=== PATIENT | female | born 1955 | race Caucasian/White ===

== ENCOUNTER → 2017-06-26 | Outpatient (CLI) | payer MEDICARE, BC ==
[2017-06-26 16:35] LABS: Basophils % (A) 1 %; Eosinophils # (A) 0.1 k/uL (0-0.7); Eosinophils % (A) 1 %; HCT 38.6 % (34.0-46.0); HGB 12.5 gm/dL (11.4-16.0); Lymphocytes # (A) 1.2 k/uL (1.0-4.8); Lymphocytes % (A) 22 %; MCH 29.5 pg (25.0-35.0); MCHC 32.3 g/dL (31.0-37.0); MCV 91.5 fL (80.0-100.0); Mean Platelet Volume 8.3; Monocytes # (A) 0.4 k/uL (0-1.0); Monocytes % (A) 8 %; Neutrophils # (A) 3.8 k/uL (1.3-7.7); Neutrophils % (A) 67 %; Platelet Count 169 k/uL (150-450); RBC 4.21 m/uL (3.80-5.40); RDW 13.4 % (11.5-15.5); WBC 5.6 k/uL (3.8-10.6)
[2017-06-26 16:47] LABS: Albumin 3.9 g/dL (3.5-5.0); Calcium 9.9 mg/dL (8.4-10.2); Partial Thromboplastin Time 24.8 sec (22.0-30.0); Potassium 3.9 mmol/L (3.5-5.1); Prothrombin Time 9.6 sec (9.0-12.0); Total Bilirubin 0.5 mg/dL (0.2-1.3); Total Protein 7.2 g/dL (6.3-8.2)
[2017-06-26 17:20] LABS: Erythrocyte Sedimentation Rate 25 mm/hr (0-20)
[2017-06-28 09:57] LABS: Lyme IgG/IgM 0.1 Index
== END | disposition home or self-care (01) ==
LOC: LABWHC1 15:37
PROVIDERS: ATTEND Psychiatry & Neurology Neurology
DX: G35 Multiple sclerosis (principal)
CPT/HCPCS: 36415; 80053; 85025; 85610; 85652; 85730; 86038; 86618

== ENCOUNTER → 2017-07-15 | Outpatient (CLI) | payer MEDICARE, BC ==
--- NOTE | 2017-07-15 14:00 | MR ---
EXAMINATION TYPE: MR brain/cspine wo/w DATE OF EXAM: 07/15/2017 COMPARISON: Prior MRI brain July 14, 2010 HISTORY: MS with weakness. TECHNIQUE: Multiplanar, multisequence images of the cervical spine, brain, and brainstem are all performed witho ut and with IV contrast, utilizing 5.5 mL intravenous Gadavist gadolinium contrast is administered in travenously. Demyelinating disease protocol with additional Sagittal Flair sequence performed of the brain and brainstem and PD sagittal sequence of cervical spine all acquired. FINDINGS: BRAIN: T2 Lesions Present : Yes Approximate Number of Lesions: Difficult to accurately count due to confluent periventricular appeara nce Locations Identified : Prominent periventricular involvement Size of Reference Lesion(s): 1. Rounded 3 x 3 x 4 mm lesion left frontal lobe axial image 22 and sagittal image 13 new from prior. Note is made of stable left cerebellar oval 7 mm lesion axial image 7 possible old lacunar infarct. Enhancing Lesion(s) Present: No T1 Hypointense Lesion(s) Present: Yes Change from Prior: Increase in bilateral diffuse prominence Diffusion weighted images demonstrate no evidence of a recent infarct or other diffusion abnormality. There is no worrisome extra-axial fluid collection. There is ventricular and sulcal prominence cons istent with diffuse cerebral atrophy. Some thinning of the corpus callosum is present. Midline structures demonstrate normal morphology. The craniocervical junction appears within normal limits. Post contrast images demonstrate no abnormal enhancement. The dural venous sinuses appear pa tent. The visualized sinuses are clear and the globes are intact. IMPRESSION: Fairly moderate diffuse cerebral atrophy progressed from prior. Fairly advanced nonspecif ic white matter changes could reflect combination of product of multiple sclerosis and/or chronic sma ll vessel ischemic change with progression from 2011 MRI. No enhancing lesions are evident. C-SPINE: FINDINGS: Sagittal images of the cervical spine show the craniocervical junction to appear within nor mal limits. The cervical and upper thoracic spinal cord is normal in course and caliber. There are diffuse central areas of vein increased T2 signal beginning inferior C2 level roughly inferior T1 lev el with relative sparing near superior T1 level on sagittal image 7 confirmed on PD sagittal sequence . Vertebral alignment is anatomic. The vertebral body and heights are normal. There is mild to moder ate multilevel disc space narrowing with posterior disc herniations effacing anterior thecal sac C4-C 5 through C6-C7 levels on sagittal images. Bone marrow signal intensity is abnormal heterogeneous dim inished areas of low T1 and slight increased T2 signal that show postcontrast enhancement. Osseous me tastatic disease is in differential. Follow-up is advised. Axial images at the C2-C3 level are felt within normal limits. Axial images at C3-C4 level show broad-based central disc protrusion mildly effacing anterior thecal sac and causing mild to moderate bilateral neural foraminal narrowing. Axial images at C4-C5 level show more prominent broad-based disc protrusion with left paracentral com ponent effacing anterior thecal sac and causing mild to moderate left greater than right neural rickie inal narrowing. Axial images at C5-C6 level show broad-based disc bulge with central disc protrusion component effaci ng anterior thecal sac and causing mild to moderate left and mild right-sided neural foraminal narrow ing. Axial images at C6-C7 level shows central disc protrusion effacing anterior thecal sac causing flatte basim of spinal cord ventral surface and causing [id number] left and mild right-sided neural for aminal narrowing. Axial images at C7-T1 level are felt within normal limits. IMPRESSION: Abnormal cervical spinal cord signal on sagittal images is confirmed on axial images coul d reflect product of demyelinating disease. Other etiologies not excluded. No suspicious enhancement is seen. There is multilevel degenerative changes cervical spine as detailed above most prominent at C4-C5 through C6-C7 levels. Suspicious abnormal bone marrow signal intensity with enhancement, osseou s metastatic disease is in differential. Advise whole body bone scan follow-up. Clinical correlation recommended.
== END | disposition home or self-care (01) ==
LOC: RADMRIMAIN 11:42
PROVIDERS: ATTEND Psychiatry & Neurology Neurology
DX: G31.9 Degenerative disease of nervous system, unspecified (principal); R90.89 Other abnormal findings on diagnostic imaging of central nervous system; M47.812 Spondylosis without myelopathy or radiculopathy, cervical region; R93.7 Abnormal findings on diagnostic imaging of other parts of musculoskeletal system; G35 Multiple sclerosis
CPT/HCPCS: 70553; 72156; A9581

== ENCOUNTER → 2017-07-16 | Outpatient (CLI) | payer MEDICARE, BC ==
--- NOTE | 2017-07-16 12:54 | MR ---
EXAMINATION TYPE: MR thoracic spine wo con DATE OF EXAM: 07/16/2017 COMPARISON: MRI cervical spine from yesterday HISTORY: MS with weakness. TECHNIQUE: Multiplanar, multisequence imaging of thoracic spine is attempted without contrast FINDINGS: There is extensive motion artifact, patient was unable to hold still for satisfactory diagn ostic examination. Exam had to be terminated before could be completed for diagnostic results. IMPRESSION: As above.
== END | disposition home or self-care (01) ==
LOC: RADMRIMAIN 11:54
PROVIDERS: ATTEND Psychiatry & Neurology Neurology
DX: G35 Multiple sclerosis (principal); Z53.8 Procedure and treatment not carried out for other reasons
CPT/HCPCS: 72146

== ENCOUNTER → 2017-08-09 | Outpatient (CLI) | payer MEDICARE, BC ==
--- NOTE | 2017-08-09 13:02 | CT ---
EXAMINATION TYPE: CT brain wo con DATE OF EXAM: 08/09/2017 COMPARISON: 07/12/2010 INDICATION: Patient poor historian. Patient complains of multiple recent falls. Patient has contusi on on left side of face extending from superior to the orbit and extending inferiorly to the angle of the mandible. Contusion extends medially and surrounds the entire left orbit. DLP: 782.6 mGycm, Automated exposure control for dose reduction was used. CONTRAST: None CT of the brain is performed utilizing 3 mm thick sections through the posterior fossa and 3 mm thick sections through the remaining calvarium. Study is performed within 24 hours of arrival to the hosp ital. No abnormal hyperdensity is present to suggest an acute intracranial hemorrhage. No mass lesion is evident. No acute infarcts are evident. There is periventricular white matter hypodensity, likely on the basis of chronic white matter ischemic changes. This appears slightly progressive from the comparison of 2 011. Ventricles and sulci are somewhat prominent for the patient age. Paranasal sinuses and mastoid air cells within the [id number] are clear. IMPRESSIONS: 1. No acute intracranial process. 2. Chronic appearing white matter ischemic changes and age-related atrophy.
--- NOTE | 2017-08-09 13:06 | CT ---
EXAMINATION TYPE: CT facial bones wo con DATE OF EXAM: 08/09/2017 HISTORY: Patient poor historian. Patient complains of multiple recent falls. Patient has contusion on left side of face extending from superior to the orbit and extending inferiorly to the angle of th e mandible. Contusion extends medially and surrounds the entire left orbit. CT DLP: 500.1 mGycm. Automated Exposure Control for Dose Reduction was Utilized. TECHNIQUE: CT scan of the head is performed without contrast. COMPARISON: CT brain of the same date. FINDINGS: There is a left periorbital soft tissue hematoma measuring1.1 cm in thickness with soft t issue contusion and inflammatory fat stranding contain to the left preseptal space extending from the left medial canthus over the zygomatic arch in anterior to posterior dimension from the level of ang le of the mandible to the left supraorbital frontal temporal region in craniocaudal dimension. There is no evidence of underlying orbital or zygomatic arch fracture. Temporal mandibular joints are symme tric and in place without dislocation. Numerous dental fillings create extensive spray artifact and l imit visualization of surrounding structures. Left-sided rosemarie bullosa is present. No acute fracture of the lamina papyracea are seen. Small osteoma is present within the left frontal sinus measuring 7 mm. Visualized portions of the brain are discussed in the CT brain dictation of the same date. There is rightward nasal septal deviation. Maxillary spine and visualized portion of the nasal bone appear intact. Rightward nasal septal spur is incidentally seen. Visualized portion of the cervical spine m aintains alignment. The globes are symmetric and lenses are in place. IMPRESSION: Left periorbital preseptal soft tissue swelling and hematoma measuring 1.1 cm in greatest thickness with left-sided facial contusion extending from the inferior maxilla to the left frontal t emporal supraorbital region. No evidence of underlying facial bone fracture, globe rupture or lens di slocation.
== END | disposition home or self-care (01) ==
LOC: RADCTMAIN 12:06
PROVIDERS: ATTEND Family Medicine
DX: I67.82 Cerebral ischemia (principal); G31.1 Senile degeneration of brain, not elsewhere classified; S05.12XA Contusion of eyeball and orbital tissues, left eye, initial encounter
CPT/HCPCS: 70450; 70486

== ENCOUNTER 2018-01-10 12:18 | Inpatient (IN) | payer MEDICARE, BC ==
[2018-01-10] MEDS ORDERED: SODIUM CHLORIDE 0.9% 1,000 ML IV STA ×2 (13:07)
--- NOTE | 2018-01-10 13:10 | ED ---
General Adult HPI - General Chief complaint: Recheck/Abnormal Lab/Rx Stated complaint: Allergic Reaction Time Seen by Provider: 01/10/18 13:02 Source: patient, family, RN notes reviewed, old records reviewed Mode of arrival: wheelchair Limitations: no limitations - History of Present Illness Initial comments: 62-year-old female presenting for evaluation of generalized weakness and dehydration. Patient has history of MS and some residual right-sided weakness and contracture. Over the past several days she has begun oral antibiotics for urinary tract infection. Initially put on nitrofurantoin, symptoms did not improve patient had an episode of nausea and vomiting. She was switched to Bactrim. She's had one dose of Bactrim yesterday but has been unable to tolerate anything orally since that time. She's had nausea with one episode of vomiting. Patient is accompanied by her who is able to give the majority the history. Patient does complain of some chronic leg pain and cramping which is typical for her. No other pain complaints. No abdominal pain. No chest pain or dyspnea. No history of fever or chills. - Related Data Home Medications Medication Instructions Recorded Confirmed Amantadine HCl [Symmetrel] 100 mg PO BID 12/17/13 01/10/18 Aspirin 81 mg PO DAILY 12/17/13 01/10/18 Lisinopril [Zestril] 10 mg PO DAILY 12/17/13 01/10/18 Rebif 40 mcg INJ MOWEFR 12/17/13 01/10/18 levETIRAcetam [Keppra] 500 mg PO Q12HR 12/17/13 01/10/18 tiZANidine [Zanaflex] 4 mg PO QID 12/17/13 01/10/18 Carvedilol [Coreg] 3.125 mg PO BID 01/10/18 01/10/18 Levothyroxine Sodium [Synthroid] 50 mcg PO DAILY 01/10/18 01/10/18 Mirabegron [Myrbetriq] 25 mg PO DAILY 01/10/18 01/10/18 Omeprazole 20 mg PO DAILY 01/10/18 01/10/18 Sulfamethox-Tmp 800-160Mg [Bactrim 1 tab PO Q12HR 01/10/18 01/10/18 DS 800-160 mg] Allergies Allergy/AdvReac Type Severity Reaction Status Date / Time nitrofurantoin AdvReac Nausea Verified 01/10/18 13:12 [From Macrobid] Review of Systems ROS Statement: Those systems with pertinent positive or pertinent negative responses have been documented in the HPI. ROS Other: All systems not noted in ROS Statement are negative. Past Medical History Additional Past Medical History / Comment(s): MS History of Any Multi-Drug Resistant Organisms: None Reported Past Surgical History: No Surgical Hx Reported Past Psychological History: No Psychological Hx Reported Smoking Status: Never smoker Past Alcohol Use History: None Reported Past Drug Use History: None Reported General Exam Limitations: no limitations General appearance: alert, cachectic Head exam: Present: atraumatic, normocephalic Eye exam: Present: normal appearance, PERRL ENT exam: Present: mucous membranes dry Respiratory exam: Present: normal lung sounds bilaterally. Absent: respiratory distress, wheezes Cardiovascular Exam: Present: regular rate, normal rhythm GI/Abdominal exam: Present: soft. Absent: distended, tenderness, guarding Extremities exam: Present: normal inspection. Absent: pedal edema Neurological exam: Present: alert, motor sensory deficit (Right upper extremity weakness and spasticity) Skin exam: Present: warm, dry, intact. Absent: cyanosis, diaphoretic Course Vital Signs 01/10/18 01/10/18 01/10/18 12:39 12:58 13:00 Temperature 97.5 F L Pulse Rate 77 Respiratory 18 16 16 Rate Blood Pressure 117/79 122/84 122/84 O2 Sat by Pulse 98 99 Oximetry 01/10/18 14:00 Temperature Pulse Rate 71 Respiratory 14 Rate Blood Pressure 130/86 O2 Sat by Pulse 100 Oximetry EKG Findings - EKG Comments: EKG Findings:: EKG: Normal sinus rhythm, LVH, nonspecific ST segment abnormality , prolonged QT at 510. Ventricular rate is 74, NC interval 146, QRS duration 92 , poor baseline secondary artifact, no ST segment elevation appreciated. Medical Decision Making - Medical Decision Making 62-year-old female presenting with dehydration and concern for UTI. Patient clinically does appear profoundly dehydrated. Vital signs are stable. Initial infectious workup is significant for UTI with white cells 18 and many bacteria in the urine. Additional laboratory studies reveal significant abnormalities, white blood cell count 27.3, hemoglobin 10.9 which is stable from previous of 9.7. Creatinine 3.75 which is new elevation for this patient as well as a BUN of 69. Lactic acid mildly elevated 2.8. There is mild elevation in bilirubin at 1.5 as well as elevation in AST and alkaline phosphatase, for this reason ultrasound was obtained of the right upper quadrant which shows concern for acute cholecystitis as well as possible dilatation of the CBD. Case is discussed with both general surgery and gastroenterology loss prevention and safety manager. Both will be placed on consult for evaluation. Patient will be kept on IV hydration and IV antibiotics. General surgery recommends clear liquid diet. Patient does have a troponin elevation of 0.084, this is in the context of kidney dysfunction. She has no complaints of chest pain. Given her likely surgical requirements, no anticoagulation will be initiated, I will hydrate the patient, and repeat the troponin. Diagnosis: Dehydration, acute kidney injury, leukocytosis, concern for acute cholecystitis. - Lab Data Result diagrams: 01/10/18 13:31 01/10/18 13:31 Lab Results 01/10/18 01/10/18 01/10/18 Range/Units 13:31 13:31 13:31 WBC 27.2 H (3.8-10.6) k/uL RBC 3.70 L (3.80-5.40) m/uL Hgb 10.9 L (11.4-16.0) gm/dL Hct 32.5 L (34.0-46.0) % MCV 88.0 (80.0-100.0) fL MCH 29.5 (25.0-35.0) pg MCHC 33.5 (31.0-37.0) g/dL RDW 14.5 (11.5-15.5) % Plt Count 147 L (150-450) k/uL Neutrophils % 96 % Lymphocytes % 1 % Monocytes % 2 % Eosinophils % 0 % Basophils % 0 % Neutrophils # 26.2 H (1.3-7.7) k/uL Lymphocytes # 0.3 L (1.0-4.8) k/uL Monocytes # 0.5 (0-1.0) k/uL Eosinophils # 0.0 (0-0.7) k/uL Basophils # 0.0 (0-0.2) k/uL PT (9.0-12.0) sec INR (<1.2) APTT (22.0-30.0) sec Sodium 141 (137-145) mmol/L Potassium 3.8 (3.5-5.1) mmol/L Chloride 104 (98-107) mmol/L Carbon Dioxide 22 (22-30) mmol/L Anion Gap 15 mmol/L BUN 69 H (7-17) mg/dL Creatinine 3.75 H (0.52-1.04) mg/dL Est GFR (CKD-EPI)AfAm 14 (>60 ml/min/1.73 sqM) Est GFR (CKD-EPI)NonAf 12 (>60 ml/min/1.73 sqM) Glucose 85 (74-99) mg/dL Plasma Lactic Acid José (0.7-2.0) mmol/L Calcium 8.2 L (8.4-10.2) mg/dL Magnesium 1.8 (1.6-2.3) mg/dL Total Bilirubin 1.5 H (0.2-1.3) mg/dL AST 87 H (14-36) U/L ALT 52 (9-52) U/L Alkaline Phosphatase 241 H (38-126) U/L Total Creatine Kinase 762 H (30-135) U/L CK-MB (CK-2) 10.6 H (0.0-2.4) ng/mL CK-MB (CK-2) Rel Index 1.4 Troponin I 0.084 H* (0.000-0.034) ng/mL Total Protein 6.6 (6.3-8.2) g/dL Albumin 2.9 L (3.5-5.0) g/dL Urine Color Urine Appearance (Clear) Urine pH (5.0-8.0) Ur Specific [place] (1.001-1.035) Urine Protein (Negative) Urine Glucose (UA) (Negative) Urine Ketones (Negative) Urine Blood (Negative) Urine Nitrite (Negative) Urine Bilirubin (Negative) Urine Urobilinogen (<2.0) mg/dL Ur Leukocyte Esterase (Negative) Urine WBC (0-5) /hpf Ur Squamous Epith Cells (0-4) /hpf Urine Bacteria (None) /hpf Urine Mucus (None) /hpf 01/10/18 01/10/18 01/10/18 Range/Units 13:31 13:31 13:31 WBC (3.8-10.6) k/uL RBC (3.80-5.40) m/uL Hgb (11.4-16.0) gm/dL Hct (34.0-46.0) % MCV (80.0-100.0) fL MCH (25.0-35.0) pg MCHC (31.0-37.0) g/dL RDW (11.5-15.5) % Plt Count (150-450) k/uL Neutrophils % % Lymphocytes % % Monocytes % % Eosinophils % % Basophils % % Neutrophils # (1.3-7.7) k/uL Lymphocytes # (1.0-4.8) k/uL Monocytes # (0-1.0) k/uL Eosinophils # (0-0.7) k/uL Basophils # (0-0.2) k/uL PT 10.5 (9.0-12.0) sec INR 1.1 (<1.2) APTT 23.3 (22.0-30.0) sec Sodium (137-145) mmol/L Potassium (3.5-5.1) mmol/L Chloride (98-107) mmol/L Carbon Dioxide (22-30) mmol/L Anion Gap mmol/L BUN (7-17) mg/dL Creatinine (0.52-1.04) mg/dL Est GFR (CKD-EPI)AfAm (>60 ml/min/1.73 sqM) Est GFR (CKD-EPI)NonAf (>60 ml/min/1.73 sqM) Glucose (74-99) mg/dL Plasma Lactic Acid José 2.8 H* (0.7-2.0) mmol/L Calcium (8.4-10.2) mg/dL Magnesium (1.6-2.3) mg/dL Total Bilirubin (0.2-1.3) mg/dL AST (14-36) U/L ALT (9-52) U/L Alkaline Phosphatase (38-126) U/L Total Creatine Kinase (30-135) U/L CK-MB (CK-2) (0.0-2.4) ng/mL CK-MB (CK-2) Rel Index Troponin I (0.000-0.034) ng/mL Total Protein (6.3-8.2) g/dL Albumin (3.5-5.0) g/dL Urine Color Yellow Urine Appearance Turbid H (Clear) Urine pH 7.5 (5.0-8.0) Ur Specific [place] 1.012 (1.001-1.035) Urine Protein 2+ H (Negative) Urine Glucose (UA) Negative (Negative) Urine Ketones Negative (Negative) Urine Blood Moderate H (Negative) Urine Nitrite Negative (Negative) Urine Bilirubin Negative (Negative) Urine Urobilinogen 2.0 (<2.0) mg/dL Ur Leukocyte Esterase Moderate H (Negative) Urine WBC 18 H (0-5) /hpf Ur Squamous Epith Cells 1 (0-4) /hpf Urine Bacteria Many H (None) /hpf Urine Mucus Occasional H (None) /hpf Critical Care Time Critical Care Time: Yes Total Critical Care Time: 35 Disposition Clinical Impression: Sepsis, Acute cholecystitis, Dehydration, Acute renal failure Disposition: ADMITTED IP TO THIS HOSP Condition: Stable Is patient prescribed a controlled substance at d/c from ED?: No Referrals: Mreedith Peoples DO [Primary Care Provider] - 1-2 days Decision to Admit Reason: Admit from EC Decision Date: 01/10/18 Decision Time: 16:40
[2018-01-10 13:58] LABS: Basophils % (A) 0 %; Eosinophils % (A) 0 %; HCT 32.5 % (34.0-46.0); HGB 10.9 gm/dL (11.4-16.0); Lymphocytes # (A) 0.3 k/uL (1.0-4.8); Lymphocytes % (A) 1 %; MCH 29.5 pg (25.0-35.0); MCHC 33.5 g/dL (31.0-37.0); Mean Platelet Volume 9.2; Monocytes # (A) 0.5 k/uL (0-1.0); Monocytes % (A) 2 %; Neutrophils # (A) 26.2 k/uL (1.3-7.7); Neutrophils % (A) 96 %; Platelet Count 147 k/uL (150-450); RDW 14.5 % (11.5-15.5); WBC 27.2 k/uL (3.8-10.6)
--- NOTE | 2018-01-10 14:06 | XR ---
EXAMINATION TYPE: XR chest 2V DATE OF EXAM: 01/10/2018 COMPARISON: 02/15/2011 INDICATION: Weakness possible allergic reaction nausea TECHNIQUE: Frontal and lateral views of the chest are obtained. FINDINGS: The heart size is normal. The pulmonary vasculature is normal. The lungs are clear. IMPRESSION: 1. No acute pulmonary process.
[2018-01-10 14:07] LABS: INR 1.1 (<1.2); Partial Thromboplastin Time 23.3 sec (22.0-30.0); Prothrombin Time 10.5 sec (9.0-12.0)
[2018-01-10 14:10] LABS: Albumin 2.9 g/dL (3.5-5.0); Calcium 8.2 mg/dL (8.4-10.2); Magnesium 1.8 mg/dL (1.6-2.3); Potassium 3.8 mmol/L (3.5-5.1); Total Bilirubin 1.5 mg/dL (0.2-1.3); Total Protein 6.6 g/dL (6.3-8.2)
[2018-01-10 14:15] LABS: Appearance,Urine Turbid (Clear); Bacteria,Urine Many /hpf; Bilirubin,Urine Negative (Negative); Blood,Urine Moderate (Negative); Color,Urine Yellow; Glucose,Urine (UA) Negative (Negative); Ketones,Urine Negative (Negative); Leukocyte Esterase,Urine Moderate (Negative); Mucus,Urine Occasional /hpf; Nitrite,Urine Negative (Negative); PH, Urine 7.5 (5.0-8.0); Protein,Urine 2+ (Negative); Specific Gravity,Urine 1.012 (1.001-1.035); Squamous Epithelial Cell,Urine 1 /hpf (0-4); WBC,Urine 18 /hpf (0-5)
[2018-01-10] MEDS ORDERED: cefTRIAXone 2,000 MG in SODIUM CHLORIDE 0.9% 100 ML IVPB STA (14:19)
[2018-01-10] MEDS ORDERED: SODIUM CHLORIDE 0.9% 500 ML 500 ML IV ONE (14:20)
[2018-01-10 14:33] LABS: Creatine Kinase MB 10.6 ng/mL (0.0-2.4)
[2018-01-10 14:46] LABS: Troponin I 0.084 ng/mL (0.000-0.034)
--- NOTE | 2018-01-10 16:23 | US ---
EXAMINATION TYPE: US gallbladder DATE OF EXAM: 01/10/2018 COMPARISON: NONE CLINICAL HISTORY: Pain. EXAM MEASUREMENTS: Liver Length: 16.0 cm Gallbladder Wall: 0.32 cm CBD: 0.4 cm Right Kidney: 11.7 x 6.1 x 4.0 cm Pancreas: No obvious pathology within the pancreas. There is a question of echogenic foci in blood v essel posterior to pancreas (see arrows), this could be related to thrombus. Alternatively, this coul d be a dilated common bile duct with internal duct stones. Liver: dilated biliary radicles, Gallbladder: Large in size, large 3cm stone, the wall is thickened at 0.362 cm. Normal is less than 0.3 cm. Evidence for sonographic Juan's sign: Yes CBD: wnl Right Kidney: upper pole simple appearing cyst = 2.0 x 1.8 x 1.4 cm IMPRESSION: 1. Cholelithiasis. 2. Gallbladder wall thickening with a positive Juan sign. Correlate for acute cholecystitis. 3. Suspicion for dilated common bile duct and intraduct calcifications.
[2018-01-10] MEDS ORDERED: PIPERACILLIN-TAZOBACTAM 3.375 GM in DEXTROSE/WATER 1 50ML.BAG IVPB STA (16:29)
[2018-01-10] MEDS ORDERED: NALOXONE 0.4 MG/ML 1 ML VIAL IV PRN (16:33)
[2018-01-10] MEDS ORDERED: ONDANSETRON 4 MG/2 ML VIAL IVP PRN (16:33)
[2018-01-10 19:09] LABS: Creatine Kinase MB 13.4 ng/mL (0.0-2.4)
[2018-01-10 19:11] LABS: Troponin I 0.079 ng/mL (0.000-0.034)
[2018-01-10] MEDS ORDERED: cloNIDine 0.1 MG/24HR PATCH TRANSDERM SCH (20:00)
[2018-01-10] MEDS: HYDROmorphone 1 MG/ML 1 ML SYRINGE IVP PRN (21:26)
[2018-01-10] MEDS: SODIUM CHLORIDE 0.45% 1,000 ML IV SCH ×2 (21:29→23:39)
[2018-01-10] MEDS: levETIRAcetam IV 500 MG in SODIUM CHLORIDE 0.9% 100 ML IVPB SCH (22:32)
--- NOTE | 2018-01-10 22:46 | P.HPIM ---
History of Present Illness H&P Date: 01/10/18 Chief Complaint: Altered mental status 62-year-old female with a known history of multiple sclerosis currently bedridden, hypertension, GERD, history of breast cancer status post lumpectomy and radiation, hypothyroidism and multiple other medical problems was brought to the hospital due to generalized weakness and dehydration. Patient has history of MS and some residual right-sided weakness and contracture. Over the past several days she has begun oral antibiotics for urinary tract infection. Initially put on nitrofurantoin, symptoms did not improve patient had an episode of nausea and vomiting. She was switched to Bactrim. She's had one dose of Bactrim yesterday but has been unable to tolerate anything orally since that time. She's had nausea with one episode of vomiting. Patient is accompanied by her who is able to give the majority the history. Patient does complain of some chronic leg pain and cramping which is typical for her. No other pain complaints. No abdominal pain. No chest pain or dyspnea. No history of fever or chills. Patient is also confused and altered for the last couple days. WBC 27.2 BUN 69 creatinine 3.75. Lactic acid 2.8 troponin 0.084. CPK 762 AST 87, alk phos 240, albumin 2.9 UA showed large leukocyte esterase, WBC 18 and moderate blood. Chest x-ray showed no acute cardio for process EKG normal sinus rhythm Ultrasound ABDOMEN showed cholelithiasis. Gallbladder wall thickening with positive Juan sign. Correlate for acute cholecystitis. Suspicion for dilated common bile duct intraductal calcifications Review of Systems Complete review of systems could not be obtained from the patient. Past Medical History Past Medical History: Cancer, GERD/Reflux, Hypertension, Seizure Disorder, Thyroid Disorder Additional Past Medical History / Comment(s): MS-, 2002 rt breast cancer had lumpectomy/radiation tx.sinus problems, diverticulosis, past colon polyps-benign History of Any Multi-Drug Resistant Organisms: None Reported Past Surgical History: Breast Surgery, Tubal Ligation Additional Past Surgical History / Comment(s): rt breast bx and lumpectomy/ radiaiton tx,colonoscopy/polyps removed Past Anesthesia/Blood Transfusion Reactions: No Reported Reaction Smoking Status: Former smoker - Past Family History Mother Family Medical History: CVA/TIA Father History Unknown: Yes Medications and Allergies Home Medications Medication Instructions Recorded Confirmed Type Amantadine HCl [Symmetrel] 100 mg PO BID 12/17/13 01/10/18 History Aspirin 81 mg PO DAILY 12/17/13 01/10/18 History Lisinopril [Zestril] 10 mg PO DAILY 12/17/13 01/10/18 History Rebif 40 mcg INJ MOWEFR 12/17/13 01/10/18 History levETIRAcetam [Keppra] 500 mg PO Q12HR 12/17/13 01/10/18 History tiZANidine [Zanaflex] 4 mg PO QID 12/17/13 01/10/18 History Carvedilol [Coreg] 3.125 mg PO BID 01/10/18 01/10/18 History Levothyroxine Sodium [Synthroid] 50 mcg PO DAILY 01/10/18 01/10/18 History Mirabegron [Myrbetriq] 25 mg PO DAILY 01/10/18 01/10/18 History Omeprazole 20 mg PO DAILY 01/10/18 01/10/18 History Sulfamethox-Tmp 800-160Mg [Bactrim 1 tab PO Q12HR 01/10/18 01/10/18 History DS 800-160 mg] Allergies Allergy/AdvReac Type Severity Reaction Status Date / Time nitrofurantoin AdvReac Nausea Verified 01/10/18 13:12 [From Macrobid] Physical Exam Vitals: Vital Signs Temp Pulse Resp BP Pulse Ox 01/10/18 19:17 85 18 154/105 96 01/10/18 18:00 71 17 173/97 01/10/18 16:00 71 12 152/98 99 01/10/18 14:00 71 14 130/86 100 01/10/18 13:00 16 122/84 99 01/10/18 12:58 16 122/84 01/10/18 12:39 97.5 F L 77 18 117/79 98 Intake and Output 01/10/18 01/10/18 01/10/18 06:59 14:59 22:59 Other: Weight 52.617 kg PHYSICAL EXAMINATION: Patient is lying in the bed comfortably, no acute distress, awake alert but not oriented.. HEENT: Normocephalic. Neck is supple. Pupils reactive. Nostrils clear. Oral cavity is moist. Ears reveal no drainage. Neck reveals no JVD, carotid bruits, or thyromegaly. CHEST EXAMINATION: Trachea is central. Symmetrical expansion. Lung castillo clear to auscultation and percussion. CARDIAC: Normal S1, S2 with no gallops. No murmurs ABDOMEN: Soft. Bowel sounds normal. No organomegaly. No abdominal bruits. Extremities: reveal no edema. No clubbing or cyanosis Neurologically awake, alert, oriented x1 . Right-sided weakness. Skin: No rash or skin lesions. Psychiatric: Coperative. Could not be assessed completely Musculoskeletal: No joint swelling or deformity. Results CBC & Chem 7: 01/10/18 13:31 01/10/18 13:31 Labs: Abnormal Lab Results - Last 24 Hours (Table) 01/10/18 01/10/18 01/10/18 Range/Units 13:31 13:31 13:31 WBC 27.2 H (3.8-10.6) k/uL RBC 3.70 L (3.80-5.40) m/uL Hgb 10.9 L (11.4-16.0) gm/dL Hct 32.5 L (34.0-46.0) % Plt Count 147 L (150-450) k/uL Neutrophils # 26.2 H (1.3-7.7) k/uL Lymphocytes # 0.3 L (1.0-4.8) k/uL BUN 69 H (7-17) mg/dL Creatinine 3.75 H (0.52-1.04) mg/dL Plasma Lactic Acid José (0.7-2.0) mmol/L Calcium 8.2 L (8.4-10.2) mg/dL Total Bilirubin 1.5 H (0.2-1.3) mg/dL AST 87 H (14-36) U/L Alkaline Phosphatase 241 H (38-126) U/L Total Creatine Kinase 762 H (30-135) U/L CK-MB (CK-2) 10.6 H (0.0-2.4) ng/mL Troponin I 0.084 H* (0.000-0.034) ng/mL Albumin 2.9 L (3.5-5.0) g/dL Urine Appearance (Clear) Urine Protein (Negative) Urine Blood (Negative) Ur Leukocyte Esterase (Negative) Urine WBC (0-5) /hpf Urine Bacteria (None) /hpf Urine Mucus (None) /hpf 01/10/18 01/10/18 01/10/18 Range/Units 13:31 13:31 18:16 WBC (3.8-10.6) k/uL RBC (3.80-5.40) m/uL Hgb (11.4-16.0) gm/dL Hct (34.0-46.0) % Plt Count (150-450) k/uL Neutrophils # (1.3-7.7) k/uL Lymphocytes # (1.0-4.8) k/uL BUN (7-17) mg/dL Creatinine (0.52-1.04) mg/dL Plasma Lactic Acid José 2.8 H* (0.7-2.0) mmol/L Calcium (8.4-10.2) mg/dL Total Bilirubin (0.2-1.3) mg/dL AST (14-36) U/L Alkaline Phosphatase (38-126) U/L Total Creatine Kinase 952 H (30-135) U/L CK-MB (CK-2) 13.4 H (0.0-2.4) ng/mL Troponin I 0.079 H* (0.000-0.034) ng/mL Albumin (3.5-5.0) g/dL Urine Appearance Turbid H (Clear) Urine Protein 2+ H (Negative) Urine Blood Moderate H (Negative) Ur Leukocyte Esterase Moderate H (Negative) Urine WBC 18 H (0-5) /hpf Urine Bacteria Many H (None) /hpf Urine Mucus Occasional H (None) /hpf Thrombosis Risk Factor Assmnt - DVT/VTE Prophylaxis DVT/VTE Prophylaxis: Pharmacologic Prophylaxis ordered Assessment and Plan Assessment: Severe Sepsis secondary to acute urinary tract infection. Failed outpatient antibiotic therapy. Lactic acidosis Elevated troponin level possible demand ischemia Acute kidney injury. Possible ATN creatinine level 3.75 Elevated alk phos and AST with dilated common bile duct and acute cholecystitis as per ultrasound of abdomen. Altered mental status possible metabolic encephalopathy Uncontrolled hypertension rhabdomyolysis History of MS and residual right-sided weakness and contractures History of right breast cancer in 2003 status post lumpectomy and radiation Seizure disorder. Hypothyroidism Diverticulosis and past colon polyps benign Previous history of smoking Mild to moderate protein calorie malnutrition with albumin level II.9 DVT prophylaxis Plan: Patient will be continued on IV hydration in the form of half-normal saline. Follow up renal function. Continue with antibiotics in the form of Zosyn and urine cultures were sent. We will consult general surgery for evaluation of acute cholecystitis. Continue with home medications. Patient failed swallow evaluation. Keppra will be changed to IV and Catapres patch was applied for uncontrolled hypertension. Discussed with the family at bedside in detail. Prognosis is guarded with multiple medical problems and comorbid conditions. Time with Patient: Greater than 30
[2018-01-10] MEDS: PIPERACILLIN-TAZOBACTAM 3.375 GM in DEXTROSE/WATER 1 50ML.BAG IVPB SCH (23:37)
[2018-01-10] MEDS: HEPARIN SODIUM,PORCINE 5,000 UNIT/ML 1 ML VIAL SQ SCH (23:39)
[2018-01-11 02:40] LABS: Troponin I 0.086 ng/mL (0.000-0.034)
[2018-01-11 07:42] LABS: Albumin 2.4 g/dL (3.5-5.0); Calcium 7.1 mg/dL (8.4-10.2); Magnesium 1.7 mg/dL (1.6-2.3); Total Bilirubin 1.4 mg/dL (0.2-1.3); Total Protein 5.6 g/dL (6.3-8.2)
[2018-01-11 07:43] LABS: Basophils % (A) 0 %; Eosinophils % (A) 0 %; HCT 29.7 % (34.0-46.0); HGB 9.9 gm/dL (11.4-16.0); Hypochromasia Slight; Lymphocytes # (A) 0.3 k/uL (1.0-4.8); Lymphocytes % (A) 2 %; MCH 29.6 pg (25.0-35.0); MCHC 33.2 g/dL (31.0-37.0); MCV 89.2 fL (80.0-100.0); Monocytes # (A) 0.4 k/uL (0-1.0); Monocytes % (A) 2 %; Neutrophils # (A) 15.8 k/uL (1.3-7.7); Neutrophils % (A) 94 %; RBC 3.33 m/uL (3.80-5.40); RDW 14.7 % (11.5-15.5); WBC 16.7 k/uL (3.8-10.6)
[2018-01-11] MEDS: HEPARIN SODIUM,PORCINE 5,000 UNIT/ML 1 ML VIAL SQ SCH ×2 (08:44→17:20)
[2018-01-11 08:51] LABS: Platelet Count 81 k/uL (150-450)
[2018-01-11] MEDS: levETIRAcetam IV 500 MG in SODIUM CHLORIDE 0.9% 100 ML IVPB SCH ×2 (09:34→21:52)
--- NOTE | 2018-01-11 09:48 | P.GSCN ---
History of Present Illness Consult date: 01/11/18 Reason for Consult: Abdominal pain History of present illness: Is a 62-year-old female who was admitted through the emergency room. Patient had complaints of some abdominal pain and dehydration. Patient workup found have evidence of a chronic cholecystitis with cholelithiasis and thickened gallbladder wall. Past Medical History Past Medical History: Cancer, GERD/Reflux, Hypertension, Seizure Disorder, Thyroid Disorder Additional Past Medical History / Comment(s): MS-, 2002 rt breast cancer had lumpectomy/radiation tx.sinus problems, diverticulosis, past colon polyps-benign History of Any Multi-Drug Resistant Organisms: None Reported Past Surgical History: Breast Surgery, Tubal Ligation Additional Past Surgical History / Comment(s): rt breast bx and lumpectomy/ radiaiton tx,colonoscopy/polyps removed Past Anesthesia/Blood Transfusion Reactions: No Reported Reaction Smoking Status: Former smoker - Past Family History Mother Family Medical History: CVA/TIA Father History Unknown: Yes Medications and Allergies Home Medications Medication Instructions Recorded Confirmed Type Amantadine HCl [Symmetrel] 100 mg PO BID 12/17/13 01/10/18 History Aspirin 81 mg PO DAILY 12/17/13 01/10/18 History Lisinopril [Zestril] 10 mg PO DAILY 12/17/13 01/10/18 History Rebif 40 mcg INJ MOWEFR 12/17/13 01/10/18 History levETIRAcetam [Keppra] 500 mg PO Q12HR 12/17/13 01/10/18 History tiZANidine [Zanaflex] 4 mg PO QID 12/17/13 01/10/18 History Carvedilol [Coreg] 3.125 mg PO BID 01/10/18 01/10/18 History Levothyroxine Sodium [Synthroid] 50 mcg PO DAILY 01/10/18 01/10/18 History Mirabegron [Myrbetriq] 25 mg PO DAILY 01/10/18 01/10/18 History Omeprazole 20 mg PO DAILY 01/10/18 01/10/18 History Sulfamethox-Tmp 800-160Mg [Bactrim 1 tab PO Q12HR 01/10/18 01/10/18 History DS 800-160 mg] Allergies Allergy/AdvReac Type Severity Reaction Status Date / Time nitrofurantoin AdvReac Nausea Verified 01/10/18 13:12 [From Macrobid] Surgical - Exam Vital Signs Temp Pulse Resp BP Pulse Ox 97.5 F L 77 18 117/79 98 01/10/18 12:39 01/10/18 12:39 01/10/18 12:39 01/10/18 12:39 01/10/18 12:39 - General well developed, no distress - Eyes PERRL - ENT normal pinna - Neck no masses - Respiratory normal expansion - Cardiovascular Rhythm: regular - Abdomen Mild right quadrant pain Abdomen: soft Results - Labs 01/11/18 06:11 01/11/18 06:11 Abnormal Lab Results - Last 24 Hours (Table) 01/10/18 01/10/18 01/10/18 Range/Units 13:31 13:31 13:31 WBC 27.2 H (3.8-10.6) k/uL RBC 3.70 L (3.80-5.40) m/uL Hgb 10.9 L (11.4-16.0) gm/dL Hct 32.5 L (34.0-46.0) % Plt Count 147 L (150-450) k/uL Neutrophils # 26.2 H (1.3-7.7) k/uL Lymphocytes # 0.3 L (1.0-4.8) k/uL Potassium (3.5-5.1) mmol/L Chloride (98-107) mmol/L Carbon Dioxide (22-30) mmol/L BUN 69 H (7-17) mg/dL Creatinine 3.75 H (0.52-1.04) mg/dL Plasma Lactic Acid José (0.7-2.0) mmol/L Calcium 8.2 L (8.4-10.2) mg/dL Total Bilirubin 1.5 H (0.2-1.3) mg/dL AST 87 H (14-36) U/L Alkaline Phosphatase 241 H (38-126) U/L Total Creatine Kinase 762 H (30-135) U/L CK-MB (CK-2) 10.6 H (0.0-2.4) ng/mL Troponin I 0.084 H* (0.000-0.034) ng/mL Total Protein (6.3-8.2) g/dL Albumin 2.9 L (3.5-5.0) g/dL Urine Appearance (Clear) Urine Protein (Negative) Urine Blood (Negative) Ur Leukocyte Esterase (Negative) Urine WBC (0-5) /hpf Urine Bacteria (None) /hpf Urine Mucus (None) /hpf 01/10/18 01/10/18 01/10/18 Range/Units 13:31 13:31 18:16 WBC (3.8-10.6) k/uL RBC (3.80-5.40) m/uL Hgb (11.4-16.0) gm/dL Hct (34.0-46.0) % Plt Count (150-450) k/uL Neutrophils # (1.3-7.7) k/uL Lymphocytes # (1.0-4.8) k/uL Potassium (3.5-5.1) mmol/L Chloride (98-107) mmol/L Carbon Dioxide (22-30) mmol/L BUN (7-17) mg/dL Creatinine (0.52-1.04) mg/dL Plasma Lactic Acid José 2.8 H* (0.7-2.0) mmol/L Calcium (8.4-10.2) mg/dL Total Bilirubin (0.2-1.3) mg/dL AST (14-36) U/L Alkaline Phosphatase (38-126) U/L Total Creatine Kinase 952 H (30-135) U/L CK-MB (CK-2) 13.4 H (0.0-2.4) ng/mL Troponin I 0.079 H* (0.000-0.034) ng/mL Total Protein (6.3-8.2) g/dL Albumin (3.5-5.0) g/dL Urine Appearance Turbid H (Clear) Urine Protein 2+ H (Negative) Urine Blood Moderate H (Negative) Ur Leukocyte Esterase Moderate H (Negative) Urine WBC 18 H (0-5) /hpf Urine Bacteria Many H (None) /hpf Urine Mucus Occasional H (None) /hpf 01/11/18 01/11/18 01/11/18 Range/Units 01:25 06:11 06:11 WBC 16.7 H (3.8-10.6) k/uL RBC 3.33 L (3.80-5.40) m/uL Hgb 9.9 L (11.4-16.0) gm/dL Hct 29.7 L (34.0-46.0) % Plt Count 81 L (150-450) k/uL Neutrophils # 15.8 H (1.3-7.7) k/uL Lymphocytes # 0.3 L (1.0-4.8) k/uL Potassium 3.0 L (3.5-5.1) mmol/L Chloride 113 H (98-107) mmol/L Carbon Dioxide 17 L (22-30) mmol/L BUN 64 H (7-17) mg/dL Creatinine 3.03 H (0.52-1.04) mg/dL Plasma Lactic Acid José (0.7-2.0) mmol/L Calcium 7.1 L (8.4-10.2) mg/dL Total Bilirubin 1.4 H (0.2-1.3) mg/dL AST 77 H (14-36) U/L Alkaline Phosphatase 168 H (38-126) U/L Total Creatine Kinase 1070 H* (30-135) U/L CK-MB (CK-2) 14.0 H (0.0-2.4) ng/mL Troponin I 0.086 H* (0.000-0.034) ng/mL Total Protein 5.6 L (6.3-8.2) g/dL Albumin 2.4 L (3.5-5.0) g/dL Urine Appearance (Clear) Urine Protein (Negative) Urine Blood (Negative) Ur Leukocyte Esterase (Negative) Urine WBC (0-5) /hpf Urine Bacteria (None) /hpf Urine Mucus (None) /hpf Microbiology - Last 24 Hours (Table) 01/10/18 13:31 Blood Culture Gram Stain - Preliminary Blood 01/10/18 13:31 Blood Culture - Final Blood 01/10/18 13:31 Urine Culture - Preliminary Urine,Catheterized Diabetes panel 01/10/18 01/11/18 Range/Units 13:31 06:11 Sodium 141 144 (137-145) mmol/L Potassium 3.8 3.0 L (3.5-5.1) mmol/L Chloride 104 113 H (98-107) mmol/L Carbon Dioxide 22 17 L (22-30) mmol/L BUN 69 H 64 H (7-17) mg/dL Creatinine 3.75 H 3.03 H (0.52-1.04) mg/dL Glucose 85 78 (74-99) mg/dL Calcium 8.2 L 7.1 L (8.4-10.2) mg/dL AST 87 H 77 H (14-36) U/L ALT 52 47 (9-52) U/L Alkaline Phosphatase 241 H 168 H (38-126) U/L Total Protein 6.6 5.6 L (6.3-8.2) g/dL Albumin 2.9 L 2.4 L (3.5-5.0) g/dL Calcium panel 01/10/18 01/11/18 Range/Units 13:31 06:11 Calcium 8.2 L 7.1 L (8.4-10.2) mg/dL Albumin 2.9 L 2.4 L (3.5-5.0) g/dL Pituitary panel 01/10/18 01/11/18 Range/Units 13:31 06:11 Sodium 141 144 (137-145) mmol/L Potassium 3.8 3.0 L (3.5-5.1) mmol/L Chloride 104 113 H (98-107) mmol/L Carbon Dioxide 22 17 L (22-30) mmol/L BUN 69 H 64 H (7-17) mg/dL Creatinine 3.75 H 3.03 H (0.52-1.04) mg/dL Glucose 85 78 (74-99) mg/dL Calcium 8.2 L 7.1 L (8.4-10.2) mg/dL Adrenal panel 01/10/18 01/11/18 Range/Units 13:31 06:11 Sodium 141 144 (137-145) mmol/L Potassium 3.8 3.0 L (3.5-5.1) mmol/L Chloride 104 113 H (98-107) mmol/L Carbon Dioxide 22 17 L (22-30) mmol/L BUN 69 H 64 H (7-17) mg/dL Creatinine 3.75 H 3.03 H (0.52-1.04) mg/dL Glucose 85 78 (74-99) mg/dL Calcium 8.2 L 7.1 L (8.4-10.2) mg/dL Total Bilirubin 1.5 H 1.4 H (0.2-1.3) mg/dL AST 87 H 77 H (14-36) U/L ALT 52 47 (9-52) U/L Alkaline Phosphatase 241 H 168 H (38-126) U/L Total Protein 6.6 5.6 L (6.3-8.2) g/dL Albumin 2.9 L 2.4 L (3.5-5.0) g/dL - Imaging US - abdomen: report reviewed (Cholelithiasis, thickened all other wall) Assessment and Plan Assessment: Dehydration Chronic cholecystitis with cholelithiasis. Patient will be scheduled for laparoscopic ostectomy on Saturday
[2018-01-11] MEDS: PIPERACILLIN-TAZOBACTAM 3.375 GM in DEXTROSE/WATER 1 50ML.BAG IVPB SCH ×2 (09:53→22:36)
[2018-01-11] MEDS ORDERED: Potassium Replacement Protocol 1 EACH MISC MISCELLANE PRN (11:38)
[2018-01-11] MEDS: SODIUM CHLORIDE 0.45% 1,000 ML IV SCH (11:41)
[2018-01-11 12:25] LABS: Glucose,Whole Blood 79 mg/dL (75-99)
--- NOTE | 2018-01-11 12:41 | CONS ---
CONSULTATION DATE OF DICTATION: 01/11/2018 REASON FOR CONSULTATION: Elevated LFTs. Rule out CBD stone. HISTORY OF PRESENT ILLNESS: The patient is a 62-year-old pleasant white female with a history of multiple sclerosis who is bedridden and history of hypertension and breast cancer in the past. She was admitted to the hospital because of generalized weakness, decreased oral intake and dehydration. Apparently her takes care of her, and he provided most of the history, but no family is at the bedside this morning. She was diagnosed with urinary tract infection, was treated with oral antibiotics on an outpatient basis. She started complaining of some nausea and vomiting and hence her medications were switched to Bactrim a couple of days ago. She was still not able to tolerate, and because of the persistent nausea and vomiting, she was brought into the emergency room by her and subsequently admitted to the hospital for further evaluation. Since the time of admission to the hospital, she was noted to have leukocytosis and also mild elevation of ALT and AST with alkaline phosphatase of 240. She had an ultrasound of the abdomen done in the emergency room that showed evidence of gallstones, gallbladder wall thickening and positive dilated CBD with intraductal calcifications; rule out CBD stones, and hence we are consulted in regards to this issue. The patient, however, denies any abdominal pain. She reports no further episodes of nausea or vomiting. PAST MEDICAL HISTORY: Significant for: 1. Multiple sclerosis. 2. Hypertension. 3. Gastroesophageal reflux disease. 4. Hypothyroidism. PAST SURGICAL HISTORY: 1. Breast cancer, for which she had lumpectomy. 2. Tubal ligation. 3. History of colonoscopy in the past. MEDICATIONS: Medications at home include: 1. Keppra. 2. Coreg. 3. Synthroid. 4. Myrbetriq. 5. Omeprazole. 6. Bactrim. ALLERGIES: MACROBID. FAMILY HISTORY: Mother had CVA. Father had congestive heart failure. REVIEW OF SYSTEMS: CARDIOPULMONARY: She denies any chest pain or shortness of breath. GENITOURINARY: No dysuria or hematuria. MUSCULOSKELETAL: Unremarkable. SKIN: Unremarkable. ENDOCRINE: Unremarkable. PSYCHIATRIC: Unremarkable. NEUROLOGY: Weakness of the lower extremities MS and bedridden. ENT/VISION: Unremarkable. CONSTITUTIONAL: No recent weight loss. No fever, chills, night sweats. GI: As mentioned above. PHYSICAL EXAMINATION: She appears comfortable. No apparent distress. Vital signs are stable. Blood pressure is 155/91, pulse rate 74, temperature 98.6. HEENT examination unremarkable. Conjunctivae pink. Sclerae anicteric. Oral cavity no lesions. NECK: No JVD or lymph node enlargement. Chest was clear to auscultation. HEART: Regular rate and rhythm. ABDOMEN: Soft. It was nontender, nondistended. Bowel sounds are positive. No organomegaly. EXTREMITIES: No pedal edema. Neuro was not assessed. LABS: Labs done at the time of admission to the hospital: WBC 27.2, hemoglobin 10.9, platelets 147. AST and ALT are 87 and 52, respectively. Total bilirubin 1.5. Alkaline phosphatase 241. This morning total bilirubin is down to 1.4. AST and ALT are 77 and 47, respectively. Alkaline phosphatase 168. Amylase and lipase are normal. Ultrasound of the gallbladder done in the emergency room yesterday showed evidence of gallstones, gallbladder wall thickening and suspicious for CBD ductal dilation with possible intraductal calcifications; rule out CBD stones. IMPRESSION: This is a lady who presented to the hospital with a couple of episodes of nausea and vomiting following recent antibiotic use for urinary tract infection. Since being in the hospital, her symptoms have resolved. She denies any associated abdominal pain. Ultrasound of the abdomen done in the emergency room did show evidence of gallstones as well as biliary ductal dilation with possible CBD stones. Her serum transaminases are minimally elevated, and so is the alkaline phosphatase. RECOMMENDATIONS: Since it is unclear whether we are dealing with choledocholithiasis or not at the present time, I will schedule her for an MRCP to investigate this further. Based on that we will decide if she needs any further endoscopic intervention. In the meantime, continue with current management. We will follow her closely during her hospital stay. Thank you for this consultation. MMODL / IJN: [id number] /
[2018-01-11] MEDS: POTASSIUM CHLORIDE 10 MEQ in WATER FOR INJECTION 1 100ML.BAG IVPB SCH ×5 (13:06→20:40)
--- NOTE | 2018-01-11 16:25 | MR ---
EXAMINATION TYPE: MR MRCP DATE OF EXAM: 01/11/2018 COMPARISON: None HISTORY: Dilated CBD, poss stones Standard multiplanar, multisequence MRI departmental protocol Multiplanar, multisequence images of the abdomen were acquired. FINDINGS: There is 18 mm rounded low signal mass within the gallbladder consistent with a large gall stone. Gallbladder wall appears slightly thickened. Gallbladder wall measures 4 mm. This probably tin y amount of pericholecystic fluid. The pancreatic duct is not dilated. Common bile duct is 4 to 5 mm. The intrahepatic bile ducts are not dilated. Liver shows no discrete mass. Spleen appears normal. Th ere is no evidence of pancreatic mass. There is no adrenal mass. There is prominent left and right extrarenal pelvis of the kidneys. I see n o definite hydronephrosis. There is small bilateral pleural effusion. There are small cortical cysts on both kidneys. IMPRESSION: No dilated ducts. Large gallstone. Mild gallbladder wall thickening suspicious for some degree of cho lecystitis. Small pleural effusions.
[2018-01-11 17:16] LABS: Glucose,Whole Blood 62 mg/dL (75-99)
[2018-01-11 17:42] LABS: Glucose,Whole Blood 80 mg/dL (75-99)
[2018-01-11] MEDS: LISINOPRIL 10 MG TAB PO SCH (23:07)
[2018-01-11] MEDS: CARVEDILOL 6.25 MG TAB PO SCH (23:07)
[2018-01-12] MEDS ORDERED: hydrALAZINE HCL 20 MG/ML 1 ML VIAL ONE (00:13)
[2018-01-12] MEDS: hydrALAZINE HCL 20 MG/ML 1 ML VIAL IVP PRN ×4 (00:14→21:14)
[2018-01-12] MEDS: HYDROmorphone 1 MG/ML 1 ML SYRINGE IVP PRN ×3 (00:19→22:07)
[2018-01-12 00:24] LABS: Glucose,Whole Blood 130 mg/dL (75-99)
[2018-01-12] MEDS: SODIUM CHLORIDE 0.45% 1,000 ML IV SCH (03:21)
[2018-01-12 05:55] LABS: Glucose,Whole Blood 124 mg/dL (75-99)
[2018-01-12] MEDS: LEVOTHYROXINE 50 MCG TAB PO SCH (06:01)
[2018-01-12] MEDS ORDERED: hydrALAZINE HCL 20 MG/ML 1 ML VIAL IVP PRN (06:19)
[2018-01-12 06:40] LABS: Basophils % (A) 0 %; Eosinophils % (A) 0 %; HCT 29.5 % (34.0-46.0); HGB 9.6 gm/dL (11.4-16.0); Hypochromasia Slight; Lymphocytes # (A) 0.7 k/uL (1.0-4.8); Lymphocytes % (A) 6 %; MCH 28.5 pg (25.0-35.0); MCHC 32.4 g/dL (31.0-37.0); MCV 88.1 fL (80.0-100.0); Mean Platelet Volume 9.2; Monocytes # (A) 0.2 k/uL (0-1.0); Monocytes % (A) 2 %; Neutrophils # (A) 9.7 k/uL (1.3-7.7); Neutrophils % (A) 90 %; Poikilocytosis Slight; RBC 3.35 m/uL (3.80-5.40); RDW 14.9 % (11.5-15.5); WBC 10.8 k/uL (3.8-10.6)
[2018-01-12 06:48] LABS: Platelet Count 36 k/uL (150-450)
[2018-01-12 06:57] LABS: Calcium 7.8 mg/dL (8.4-10.2); Potassium 3.1 mmol/L (3.5-5.1)
[2018-01-12] MEDS ORDERED: FUROSEMIDE 10 MG/ML 2 ML VIAL IV STA (07:06)
[2018-01-12] MEDS ORDERED: Potassium Replacement Protocol 1 EACH MISC MISCELLANE PRN (07:07)
[2018-01-12] MEDS ORDERED: FUROSEMIDE 10 MG/ML 2 ML VIAL IV ONE (07:10)
[2018-01-12] MEDS: POTASSIUM CHLORIDE 10 MEQ in WATER FOR INJECTION 1 100ML.BAG IVPB SCH ×4 (07:30→13:26)
[2018-01-12] MEDS: levETIRAcetam IV 500 MG in SODIUM CHLORIDE 0.9% 100 ML IVPB SCH ×2 (08:48→21:22)
[2018-01-12] MEDS ORDERED: ASPIRIN 81 MG PO SCH (09:00)
[2018-01-12] MEDS ORDERED: levETIRAcetam 500 MG TAB PO SCH (09:00)
--- NOTE | 2018-01-12 10:03 | P.PN ---
Progress Note - Text Progress Note Date: 01/12/18 The patient is resting comfortably in her bed. She denies a significant abdominal pain. On exam her vital signs are stable her abdomen soft. Per the nursing staff the family has not consented for laparoscopically second unit. She will have her labs redrawn a.m. There is no family currently at the bedside. I will talk to them tomorrow.
[2018-01-12] MEDS: CARVEDILOL 6.25 MG TAB PO SCH ×2 (10:46→21:22)
[2018-01-12] MEDS: LISINOPRIL 10 MG TAB PO SCH (10:47)
[2018-01-12] MEDS: Mirabegron [Myrbetriq] 25 MG PO SCH (10:49)
[2018-01-12] MEDS: AMANTADINE HCL 100 MG CAP PO SCH (10:54)
[2018-01-12] MEDS: PANTOPRAZOLE 40 MG TABLET PO SCH (10:55)
[2018-01-12] MEDS ORDERED: LABETALOL 5 MG/ML VIAL MDV IVP STA ×2 (12:04→16:42)
[2018-01-12 12:20] LABS: Glucose,Whole Blood 122 mg/dL (75-99)
--- NOTE | 2018-01-12 12:45 | CT ---
EXAMINATION TYPE: CT brain wo con DATE OF EXAM: 01/12/2018 COMPARISON: Previous study dated 08/09/2017 HISTORY: Dehydration, Acute kidney injury, Elevated BP CT DLP: 976.2 mGycm Automated exposure control for dose reduction was used. FINDINGS: There are generalized changes of sulcal prominence and ventriculomegaly compatible with atrophic dejesus ge. There is diffuse periventricular white matter lucency, compatible with chronic white matter ische ramiro change. There is no acute focal lesion, mass effect or midline shift identified. I do not see danita dence of intracranial blood. Visualized portions of the paranasal sinuses and mastoids are clear. The bony calvarium is intact. IMPRESSION: 1. NO ACUTE INTRACRANIAL ABNORMALITY. 2. DEGENERATIVE CHANGE.
--- NOTE | 2018-01-12 13:06 | PN ---
PROGRESS NOTE Patient is a 62-year-old pleasant white female with history of multiple sclerosis, who was admitted to the hospital because of nausea, vomiting, not feeling well for the last few days duration. She was recently diagnosed with urinary tract infection and antibiotics were changed because of the side effects. However, the symptoms progressively got worse, she came into the emergency room. Initially had an ultrasound of the abdomen that showed gallstones and possible biliary ductal dilation with CBD stones. She was also noted to have mild elevation of serum transaminases and hence, we were consulted yesterday. She was scheduled for an MRCP to evaluate for choledocholithiasis. MRCP was performed yesterday which revealed normal-appearing biliary system with no evidence of CBD stones. The patient this morning is doing well. She reports no symptoms. PHYSICAL EXAMINATION: She appears comfortable. No apparent distress. Vital signs are stable. Blood pressure 148/93, pulse rate 79, temperature 97.7. HEENT examination unremarkable. Conjunctivae pink. Sclerae anicteric. Oral cavity, no lesions. NECK: No JVD or lymph node enlargement. Chest was clear to auscultation. HEART: Regular rate and rhythm. Abdomen is soft, nontender, nondistended. Bowel sounds are positive. No organomegaly. EXTREMITIES: No pedal edema. SKIN: No rashes. LABS: Done today: WBC 10.8, hemoglobin 9.6, platelets are 36,000. The basic metabolic panel showed a BUN 60, creatinine 2.01. IMPRESSION: 1. Symptomatic gallstones. 2. Mild elevation of serum transaminases but MRCP done yesterday did not show any evidence of biliary ductal dilation or common bile duct stones. 3. History of multiple sclerosis. RECOMMENDATIONS: I discussed with the patient the MRCP findings. At this time no indication for any endoscopy intervention. The patient is scheduled for laparoscopic cholecystectomy by Dr. Miranda tomorrow. Thank you for this consultation. MMODL / IJN: [id number] /
[2018-01-12] MEDS: PIPERACILLIN-TAZOBACTAM 3.375 GM in DEXTROSE/WATER 1 50ML.BAG IVPB SCH (13:25)
--- NOTE | 2018-01-12 13:26 | P.CRDCN ---
History of Present Illness History of present illness: Mrs. Tiwari is seen and examined laying flat in bed. Past medical history significant for multiple sclerosis, hypertension, hypothyroidism and history of seizures. There is no known history of coronary artery disease and does not appear that she follows with a smeller for any reason. We have been asked to see her in consultation secondary to elevated troponins. She presents to the [facility] with family complaints of increased weakness, nausea and vomiting. Ultrasound of the gallbladder was obtained and reveals cholelithiasis , suspicion for dilated common bile duct and gallbladder wall thickening. She is scheduled for removal of the gallbladder tomorrow. At the time of exam she is resting comfortably in bed in no acute distress but confused. She denies all complaints and is unsure why she is at the hospital. Blood pressures have been elevated overnight 197/117, 202/112. Stat CT was obtained of her brain is negative for an acute intracranial process. EKG reveals sinus mechanism with no acute ST or T wave abnormalities noted. Chest x-ray negative for an acute cardiopulmonary process. Laboratory data reviewed, WBC 10.8 down from 27.2 on admission, hemoglobin 9.6, platelets 36, down from 147 on admission sodium 142, potassium 3.1, creatinine 2.01 down from 3.75 on admission, lactic acid elevated 2.8 on admission down to 1.5, troponin 0.084, 0.079, 0.086, CK 1070. Current cardiac medications include lisinopril 10 mg daily, carvedilol 3.125 mg twice a day and aspirin 81 mg daily. Review of Systems ROS unobtainable: due to mental status Past Medical History Past Medical History: Cancer, GERD/Reflux, Hypertension, Seizure Disorder, Thyroid Disorder Additional Past Medical History / Comment(s): MS-, 2002 rt breast cancer had lumpectomy/radiation tx.sinus problems, diverticulosis, past colon polyps-benign History of Any Multi-Drug Resistant Organisms: None Reported Past Surgical History: Breast Surgery, Tubal Ligation Additional Past Surgical History / Comment(s): rt breast bx and lumpectomy/ radiaiton tx,colonoscopy/polyps removed Past Anesthesia/Blood Transfusion Reactions: No Reported Reaction Smoking Status: Former smoker - Past Family History Mother Family Medical History: CVA/TIA Father History Unknown: Yes Medications and Allergies Home Medications Medication Instructions Recorded Confirmed Type Amantadine HCl [Symmetrel] 100 mg PO BID 12/17/13 01/10/18 History Aspirin 81 mg PO DAILY 12/17/13 01/10/18 History Lisinopril [Zestril] 10 mg PO DAILY 12/17/13 01/10/18 History Rebif 40 mcg INJ MOWEFR 12/17/13 01/10/18 History levETIRAcetam [Keppra] 500 mg PO Q12HR 12/17/13 01/10/18 History tiZANidine [Zanaflex] 4 mg PO QID 12/17/13 01/10/18 History Carvedilol [Coreg] 3.125 mg PO BID 01/10/18 01/10/18 History Levothyroxine Sodium [Synthroid] 50 mcg PO DAILY 01/10/18 01/10/18 History Mirabegron [Myrbetriq] 25 mg PO DAILY 01/10/18 01/10/18 History Omeprazole 20 mg PO DAILY 01/10/18 01/10/18 History Sulfamethox-Tmp 800-160Mg [Bactrim 1 tab PO Q12HR 01/10/18 01/10/18 History DS 800-160 mg] Allergies Allergy/AdvReac Type Severity Reaction Status Date / Time nitrofurantoin AdvReac Nausea Verified 01/10/18 13:12 [From Macrobid] Physical Exam Vitals: Vital Signs Temp Pulse Resp BP Pulse Ox 01/12/18 13:00 145/83 01/12/18 12:55 143/87 01/12/18 12:44 194/111 01/12/18 12:00 192/102 01/12/18 11:30 183/102 01/12/18 11:15 202/112 01/12/18 11:00 197/117 01/12/18 08:00 97.7 F 79 14 148/93 96 01/12/18 07:42 155/93 01/12/18 07:24 182/109 01/12/18 07:13 193/99 01/12/18 06:57 175/103 01/12/18 06:52 180/103 01/12/18 06:45 187/108 01/12/18 06:27 189/106 01/12/18 06:20 191/105 10/28/18 06:13 188/111 01/12/18 05:50 211/118 01/12/18 04:00 97.7 F 74 14 163/97 94 L 01/12/18 02:00 146/86 01/12/18 01:30 160/99 01/12/18 00:15 202/129 01/12/18 00:04 213/119 01/12/18 00:00 98 F 74 14 165/100 98 01/11/18 20:00 98.6 F 74 16 155/91 94 L 01/11/18 15:12 97.3 F L 78 16 163/105 99 01/11/18 14:12 67 16 187/102 100 Intake and Output 01/11/18 01/12/18 01/12/18 22:59 06:59 14:59 Intake Total 1250 800 Balance 1250 800 Intake: IV 100 800 Potassium Chloride 10 meq 800 In Water For Injection 1 100ml.bag @ 100 mls/hr IVPB Q1HR [facility] Rx#: [id number] levETIRAcetam IV 500 mg 100 In Sodium Chloride 0.9% 100 ml @ 400 mls/hr IVPB Q12HR [facility] Rx#:[id number] Intake, IV Titration 1150 Amount Piperacillin-Tazobactam 3 50 .375 gm In Dextrose/Water 1 50ml.bag @ 12.5 mls/hr IVPB Q12HR [facility] Rx#: [id number] Potassium Chloride 10 meq 300 In Water For Injection 1 100ml.bag @ 100 mls/hr IVPB Q1HR [facility] Rx#: [id number] Sodium Chloride 0.45% 1, 800 000 ml @ 100 mls/hr IV . Q10H [facility] Rx#:[id number] Other: Voiding Method Diaper Diaper Diaper # Voids 1 Weight 71.5 kg Blood pressure 145/83 heart rate 79 afebrile maintaining oxygen saturation on room air GENERAL: This is a 62-year-old female in no apparent distress at the time of my examination. HEENT: Head is atraumatic, normocephalic. Pupils are equal, round. Sclerae anicteric. Conjunctivae are clear. Mucous membranes of the mouth are moist. Neck is supple. There is no jugular venous distention. No carotid bruit is heard. LUNGS: Clear to auscultation no wheezes, rales or rhonchi. No chest wall tenderness is noted on palpation or with deep breathing. HEART: Regular rate and rhythm without murmurs, rubs or gallops. S1 and S2 heard. ABDOMEN: Soft, nontender. Bowel sounds are heard. No organomegaly noted. EXTREMITIES: No evidence of peripheral edema and no calf tenderness noted. VASCULAR: Radial and dorsalis pedis pulses palpated, no evidence of clubbing. NEUROLOGIC: Patient is awake, alert and disoriented to time and situation. Results 01/12/18 05:58 01/12/18 05:58 CBC 01/12/18 Range/Units 05:58 WBC 10.8 H (3.8-10.6) k/uL RBC 3.35 L (3.80-5.40) m/uL Hgb 9.6 L (11.4-16.0) gm/dL Hct 29.5 L (34.0-46.0) % Plt Count 36 L D (150-450) k/uL Comprehensive Metabolic Panel 01/12/18 Range/Units 05:58 Sodium 142 (137-145) mmol/L Potassium 3.1 L (3.5-5.1) mmol/L Chloride 114 H (98-107) mmol/L Carbon Dioxide 20 L (22-30) mmol/L BUN 53 H (7-17) mg/dL Creatinine 2.01 H (0.52-1.04) mg/dL Glucose 118 H (74-99) mg/dL Calcium 7.8 L (8.4-10.2) mg/dL Current Medications Generic Name Dose Route Start Last Admin Trade Name Freq PRN Reason Stop Dose Admin Acetaminophen 650 mg 01/10/18 16:33 Tylenol Tab PO Q6HR PRN Mild Pain or Fever > 100.5 Amantadine HCl 100 mg 01/12/18 09:00 01/12/18 10:54 Symmetrel PO 100 mg BID [facility] Administration Aspirin 81 mg 01/12/18 09:00 01/12/18 10:47 Aspirin PO 81 mg DAILY [facility] Administration Carvedilol 6.25 mg 01/12/18 17:30 Coreg PO BID-W/MEALS [facility] Hydromorphone HCl 0.5 mg 01/10/18 16:33 01/12/18 05:56 Dilaudid IVP 0.5 mg Q3HR PRN Administration Moderate Pain Piperacillin/Tazobactam/ 50 mls @ 12.5 mls/hr 01/11/18 21:00 01/11/18 22:36 Dextrose 3.375 gm/ IV Solution IVPB Not Given Q12HR [facility] Levetiracetam 500 mg/ Sodium 105 mls @ 400 mls/hr 01/12/18 09:00 01/12/18 08: 48 Chloride IVPB 400 mls/hr Q12HR [facility] Administration Levothyroxine Sodium 50 mcg 01/12/18 06:30 01/12/18 06:01 Synthroid PO 50 mcg DAILY@0630 [facility] Administration Lisinopril 10 mg 01/11/18 22:45 01/12/18 10:47 Zestril PO 10 mg DAILY [facility] Administration Miscellaneous Information 1 each 01/11/18 11:38 Potassium Per Protocol MISCELLANE DAILY PRN Per Protocol Protocol Miscellaneous Information 1 each 01/12/18 07:07 Potassium Per Protocol MISCELLANE DAILY PRN Per Protocol Protocol Naloxone HCl 0.2 mg 01/10/18 16:33 Narcan IV Q2M PRN Opioid Reversal Mirabegron [ 25 mg 01/12/18 09:00 01/12/18 10:49 Myrbetriq] 25 Mg PO Not Given DAILY [facility] Ondansetron HCl 4 mg 01/10/18 16:33 Zofran IVP Q8HR PRN Nausea And Vomiting Pantoprazole Sodium 40 mg 01/12/18 09:00 01/12/18 10:55 Protonix PO 40 mg AC-BRKFST [facility] Administration Intake and Output 01/11/18 01/12/18 01/12/18 22:59 06:59 14:59 Intake Total 1250 800 Balance 1250 800 Intake: IV 100 800 Potassium Chloride 10 meq 800 In Water For Injection 1 100ml.bag @ 100 mls/hr IVPB Q1HR [facility] Rx#: [id number] levETIRAcetam IV 500 mg 100 In Sodium Chloride 0.9% 100 ml @ 400 mls/hr IVPB Q12HR [facility] Rx#:[id number] Intake, IV Titration 1150 Amount Piperacillin-Tazobactam 3 50 .375 gm In Dextrose/Water 1 50ml.bag @ 12.5 mls/hr IVPB Q12HR [facility] Rx#: [id number] Potassium Chloride 10 meq 300 In Water For Injection 1 100ml.bag @ 100 mls/hr IVPB Q1HR [facility] Rx#: [id number] Sodium Chloride 0.45% 1, 800 000 ml @ 100 mls/hr IV . Q10H [facility] Rx#:[id number] Other: Voiding Method Diaper Diaper Diaper # Voids 1 Weight 71.5 kg 01/12/18 05:58 01/12/18 05:58 Assessment and Plan Assessment: ASSESSMENT Acute sepsis secondary to urinary tract infection failed outpatient treatment Urinary tract infection Cholelithiasis, plan for cholecystectomy tomorrow with Dr. Jung Acute kidney injury, improving Mild troponin leak not indicative of an acute coronary event related to acute kidney injury. Altered mental status with metabolic encephalopathy Uncontrolled hypertension Rhabdomyolysis Thrombocytopenia Leukocytosis History of MS PLAN Increase carvedilol to 6.25 mg BID for better blood pressure control. Obtain 2D echocardiogram and doppler study to assess cardiac structure and function. Ongoing medical management of acute septic presentation. Thank you kindly for this consultation. Nurse Practitioner note has been reviewed, I agree with a documented findings and plan of care. Patient was seen and examined.
[2018-01-12 17:28] LABS: Glucose,Whole Blood 106 mg/dL (75-99)
[2018-01-12 18:54] LABS: Glucose,Whole Blood 122 mg/dL (75-99)
[2018-01-12 19:03] LABS: Basophils % (A) 0 %; Eosinophils % (A) 0 %; HCT 30.7 % (34.0-46.0); HGB 10.1 gm/dL (11.4-16.0); Lymphocytes # (A) 0.7 k/uL (1.0-4.8); Lymphocytes % (A) 5 %; MCH 29.1 pg (25.0-35.0); MCHC 33.1 g/dL (31.0-37.0); MCV 87.9 fL (80.0-100.0); Mean Platelet Volume 7.5; Monocytes # (A) 0.3 k/uL (0-1.0); Monocytes % (A) 2 %; Neutrophils # (A) 12.4 k/uL (1.3-7.7); Neutrophils % (A) 92 %; Poikilocytosis Slight; RBC 3.49 m/uL (3.80-5.40); RDW 15.3 % (11.5-15.5); WBC 13.6 k/uL (3.8-10.6)
[2018-01-12 19:07] LABS: Platelet Count 22 k/uL (150-450)
[2018-01-12 19:15] LABS: Albumin 2.7 g/dL (3.5-5.0); Calcium 8.4 mg/dL (8.4-10.2); Magnesium 1.4 mg/dL (1.6-2.3); Potassium 3.5 mmol/L (3.5-5.1); Total Bilirubin 3.7 mg/dL (0.2-1.3); Total Protein 6.3 g/dL (6.3-8.2)
--- NOTE | 2018-01-12 19:31 | P.PN ---
Subjective Progress Note Date: 01/11/18 Principal diagnosis: Sepsis secondary to urinary tract infection Elevated liver enzymes Chronic cholecystitis 62-year-old female with a known history of multiple sclerosis currently bedridden, hypertension, GERD, history of breast cancer status post lumpectomy and radiation, hypothyroidism and multiple other medical problems was brought to the hospital due to generalized weakness and dehydration. Patient has history of MS and some residual right-sided weakness and contracture. Over the past several days she has begun oral antibiotics for urinary tract infection. Initially put on nitrofurantoin, symptoms did not improve patient had an episode of nausea and vomiting. She was switched to Bactrim. She's had one dose of Bactrim yesterday but has been unable to tolerate anything orally since that time. She's had nausea with one episode of vomiting. Patient is accompanied by her who is able to give the majority the history. Patient does complain of some chronic leg pain and cramping which is typical for her. No other pain complaints. No abdominal pain. No chest pain or dyspnea. No history of fever or chills. Patient is also confused and altered for the last couple days. WBC 27.2 BUN 69 creatinine 3.75. Lactic acid 2.8 troponin 0.084. CPK 762 AST 87, alk phos 240, albumin 2.9 UA showed large leukocyte esterase, WBC 18 and moderate blood. Chest x-ray showed no acute cardio for process EKG normal sinus rhythm Ultrasound ABDOMEN showed cholelithiasis. Gallbladder wall thickening with positive Juan sign. Correlate for acute cholecystitis. Suspicion for dilated common bile duct intraductal calcifications 01/11/2018 Patient is more awake and oriented today. Able to sit in the chair. Afebrile. Denied any complains of chest pain or shortness of breath. Denied any abdominal pain. Able to tolerate oral diet and take her oral medications. MRCP showed large bile stone. No dilated ducts. Mild gallbladder wall thickening. WBC is trending down. Potassium was replaced. General surgery is planning for cholecystectomy possibly on Saturday and clinically stable. All other review of systems negative except the above Current medications reviewed Objective - Vital Signs Vital signs: Vital Signs Temp 97.3 F L 01/11/18 15:12 Pulse 78 01/11/18 15:12 Resp 16 01/11/18 15:12 BP 163/105 01/11/18 15:12 Pulse Ox 99 01/11/18 15:12 Intake & Output 01/11/18 01/11/18 01/12/18 06:59 18:59 06:59 Intake Total 1050 1150 Balance 1050 1150 Weight 69 kg 69 kg Intake: IV 1050 1050 Piperacillin-Tazobactam 3 50 50 .375 gm In Dextrose/Water 1 50ml.bag @ 12.5 mls/hr IVPB [facility]CE [facility] Rx#: [id number] Sodium Chloride 0.9% 1, 900 000 ml @ 100 mls/hr IV . Q10H [facility] Rx#:[id number] levETIRAcetam IV 500 mg 100 1000 In Sodium Chloride 0.9% 100 ml @ 400 mls/hr IVPB Q12HR [facility] Rx#:[id number] Intake, IV Titration 100 Amount Potassium Chloride 10 meq 100 In Water For Injection 1 100ml.bag @ 100 mls/hr IVPB Q1HR [facility] Rx#: [id number] Other: Voiding Method Diaper Diaper # Voids 3 2 - Exam PHYSICAL EXAMINATION: Patient is lying in the bed comfortably, no acute distress, awake alert and oriented.. HEENT: Normocephalic. Neck is supple. Pupils reactive. Nostrils clear. Oral cavity is moist. Ears reveal no drainage. Neck reveals no JVD, carotid bruits, or thyromegaly. CHEST EXAMINATION: Trachea is central. Symmetrical expansion. Lung castillo clear to auscultation and percussion. CARDIAC: Normal S1, S2 with no gallops. No murmurs ABDOMEN: Soft. Bowel sounds normal. No organomegaly. No abdominal bruits. Extremities: reveal no edema. No clubbing or cyanosis Neurologically awake, alert, oriented x2-3 . Right-sided weakness. Skin: No rash or skin lesions. Psychiatric: Coperative. Could not be assessed completely Musculoskeletal: No joint swelling or deformity. - Labs CBC & Chem 7: 01/12/18 18:34 01/12/18 18:34 Labs: Abnormal Lab Results - Last 24 Hours (Table) 01/11/18 01/11/18 01/11/18 Range/Units 01:25 06:11 06:11 WBC 16.7 H (3.8-10.6) k/uL RBC 3.33 L (3.80-5.40) m/uL Hgb 9.9 L (11.4-16.0) gm/dL Hct 29.7 L (34.0-46.0) % Plt Count 81 L (150-450) k/uL Neutrophils # 15.8 H (1.3-7.7) k/uL Lymphocytes # 0.3 L (1.0-4.8) k/uL Potassium 3.0 L (3.5-5.1) mmol/L Chloride 113 H (98-107) mmol/L Carbon Dioxide 17 L (22-30) mmol/L BUN 64 H (7-17) mg/dL Creatinine 3.03 H (0.52-1.04) mg/dL POC Glucose (mg/dL) (75-99) mg/dL Calcium 7.1 L (8.4-10.2) mg/dL Total Bilirubin 1.4 H (0.2-1.3) mg/dL AST 77 H (14-36) U/L Alkaline Phosphatase 168 H (38-126) U/L Total Creatine Kinase 1070 H* (30-135) U/L CK-MB (CK-2) 14.0 H (0.0-2.4) ng/mL Troponin I 0.086 H* (0.000-0.034) ng/mL Total Protein 5.6 L (6.3-8.2) g/dL Albumin 2.4 L (3.5-5.0) g/dL 01/11/18 Range/Units 16:54 WBC (3.8-10.6) k/uL RBC (3.80-5.40) m/uL Hgb (11.4-16.0) gm/dL Hct (34.0-46.0) % Plt Count (150-450) k/uL Neutrophils # (1.3-7.7) k/uL Lymphocytes # (1.0-4.8) k/uL Potassium (3.5-5.1) mmol/L Chloride (98-107) mmol/L Carbon Dioxide (22-30) mmol/L BUN (7-17) mg/dL Creatinine (0.52-1.04) mg/dL POC Glucose (mg/dL) 62 L (75-99) mg/dL Calcium (8.4-10.2) mg/dL Total Bilirubin (0.2-1.3) mg/dL AST (14-36) U/L Alkaline Phosphatase (38-126) U/L Total Creatine Kinase (30-135) U/L CK-MB (CK-2) (0.0-2.4) ng/mL Troponin I (0.000-0.034) ng/mL Total Protein (6.3-8.2) g/dL Albumin (3.5-5.0) g/dL Microbiology - Last 24 Hours (Table) 01/10/18 13:31 Blood Culture Gram Stain - Preliminary Blood 01/10/18 13:31 Blood Culture - Final Blood 01/10/18 13:31 Urine Culture - Preliminary Urine,Catheterized Assessment and Plan Assessment: Severe Sepsis secondary to acute urinary tract infection. Failed outpatient antibiotic therapy. Continue with Zosyn. Follow-up urine culture report. Lactic acidosis. Improving. Elevated troponin level possible demand ischemia Acute kidney injury. Possible ATN creatinine level 3.75--3.03 Elevated alk phos and AST with dilated common bile duct and acute cholecystitis as per ultrasound of abdomen. Altered mental status possible metabolic encephalopathy Uncontrolled hypertension rhabdomyolysis History of MS and residual right-sided weakness and contractures History of right breast cancer in 2002 status post lumpectomy and radiation Seizure disorder. Hypothyroidism Diverticulosis and past colon polyps benign Previous history of smoking Mild to moderate protein calorie malnutrition with albumin level II.9 DVT prophylaxis Plan: Patient will be continued on IV hydration in the form of half-normal saline. Follow up renal function. Continue with antibiotics in the form of Zosyn and urine cultures were sent. General surgery and GI is following.. Continue with home medications. Patient failed swallow evaluation initially. Keppra will be changed to IV and Catapres patch was applied for uncontrolled hypertension. Discussed with the family at bedside in detail. Prognosis is guarded with multiple medical problems and comorbid conditions. Time with Patient: Greater than 30
--- NOTE | 2018-01-12 19:41 | P.PN ---
Subjective Progress Note Date: 01/12/18 Principal diagnosis: Sepsis secondary to urinary tract infection Elevated liver enzymes Chronic cholecystitis 62-year-old female with a known history of multiple sclerosis currently bedridden, hypertension, GERD, history of breast cancer status post lumpectomy and radiation, hypothyroidism and multiple other medical problems was brought to the hospital due to generalized weakness and dehydration. Patient has history of MS and some residual right-sided weakness and contracture. Over the past several days she has begun oral antibiotics for urinary tract infection. Initially put on nitrofurantoin, symptoms did not improve patient had an episode of nausea and vomiting. She was switched to Bactrim. She's had one dose of Bactrim yesterday but has been unable to tolerate anything orally since that time. She's had nausea with one episode of vomiting. Patient is accompanied by her who is able to give the majority the history. Patient does complain of some chronic leg pain and cramping which is typical for her. No other pain complaints. No abdominal pain. No chest pain or dyspnea. No history of fever or chills. Patient is also confused and altered for the last couple days. WBC 27.2 BUN 69 creatinine 3.75. Lactic acid 2.8 troponin 0.084. CPK 762 AST 87, alk phos 240, albumin 2.9 UA showed large leukocyte esterase, WBC 18 and moderate blood. Chest x-ray showed no acute cardio for process EKG normal sinus rhythm Ultrasound ABDOMEN showed cholelithiasis. Gallbladder wall thickening with positive Juan sign. Correlate for acute cholecystitis. Suspicion for dilated common bile duct intraductal calcifications 01/11/2018 Patient is more awake and oriented today. Able to sit in the chair. Afebrile. Denied any complains of chest pain or shortness of breath. Denied any abdominal pain. Able to tolerate oral diet and take her oral medications. MRCP showed large bile stone. No dilated ducts. Mild gallbladder wall thickening. WBC is trending down. Potassium was replaced. General surgery is planning for cholecystectomy possibly on Saturday and clinically stable. 01/12/2018 Patient became confused again today. Able to nod her head but could not communicate. Could not able to swallow. Blood pressure is uncontrolled. Patient was given IV hydralazine and IV labetalol with some improvement in blood pressure. Otherwise Catapres patch could not be applied due to short supply from pharmacy. CT head is negative. Was done due to altered mentation. Leukocytosis is much improved to 10.8 today morning. Platelet count dropped further to 32,000. Patient is being continued on antibiotics continued on Zosyn. Renal function improved with creatinine level II.0 Patient is not tolerating any oral diet. Currently on IV fluids in the form of half-normal saline. Patient became febrile this afternoon with T-max 100.0 and blood pressure is also not controlled well. Due to altered mental status and uncontrolled hypertension, thrombocytopenia with underlying sepsis patient will be transferred to MICU for further management. Current medications reviewed Objective - Vital Signs Vital signs: Vital Signs Temp 97.7 F 01/12/18 08:00 Pulse 79 01/12/18 12:00 Resp 14 01/12/18 12:00 BP 157/86 01/12/18 13:15 Pulse Ox 96 01/12/18 08:00 Intake & Output 01/11/18 01/12/18 01/12/18 18:59 06:59 18:59 Intake Total 1150 2050 Balance 1150 2050 Weight 69 kg 71.5 kg Intake: IV 1050 900 Piperacillin-Tazobactam 3 50 .375 gm In Dextrose/Water 1 50ml.bag @ 12.5 mls/hr IVPB ONCE STA Rx#: [id number] Potassium Chloride 10 meq 800 In Water For Injection 1 100ml.bag @ 100 mls/hr IVPB Q1HR KAMILAH Rx#: [id number] levETIRAcetam IV 500 mg 1000 100 In Sodium Chloride 0.9% 100 ml @ 400 mls/hr IVPB Q12HR KAMILAH Rx#:[id number] Intake, IV Titration 100 1150 Amount Piperacillin-Tazobactam 3 50 .375 gm In Dextrose/Water 1 50ml.bag @ 12.5 mls/hr IVPB Q12HR KAMILAH Rx#: [id number] Potassium Chloride 10 meq 100 300 In Water For Injection 1 100ml.bag @ 100 mls/hr IVPB Q1HR KAMILAH Rx#: [id number] Sodium Chloride 0.45% 1, 800 000 ml @ 100 mls/hr IV . Q10H KAMILAH Rx#:[id number] Other: Voiding Method Diaper Diaper Diaper # Voids 2 1 - Exam PHYSICAL EXAMINATION: PHYSICAL EXAMINATION: Patient is lying in the bed comfortably, no acute distress, awake alert but not oriented.. HEENT: Normocephalic. Neck is supple. Pupils reactive. Nostrils clear. Oral cavity is moist. Ears reveal no drainage. Neck reveals no JVD, carotid bruits, or thyromegaly. CHEST EXAMINATION: Trachea is central. Symmetrical expansion. Lung castillo clear to auscultation and percussion. CARDIAC: Normal S1, S2 with no gallops. No murmurs ABDOMEN: Soft. Bowel sounds normal. No organomegaly. No abdominal bruits. Extremities: reveal no edema. No clubbing or cyanosis Neurologically awake, alert, oriented x1 . Right-sided weakness. Skin: No rash or skin lesions. Psychiatric: Coperative. Could not be assessed completely Musculoskeletal: No joint swelling or deformity. - Labs CBC & Chem 7: 01/12/18 18:34 01/12/18 18:34 Labs: Abnormal Lab Results - Last 24 Hours (Table) 01/11/18 01/12/18 01/12/18 Range/Units 16:54 00:22 05:53 WBC (3.8-10.6) k/uL RBC (3.80-5.40) m/uL Hgb (11.4-16.0) gm/dL Hct (34.0-46.0) % Plt Count (150-450) k/uL Neutrophils # (1.3-7.7) k/uL Lymphocytes # (1.0-4.8) k/uL Potassium (3.5-5.1) mmol/L Chloride (98-107) mmol/L Carbon Dioxide (22-30) mmol/L BUN (7-17) mg/dL Creatinine (0.52-1.04) mg/dL Glucose (74-99) mg/dL POC Glucose (mg/dL) 62 L 130 H 124 H (75-99) mg/dL Calcium (8.4-10.2) mg/dL 01/12/18 01/12/18 01/12/18 Range/Units 05:58 05:58 11:59 WBC 10.8 H (3.8-10.6) k/uL RBC 3.35 L (3.80-5.40) m/uL Hgb 9.6 L (11.4-16.0) gm/dL Hct 29.5 L (34.0-46.0) % Plt Count 36 L D (150-450) k/uL Neutrophils # 9.7 H (1.3-7.7) k/uL Lymphocytes # 0.7 L (1.0-4.8) k/uL Potassium 3.1 L (3.5-5.1) mmol/L Chloride 114 H (98-107) mmol/L Carbon Dioxide 20 L (22-30) mmol/L BUN 53 H (7-17) mg/dL Creatinine 2.01 H (0.52-1.04) mg/dL Glucose 118 H (74-99) mg/dL POC Glucose (mg/dL) 122 H (75-99) mg/dL Calcium 7.8 L (8.4-10.2) mg/dL Microbiology - Last 24 Hours (Table) 01/10/18 13:31 Urine Culture - Preliminary Urine,Catheterized Gram Neg Bacilli 01/10/18 13:31 Blood Culture Gram Stain - Preliminary Blood Blood Culture - Preliminary Gram Neg Bacilli Assessment and Plan Assessment: Severe Sepsis/septicemia gram-negative secondary to acute urinary tract infection. Failed outpatient antibiotic therapy. Continue with Zosyn. Gram-negative bacilli in the blood and urine cultures. Thrombocytopenia. Worsening. 147--81--32--22K. Possible DIC Lactic acidosis. Improving. Elevated troponin level possible demand ischemia Acute kidney injury. Possible ATN creatinine level 3.75--3.03--2.01 Elevated alk phos and AST with dilated common bile duct and acute cholecystitis as per ultrasound of abdomen. MRCP showed no dilated ducts. Showed large bile stone. Hyperbilirubinemia Altered mental status possible metabolic encephalopathy Uncontrolled hypertension/accelerated hypertension rhabdomyolysis History of MS and residual right-sided weakness and contractures History of right breast cancer in 2003 status post lumpectomy and radiation Seizure disorder. Hypothyroidism Diverticulosis and past colon polyps benign Previous history of smoking Mild to moderate protein calorie malnutrition with albumin level II.9 DVT prophylaxis Plan: Patient will be continued on IV hydration in the form of half-normal saline. Continue to monitor platelet count. Follow up renal function. Continue with antibiotics in the form of Zosyn and urine cultures were sent. General surgery and GI is following.. Continue with home medications. Patient failed swallow evaluation initially. Keppra will be changed to IV and Catapres patch was applied for uncontrolled hypertension. Discussed with the family at bedside in detail. Prognosis is guarded with multiple medical problems and comorbid conditions. Time with Patient: Greater than 30
[2018-01-12] MEDS: amLODIPine 10 MG TAB PO SCH (21:22)
[2018-01-13] MEDS: AMANTADINE HCL 100 MG CAP PO SCH ×3 (00:15→21:20)
[2018-01-13] MEDS: PIPERACILLIN-TAZOBACTAM 3.375 GM in DEXTROSE/WATER 1 50ML.BAG IVPB SCH ×3 (00:17→16:50)
[2018-01-13] MEDS: HYDROmorphone 1 MG/ML 1 ML SYRINGE IVP PRN (04:07)
[2018-01-13] MEDS: hydrALAZINE HCL 20 MG/ML 1 ML VIAL IVP PRN (06:03)
[2018-01-13 06:18] LABS: HGB 9.6 gm/dL (11.4-16.0); Hypochromasia Slight; Lymphocytes # (A) 0.8 k/uL (1.0-4.8); Lymphocytes % (A) 7 %; Poikilocytosis Slight
[2018-01-13 06:27] LABS: Basophils # (A) 0.1 k/uL (0-0.2); Basophils % (A) 0 %; Eosinophils # (A) 0.1 k/uL (0-0.7); Eosinophils % (A) 1 %; HCT 28.6 % (34.0-46.0); MCH 29.7 pg (25.0-35.0); MCHC 33.5 g/dL (31.0-37.0); MCV 88.6 fL (80.0-100.0); Mean Platelet Volume 8.2; Monocytes # (A) 0.5 k/uL (0-1.0); Monocytes % (A) 4 %; Neutrophils # (A) 9.8 k/uL (1.3-7.7); Neutrophils % (A) 85 %; RBC 3.23 m/uL (3.80-5.40); RDW 15.7 % (11.5-15.5); WBC 11.6 k/uL (3.8-10.6)
[2018-01-13 06:29] LABS: Calcium 8.2 mg/dL (8.4-10.2); Magnesium 1.5 mg/dL (1.6-2.3); Platelet Count 19 k/uL (150-450); Potassium 3.1 mmol/L (3.5-5.1)
[2018-01-13] MEDS ORDERED: Magnesium Replacement Protocol 1 EACH MISC MISCELLANE PRN (06:37)
--- NOTE | 2018-01-13 08:13 | XR ---
EXAMINATION TYPE: XR chest 1V portable DATE OF EXAM: 01/13/2018 Comparison: 01/10/2018 Clinical History: 62-year-old female shortness of breath Findings: Heart borderline enlarged. Slight rightward patient rotation alters normal cardiac and mediastinal co ntours causing the aortic root more tortuous as compared to prior. Mild interstitial prominence is un changed. Mild hyperinflation. No consolidation, pneumothorax, or pleural effusion. Impression: Rotated exam. Borderline heart size and chronic changes. Possible underlying COPD. No acute cardiopul monary process.
[2018-01-13] MEDS: MAGNESIUM SULFATE-D5W PMX 1 GM in DEXTROSE/WATER 1 100ML.BAG IVPB SCH ×2 (08:14→09:46)
[2018-01-13] MEDS: POTASSIUM CHLORIDE 10 MEQ in WATER FOR INJECTION 1 100ML.BAG IVPB SCH ×4 (08:15→13:29)
[2018-01-13] MEDS: PANTOPRAZOLE 40 MG/10 ML VIAL IVP SCH (09:01)
--- NOTE | 2018-01-13 09:09 | PN ---
PROGRESS NOTE Mrs. Tiwari is a 62-year-old female with a history of multiple sclerosis, quite limited in her physical activity, who presented with evidence of urinary tract infection and her testing revealed evidence of cholelithiasis. She was transferred to the ICU yesterday because of episode of hypertension. Patient is awake, confused at time. Has no chest discomfort. Hemodynamically, she is stable. She has no evidence of tachycardia or bradycardia. Her blood pressure apparently was up to the 200 range at times, but she had no other changes. She has continued to be on Amantadine, Norvasc 10 mg daily, aspirin once a day, Coreg 6.5 mg twice a day our. She is on lisinopril 10 mg daily. PHYSICAL EXAMINATION: Blood pressure running in 150/70 with a heart in 60s. LUNGS: Clear. HEART: Regular rate and rhythm S1, S2. No S3. No rub appreciated. ABDOMEN: Soft, nontender. EXTREMITIES: No edema. LAB DATA: BUN and creatinine 15 and 1.7, potassium 3.1. Her platelets count is 19,000. Her hemoglobin is 9.6. IMPRESSION: 1. Hypertension. 2. Thrombocytopenia of unclear etiology. 3. Mild elevation of troponin most likely reflecting a type 2 event. 4. Possible urinary tract infection with evidence of cholelithiasis. 5. Change in mental status. 6. Renal failure. RECOMMENDATION: From the cardiac standpoint, I will continue on the amlodipine and carvedilol. I will start her on oral hydralazine. We will not increase the dose of her FILOMENA inhibitor because of her renal function. Probably her antibiotics need to be changed because of thrombocytopenia and I will leave that to the Critical Care Service. I will hold her aspirin. An echocardiogram with Doppler will be obtained. Depending on her progress, further recommendation will be made. MMODL / IJN: [id number] /
[2018-01-13] MEDS: levETIRAcetam IV 500 MG in SODIUM CHLORIDE 0.9% 100 ML IVPB SCH ×2 (09:10→21:20)
--- NOTE | 2018-01-13 09:58 | ECHOF ---
Referral Reason:elevated trop MEASUREMENTS -------- HEIGHT: 160.0 cm WEIGHT: 71.2 kg BP: 151/98 IVSd: 1.6 cm (0.6 - 1.1) LVIDd: 2.5 cm (3.9 - 5.3) LVPWd: 1.5 cm (0.6 - 1.1) IVSs: 1.3 cm LVIDs: 0.7 cm LVPWs: 1.6 cm Ao Diam: 2.8 cm (2.0 - 3.7) LA Diam: 2.7 cm (2.7 - 3.8) MV EXCURSION: 12.495 mm (> 18.000) MV EF SLOPE: 40 mm/s (70 - 150) EPSS: 0.3 cm MV E Gilbert: 1.09 m/s MV DecT: 258 ms MV A Gilbert: 1.13 m/s MV E/A Ratio: 0.97 RAP: 5.00 mmHg RVSP: 31.19 mmHg FINDINGS -------- Sinus rhythm. This was a technically good study. The cavity size is decreased. There is moderate concentric left ventricular hypertrophy. Overall left ventricular systolic function is normal with, an EF between 60 - 65 %. LVOT Obstruction with a max gradient of 30 mmHg. The right ventricle is normal in size and function. The left atrium is normal in size. The right atrium is normal in size. The aortic valve is trileaflet, and appears structurally normal. No aortic stenosis or regurgitation. There is trace mitral regurgitation. Moderate tricuspid regurgitation present. The right ventricular systolic pressure, as measured by D oppler, is 31.19mmHg. Pulmonic valve appears structurally normal. The aortic root, ascending aorta and aortic arch are normal. Normal inferior vena cava with normal inspiratory collapse consistent with estimated right atrial pre ssure of 5 mmHg. The pericardium is normal. CONCLUSIONS -------- 1. Sinus rhythm. 2. This was a technically good study. 3. The cavity size is decreased. 4. There is moderate concentric left ventricular hypertrophy. 5. Overall left ventricular systolic function is normal with, an EF between 60 - 65 %. 6. LVOT Obstruction with a max gradient of 30 mmHg. 7. The right ventricle is normal in size and function. 8. The left atrium is normal in size. 9. The right atrium is normal in size. 10. The aortic valve is trileaflet, and appears structurally normal. No aortic stenosis or regurgitat ion. 11. There is trace mitral regurgitation. 12. Moderate tricuspid regurgitation present. 13. The right ventricular systolic pressure, as measured by Doppler, is 31.19mmHg. 14. Pulmonic valve appears structurally normal. 15. The aortic root, ascending aorta and aortic arch are normal. 16. Normal inferior vena cava with normal inspiratory collapse consistent with estimated right atrial pressure of 5 mmHg. 17. The pericardium is normal. SETTER OUT: Maite Barnett RDCS
[2018-01-13 10:13] LABS: Hemoglobin A1C 6.3 % (4.0-6.0)
[2018-01-13] MEDS: amLODIPine 10 MG TAB PO SCH (10:19)
[2018-01-13] MEDS: hydrALAZINE HCL 25 MG TAB PO SCH ×2 (10:20→21:20)
[2018-01-13] MEDS: CARVEDILOL 6.25 MG TAB PO SCH ×2 (10:20→16:50)
[2018-01-13] MEDS: LEVOTHYROXINE 50 MCG TAB PO SCH (10:21)
[2018-01-13 10:32] VITALS: BMI 21.9
--- NOTE | 2018-01-13 10:49 | P.PN ---
Subjective Progress Note Date: 01/13/18 Principal diagnosis: Nausea vomiting elevated liver enzymes 62-year-old female history of multiple sclerosis admitted with nausea vomiting UTI with gram negatives E. coli urine culture and blood culture. Ultrasound abdomen on admission reported gallstones and possible biliary ductal dilatation. MRCP revealed normal-appearing biliary system with no evidence of CBD stones. General surgery consulted laparoscopic cholecystectomy on hold secondary to worsening thrombocytopenia. Today white count 11.6. Hemoglobin 9.6. Platelet 19,000. BUN 50. Creatinine 1.7. LFTs pending. Presently denies abdominal pain. T-max 100.0. Total bilirubin yesterday 3.7. Objective - Vital Signs Vital signs: Vital Signs Temp 98.1 F 01/13/18 04:00 Pulse 64 01/13/18 10:00 Resp 16 01/13/18 10:00 BP 159/98 01/13/18 10:00 Pulse Ox 95 01/13/18 10:00 Intake & Output 01/12/18 01/13/18 01/13/18 18:59 06:59 18:59 Intake Total 100 500 Output Total 950 320 Balance -850 180 Weight 56 kg Intake: IV 100 levETIRAcetam IV 500 mg 100 In Sodium Chloride 0.9% 100 ml @ 400 mls/hr IVPB Q12HR KAMILAH Rx#:[id number] Intake, IV Titration 500 Amount Magnesium Sulfate-D5w Pmx 200 1 gm In Dextrose/Water 1 100ml.bag @ 100 mls/hr IVPB Q1H KAMILAH Rx#: [id number] Potassium Chloride 10 meq 200 In Water For Injection 1 100ml.bag @ 100 mls/hr IVPB Q1HR KAMILAH Rx#: [id number] levETIRAcetam IV 500 mg 100 In Sodium Chloride 0.9% 100 ml @ 400 mls/hr IVPB Q12HR KAMILAH Rx#:[id number] Output: Urine 950 320 Other: Voiding Method Diaper Indwelling Catheter - Exam General appearance: The patient is alert, oriented, in no acute distress. HET: Head is normocephalic and atraumatic. Pupils are equal and reactive. Oropharynx is clear without lesions. Neck: Supple without lymphadenopathy. Trachea midline. Heart: S1 S2. Regular rate and rhythm. Lungs: No crackles or wheezes are heard. Abdomen: Soft, nontender, nondistended with bowel sounds. No peritoneal signs. No palpable organomegaly or masses. Extremities: Normal skin color and turgor. No cyanosis, rash, ulceration, clubbing, or edema. Radial and pedal pulses are 2/4 bilaterally. Neurological: No focal deficits. Strength and sensation are grossly intact. - Labs CBC & Chem 7: 01/13/18 05:14 01/13/18 05:14 Labs: Abnormal Lab Results - Last 24 Hours (Table) 01/11/18 01/12/18 01/12/18 Range/Units 06:11 11:59 17:11 WBC (3.8-10.6) k/uL RBC (3.80-5.40) m/uL Hgb (11.4-16.0) gm/dL Hct (34.0-46.0) % RDW (11.5-15.5) % Plt Count (150-450) k/uL Neutrophils # (1.3-7.7) k/uL Lymphocytes # (1.0-4.8) k/uL Potassium (3.5-5.1) mmol/L Chloride (98-107) mmol/L Carbon Dioxide (22-30) mmol/L BUN (7-17) mg/dL Creatinine (0.52-1.04) mg/dL Glucose (74-99) mg/dL POC Glucose (mg/dL) 122 H 106 H (75-99) mg/dL Hemoglobin A1c 6.3 H (4.0-6.0) % Calcium (8.4-10.2) mg/dL Phosphorus (2.5-4.5) mg/dL Magnesium (1.6-2.3) mg/dL Total Bilirubin (0.2-1.3) mg/dL AST (14-36) U/L Alkaline Phosphatase (38-126) U/L Albumin (3.5-5.0) g/dL 01/12/18 01/12/18 01/12/18 Range/Units 18:34 18:34 18:42 WBC 13.6 H (3.8-10.6) k/uL RBC 3.49 L (3.80-5.40) m/uL Hgb 10.1 L (11.4-16.0) gm/dL Hct 30.7 L (34.0-46.0) % RDW (11.5-15.5) % Plt Count 22 L (150-450) k/uL Neutrophils # 12.4 H (1.3-7.7) k/uL Lymphocytes # 0.7 L (1.0-4.8) k/uL Potassium (3.5-5.1) mmol/L Chloride 111 H (98-107) mmol/L Carbon Dioxide 19 L (22-30) mmol/L BUN 51 H (7-17) mg/dL Creatinine 1.90 H (0.52-1.04) mg/dL Glucose 120 H (74-99) mg/dL POC Glucose (mg/dL) 122 H (75-99) mg/dL Hemoglobin A1c (4.0-6.0) % Calcium (8.4-10.2) mg/dL Phosphorus 2.0 L (2.5-4.5) mg/dL Magnesium 1.4 L (1.6-2.3) mg/dL Total Bilirubin 3.7 H (0.2-1.3) mg/dL AST 60 H (14-36) U/L Alkaline Phosphatase 183 H (38-126) U/L Albumin 2.7 L (3.5-5.0) g/dL 01/13/18 01/13/18 Range/Units 05:14 05:14 WBC 11.6 H (3.8-10.6) k/uL RBC 3.23 L (3.80-5.40) m/uL Hgb 9.6 L (11.4-16.0) gm/dL Hct 28.6 L (34.0-46.0) % RDW 15.7 H (11.5-15.5) % Plt Count 19 L* (150-450) k/uL Neutrophils # 9.8 H (1.3-7.7) k/uL Lymphocytes # 0.8 L (1.0-4.8) k/uL Potassium 3.1 L (3.5-5.1) mmol/L Chloride 113 H (98-107) mmol/L Carbon Dioxide (22-30) mmol/L BUN 50 H (7-17) mg/dL Creatinine 1.70 H (0.52-1.04) mg/dL Glucose 111 H (74-99) mg/dL POC Glucose (mg/dL) (75-99) mg/dL Hemoglobin A1c (4.0-6.0) % Calcium 8.2 L (8.4-10.2) mg/dL Phosphorus (2.5-4.5) mg/dL Magnesium 1.5 L (1.6-2.3) mg/dL Total Bilirubin (0.2-1.3) mg/dL AST (14-36) U/L Alkaline Phosphatase (38-126) U/L Albumin (3.5-5.0) g/dL Microbiology - Last 24 Hours (Table) 01/10/18 13:31 Urine Culture - Final Urine,Catheterized Escherichia coli 01/10/18 13:31 Blood Culture Gram Stain - Final Blood Blood Culture - Final Escherichia coli Assessment and Plan (1) Elevated liver enzymes Narrative/Plan: 67-year-old female admitted with nausea vomiting elevated transaminases cholelithiasis status post MRCP with no evidence of biliary tree abnormality. Elevated transaminases possibly related to sepsis possible symptomatic gallstones. General surgery following closely. Current Visit: Yes Status: Acute Code(s): R74.8 - ABNORMAL LEVELS OF OTHER SERUM ENZYMES SNOMED Code(s): 437655335 (2) UTI (urinary tract infection) Current Visit: Yes Status: Acute Code(s): N39.0 - URINARY TRACT INFECTION, SITE NOT SPECIFIED SNOMED Code(s): 81072651 (3) Bacteremia Current Visit: Yes Status: Acute Code(s): R78.81 - BACTEREMIA SNOMED Code( s): 5731020 (4) Cholelithiasis Current Visit: Yes Status: Acute Code(s): K80.20 - CALCULUS OF GALLBLADDER W /O CHOLECYSTITIS W/O OBSTRUCTION SNOMED Code(s): 288167930 (5) Multiple sclerosis Current Visit: Yes Status: Acute Code(s): G35 - MULTIPLE SCLEROSIS SNOMED Code(s): 83672110 (6) Sepsis Current Visit: Yes Status: Acute Code(s): A41.9 - SEPSIS, UNSPECIFIED ORGANISM SNOMED Code(s): 07491322 (7) Thrombocytopenia Narrative/Plan: Suspect worsening secondary to sepsis Current Visit: Yes Status: Acute Code(s): D69.6 - THROMBOCYTOPENIA, UNSPECIFIED SNOMED Code(s): 730994591 Plan: 1. Continue to monitor CMP daily. We'll continue to follow with you. Diet as tolerated. ERCP not planned at this time. Continue with IV antibiotics. Assessment and plan of care discussed with Dr. Tejeda
[2018-01-13] MEDS: Mirabegron [Myrbetriq] 25 MG PO SCH (11:12)
[2018-01-13] MEDS: LISINOPRIL 10 MG TAB PO SCH (11:15)
--- NOTE | 2018-01-13 12:09 | P.CNPUL ---
History of Present Illness Consult date: 01/13/18 Requesting physician: Evelin Conn Reason for consult: other (Acute sepsis and E. coli bacteremia.) Chief complaint: Altered mental status History of present illness: This is a 62-year-old female with history of multiple medical problems including multiple sclerosis, bedridden, seizure disorder, hypothyroidism, breast cancer and previous lumpectomy followed by radiation, patient was brought into the hospital mostly with symptoms of generalized weakness, dehydration, and some confusion. Patient was recently treated for urinary tract infection with Macrodantin however it was later changed to Bactrim. However the patient developed persistent nausea and vomiting, and she was brought into the ER where in she was noted to have leukocytosis, elevated liver enzymes, ultrasound of the abdomen showed gallstones with thickening of the gallbladder wall, and positive dilated common bile duct with intraductal calcification. Patient had no abdominal pain and no tenderness upon presentation. Patient was also seen by general surgery, and she was supposed to undergo laparoscopic cholecystectomy today. However the patient developed thrombocytopenia, and her blood cultures came back positive for E. coli, this was noted in the urine also in the blood cultures, hence laparoscopic cholecystectomy is presently on hold, and the patient is being treated for acute E. coli sepsis and bacteremia. The most likely source is her urinary tract infection. Patient was also seen by other consultants including cardiology for her elevated troponin, and it was felt to be mild elevation reflecting a pipe 2 event. Upon my evaluation today, the patient seemed to be alert, oriented, appropriate, and she had no specific complaints, she denied any abdominal pain, she had no nausea and vomiting this morning, and she had no symptoms of dysuria frequency or urgency. Patient is presently on antibiotics and/Zosyn for her E. coli bacteremia and urinary tract infection secondary to E. coli. Review of Systems 14 point review of systems were obtained, please refer to pertinent positives in HPI, otherwise remaining systems are negative. Past Medical History Past Medical History: Cancer, GERD/Reflux, Hypertension, Seizure Disorder, Thyroid Disorder Additional Past Medical History / Comment(s): MS-, 2003 rt breast cancer had lumpectomy/radiation tx.sinus problems, diverticulosis, past colon polyps-benign History of Any Multi-Drug Resistant Organisms: None Reported Past Surgical History: Breast Surgery, Tubal Ligation Additional Past Surgical History / Comment(s): rt breast bx and lumpectomy/ radiaiton tx,colonoscopy/polyps removed Past Anesthesia/Blood Transfusion Reactions: No Reported Reaction Smoking Status: Former smoker - Past Family History Mother Family Medical History: CVA/TIA Father History Unknown: Yes Medications and Allergies Home Medications Medication Instructions Recorded Confirmed Type Amantadine HCl [Symmetrel] 100 mg PO BID 12/17/13 01/10/18 History Aspirin 81 mg PO DAILY 12/17/13 01/10/18 History Lisinopril [Zestril] 10 mg PO DAILY 12/17/13 01/10/18 History Rebif 40 mcg INJ MOWEFR 12/17/13 01/10/18 History levETIRAcetam [Keppra] 500 mg PO Q12HR 12/17/13 01/10/18 History tiZANidine [Zanaflex] 4 mg PO QID 12/17/13 01/10/18 History Carvedilol [Coreg] 3.125 mg PO BID 01/10/18 01/10/18 History Levothyroxine Sodium [Synthroid] 50 mcg PO DAILY 01/10/18 01/10/18 History Mirabegron [Myrbetriq] 25 mg PO DAILY 01/10/18 01/10/18 History Omeprazole 20 mg PO DAILY 01/10/18 01/10/18 History Sulfamethox-Tmp 800-160Mg [Bactrim 1 tab PO Q12HR 01/10/18 01/10/18 History DS 800-160 mg] Allergies Allergy/AdvReac Type Severity Reaction Status Date / Time nitrofurantoin AdvReac Nausea Verified 01/10/18 13:12 [From Macrobid] Physical Exam Vitals: Vital Signs Temp Pulse Pulse Pulse Resp BP BP 01/13/18 11:00 60 12 145/120 01/13/18 10:00 64 16 159/98 01/13/18 09:00 63 10 L 152/92 01/13/18 08:00 61 16 161/100 01/13/18 07:00 65 11 L 151/78 01/13/18 06:00 61 14 162/100 01/13/18 05:00 64 10 L 142/90 01/13/18 04:00 98.1 F 71 12 154/103 01/13/18 03:00 62 11 L 165/102 01/13/18 02:00 62 11 L 165/99 01/13/18 01:00 63 12 143/93 01/13/18 00:00 98.8 F 66 10 L 133/87 01/12/18 23:00 70 11 L 112/72 01/12/18 22:00 73 10 L 154/96 01/12/18 21:00 71 11 L 176/102 01/12/18 20:00 98.4 F 74 15 160/100 01/12/18 19:00 72 16 165/103 01/12/18 18:45 100 F H 74 15 165/103 01/12/18 17:15 215/132 01/12/18 16:38 220/120 01/12/18 16:00 98.5 F 75 12 186/106 01/12/18 13:15 157/86 01/12/18 13:00 145/83 01/12/18 12:55 143/87 01/12/18 12:44 194/111 01/12/18 12:00 79 14 192/102 Pulse Ox 01/13/18 11:00 97 01/13/18 10:00 95 01/13/18 09:00 97 01/13/18 08:00 97 01/13/18 07:00 97 01/13/18 06:00 96 01/13/18 05:00 95 01/13/18 04:00 95 01/13/18 03:00 96 01/13/18 02:00 96 01/13/18 01:00 95 01/13/18 00:00 95 01/12/18 23:00 95 01/12/18 22:00 96 01/12/18 21:00 96 01/12/18 20:00 96 01/12/18 19:00 96 01/12/18 18:45 96 01/12/18 17:15 01/12/18 16:38 01/12/18 16:00 97 01/12/18 13:15 01/12/18 13:00 01/12/18 12:55 01/12/18 12:44 01/12/18 12:00 Intake and Output 01/12/18 01/13/18 01/13/18 22:59 06:59 14:59 Intake Total 100 600 Output Total 575 375 345 Balance -475 -375 255 Intake: IV 100 levETIRAcetam IV 500 mg 100 In Sodium Chloride 0.9% 100 ml @ 400 mls/hr IVPB Q12HR KAMILAH Rx#:[id number] Intake, IV Titration 600 Amount Magnesium Sulfate-D5w Pmx 200 1 gm In Dextrose/Water 1 100ml.bag @ 100 mls/hr IVPB Q1H KAMILAH Rx#: [id number] Potassium Chloride 10 meq 300 In Water For Injection 1 100ml.bag @ 100 mls/hr IVPB Q1HR KAMILAH Rx#: [id number] levETIRAcetam IV 500 mg 100 In Sodium Chloride 0.9% 100 ml @ 400 mls/hr IVPB Q12HR KAMILAH Rx#:[id number] Output: Urine 575 375 345 Other: Voiding Method Indwelling Catheter Indwelling Catheter Indwelling Catheter Weight 56 kg General appearance: The patient is alert, oriented, in no acute distress. HET: Head is normocephalic and atraumatic. Pupils are equal and reactive. Oropharynx is clear without lesions. Neck: Supple without lymphadenopathy. Trachea midline. Heart: S1 S2. Regular rate and rhythm. Lungs: No crackles or wheezes are heard. Abdomen: Soft, nontender, nondistended with bowel sounds. No peritoneal signs. No palpable organomegaly or masses. Extremities: Normal skin color and turgor. No cyanosis, rash, ulceration, clubbing, or edema. Radial and pedal pulses are 2/4 bilaterally. Neurological: No focal deficits. Strength and sensation are grossly intact. Psychiatric: Normal mood, affect and mental status examination. Lymphatics: No lymphadenopathy. Results - Laboratory Findings CBC and BMP: 01/13/18 05:14 01/13/18 05:14 PT/INR, D-dimer PT 10.5 sec (9.0-12.0) 01/10/18 13:31 INR 1.1 (<1.2) 01/10/18 13:31 Abnormal lab findings: Abnormal Labs 01/10/18 01/10/18 01/10/18 13:31 13:31 13:31 WBC 27.2 H RBC 3.70 L Hgb 10.9 L Hct 32.5 L RDW Plt Count 147 L Neutrophils # 26.2 H Lymphocytes # 0.3 L Potassium Chloride Carbon Dioxide BUN 69 H Creatinine 3.75 H Glucose POC Glucose (mg/dL) Hemoglobin A1c Plasma Lactic Acid José Calcium 8.2 L Phosphorus Magnesium Total Bilirubin 1.5 H AST 87 H Alkaline Phosphatase 241 H Total Creatine Kinase 762 H CK-MB (CK-2) 10.6 H Troponin I 0.084 H* Total Protein Albumin 2.9 L Urine Appearance Urine Protein Urine Blood Ur Leukocyte Esterase Urine WBC Urine Bacteria Urine Mucus 01/10/18 01/10/18 01/10/18 13:31 13:31 18:16 WBC RBC Hgb Hct RDW Plt Count Neutrophils # Lymphocytes # Potassium Chloride Carbon Dioxide BUN Creatinine Glucose POC Glucose (mg/dL) Hemoglobin A1c Plasma Lactic Acid José 2.8 H* Calcium Phosphorus Magnesium Total Bilirubin AST Alkaline Phosphatase Total Creatine Kinase 952 H CK-MB (CK-2) 13.4 H Troponin I 0.079 H* Total Protein Albumin Urine Appearance Turbid H Urine Protein 2+ H Urine Blood Moderate H Ur Leukocyte Esterase Moderate H Urine WBC 18 H Urine Bacteria Many H Urine Mucus Occasional H 01/11/18 01/11/18 01/11/18 01:25 06:11 06:11 WBC 16.7 H RBC 3.33 L Hgb 9.9 L Hct 29.7 L RDW Plt Count 81 L Neutrophils # 15.8 H Lymphocytes # 0.3 L Potassium 3.0 L Chloride 113 H Carbon Dioxide 17 L BUN 64 H Creatinine 3.03 H Glucose POC Glucose (mg/dL) Hemoglobin A1c Plasma Lactic Acid José Calcium 7.1 L Phosphorus Magnesium Total Bilirubin 1.4 H AST 77 H Alkaline Phosphatase 168 H Total Creatine Kinase 1070 H* CK-MB (CK-2) 14.0 H Troponin I 0.086 H* Total Protein 5.6 L Albumin 2.4 L Urine Appearance Urine Protein Urine Blood Ur Leukocyte Esterase Urine WBC Urine Bacteria Urine Mucus 01/11/18 01/11/18 01/12/18 06:11 16:54 00:22 WBC RBC Hgb Hct RDW Plt Count Neutrophils # Lymphocytes # Potassium Chloride Carbon Dioxide BUN Creatinine Glucose POC Glucose (mg/dL) 62 L 130 H Hemoglobin A1c 6.3 H Plasma Lactic Acid José Calcium Phosphorus Magnesium Total Bilirubin AST Alkaline Phosphatase Total Creatine Kinase CK-MB (CK-2) Troponin I Total Protein Albumin Urine Appearance Urine Protein Urine Blood Ur Leukocyte Esterase Urine WBC Urine Bacteria Urine Mucus 01/12/18 01/12/18 01/12/18 05:53 05:58 05:58 WBC 10.8 H RBC 3.35 L Hgb 9.6 L Hct 29.5 L RDW Plt Count 36 L D Neutrophils # 9.7 H Lymphocytes # 0.7 L Potassium 3.1 L Chloride 114 H Carbon Dioxide 20 L BUN 53 H Creatinine 2.01 H Glucose 118 H POC Glucose (mg/dL) 124 H Hemoglobin A1c Plasma Lactic Acid José Calcium 7.8 L Phosphorus Magnesium Total Bilirubin AST Alkaline Phosphatase Total Creatine Kinase CK-MB (CK-2) Troponin I Total Protein Albumin Urine Appearance Urine Protein Urine Blood Ur Leukocyte Esterase Urine WBC Urine Bacteria Urine Mucus 01/12/18 01/12/18 01/12/18 11:59 17:11 18:34 WBC 13.6 H RBC 3.49 L Hgb 10.1 L Hct 30.7 L RDW Plt Count 22 L Neutrophils # 12.4 H Lymphocytes # 0.7 L Potassium Chloride Carbon Dioxide BUN Creatinine Glucose POC Glucose (mg/dL) 122 H 106 H Hemoglobin A1c Plasma Lactic Acid José Calcium Phosphorus Magnesium Total Bilirubin AST Alkaline Phosphatase Total Creatine Kinase CK-MB (CK-2) Troponin I Total Protein Albumin Urine Appearance Urine Protein Urine Blood Ur Leukocyte Esterase Urine WBC Urine Bacteria Urine Mucus 01/12/18 01/12/18 01/13/18 18:34 18:42 05:14 WBC RBC Hgb Hct RDW Plt Count Neutrophils # Lymphocytes # Potassium 3.1 L Chloride 111 H 113 H Carbon Dioxide 19 L BUN 51 H 50 H Creatinine 1.90 H 1.70 H Glucose 120 H 111 H POC Glucose (mg/dL) 122 H Hemoglobin A1c Plasma Lactic Acid José Calcium 8.2 L Phosphorus 2.0 L Magnesium 1.4 L 1.5 L Total Bilirubin 3.7 H AST 60 H Alkaline Phosphatase 183 H Total Creatine Kinase CK-MB (CK-2) Troponin I Total Protein Albumin 2.7 L Urine Appearance Urine Protein Urine Blood Ur Leukocyte Esterase Urine WBC Urine Bacteria Urine Mucus 01/13/18 05:14 WBC 11.6 H RBC 3.23 L Hgb 9.6 L Hct 28.6 L RDW 15.7 H Plt Count 19 L* Neutrophils # 9.8 H Lymphocytes # 0.8 L Potassium Chloride Carbon Dioxide BUN Creatinine Glucose POC Glucose (mg/dL) Hemoglobin A1c Plasma Lactic Acid José Calcium Phosphorus Magnesium Total Bilirubin AST Alkaline Phosphatase Total Creatine Kinase CK-MB (CK-2) Troponin I Total Protein Albumin Urine Appearance Urine Protein Urine Blood Ur Leukocyte Esterase Urine WBC Urine Bacteria Urine Mucus - Diagnostic Findings Chest x-ray: image reviewed (No evidence of active disease noted.) Assessment and Plan Assessment: Impression: 1 acute sepsis secondary to E. coli urinary tract infection and E. coli bacteremia. 2 elevated liver enzymes most likely related to sepsis, possible gallstones. Cholelithiasis. 3 acute thrombocytopenia most likely secondary to sepsis 4 acute bacteremia, the most likely source is her urinary tract infection. 5 history of MS 6 acute dehydration secondary to nausea and vomiting most likely secondary to urinary tract infection could also be related to her antibiotics. 7 multiple comorbidities including breast cancer, hypertension, seizure disorder , hypothyroidism, GERD without esophagitis. Recommendation: Continue present course of antibiotics, continue to monitor platelets, make sure no heparin is given, continue GI prophylaxis, continue Venodyne boots, will follow closely. We'll continue to monitor in the ICU. Patient should improve with that. And will continue to monitor her liver enzymes. Continue to monitor renal functioning which seems to be improving with hydration. Time with Patient: Greater than 30
--- NOTE | 2018-01-13 12:48 | CDI ---
Last Revision, February 2017 Documentation Clarification Form Date: 01/13/2018 12:29:40 PM From: Mojgan Estevez RN, CCDS Admit Date: 01/10/2018 4:35:00 PM Patient Name: Rosa Tiwari Visit Number: [id number] ATTENTION: The Clinical Documentation Specialists (CDI) and [facility] Coding Staff appreciate your assistance in clarifying documentation. Please respond to the clarification below the line at the bottom and electronically sign. The CDI & [facility] Coding staff will review the response and follow-up if needed. Please note: Queries are made part of the Legal Health Record. If you have any questions, please contact the author of this message via ITS. Evelin Woodall MD Patient history/risk factors MS, HTN, GERD, Hypothyroid, generalized weakness and dehydration, rhabdomyolosis this admission, hypothyroidism, Moderate protein calorie malnutrition. Clinical Indicators: 01/10-01/12 Attending Progress Notes: "62-year-old female with a known history of multiple sclerosis currently bedridden." Nursing Assessments: " all extremities: severe weakness, all extremities are weak, rigid, contracted and stiff w poor muscle strength. Ipsilateral contractures right side. Coccyx has healing excoriation, erythema to r hip and right upper arm. Logroll, passive ROM." CT brain: degenerative change Vital Signs: temp 97.5, HR 77, RR 18, B/P 117/79, Spo2 98% ra Treatment: Log roll, passive ROM Full assistance w/ ADL's In your professional opinion, can you further clarify the patient's bedridden status in relation to MS? Function Quadriplegia Other, please specify Unable to determine Please continue to document in your progress notes and discharge summary in order to capture severity of illness and risk of mortality. Include clinical findings that support your diagnosis. Function quadriplegia MTDD
--- NOTE | 2018-01-13 13:02 | CDI ---
Last Revision, February 2017 Documentation Clarification Form Date: 01/13/2018 12:49:42 PM From: Mojgan Estevez RN, CCDS Admit Date: 01/10/2018 4:35:00 PM Patient Name: Rosa Tiwari Visit Number: [id number] ATTENTION: The Clinical Documentation Specialists (CDI) and [facility] Coding Staff appreciate your assistance in clarifying documentation. Please respond to the clarification below the line at the bottom and electronically sign. The CDI & [facility] Coding staff will review the response and follow-up if needed. Please note: Queries are made part of the Legal Health Record. If you have any questions, please contact the author of this message via ITS. Evelin Woodall MD A diagnosis of anemia lacks specificity to accurately reflect your patients severity of condition and clarification is needed. History/Risk Factors: R breast CA, diverticulosis, HTN, seizure disorder, sepsis this admission Clinical indicators: Hemoglobin: 10.9/9.9/10.1/9.6 Hematocrit: 32.5/29.7/30.7/28.6 ED note: "General appearance: alert, cachectic" Attending Documentation: "Mild to moderate protein calorie malnutrition." 01/13 Cardiology Progress Note: "Probably her antibiotics need to be changed because of thrombocytopenia and I will leave that to the Critical Care Service. " 01/12 Attending Progress Note: "Due to altered mental status and uncontrolled hypertension, thrombocytopenia with underlying sepsis patient will be transferred to MICU for further management." 01/11 Attending progress note: "Stopped heparin due to thrombocytopenia." Treatment: Labs am daily IVF bolus 1L followed by 100 cc/hr In order to capture the severity of condition, please clarify the type of anemia and etiology if known: Acute on chronic blood loss anemia Chronic blood loss anemia Iron deficiency anemia Hemolytic anemia Drug induced anemia Anemia due to malignancy Nutritional anemia Anemia of chronic disease Unable to determine Other, please specify Please continue to document in your progress notes and discharge summary in order to capture severity of illness and risk of mortality. Include clinical findings that support your diagnosis. Anemia of chronic disease MTDD
[2018-01-13] MEDS: SODIUM CHLORIDE 0.9% 1,000 ML IV SCH ×2 (13:29→21:20)
--- NOTE | 2018-01-13 16:34 | P.PN ---
Progress Note - Text Progress Note Date: 01/13/18 Patient was transferred to the ICU overnight. Her laparoscopic cholecystectomy will be rescheduled once she is medically stable.
[2018-01-13 21:49] LABS: Albumin 2.4 g/dL (3.5-5.0); Total Bilirubin 3.3 mg/dL (0.2-1.3); Total Protein 5.8 g/dL (6.3-8.2)
--- NOTE | 2018-01-14 00:09 | P.PN ---
Subjective Progress Note Date: 01/13/18 Principal diagnosis: Sepsis secondary to urinary tract infection Elevated liver enzymes Chronic cholecystitis 62-year-old female with a known history of multiple sclerosis currently bedridden, hypertension, GERD, history of breast cancer status post lumpectomy and radiation, hypothyroidism and multiple other medical problems was brought to the hospital due to generalized weakness and dehydration. Patient has history of MS and some residual right-sided weakness and contracture. Over the past several days she has begun oral antibiotics for urinary tract infection. Initially put on nitrofurantoin, symptoms did not improve patient had an episode of nausea and vomiting. She was switched to Bactrim. She's had one dose of Bactrim yesterday but has been unable to tolerate anything orally since that time. She's had nausea with one episode of vomiting. Patient is accompanied by her who is able to give the majority the history. Patient does complain of some chronic leg pain and cramping which is typical for her. No other pain complaints. No abdominal pain. No chest pain or dyspnea. No history of fever or chills. Patient is also confused and altered for the last couple days. WBC 27.2 BUN 69 creatinine 3.75. Lactic acid 2.8 troponin 0.084. CPK 762 AST 87, alk phos 240, albumin 2.9 UA showed large leukocyte esterase, WBC 18 and moderate blood. Chest x-ray showed no acute cardio for process EKG normal sinus rhythm Ultrasound ABDOMEN showed cholelithiasis. Gallbladder wall thickening with positive Juan sign. Correlate for acute cholecystitis. Suspicion for dilated common bile duct intraductal calcifications 01/11/2018 Patient is more awake and oriented today. Able to sit in the chair. Afebrile. Denied any complains of chest pain or shortness of breath. Denied any abdominal pain. Able to tolerate oral diet and take her oral medications. MRCP showed large bile stone. No dilated ducts. Mild gallbladder wall thickening. WBC is trending down. Potassium was replaced. General surgery is planning for cholecystectomy possibly on Saturday and clinically stable. 01/12/2018 Patient became confused again today. Able to nod her head but could not communicate. Could not able to swallow. Blood pressure is uncontrolled. Patient was given IV hydralazine and IV labetalol with some improvement in blood pressure. Otherwise Catapres patch could not be applied due to short supply from pharmacy. CT head is negative. Was done due to altered mentation. Leukocytosis is much improved to 10.8 today morning. Platelet count dropped further to 32,000. Patient is being continued on antibiotics continued on Zosyn. Renal function improved with creatinine level II.0 Patient is not tolerating any oral diet. Currently on IV fluids in the form of half-normal saline. Patient became febrile this afternoon with T-max 100.0 and blood pressure is also not controlled well. Due to altered mental status and uncontrolled hypertension, thrombocytopenia with underlying sepsis patient will be transferred to MICU for further management. 01/13/2018 Patient is awake and alert today. Able to communicate slowly. No complaints of chest pain or shortness of breath. Able to take by mouth medications. Platelet count is dropping down to 19,000 today. No active bleeding noted. No leukocytosis currently. Potassium and magnesium being replaced. Renal function improved with creatinine level I.7. Patient is being closely monitored in the ICU. Patient has been afebrile. Saturating well on room air. Blood pressure is fairly controlled today. Current medications reviewed Active Medications Generic Name Dose Route Start Last Admin Trade Name Freq PRN Reason Stop Dose Admin Acetaminophen 650 mg 01/10/18 16:33 Tylenol Tab PO Q6HR PRN Mild Pain or Fever > 100.5 Amantadine HCl 100 mg 01/12/18 09:00 01/13/18 21:20 Symmetrel PO 100 mg BID KAMILAH Administration Amlodipine Besylate 10 mg 01/12/18 20:45 01/13/18 10:19 Norvasc PO 10 mg DAILY KAMILAH Administration Carvedilol 6.25 mg 01/12/18 17:30 01/13/18 16:50 Coreg PO 6.25 mg BID-W/MEALS KAMILAH Administration Hydralazine HCl 25 mg 01/13/18 09:00 01/13/18 21:20 Apresoline PO 25 mg BID KAMILAH Administration Hydromorphone HCl 0.5 mg 01/10/18 16:33 01/13/18 04:07 Dilaudid IVP 0.5 mg Q3HR PRN Administration Moderate Pain Levetiracetam 500 mg/ Sodium 105 mls @ 400 mls/hr 01/12/18 09:00 01/13/18 21: 20 Chloride IVPB 400 mls/hr Q12HR KAMILAH Administration Piperacillin/Tazobactam/ 50 mls @ 12.5 mls/hr 01/13/18 00:00 01/13/18 16:50 Dextrose 3.375 gm/ IV Solution IVPB 12.5 mls/hr Q8HR KAMILAH Administration Sodium Chloride 1,000 mls @ 100 mls/hr 01/13/18 11:15 01/13/18 21:20 Saline 0.9% IV 100 mls/hr .Q10H KAMILAH Administration Levothyroxine Sodium 50 mcg 01/12/18 06:30 01/13/18 10:21 Synthroid PO 50 mcg DAILY@0630 KAMILAH Administration Lisinopril 10 mg 01/11/18 22:45 01/13/18 11:15 Zestril PO 10 mg DAILY KAMILAH Administration Miscellaneous Information 1 each 01/11/18 11:38 Potassium Per Protocol MISCELLANE DAILY PRN Per Protocol Protocol Miscellaneous Information 1 each 01/12/18 07:07 Potassium Per Protocol MISCELLANE DAILY PRN Per Protocol Protocol Miscellaneous Information 1 each 01/13/18 06:37 Magnesium Per Protocol MISCELLANE DAILY PRN Per Protocol Protocol Naloxone HCl 0.2 mg 01/10/18 16:33 Narcan IV Q2M PRN Opioid Reversal Mirabegron [ 25 mg 01/12/18 09:00 01/13/18 11:12 Myrbetriq] 25 Mg PO Not Given DAILY KAMILAH Ondansetron HCl 4 mg 01/10/18 16:33 Zofran IVP Q8HR PRN Nausea And Vomiting Pantoprazole Sodium 40 mg 01/13/18 09:00 01/13/18 09:01 Protonix IVP 40 mg DAILY KAMILAH Administration Objective - Vital Signs Vital signs: Vital Signs Temp 98.1 F 01/13/18 04:00 Pulse 64 01/13/18 10:00 Resp 16 01/13/18 10:00 BP 159/98 01/13/18 10:00 Pulse Ox 95 01/13/18 10:00 Intake & Output 01/12/18 01/13/18 01/13/18 18:59 06:59 18:59 Intake Total 100 500 Output Total 950 320 Balance -850 180 Weight 56 kg Intake: IV 100 levETIRAcetam IV 500 mg 100 In Sodium Chloride 0.9% 100 ml @ 400 mls/hr IVPB Q12HR KAMILAH Rx#:[id number] Intake, IV Titration 500 Amount Magnesium Sulfate-D5w Pmx 200 1 gm In Dextrose/Water 1 100ml.bag @ 100 mls/hr IVPB Q1H KAMILAH Rx#: [id number] Potassium Chloride 10 meq 200 In Water For Injection 1 100ml.bag @ 100 mls/hr IVPB Q1HR KAMILAH Rx#: [id number] levETIRAcetam IV 500 mg 100 In Sodium Chloride 0.9% 100 ml @ 400 mls/hr IVPB Q12HR KAMILAH Rx#:[id number] Output: Urine 950 320 Other: Voiding Method Diaper Indwelling Catheter Indwelling Catheter - Exam PHYSICAL EXAMINATION: PHYSICAL EXAMINATION: Patient is lying in the bed comfortably, no acute distress, awake alert and oriented.. HEENT: Normocephalic. Neck is supple. Pupils reactive. Nostrils clear. Oral cavity is moist. Ears reveal no drainage. Neck reveals no JVD, carotid bruits, or thyromegaly. CHEST EXAMINATION: Trachea is central. Symmetrical expansion. Lung castillo clear to auscultation and percussion. CARDIAC: Normal S1, S2 with no gallops. No murmurs ABDOMEN: Soft. Bowel sounds normal. No organomegaly. No abdominal bruits. Extremities: reveal no edema. No clubbing or cyanosis Neurologically awake, alert, oriented x2-3 . Able to move all extremities. But extremely weak. Skin: No rash or skin lesions. Psychiatric: Coperative. Could not be assessed completely Musculoskeletal: No joint swelling or deformity. - Labs CBC & Chem 7: 01/13/18 05:14 01/13/18 17:10 Labs: Abnormal Lab Results - Last 24 Hours (Table) 01/11/18 01/12/18 01/12/18 Range/Units 06:11 11:59 17:11 WBC (3.8-10.6) k/uL RBC (3.80-5.40) m/uL Hgb (11.4-16.0) gm/dL Hct (34.0-46.0) % RDW (11.5-15.5) % Plt Count (150-450) k/uL Neutrophils # (1.3-7.7) k/uL Lymphocytes # (1.0-4.8) k/uL Potassium (3.5-5.1) mmol/L Chloride (98-107) mmol/L Carbon Dioxide (22-30) mmol/L BUN (7-17) mg/dL Creatinine (0.52-1.04) mg/dL Glucose (74-99) mg/dL POC Glucose (mg/dL) 122 H 106 H (75-99) mg/dL Hemoglobin A1c 6.3 H (4.0-6.0) % Calcium (8.4-10.2) mg/dL Phosphorus (2.5-4.5) mg/dL Magnesium (1.6-2.3) mg/dL Total Bilirubin (0.2-1.3) mg/dL AST (14-36) U/L Alkaline Phosphatase (38-126) U/L Albumin (3.5-5.0) g/dL 01/12/18 01/12/18 01/12/18 Range/Units 18:34 18:34 18:42 WBC 13.6 H (3.8-10.6) k/uL RBC 3.49 L (3.80-5.40) m/uL Hgb 10.1 L (11.4-16.0) gm/dL Hct 30.7 L (34.0-46.0) % RDW (11.5-15.5) % Plt Count 22 L (150-450) k/uL Neutrophils # 12.4 H (1.3-7.7) k/uL Lymphocytes # 0.7 L (1.0-4.8) k/uL Potassium (3.5-5.1) mmol/L Chloride 111 H (98-107) mmol/L Carbon Dioxide 19 L (22-30) mmol/L BUN 51 H (7-17) mg/dL Creatinine 1.90 H (0.52-1.04) mg/dL Glucose 120 H (74-99) mg/dL POC Glucose (mg/dL) 122 H (75-99) mg/dL Hemoglobin A1c (4.0-6.0) % Calcium (8.4-10.2) mg/dL Phosphorus 2.0 L (2.5-4.5) mg/dL Magnesium 1.4 L (1.6-2.3) mg/dL Total Bilirubin 3.7 H (0.2-1.3) mg/dL AST 60 H (14-36) U/L Alkaline Phosphatase 183 H (38-126) U/L Albumin 2.7 L (3.5-5.0) g/dL 01/13/18 01/13/18 Range/Units 05:14 05:14 WBC 11.6 H (3.8-10.6) k/uL RBC 3.23 L (3.80-5.40) m/uL Hgb 9.6 L (11.4-16.0) gm/dL Hct 28.6 L (34.0-46.0) % RDW 15.7 H (11.5-15.5) % Plt Count 19 L* (150-450) k/uL Neutrophils # 9.8 H (1.3-7.7) k/uL Lymphocytes # 0.8 L (1.0-4.8) k/uL Potassium 3.1 L (3.5-5.1) mmol/L Chloride 113 H (98-107) mmol/L Carbon Dioxide (22-30) mmol/L BUN 50 H (7-17) mg/dL Creatinine 1.70 H (0.52-1.04) mg/dL Glucose 111 H (74-99) mg/dL POC Glucose (mg/dL) (75-99) mg/dL Hemoglobin A1c (4.0-6.0) % Calcium 8.2 L (8.4-10.2) mg/dL Phosphorus (2.5-4.5) mg/dL Magnesium 1.5 L (1.6-2.3) mg/dL Total Bilirubin (0.2-1.3) mg/dL AST (14-36) U/L Alkaline Phosphatase (38-126) U/L Albumin (3.5-5.0) g/dL Microbiology - Last 24 Hours (Table) 01/10/18 13:31 Urine Culture - Final Urine,Catheterized Escherichia coli 01/10/18 13:31 Blood Culture Gram Stain - Final Blood Blood Culture - Final Escherichia coli Assessment and Plan Assessment: Severe Sepsis/septicemia gram-negative secondary to acute urinary tract infection. Failed outpatient antibiotic therapy. Continue with Zosyn. Gram-negative bacilli in the blood and urine cultures. Thrombocytopenia. Likely due to sepsis. Worsening. 147--81--32--22K--19. Lactic acidosis. Improving. Elevated troponin level possible demand ischemia Acute kidney injury. Possible ATN creatinine level 3.75--3.03--2.01 Elevated alk phos and AST with dilated common bile duct and acute cholecystitis as per ultrasound of abdomen. MRCP showed no dilated ducts. Showed large bile stone. Hyperbilirubinemia Altered mental status possible metabolic encephalopathy Uncontrolled hypertension/accelerated hypertension rhabdomyolysis History of MS and residual right-sided weakness and contractures History of right breast cancer in 2003 status post lumpectomy and radiation Seizure disorder. Hypothyroidism Diverticulosis and past colon polyps benign Previous history of smoking Mild to moderate protein calorie malnutrition with albumin level II.9 DVT prophylaxis Plan: Patient will be continued on IV hydration in the form of half-normal saline. Continue to monitor platelet count. Follow up renal function. Continue with antibiotics in the form of Zosyn and urine cultures were sent. General surgery and GI is following.. Continue with home medications. Patient failed swallow evaluation initially. Keppra will be changed to IV and Catapres patch was applied for uncontrolled hypertension. Discussed with the family at bedside in detail. Prognosis is guarded with multiple medical problems and comorbid conditions. Time with Patient: Greater than 30
[2018-01-14] MEDS: PIPERACILLIN-TAZOBACTAM 3.375 GM in DEXTROSE/WATER 1 50ML.BAG IVPB SCH ×3 (00:11→17:42)
[2018-01-14 00:35] LABS: Glucose,Whole Blood 108 mg/dL (75-99)
[2018-01-14] MEDS: CARVEDILOL 6.25 MG TAB PO SCH ×2 (05:05→22:08)
[2018-01-14] MEDS: LEVOTHYROXINE 50 MCG TAB PO SCH (05:06)
[2018-01-14 05:55] LABS: Anisocytosis Slight; HCT 25.9 % (34.0-46.0); HGB 8.5 gm/dL (11.4-16.0); Hypochromasia Slight; MCHC 32.9 g/dL (31.0-37.0); MCV 88.1 fL (80.0-100.0); Mean Platelet Volume 7.9; Poikilocytosis Moderate; RBC 2.95 m/uL (3.80-5.40); RDW 16.2 % (11.5-15.5)
[2018-01-14 06:02] LABS: Platelet Count 29 k/uL (150-450)
[2018-01-14 06:26] LABS: Albumin 2.4 g/dL (3.5-5.0); Calcium 8.5 mg/dL (8.4-10.2); Phosphorus 2.1 mg/dL (2.5-4.5); Potassium 3.6 mmol/L (3.5-5.1); Total Bilirubin 3.1 mg/dL (0.2-1.3); Total Protein 5.7 g/dL (6.3-8.2)
[2018-01-14 06:47] LABS: Band Neutrophils % 2 %; Eosinophils # (M) 0.16 k/uL (0-0.7); Lymphocytes # (M) 0.98 k/uL (1.0-4.8); Monocytes # (M) 0.98 k/uL (0-1.0); Neutrophils % (M) 87 %; Nucleated Red Blood Cells 1 /100 WBC (0-0); Total Cells Counted 200; WBC 16.3 k/uL (3.8-10.6)
[2018-01-14 06:48] LABS: Polychromasia Present
[2018-01-14] MEDS: levETIRAcetam IV 500 MG in SODIUM CHLORIDE 0.9% 100 ML IVPB SCH ×2 (08:16→21:45)
[2018-01-14] MEDS: AMANTADINE HCL 100 MG CAP PO SCH ×2 (08:19→22:27)
[2018-01-14] MEDS: LISINOPRIL 10 MG TAB PO SCH (08:19)
[2018-01-14] MEDS: amLODIPine 10 MG TAB PO SCH (08:19)
[2018-01-14] MEDS: hydrALAZINE HCL 50 MG TAB PO SCH ×3 (08:21→22:56)
[2018-01-14] MEDS: PANTOPRAZOLE 40 MG/10 ML VIAL IVP SCH (08:22)
[2018-01-14] MEDS: SODIUM CHLORIDE 0.9% 1,000 ML IV SCH ×2 (08:29→17:43)
--- NOTE | 2018-01-14 09:02 | P.PN ---
Subjective Progress Note Date: 01/14/18 Principal diagnosis: Nausea vomiting elevated liver enzymes 62-year-old female history of multiple sclerosis admitted with nausea vomiting UTI with gram negatives E. coli urine culture and blood culture. Ultrasound abdomen on admission reported gallstones and possible biliary ductal dilatation. MRCP revealed normal-appearing biliary system with no evidence of CBD stones. General surgery consulted laparoscopic cholecystectomy on hold secondary to thrombocytopenia. Today white count 16.3. Hemoglobin 8.5;no bleeding. Platelet 29,000. BUN 36. Creatinine 1.3. LFTs improved TB 3.1. AST 44. ALT 36. AP 136. Presently denies abdominal pain. afebrile. Objective - Vital Signs Vital signs: Vital Signs Temp 97.9 F 01/14/18 08:00 Pulse 73 01/14/18 08:00 Resp 13 01/14/18 08:00 BP 173/135 01/14/18 08:00 Pulse Ox 96 01/14/18 08:00 Intake & Output 01/13/18 01/14/18 01/14/18 18:59 06:59 18:59 Intake Total 1125 1550 Output Total 897 1601 Balance 228 -51 Weight 56 kg Intake: IV 50 300 Piperacillin-Tazobactam 3 50 .375 gm In Dextrose/Water 1 50ml.bag @ 12.5 mls/hr IVPB ONCE STA Rx#: [id number] Sodium Chloride 0.9% 1, 300 000 ml @ 100 mls/hr IV . Q10H KAMILAH Rx#:[id number] Intake, IV Titration 800 950 Amount Magnesium Sulfate-D5w Pmx 200 1 gm In Dextrose/Water 1 100ml.bag @ 100 mls/hr IVPB Q1H KAMILAH Rx#: [id number] Piperacillin-Tazobactam 3 50 .375 gm In Dextrose/Water 1 50ml.bag @ 12.5 mls/hr IVPB Q8HR KAMILAH Rx#: [id number] Potassium Chloride 10 meq 300 In Water For Injection 1 100ml.bag @ 100 mls/hr IVPB Q1HR KAMILAH Rx#: [id number] Sodium Chloride 0.9% 1, 200 800 000 ml @ 100 mls/hr IV . Q10H KAMILAH Rx#:[id number] levETIRAcetam IV 500 mg 100 100 In Sodium Chloride 0.9% 100 ml @ 400 mls/hr IVPB Q12HR KAMILAH Rx#:[id number] Oral 275 300 Output: Urine 897 1601 Other: Voiding Method Indwelling Catheter Indwelling Catheter Indwelling Catheter - Exam General appearance: The patient is alert, oriented, in no acute distress. HET: Head is normocephalic and atraumatic. Pupils are equal and reactive. Oropharynx is clear without lesions. Neck: Supple without lymphadenopathy. Trachea midline. Heart: S1 S2. Regular rate and rhythm. Lungs: No crackles or wheezes are heard. Abdomen: Soft, nontender, nondistended with bowel sounds. No peritoneal signs. No palpable organomegaly or masses. Extremities: Normal skin color and turgor. No cyanosis, rash, ulceration, clubbing, or edema. Radial and pedal pulses are 2/4 bilaterally. Neurological: No focal deficits. Strength and sensation are grossly intact. - Labs CBC & Chem 7: 01/14/18 05:11 01/14/18 05:11 Labs: Abnormal Lab Results - Last 24 Hours (Table) 01/11/18 01/13/18 01/14/18 Range/Units 06:11 05:14 00:22 WBC (3.8-10.6) k/uL RBC (3.80-5.40) m/uL Hgb (11.4-16.0) gm/dL Hct (34.0-46.0) % RDW (11.5-15.5) % Plt Count (150-450) k/uL Neutrophils # (Manual) (1.3-7.7) k/uL Lymphocytes # (Manual) (1.0-4.8) k/uL Nucleated RBCs (0-0) /100 WBC Potassium 3.1 L (3.5-5.1) mmol/L Chloride 113 H (98-107) mmol/L Carbon Dioxide (22-30) mmol/L BUN 50 H (7-17) mg/dL Creatinine 1.70 H (0.52-1.04) mg/dL Glucose 111 H (74-99) mg/dL POC Glucose (mg/dL) 108 H (75-99) mg/dL Hemoglobin A1c 6.3 H (4.0-6.0) % Calcium 8.2 L (8.4-10.2) mg/dL Phosphorus (2.5-4.5) mg/dL Magnesium 1.5 L (1.6-2.3) mg/dL Total Bilirubin 3.3 H (0.2-1.3) mg/dL AST 49 H (14-36) U/L Alkaline Phosphatase 150 H (38-126) U/L Total Protein 5.8 L (6.3-8.2) g/dL Albumin 2.4 L (3.5-5.0) g/dL 01/14/18 01/14/18 Range/Units 05:11 05:11 WBC 16.3 H (3.8-10.6) k/uL RBC 2.95 L (3.80-5.40) m/uL Hgb 8.5 L (11.4-16.0) gm/dL Hct 25.9 L (34.0-46.0) % RDW 16.2 H (11.5-15.5) % Plt Count 29 L D (150-450) k/uL Neutrophils # (Manual) 14.50 H (1.3-7.7) k/uL Lymphocytes # (Manual) 0.98 L (1.0-4.8) k/uL Nucleated RBCs 1 H (0-0) /100 WBC Potassium (3.5-5.1) mmol/L Chloride 119 H (98-107) mmol/L Carbon Dioxide 20 L (22-30) mmol/L BUN 36 H (7-17) mg/dL Creatinine 1.39 H (0.52-1.04) mg/dL Glucose 106 H (74-99) mg/dL POC Glucose (mg/dL) (75-99) mg/dL Hemoglobin A1c (4.0-6.0) % Calcium (8.4-10.2) mg/dL Phosphorus 2.1 L (2.5-4.5) mg/dL Magnesium (1.6-2.3) mg/dL Total Bilirubin 3.1 H (0.2-1.3) mg/dL AST 44 H (14-36) U/L Alkaline Phosphatase 136 H (38-126) U/L Total Protein 5.7 L (6.3-8.2) g/dL Albumin 2.4 L (3.5-5.0) g/dL Microbiology - Last 24 Hours (Table) 01/12/18 18:34 Blood Culture - Preliminary Blood No Growth after 24 hours 01/10/18 13:31 Blood Culture Gram Stain - Final Blood Blood Culture - Final Escherichia coli Assessment and Plan (1) Elevated liver enzymes Narrative/Plan: 67-year-old female admitted with nausea vomiting elevated transaminases cholelithiasis status post MRCP with no evidence of biliary tree abnormality. Elevated transaminases possibly related to sepsis possible symptomatic gallstones. General surgery following closely. Current Visit: Yes Status: Acute Code(s): R74.8 - ABNORMAL LEVELS OF OTHER SERUM ENZYMES SNOMED Code(s): 594782110 (2) UTI (urinary tract infection) Current Visit: Yes Status: Acute Code(s): N39.0 - URINARY TRACT INFECTION, SITE NOT SPECIFIED SNOMED Code(s): 16679737 (3) Bacteremia Current Visit: Yes Status: Acute Code(s): R78.81 - BACTEREMIA SNOMED Code( s): 4819683 (4) Cholelithiasis Current Visit: Yes Status: Acute Code(s): K80.20 - CALCULUS OF GALLBLADDER W /O CHOLECYSTITIS W/O OBSTRUCTION SNOMED Code(s): 592379865 (5) Multiple sclerosis Current Visit: Yes Status: Acute Code(s): G35 - MULTIPLE SCLEROSIS SNOMED Code(s): 51799189 (6) Sepsis Current Visit: Yes Status: Acute Code(s): A41.9 - SEPSIS, UNSPECIFIED ORGANISM SNOMED Code(s): 80971380 (7) Thrombocytopenia Narrative/Plan: improved Current Visit: Yes Status: Acute Code(s): D69.6 - THROMBOCYTOPENIA, UNSPECIFIED SNOMED Code(s): 442491623 Plan: 1. Continue to monitor CMP daily. Diet as tolerated. ERCP not planned at this time. Continue with IV antibiotics. Assessment and plan of care discussed with Dr. Tejeda
--- NOTE | 2018-01-14 09:07 | PN ---
PROGRESS NOTE Mrs. Tiwari is a 62-year-old female who presented with evidence urosepsis. She has cholelithiasis. She has history of multiple sclerosis. She is more awake and alert today. Her blood pressure has been on the high side. She has no chest pain. No dizziness. No palpitation. She is in sinus mechanism. She has no episodes of hypotension. She continued be on amlodipine 10 mg daily, Coreg 6.5 mg twice a day, Apresoline 25 mg twice a day and Zestril 10 mg daily in addition to her antibiotics. PHYSICAL EXAMINATION: Blood pressure running in the 180/100 with a heart rate in 70s. LUNGS: Clear with systolic murmur, ejection type. HEART: Regular rhythm S1, S2. No S3. No rub appreciated. ABDOMEN: Soft, nontender. EXTREMITIES: No edema. LAB DATA: Revealed white blood cell of 16.3, hemoglobin of 8.5 her platelets count up to 29,000. BUN and creatinine 36 and 1.39, improved compared to yesterday. IMPRESSION: 1. Urosepsis cough. 2. Hypertension. 3. Thrombocytopenia, improving. 4. Acute bacteremia. 5. History of multiple sclerosis. 6. Dehydration. RECOMMENDATION: From the cardiac standpoint, I will increase the dose of her hydralazine. I will add to her regimen. I will increase the dose of hydralazine for her blood pressure and depending on her progress, further recommendation will be made. MMODL / IJN: [id number] /
[2018-01-14] MEDS ORDERED: POTASSIUM CHLORIDE ER 20 MEQ TAB.ER PO SCH (11:00)
[2018-01-14] MEDS ORDERED: Phosphorus Replacement Protoco 1 EACH MISC MISCELLANE PRN (11:01)
--- NOTE | 2018-01-14 12:06 | P.PN ---
Subjective Progress Note Date: 01/14/18 Principal diagnosis: Acute sepsis and bacteremia secondary to E. coli urinary tract infection. This is a 62-year-old female with history of multiple medical problems including multiple sclerosis, bedridden, seizure disorder, hypothyroidism, breast cancer and previous lumpectomy followed by radiation, patient was brought into the hospital mostly with symptoms of generalized weakness, dehydration, and some confusion. Patient was recently treated for urinary tract infection with Macrodantin however it was later changed to Bactrim. However the patient developed persistent nausea and vomiting, and she was brought into the ER where in she was noted to have leukocytosis, elevated liver enzymes, ultrasound of the abdomen showed gallstones with thickening of the gallbladder wall, and positive dilated common bile duct with intraductal calcification. Patient had no abdominal pain and no tenderness upon presentation. Patient was also seen by general surgery, and she was supposed to undergo laparoscopic cholecystectomy today. However the patient developed thrombocytopenia, and her blood cultures came back positive for E. coli, this was noted in the urine also in the blood cultures, hence laparoscopic cholecystectomy is presently on hold, and the patient is being treated for acute E. coli sepsis and bacteremia. The most likely source is her urinary tract infection. Patient was also seen by other consultants including cardiology for her elevated troponin, and it was felt to be mild elevation reflecting a pipe 2 event. Upon my evaluation today, the patient seemed to be alert, oriented, appropriate, and she had no specific complaints, she denied any abdominal pain, she had no nausea and vomiting this morning, and she had no symptoms of dysuria frequency or urgency. Patient is presently on antibiotics and/Zosyn for her E. coli bacteremia and urinary tract infection secondary to E. coli. Reevaluated today on 01/14/2018, patient is hemodynamically stable, not requiring any pressors. Patient is relatively asymptomatic, denies any shortness of breath no cough no wheezing. Remains on antibiotics for E. coli sepsis and bacteremia, primary source is her urinary tract infection. WBC count is 16.3 hemoglobin is 8.5 rest of the labs were noted to be relatively unremarkable. Renal functioning is steadily improving, creatinine is down to 1.39 today. Objective - Vital Signs Vital signs: Vital Signs Temp 97.9 F 01/14/18 08:00 Pulse 71 01/14/18 11:00 Resp 26 H 01/14/18 11:00 BP 111/69 01/14/18 11:00 Pulse Ox 96 01/14/18 11:00 Intake & Output 01/13/18 01/14/18 01/14/18 18:59 06:59 18:59 Intake Total 1125 1550 420 Output Total 897 1601 240 Balance 228 -51 180 Weight 56 kg Intake: IV 50 300 220 Piperacillin-Tazobactam 3 50 .375 gm In Dextrose/Water 1 50ml.bag @ 12.5 mls/hr IVPB ONCE [facility] Rx#: [id number] Sodium Chloride 0.9% 1, 300 220 000 ml @ 100 mls/hr IV . Q10H [facility] Rx#:[id number] Intake, IV Titration 800 950 100 Amount Magnesium Sulfate-D5w Pmx 200 1 gm In Dextrose/Water 1 100ml.bag @ 100 mls/hr IVPB Q1H [facility] Rx#: [id number] Piperacillin-Tazobactam 3 50 .375 gm In Dextrose/Water 1 50ml.bag @ 12.5 mls/hr IVPB Q8HR [facility] Rx#: [id number] Potassium Chloride 10 meq 300 In Water For Injection 1 100ml.bag @ 100 mls/hr IVPB Q1HR [facility] Rx#: [id number] Sodium Chloride 0.9% 1, 200 800 000 ml @ 100 mls/hr IV . Q10H [facility] Rx#:[id number] levETIRAcetam IV 500 mg 100 100 100 In Sodium Chloride 0.9% 100 ml @ 400 mls/hr IVPB Q12HR [facility] Rx#:[id number] Oral 275 300 100 Output: Urine 897 1601 240 Other: Voiding Method Indwelling Catheter Indwelling Catheter Indwelling Catheter - Exam General appearance: Revealed a 62-year-old female in no distress, pleasant, and relatively asymptomatic. HET: Head is normocephalic and atraumatic. Pupils are equal and reactive. Oropharynx is clear without lesions. Neck: Supple without lymphadenopathy. Trachea midline. Heart: S1 S2. Regular rate and rhythm. Lungs: No crackles or wheezes are heard. Abdomen: Soft, nontender, nondistended with bowel sounds. No peritoneal signs. No palpable organomegaly or masses. Extremities: Normal skin color and turgor. No cyanosis, rash, ulceration, clubbing, or edema. Radial and pedal pulses are 2/4 bilaterally. Neurological: No focal deficits. Strength and sensation are grossly intact. Psychiatric: Normal mood, affect and mental status examination. Lymphatics: No lymphadenopathy. - Labs CBC & Chem 7: 01/14/18 05:11 01/14/18 05:11 Labs: Abnormal Lab Results - Last 24 Hours (Table) 01/13/18 01/14/18 01/14/18 Range/Units 05:14 00:22 05:11 WBC 16.3 H (3.8-10.6) k/uL RBC 2.95 L (3.80-5.40) m/uL Hgb 8.5 L (11.4-16.0) gm/dL Hct 25.9 L (34.0-46.0) % RDW 16.2 H (11.5-15.5) % Plt Count 29 L D (150-450) k/uL Neutrophils # (Manual) 14.50 H (1.3-7.7) k/uL Lymphocytes # (Manual) 0.98 L (1.0-4.8) k/uL Nucleated RBCs 1 H (0-0) /100 WBC Potassium 3.1 L (3.5-5.1) mmol/L Chloride 113 H (98-107) mmol/L Carbon Dioxide (22-30) mmol/L BUN 50 H (7-17) mg/dL Creatinine 1.70 H (0.52-1.04) mg/dL Glucose 111 H (74-99) mg/dL POC Glucose (mg/dL) 108 H (75-99) mg/dL Calcium 8.2 L (8.4-10.2) mg/dL Phosphorus (2.5-4.5) mg/dL Magnesium 1.5 L (1.6-2.3) mg/dL Total Bilirubin 3.3 H (0.2-1.3) mg/dL AST 49 H (14-36) U/L Alkaline Phosphatase 150 H (38-126) U/L Total Protein 5.8 L (6.3-8.2) g/dL Albumin 2.4 L (3.5-5.0) g/dL 01/14/18 Range/Units 05:11 WBC (3.8-10.6) k/uL RBC (3.80-5.40) m/uL Hgb (11.4-16.0) gm/dL Hct (34.0-46.0) % RDW (11.5-15.5) % Plt Count (150-450) k/uL Neutrophils # (Manual) (1.3-7.7) k/uL Lymphocytes # (Manual) (1.0-4.8) k/uL Nucleated RBCs (0-0) /100 WBC Potassium (3.5-5.1) mmol/L Chloride 119 H (98-107) mmol/L Carbon Dioxide 20 L (22-30) mmol/L BUN 36 H (7-17) mg/dL Creatinine 1.39 H (0.52-1.04) mg/dL Glucose 106 H (74-99) mg/dL POC Glucose (mg/dL) (75-99) mg/dL Calcium (8.4-10.2) mg/dL Phosphorus 2.1 L (2.5-4.5) mg/dL Magnesium (1.6-2.3) mg/dL Total Bilirubin 3.1 H (0.2-1.3) mg/dL AST 44 H (14-36) U/L Alkaline Phosphatase 136 H (38-126) U/L Total Protein 5.7 L (6.3-8.2) g/dL Albumin 2.4 L (3.5-5.0) g/dL Microbiology - Last 24 Hours (Table) 01/12/18 18:34 Blood Culture Gram Stain - Preliminary Blood 01/12/18 18:34 Blood Culture - Final Blood 01/10/18 13:31 Blood Culture Gram Stain - Final Blood Blood Culture - Final Escherichia coli Assessment and Plan Assessment: Impression: 1 acute sepsis secondary to E. coli urinary tract infection and E. coli bacteremia. 2 elevated liver enzymes most likely related to sepsis, possible gallstones. Cholelithiasis. 3 acute thrombocytopenia most likely secondary to sepsis, improving, platelets count are up to 29,000 today. 4 acute bacteremia, the most likely source is her urinary tract infection. 5 history of MS 6 acute dehydration secondary to nausea and vomiting most likely secondary to urinary tract infection could also be related to her antibiotics. 7 multiple comorbidities including breast cancer, hypertension, seizure disorder , hypothyroidism, GERD without esophagitis. Recommendation: Continue present course of antibiotics, continue to monitor platelets, continue GI prophylaxis, continue close monitoring of her renal profile, we will arrange for the patient to be transferred to a regular medical floor today. We'll continue to follow. Time with Patient: Less than 30
[2018-01-14] MEDS: POTASSIUM PHOSPHATE 10 MMOL in SODIUM CHLORIDE 0.9% 250 ML IV SCH ×2 (12:24→15:40)
[2018-01-14] MEDS: Mirabegron [Myrbetriq] 25 MG PO SCH (12:25)
--- NOTE | 2018-01-14 13:36 | P.PN ---
Subjective Progress Note Date: 01/14/18 62-year-old female with multiple medical problems including multiple sclerosis is bedridden. Patient does have a history of breast cancer previous lumpectomy followed by radiation. Patient initially was presented to the emergency room with generalized weakness dehydration and confusion. Patient's currently being treated for UTI by medicine service. Patient is being treated for UTI gram-negative E. coli cultures as well as blood on the ultrasound of the abdomen on admission did show gallstones possible biliary duct dilatation. MRCP reviewed normally appearing biliary system no evidence of common bile duct stone Patient was transferred out of the ICU on the . The laparoscopic cholecystectomy will be scheduled once patient is medically stable Objective - Vital Signs Vital signs: Vital Signs Temp 97.9 F 01/14/18 08:00 Pulse 71 01/14/18 11:00 Resp 26 H 01/14/18 11:00 BP 111/69 01/14/18 11:00 Pulse Ox 96 01/14/18 11:00 Intake & Output 01/13/18 01/14/18 01/14/18 18:59 06:59 18:59 Intake Total 1125 1550 420 Output Total 897 1601 240 Balance 228 -51 180 Weight 56 kg Intake: IV 50 300 220 Piperacillin-Tazobactam 3 50 .375 gm In Dextrose/Water 1 50ml.bag @ 12.5 mls/hr IVPB ONCE STA Rx#: [id number] Sodium Chloride 0.9% 1, 300 220 000 ml @ 100 mls/hr IV . Q10H [facility] Rx#:[id number] Intake, IV Titration 800 950 100 Amount Magnesium Sulfate-D5w Pmx 200 1 gm In Dextrose/Water 1 100ml.bag @ 100 mls/hr IVPB Q1H [facility] Rx#: [id number] Piperacillin-Tazobactam 3 50 .375 gm In Dextrose/Water 1 50ml.bag @ 12.5 mls/hr IVPB Q8HR [facility] Rx#: [id number] Potassium Chloride 10 meq 300 In Water For Injection 1 100ml.bag @ 100 mls/hr IVPB Q1HR [facility] Rx#: [id number] Sodium Chloride 0.9% 1, 200 800 000 ml @ 100 mls/hr IV . Q10H [facility] Rx#:[id number] levETIRAcetam IV 500 mg 100 100 100 In Sodium Chloride 0.9% 100 ml @ 400 mls/hr IVPB Q12HR [facility] Rx#:[id number] Oral 275 300 100 Output: Urine 897 1601 240 Other: Voiding Method Indwelling Catheter Indwelling Catheter Indwelling Catheter - Exam Exam 62-year-old female resting in bed appearing in no acute distress family member at the bedside patient has limited mobility but Lungs diminished at the bases otherwise adequate air movement Heart S1-S2 audible regular Abdomen indwelling Noriega catheter in place nontender nondistended no facial grimaces with palpitation Extremity contractures to the lower extremities. No edema noted. - Labs CBC & Chem 7: 01/14/18 05:11 01/14/18 05:11 Labs: Abnormal Lab Results - Last 24 Hours (Table) 01/13/18 01/14/18 01/14/18 Range/Units 05:14 00:22 05:11 WBC 16.3 H (3.8-10.6) k/uL RBC 2.95 L (3.80-5.40) m/uL Hgb 8.5 L (11.4-16.0) gm/dL Hct 25.9 L (34.0-46.0) % RDW 16.2 H (11.5-15.5) % Plt Count 29 L D (150-450) k/uL Neutrophils # (Manual) 14.50 H (1.3-7.7) k/uL Lymphocytes # (Manual) 0.98 L (1.0-4.8) k/uL Nucleated RBCs 1 H (0-0) /100 WBC Potassium 3.1 L (3.5-5.1) mmol/L Chloride 113 H (98-107) mmol/L Carbon Dioxide (22-30) mmol/L BUN 50 H (7-17) mg/dL Creatinine 1.70 H (0.52-1.04) mg/dL Glucose 111 H (74-99) mg/dL POC Glucose (mg/dL) 108 H (75-99) mg/dL Calcium 8.2 L (8.4-10.2) mg/dL Phosphorus (2.5-4.5) mg/dL Magnesium 1.5 L (1.6-2.3) mg/dL Total Bilirubin 3.3 H (0.2-1.3) mg/dL AST 49 H (14-36) U/L Alkaline Phosphatase 150 H (38-126) U/L Total Protein 5.8 L (6.3-8.2) g/dL Albumin 2.4 L (3.5-5.0) g/dL 01/14/18 Range/Units 05:11 WBC (3.8-10.6) k/uL RBC (3.80-5.40) m/uL Hgb (11.4-16.0) gm/dL Hct (34.0-46.0) % RDW (11.5-15.5) % Plt Count (150-450) k/uL Neutrophils # (Manual) (1.3-7.7) k/uL Lymphocytes # (Manual) (1.0-4.8) k/uL Nucleated RBCs (0-0) /100 WBC Potassium (3.5-5.1) mmol/L Chloride 119 H (98-107) mmol/L Carbon Dioxide 20 L (22-30) mmol/L BUN 36 H (7-17) mg/dL Creatinine 1.39 H (0.52-1.04) mg/dL Glucose 106 H (74-99) mg/dL POC Glucose (mg/dL) (75-99) mg/dL Calcium (8.4-10.2) mg/dL Phosphorus 2.1 L (2.5-4.5) mg/dL Magnesium (1.6-2.3) mg/dL Total Bilirubin 3.1 H (0.2-1.3) mg/dL AST 44 H (14-36) U/L Alkaline Phosphatase 136 H (38-126) U/L Total Protein 5.7 L (6.3-8.2) g/dL Albumin 2.4 L (3.5-5.0) g/dL Microbiology - Last 24 Hours (Table) 01/12/18 18:34 Blood Culture Gram Stain - Preliminary Blood 01/12/18 18:34 Blood Culture - Final Blood 01/10/18 13:31 Blood Culture Gram Stain - Final Blood Blood Culture - Final Escherichia coli Assessment and Plan Assessment: Impression Present on admission nausea vomiting elevated liver enzymes Status post MRCP no evidence of biliary tree abnormality Elevated liver enzymes possibly related to sepsis possible symptomatic gallstones UTI infection bacteremia Multiple sclerosis limited mobility bedbound Thrombocytopenia Plan Laparoscopic cholecystectomy will be rescheduled once patient is medically cleared Continue recommendations per the attending Will follow with you The above impression and plan of care have been discussed and directed by signing physician. Maite Weaver nurse practitioner acting as scribe for signing physician.
[2018-01-14 17:27] LABS: Glucose,Whole Blood 148 mg/dL (75-99)
[2018-01-14 19:41] LABS: Hepatitis A Antibody IgM Non-Reactive (Non-Reactive); Hepatitis B Core IgM Non-Reactive (Non-Reactive)
--- NOTE | 2018-01-14 22:32 | P.CONS ---
History of Present Illness - Reason for Consult Consult date: 01/14/18 - Chief Complaint Progressive weakness - History of Present Illness 62-year-old female who has multiple medical troubles that includes multiple sclerosis, history of breast carcinoma status post surgical intervention and radiation therapy, seizures and hypothyroidism presents to the emergency center with symptoms of increasing fatigue malaise some altered mentation consequently was brought to the emergency center by her . 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 The patient recently spent having difficulties with urinary tract infection resented with Macrodantin which was then transitioned to Bactrim. Despite this she was not improving with increasing symptoms. She consequently was brought in the hospital on 01/10/2018. Despite antibiotic therapy with Zosyn still continues to feel somewhat poorly and constantly the infectious diseases consultation was requested. The patient has been about a by general surgery because she was having some abdominal pain there is evidence of some elevated liver function tests and alkaline phosphatase. Imaging study reveals evidence of a large gallstone but MRCP failed to reveal evidence of any acute obstruction of the biliary tract at this time. Patient though was symptomatic and there were plans for a laparoscopic cholecystectomy due to significant thrombocytopenia this was held. Review of Systems 58 year old woman debilitated HEENT:Denies headache or acute visual change. Denies sinus or mouth discomforts. Denies neck stiffness or pain. Oral cavity is dry but she is having no difficulties with swallowing Lungs: She has some chronic shortness of breath but this is not acutely worsened she's having no severe cough sputum production or hemoptysis Cardiovascular: She is not having severe chest pain at this time Gastrointestinal:Denies nausea, vomiting, diarrhea, constipation, hematemesis, melena, hematochezia. No no significant change of bowel habit noticed. Musculoskeletal: Chronic weakness is bedbound Skin: Denies new rash or lesions. No new ulcers or wounds are related.. Neuro: No current seizures profound generalized weakness Psychiatric: Denies acute change Endocrine: Worsening fatigue weight is stable Past Medical History Past Medical History: Cancer, GERD/Reflux, Hypertension, Seizure Disorder, Thyroid Disorder Additional Past Medical History / Comment(s): MS-, 2003 rt breast cancer had lumpectomy/radiation tx.sinus problems, diverticulosis, past colon polyps-benign History of Any Multi-Drug Resistant Organisms: None Reported Past Surgical History: Breast Surgery, Tubal Ligation Additional Past Surgical History / Comment(s): rt breast bx and lumpectomy/ radiaiton tx,colonoscopy/polyps removed Past Anesthesia/Blood Transfusion Reactions: No Reported Reaction Additional Psychological History / Comment(s): is cared for in the family home by her and caregivers. No experience. Travel history. No animal exposures Smoking Status: Former smoker - Past Family History Mother Family Medical History: CVA/TIA Father History Unknown: Yes Medications and Allergies Home Medications and Allergies Comment(s): Current Medications Acetaminophen (Tylenol Tab) 650 mg PO Q6HR PRN PRN Reason: Mild Pain or Fever > 100.5 Amantadine HCl (Symmetrel) 100 mg PO BID [facility] Last Admin: 01/14/18 22:27 Dose: 100 mg Amlodipine Besylate (Norvasc) 10 mg PO DAILY [facility] Last Admin: 01/14/18 08:19 Dose: 10 mg Carvedilol (Coreg) 6.25 mg PO BID-W/MEALS [facility] Last Admin: 01/14/18 22:08 Dose: Not Given Hydralazine HCl (Apresoline) 50 mg PO TID [facility] Last Admin: 01/14/18 17:35 Dose: 50 mg Hydromorphone HCl (Dilaudid) 0.5 mg IVP Q3HR PRN PRN Reason: Moderate Pain Last Admin: 01/13/18 04:07 Dose: 0.5 mg Levetiracetam 500 mg/ Sodium (Chloride) 105 mls @ 400 mls/hr IVPB Q12HR [facility] Last Admin: 01/14/18 21:45 Dose: 400 mls/hr Sodium Chloride (Saline 0.9%) 1,000 mls @ 100 mls/hr IV .Q10H [facility] Last Admin: 01/14/18 17:43 Dose: Not Given Ceftriaxone Sodium 2,000 mg/ (Sodium Chloride) 100 mls @ 100 mls/hr IVPB Q24HR [facility] Levothyroxine Sodium (Synthroid) 50 mcg PO DAILY@0630 [facility] Last Admin: 01/14/18 05:06 Dose: 50 mcg Lisinopril (Zestril) 10 mg PO DAILY [facility] Last Admin: 01/14/18 08:19 Dose: 10 mg Miscellaneous Information (Potassium Per Protocol) 1 each MISCELLANE DAILY PRN ; Protocol PRN Reason: Per Protocol Miscellaneous Information (Potassium Per Protocol) 1 each MISCELLANE DAILY PRN ; Protocol PRN Reason: Per Protocol Miscellaneous Information (Magnesium Per Protocol) 1 each MISCELLANE DAILY PRN ; Protocol PRN Reason: Per Protocol Miscellaneous Information (Phosphorus Per Protocol) 1 each MISCELLANE DAILY PRN ; Protocol PRN Reason: Per Protocol Naloxone HCl (Narcan) 0.2 mg IV Q2M PRN PRN Reason: Opioid Reversal Mirabegron [ (Myrbetriq] 25 Mg) 25 mg PO DAILY [facility] Last Admin: 01/14/18 12:25 Dose: Not Given Ondansetron HCl (Zofran) 4 mg IVP Q8HR PRN PRN Reason: Nausea And Vomiting Pantoprazole Sodium (Protonix) 40 mg PO [facility] Home Medications Medication Instructions Recorded Confirmed Type Amantadine HCl [Symmetrel] 100 mg PO BID 12/17/13 01/10/18 History Aspirin 81 mg PO DAILY 12/17/13 01/10/18 History Lisinopril [Zestril] 10 mg PO DAILY 12/17/13 01/10/18 History Rebif 40 mcg INJ MOWEFR 12/17/13 01/10/18 History levETIRAcetam [Keppra] 500 mg PO Q12HR 12/17/13 01/10/18 History tiZANidine [Zanaflex] 4 mg PO QID 12/17/13 01/10/18 History Carvedilol [Coreg] 3.125 mg PO BID 01/10/18 01/10/18 History Levothyroxine Sodium [Synthroid] 50 mcg PO DAILY 01/10/18 01/10/18 History Mirabegron [Myrbetriq] 25 mg PO DAILY 01/10/18 01/10/18 History Omeprazole 20 mg PO DAILY 01/10/18 01/10/18 History Sulfamethox-Tmp 800-160Mg [Bactrim 1 tab PO Q12HR 01/10/18 01/10/18 History DS 800-160 mg] Allergies Allergy/AdvReac Type Severity Reaction Status Date / Time nitrofurantoin AdvReac Nausea Verified 01/10/18 13:12 [From Macrobid] Physical Exam Vitals: Vital Signs Temp Pulse Pulse Resp BP BP Pulse Ox 01/14/18 21:00 99.5 F 91 20 119/70 97 01/14/18 11:00 71 26 H 111/69 96 01/14/18 10:00 75 24 115/73 96 01/14/18 09:00 68 20 174/107 96 01/14/18 08:00 97.9 F 73 13 173/135 96 01/14/18 07:15 182/103 01/14/18 07:00 74 16 209/118 96 01/14/18 06:00 78 13 176/124 97 01/14/18 05:00 97.7 F 81 22 165/135 96 01/14/18 04:01 79 15 162/101 94 L 01/14/18 03:00 77 17 152/120 98 01/14/18 02:00 77 11 L 141/129 95 01/14/18 01:00 75 12 166/105 94 L 01/14/18 00:00 97.9 F 75 21 146/103 96 01/13/18 23:00 77 20 122/71 96 01/13/18 22:19 76 20 139/99 97 Intake and Output 01/14/18 01/14/18 01/14/18 06:59 14:59 22:59 Intake Total 850 945 Output Total 691 240 80 Balance 159 705 -80 Intake: IV 300 520 Sodium Chloride 0.9% 1, 300 520 000 ml @ 100 mls/hr IV . Q10H [facility] Rx#:[id number] Intake, IV Titration 550 325 Amount Piperacillin-Tazobactam 3 50 .375 gm In Dextrose/Water 1 50ml.bag @ 12.5 mls/hr IVPB Q8HR [facility] Rx#: [id number] Piperacillin-Tazobactam 3 100 .375 gm In Sodium Chloride 0.9% 100 ml @ 25 mls/hr IVPB Q8HR [facility] Rx# :[id number] Potassium Phosphate 10 125 mmol In Sodium Chloride 0 .9% 250 ml @ 125 mls/hr IV Q2H [facility] Rx#:[id number] Sodium Chloride 0.9% 1, 500 000 ml @ 100 mls/hr IV . Q10H [facility] Rx#:[id number] levETIRAcetam IV 500 mg 100 In Sodium Chloride 0.9% 100 ml @ 400 mls/hr IVPB Q12HR [facility] Rx#:[id number] Oral 100 Output: Urine 691 240 80 Other: Voiding Method Indwelling Catheter Indwelling Catheter Diaper Incontinent # Voids 1 62-year-old woman who is profoundly disabled from her MS, she however is awake but is not a good historian. HEENT: Anicteric conjunctiva are pink and moist nasal mucosa grossly intact without evidence of bleeding, oromucosa is dry without thrush Neck: The neck is supple without significant lymphadenopathy or thyromegaly. Lungs: They're symmetrical air entry with few basilar crackles no bronchial sounds normal dullness or egophony Heart: Regular rate and rhythm with an audible S1-S2, no S3 no S4. There is no significant murmur click or rub, PMI was nondisplaced. Abdomen: Positive bowel sounds soft and nontender without palpable masses or organomegaly. There was no guarding or rebound. Extremities: The upper extremities have excellent pulses they are symmetric, no significant petechiae or telangiectasia. No splinter hemorrhages were noted. The lower extremities are free from significant edema. The peripheral pulses were 2+ and symmetric. Neuro: Awake alert oriented to person and place able to answer simple questions profound generalized weakness does have some starting contracture lower extremities Skin no evidence of open lesions at this time Results CBC & Chem 7: 01/14/18 05:11 01/14/18 05:11 Labs: Abnormal Lab Results - Last 24 Hours (Table) 01/14/18 01/14/18 01/14/18 Range/Units 00:22 05:11 05:11 WBC 16.3 H (3.8-10.6) k/uL RBC 2.95 L (3.80-5.40) m/uL Hgb 8.5 L (11.4-16.0) gm/dL Hct 25.9 L (34.0-46.0) % RDW 16.2 H (11.5-15.5) % Plt Count 29 L D (150-450) k/uL Neutrophils # (Manual) 14.50 H (1.3-7.7) k/uL Lymphocytes # (Manual) 0.98 L (1.0-4.8) k/uL Nucleated RBCs 1 H (0-0) /100 WBC Chloride 119 H (98-107) mmol/L Carbon Dioxide 20 L (22-30) mmol/L BUN 36 H (7-17) mg/dL Creatinine 1.39 H (0.52-1.04) mg/dL Glucose 106 H (74-99) mg/dL POC Glucose (mg/dL) 108 H (75-99) mg/dL Phosphorus 2.1 L (2.5-4.5) mg/dL Total Bilirubin 3.1 H (0.2-1.3) mg/dL AST 44 H (14-36) U/L Alkaline Phosphatase 136 H (38-126) U/L Total Protein 5.7 L (6.3-8.2) g/dL Albumin 2.4 L (3.5-5.0) g/dL 01/14/18 Range/Units 17:25 WBC (3.8-10.6) k/uL RBC (3.80-5.40) m/uL Hgb (11.4-16.0) gm/dL Hct (34.0-46.0) % RDW (11.5-15.5) % Plt Count (150-450) k/uL Neutrophils # (Manual) (1.3-7.7) k/uL Lymphocytes # (Manual) (1.0-4.8) k/uL Nucleated RBCs (0-0) /100 WBC Chloride (98-107) mmol/L Carbon Dioxide (22-30) mmol/L BUN (7-17) mg/dL Creatinine (0.52-1.04) mg/dL Glucose (74-99) mg/dL POC Glucose (mg/dL) 148 H (75-99) mg/dL Phosphorus (2.5-4.5) mg/dL Total Bilirubin (0.2-1.3) mg/dL AST (14-36) U/L Alkaline Phosphatase (38-126) U/L Total Protein (6.3-8.2) g/dL Albumin (3.5-5.0) g/dL Microbiology - Last 24 Hours (Table) 01/12/18 18:34 Blood Culture Gram Stain - Preliminary Blood 01/12/18 18:34 Blood Culture - Final Blood Laboratory Results WBC 16.3 k/uL (3.8-10.6) H 01/14/18 05:11 RBC 2.95 m/uL (3.80-5.40) L 01/14/18 05:11 Hgb 8.5 gm/dL (11.4-16.0) L 01/14/18 05:11 Hct 25.9 % (34.0-46.0) L 01/14/18 05:11 MCV 88.1 fL (80.0-100.0) 01/14/18 05:11 MCH 29.0 pg (25.0-35.0) 01/14/18 05:11 MCHC 32.9 g/dL (31.0-37.0) 01/14/18 05:11 RDW 16.2 % (11.5-15.5) H 01/14/18 05:11 Plt Count 29 k/uL (150-450) L D 01/14/18 05:11 Neutrophils % 85 % 01/13/18 05:14 Neutrophils % (Manual) 87 % 01/14/18 05:11 Band Neutrophils % 2 % 01/14/18 05:11 Lymphocytes % 7 % 01/13/18 05:14 Lymphocytes % (Manual) 6 % 01/14/18 05:11 Monocytes % 4 % 01/13/18 05:14 Monocytes % (Manual) 6 % 01/14/18 05:11 Eosinophils % 1 % 01/13/18 05:14 Eosinophils % (Manual) 1 % 01/14/18 05:11 Basophils % 0 % 01/13/18 05:14 Neutrophils # 9.8 k/uL (1.3-7.7) H 01/13/18 05:14 Neutrophils # (Manual) 14.50 k/uL (1.3-7.7) H 01/14/18 05:11 Lymphocytes # 0.8 k/uL (1.0-4.8) L 01/13/18 05:14 Lymphocytes # (Manual) 0.98 k/uL (1.0-4.8) L 01/14/18 05:11 Monocytes # 0.5 k/uL (0-1.0) 01/13/18 05:14 Monocytes # (Manual) 0.98 k/uL (0-1.0) 01/14/18 05:11 Eosinophils # 0.1 k/uL (0-0.7) 01/13/18 05:14 Eosinophils # (Manual) 0.16 k/uL (0-0.7) 01/14/18 05:11 Basophils # 0.1 k/uL (0-0.2) 01/13/18 05:14 Nucleated RBCs 1 /100 WBC (0-0) H 01/14/18 05:11 Manual Slide Review Performed 01/14/18 05:11 Polychromasia Present 01/14/18 05:11 Hypochromasia Slight 01/14/18 05:11 Poikilocytosis Moderate 01/14/18 05:11 Anisocytosis Slight 01/14/18 05:11 PT 10.5 sec (9.0-12.0) 01/10/18 13:31 INR 1.1 (<1.2) 01/10/18 13:31 APTT 23.3 sec (22.0-30.0) 01/10/18 13:31 Sodium 145 mmol/L (137-145) 01/14/18 05:11 Potassium 3.6 mmol/L (3.5-5.1) 01/14/18 05:11 Chloride 119 mmol/L (98-107) H 01/14/18 05:11 Carbon Dioxide 20 mmol/L (22-30) L 01/14/18 05:11 Anion Gap 6 mmol/L 01/14/18 05:11 BUN 36 mg/dL (7-17) H 01/14/18 05:11 Creatinine 1.39 mg/dL (0.52-1.04) H 01/14/18 05:11 Est GFR (CKD-EPI)AfAm 46 (>60 ml/min/1.73 sqM) 01/14/18 05:11 Est GFR (CKD-EPI)NonAf 40 (>60 ml/min/1.73 sqM) 01/14/18 05:11 Glucose 106 mg/dL (74-99) H 01/14/18 05:11 POC Glucose (mg/dL) 148 mg/dL (75-99) H 01/14/18 17:25 POC Glu Dental Specialist ID Kush Zavala 01/14/18 17:[address] Glu mg/dL 134 01/11/18 06:11 Hemoglobin A1c 6.3 % (4.0-6.0) H 01/11/18 06:11 Lactic Ac Sepsis Rflx Y 01/10/18 14:22 Plasma Lactic Acid José 1.0 mmol/L (0.7-2.0) 01/12/18 18:34 Calcium 8.5 mg/dL (8.4-10.2) 01/14/18 05:11 Phosphorus 2.1 mg/dL (2.5-4.5) L 01/14/18 05:11 Magnesium 2.0 mg/dL (1.6-2.3) 01/14/18 05:11 Total Bilirubin 3.1 mg/dL (0.2-1.3) H 01/14/18 05:11 AST 44 U/L (14-36) H 01/14/18 05:11 ALT 36 U/L (9-52) 01/14/18 05:11 Alkaline Phosphatase 136 U/L (38-126) H 01/14/18 05:11 Total Creatine Kinase 1070 U/L (30-135) H* 01/11/18 01:25 CK-MB (CK-2) 14.0 ng/mL (0.0-2.4) H 01/11/18 01:25 CK-MB (CK-2) Rel Index 1.3 01/11/18 01:25 Troponin I 0.086 ng/mL (0.000-0.034) H* 01/11/18 01:25 Total Protein 5.7 g/dL (6.3-8.2) L 01/14/18 05:11 Albumin 2.4 g/dL (3.5-5.0) L 01/14/18 05:11 Lipase 26 U/L (23-300) 01/11/18 06:11 Urine Color Yellow 01/10/18 13:31 Urine Appearance Turbid (Clear) H 01/10/18 13:31 Urine pH 7.5 (5.0-8.0) 01/10/18 13:31 Ur Specific [place] 1.012 (1.001-1.035) 01/10/18 13:31 Urine Protein 2+ (Negative) H 01/10/18 13:31 Urine Glucose (UA) Negative (Negative) 01/10/18 13:31 Urine Ketones Negative (Negative) 01/10/18 13:31 Urine Blood Moderate (Negative) H 01/10/18 13:31 Urine Nitrite Negative (Negative) 01/10/18 13:31 Urine Bilirubin Negative (Negative) 01/10/18 13:31 Urine Urobilinogen 2.0 mg/dL (<2.0) 01/10/18 13:31 Ur Leukocyte Esterase Moderate (Negative) H 01/10/18 13:31 Urine WBC 18 /hpf (0-5) H 01/10/18 13:31 Ur Squamous Epith Cells 1 /hpf (0-4) 01/10/18 13:31 Urine Bacteria Many /hpf (None) H 01/10/18 13:31 Urine Mucus Occasional /hpf (None) H 01/10/18 13:31 Hepatitis A IgM Ab Non-Reactive (Non-Reactive) 01/13/18 17:10 Hep Bs Antigen Non-Reactive (Non-Reactive) 01/13/18 17:10 Hep B Core IgM Ab Non-Reactive (Non-Reactive) 01/13/18 17:10 Hep C IgG Ab Non-Reactive (Non-Reactive) 01/13/18 17:10 Microbiology 01/12/18 18:34 Blood Blood Culture Gram Stain - Preliminary 01/12/18 18:34 Blood Blood Culture - Final 01/10/18 13:31 Blood Blood Culture Gram Stain - Final 01/10/18 13:31 Blood Blood Culture - Final Escherichia coli 01/10/18 13:31 Urine,Catheterized Urine Culture - Final Escherichia coli 01/10/18 13:31 Blood Blood Culture - Final Assessment and Plan (1) Acute cholecystitis Current Visit: Yes Status: Acute Code(s): K81.0 - ACUTE CHOLECYSTITIS SNOMED Code(s): 46059553 (2) Sepsis Narrative/Plan: 62-year-old woman with multiple medical troubles including progressive MS who is bedbound and cared for by her family and her in the home setting presents to Hospital from home with increasing weakness lethargy and altered mental status. At this time it appears to be some improvement as she has been hydrated and has been treated with appropriate antibiotic therapy. Patient however is now developed evidence of progressive thrombocytopenia originally platelets were at 147 noted decreased and 19. It is likely the piperacillin tazobactam is etiology of her significant drop of platelets and this is discontinued. Urine culture is available and has evidence of a nonresistant E. coli and constantly antibiotic therapy is changed to ceftriaxone. Platelets will be followed it would expect them to rapidly improve with the withdrawal of the Zosyn. She is being seen by surgery with potential laparoscopic cholecystectomy planned in the future because of the symptomatic choledocholithiasis. Fortunately MRCP does not show evidence of any acute obstructive biliary pattern. Follow blood cultures are negative. The fever and leukocytosis have also improved. Current Visit: Yes Status: Acute Code(s): A41.9 - SEPSIS, UNSPECIFIED ORGANISM SNOMED Code(s): 62050738 (3) Thrombocytopenia Current Visit: Yes Status: Acute Code(s): D69.6 - THROMBOCYTOPENIA, UNSPECIFIED SNOMED Code(s): 854175122
[2018-01-14 23:47] LABS: Glucose,Whole Blood 149 mg/dL (75-99)
[2018-01-15] MEDS: SODIUM CHLORIDE 0.9% 1,000 ML IV SCH (04:06)
[2018-01-15 05:49] LABS: Glucose,Whole Blood 112 mg/dL (75-99)
[2018-01-15] MEDS: LEVOTHYROXINE 50 MCG TAB PO SCH (06:12)
[2018-01-15 07:46] LABS: Anisocytosis Slight; Basophils # (A) 0.1 k/uL (0-0.2); Basophils % (A) 0 %; Eosinophils # (A) 0.1 k/uL (0-0.7); Eosinophils % (A) 1 %; HCT 22.5 % (34.0-46.0); HGB 7.5 gm/dL (11.4-16.0); Hypochromasia Moderate; Lymphocytes # (A) 1.8 k/uL (1.0-4.8); Lymphocytes % (A) 11 %; MCH 30.4 pg (25.0-35.0); MCHC 33.4 g/dL (31.0-37.0); Mean Platelet Volume 9.9; Monocytes # (A) 0.8 k/uL (0-1.0); Monocytes % (A) 5 %; Neutrophils % (A) 80 %; Poikilocytosis Moderate; RBC 2.47 m/uL (3.80-5.40); RDW 18.8 % (11.5-15.5); WBC 16.3 k/uL (3.8-10.6)
[2018-01-15 07:53] LABS: Calcium 7.8 mg/dL (8.4-10.2); Magnesium 1.5 mg/dL (1.6-2.3); Phosphorus 2.5 mg/dL (2.5-4.5); Potassium 3.1 mmol/L (3.5-5.1)
[2018-01-15 07:55] LABS: Platelet Count 63 k/uL (150-450)
[2018-01-15] MEDS: AMANTADINE HCL 100 MG CAP PO SCH ×2 (07:58→22:44)
[2018-01-15] MEDS: CARVEDILOL 6.25 MG TAB PO SCH ×2 (07:58→17:31)
[2018-01-15] MEDS: hydrALAZINE HCL 50 MG TAB PO SCH ×3 (07:58→22:44)
[2018-01-15] MEDS: PANTOPRAZOLE SODIUM 40 MG GRANULE PKT PO SCH (07:58)
[2018-01-15] MEDS: LISINOPRIL 10 MG TAB PO SCH (07:59)
[2018-01-15] MEDS: amLODIPine 10 MG TAB PO SCH (07:59)
[2018-01-15] MEDS: cefTRIAXone 2,000 MG in SODIUM CHLORIDE 0.9% 100 ML IVPB SCH (08:01)
[2018-01-15] MEDS: Mirabegron [Myrbetriq] 25 MG PO SCH (08:01)
[2018-01-15] MEDS: PANTOPRAZOLE 40 MG TABLET PO SCH (08:28)
[2018-01-15] MEDS: levETIRAcetam IV 500 MG in SODIUM CHLORIDE 0.9% 100 ML IVPB SCH ×2 (09:57→22:37)
[2018-01-15] MEDS ORDERED: Magnesium Replacement Protocol 1 EACH MISC MISCELLANE PRN (10:25)
--- NOTE | 2018-01-15 11:15 | P.PN ---
Subjective Progress Note Date: 01/14/18 Progress note being dictated for Dr. Conn. Sepsis secondary to urinary tract infection Elevated liver enzymes Chronic cholecystitis Interval history:62-year-old female with a known history of multiple sclerosis currently bedridden, hypertension, GERD, history of breast cancer status post lumpectomy and radiation, hypothyroidism and multiple other medical problems was brought to the hospital due to generalized weakness and dehydration. Patient has history of MS and some residual right-sided weakness and contracture. Over the past several days she has begun oral antibiotics for urinary tract infection. Initially put on nitrofurantoin, symptoms did not improve patient had an episode of nausea and vomiting. She was switched to Bactrim. She's had one dose of Bactrim yesterday but has been unable to tolerate anything orally since that time. She's had nausea with one episode of vomiting. Patient is accompanied by her who is able to give the majority the history. Patient does complain of some chronic leg pain and cramping which is typical for her. No other pain complaints. No abdominal pain. No chest pain or dyspnea. No history of fever or chills. Patient is also confused and altered for the last couple days. WBC 27.2 BUN 69 creatinine 3.75. Lactic acid 2.8 troponin 0.084. CPK 762 AST 87, alk phos 240, albumin 2.9 UA showed large leukocyte esterase, WBC 18 and moderate blood. Chest x-ray showed no acute cardio for process EKG normal sinus rhythm Ultrasound ABDOMEN showed cholelithiasis. Gallbladder wall thickening with positive Juan sign. Correlate for acute cholecystitis. Suspicion for dilated common bile duct intraductal calcifications 01/11/2018 Patient is more awake and oriented today. Able to sit in the chair. Afebrile. Denied any complains of chest pain or shortness of breath. Denied any abdominal pain. Able to tolerate oral diet and take her oral medications. MRCP showed large bile stone. No dilated ducts. Mild gallbladder wall thickening. WBC is trending down. Potassium was replaced. General surgery is planning for cholecystectomy possibly on Saturday and clinically stable. 01/12/2018 Patient became confused again today. Able to nod her head but could not communicate. Could not able to swallow. Blood pressure is uncontrolled. Patient was given IV hydralazine and IV labetalol with some improvement in blood pressure. Otherwise Catapres patch could not be applied due to short supply from pharmacy. CT head is negative. Was done due to altered mentation. Leukocytosis is much improved to 10.8 today morning. Platelet count dropped further to 32,000. Patient is being continued on antibiotics continued on Zosyn. Renal function improved with creatinine level II.0 Patient is not tolerating any oral diet. Currently on IV fluids in the form of half-normal saline. Patient became febrile this afternoon with T-max 100.0 and blood pressure is also not controlled well. Due to altered mental status and uncontrolled hypertension, thrombocytopenia with underlying sepsis patient will be transferred to MICU for further management. 01/13/2018 Patient is awake and alert today. Able to communicate slowly. No complaints of chest pain or shortness of breath. Able to take by mouth medications. Platelet count is dropping down to 19,000 today. No active bleeding noted. No leukocytosis currently. Potassium and magnesium being replaced. Renal function improved with creatinine level I.7. Patient is being closely monitored in the ICU. Patient has been afebrile. Saturating well on room air. Blood pressure is fairly controlled today. Current medications reviewed Active Medications Generic Name Dose Route Start Last Admin Trade Name Freq PRN Reason Stop Dose Admin Acetaminophen 650 mg 01/10/18 16:33 Tylenol Tab PO Q6HR PRN Mild Pain or Fever > 100.5 Amantadine HCl 100 mg 01/12/18 09:00 01/13/18 21:20 Symmetrel PO 100 mg BID KAMILAH Administration Amlodipine Besylate 10 mg 01/12/18 20:45 01/13/18 10:19 Norvasc PO 10 mg DAILY KAMILAH Administration Carvedilol 6.25 mg 01/12/18 17:30 01/13/18 16:50 Coreg PO 6.25 mg BID-W/MEALS KAMILAH Administration Hydralazine HCl 25 mg 01/13/18 09:00 01/13/18 21:20 Apresoline PO 25 mg BID KAMILAH Administration Hydromorphone HCl 0.5 mg 01/10/18 16:33 01/13/18 04:07 Dilaudid IVP 0.5 mg Q3HR PRN Administration Moderate Pain Levetiracetam 500 mg/ Sodium 105 mls @ 400 mls/hr 01/12/18 09:00 01/13/18 21: 20 Chloride IVPB 400 mls/hr Q12HR KAMILAH Administration Piperacillin/Tazobactam/ 50 mls @ 12.5 mls/hr 01/13/18 00:00 01/13/18 16:50 Dextrose 3.375 gm/ IV Solution IVPB 12.5 mls/hr Q8HR KAMILAH Administration Sodium Chloride 1,000 mls @ 100 mls/hr 01/13/18 11:15 01/13/18 21:20 Saline 0.9% IV 100 mls/hr .Q10H KAMILAH Administration Levothyroxine Sodium 50 mcg 01/12/18 06:30 01/13/18 10:21 Synthroid PO 50 mcg DAILY@0630 KAMILAH Administration Lisinopril 10 mg 01/11/18 22:45 01/13/18 11:15 Zestril PO 10 mg DAILY KAMILAH Administration Miscellaneous Information 1 each 01/11/18 11:38 Potassium Per Protocol MISCELLANE DAILY PRN Per Protocol Protocol Miscellaneous Information 1 each 01/12/18 07:07 Potassium Per Protocol MISCELLANE DAILY PRN Per Protocol Protocol Miscellaneous Information 1 each 01/13/18 06:37 Magnesium Per Protocol MISCELLANE DAILY PRN Per Protocol Protocol Naloxone HCl 0.2 mg 01/10/18 16:33 Narcan IV Q2M PRN Opioid Reversal Mirabegron [ 25 mg 01/12/18 09:00 01/13/18 11:12 Myrbetriq] 25 Mg PO Not Given DAILY KAMILAH Ondansetron HCl 4 mg 01/10/18 16:33 Zofran IVP Q8HR PRN Nausea And Vomiting Pantoprazole Sodium 40 mg 01/13/18 09:00 01/13/18 09:01 Protonix IVP 40 mg DAILY KAMILAH Administration transferred out of ICU to MedSurg unit. maintained on gentle IV fluid hydration, renal function improving. Strict aspiration precautions maintained , patient requires encouragement to eat, diet intake fair. Hemoglobin 8.5, no signs or symptoms of bleeding. UTI with E. coli.Antibiotics adjusted from Zosyn to Rocephin, platelets improving. Laparoscopic cholecystectomy pending , pending improvement in thrombocytopenia. Objective - Vital Signs Vital signs: Vital Signs Temp 99.5 F 01/14/18 21:00 Pulse 91 01/14/18 21:00 Resp 20 10/30/18 21:00 BP 119/70 01/14/18 21:00 Pulse Ox 97 01/14/18 21:00 Intake & Output 01/14/18 01/14/18 01/15/18 06:59 18:59 06:59 Intake Total 1550 945 Output Total 1601 320 Balance -51 625 Intake: IV 300 520 Sodium Chloride 0.9% 1, 300 520 000 ml @ 100 mls/hr IV . Q10H KAMILAH Rx#:[id number] Intake, IV Titration 950 325 Amount Piperacillin-Tazobactam 3 50 .375 gm In Dextrose/Water 1 50ml.bag @ 12.5 mls/hr IVPB Q8HR KAMILAH Rx#: [id number] Piperacillin-Tazobactam 3 100 .375 gm In Sodium Chloride 0.9% 100 ml @ 25 mls/hr IVPB Q8HR KAMILAH Rx# :[id number] Potassium Phosphate 10 125 mmol In Sodium Chloride 0 .9% 250 ml @ 125 mls/hr IV Q2H KAMILAH Rx#:[id number] Sodium Chloride 0.9% 1, 800 000 ml @ 100 mls/hr IV . Q10H KAMILAH Rx#:[id number] levETIRAcetam IV 500 mg 100 100 In Sodium Chloride 0.9% 100 ml @ 400 mls/hr IVPB Q12HR KAMILAH Rx#:[id number] Oral 300 100 Output: Urine 1601 320 Other: Voiding Method Indwelling Catheter Indwelling Catheter # Voids 1 - Exam PHYSICAL EXAMINATION: PHYSICAL EXAMINATION: Patient is lying in the bed comfortably, no acute distress, awake alert and oriented. HEENT: Normocephalic. Neck is supple. Pupils reactive. Nostrils clear. Oral cavity is moist. Ears reveal no drainage. Neck reveals no JVD, carotid bruits, or thyromegaly. CHEST EXAMINATION: Trachea is central. Symmetrical expansion. Lung castillo clear to auscultation and percussion., Lateral bases diminished CARDIAC: Normal S1, S2 with no gallops. No murmurs ABDOMEN: Soft. Bowel sounds normal. No organomegaly. No abdominal bruits. Extremities: reveal no edema. No clubbing or cyanosis, lower extremity contractures, positive pulses Neurologically awake, alert, oriented x2-3 . Able to move all extremities, extremely weak. Skin: No rash or skin lesions. Psychiatric: Coperative. Could not be assessed completely Musculoskeletal: No joint swelling or deformity. - Labs CBC & Chem 7: 01/15/18 07:13 01/15/18 07:13 Labs: Abnormal Lab Results - Last 24 Hours (Table) 01/13/18 01/14/18 01/14/18 Range/Units 05:14 00:22 05:11 WBC 16.3 H (3.8-10.6) k/uL RBC 2.95 L (3.80-5.40) m/uL Hgb 8.5 L (11.4-16.0) gm/dL Hct 25.9 L (34.0-46.0) % RDW 16.2 H (11.5-15.5) % Plt Count 29 L D (150-450) k/uL Neutrophils # (Manual) 14.50 H (1.3-7.7) k/uL Lymphocytes # (Manual) 0.98 L (1.0-4.8) k/uL Nucleated RBCs 1 H (0-0) /100 WBC Potassium 3.1 L (3.5-5.1) mmol/L Chloride 113 H (98-107) mmol/L Carbon Dioxide (22-30) mmol/L BUN 50 H (7-17) mg/dL Creatinine 1.70 H (0.52-1.04) mg/dL Glucose 111 H (74-99) mg/dL POC Glucose (mg/dL) 108 H (75-99) mg/dL Calcium 8.2 L (8.4-10.2) mg/dL Phosphorus (2.5-4.5) mg/dL Magnesium 1.5 L (1.6-2.3) mg/dL Total Bilirubin 3.3 H (0.2-1.3) mg/dL AST 49 H (14-36) U/L Alkaline Phosphatase 150 H (38-126) U/L Total Protein 5.8 L (6.3-8.2) g/dL Albumin 2.4 L (3.5-5.0) g/dL 01/14/18 01/14/18 Range/Units 05:11 17:25 WBC (3.8-10.6) k/uL RBC (3.80-5.40) m/uL Hgb (11.4-16.0) gm/dL Hct (34.0-46.0) % RDW (11.5-15.5) % Plt Count (150-450) k/uL Neutrophils # (Manual) (1.3-7.7) k/uL Lymphocytes # (Manual) (1.0-4.8) k/uL Nucleated RBCs (0-0) /100 WBC Potassium (3.5-5.1) mmol/L Chloride 119 H (98-107) mmol/L Carbon Dioxide 20 L (22-30) mmol/L BUN 36 H (7-17) mg/dL Creatinine 1.39 H (0.52-1.04) mg/dL Glucose 106 H (74-99) mg/dL POC Glucose (mg/dL) 148 H (75-99) mg/dL Calcium (8.4-10.2) mg/dL Phosphorus 2.1 L (2.5-4.5) mg/dL Magnesium (1.6-2.3) mg/dL Total Bilirubin 3.1 H (0.2-1.3) mg/dL AST 44 H (14-36) U/L Alkaline Phosphatase 136 H (38-126) U/L Total Protein 5.7 L (6.3-8.2) g/dL Albumin 2.4 L (3.5-5.0) g/dL Microbiology - Last 24 Hours (Table) 01/12/18 18:34 Blood Culture Gram Stain - Preliminary Blood 01/12/18 18:34 Blood Culture - Final Blood Assessment and Plan Assessment: Severe Sepsis/septicemia gram-negative secondary to acute urinary tract infection. Failed outpatient antibiotic therapy. Acute UTI with E. coli and bacteremia Thrombocytopenia. Likely due to sepsis, and Zosyn. Antibiotics adjusted, platelets improving. Lactic acidosis. Improving. Elevated troponin level possible demand ischemia Acute kidney injury. Possible ATN, Elevated alk phos and AST with dilated common bile duct and acute cholecystitis as per ultrasound of abdomen. MRCP showed no dilated ducts. Showed large bile stone. Hyperbilirubinemia Altered mental status possible metabolic encephalopathy Uncontrolled hypertension/accelerated hypertension, improving rhabdomyolysis History of MS and residual right-sided weakness and contractures, bedbound History of right breast cancer in 2003 status post lumpectomy and radiation Seizure disorder. Hypothyroidism Diverticulosis and past colon polyps benign Previous history of smoking Mild to moderate protein calorie malnutrition with albumin 2.4 Plan: Continue on current medication regime ,monitoring and symptomatic treatment. IV antibiotics as per infectious disease; and Zosyn discontinued related to thrombocytopenia, adjusted to Rocephin. Preliminary blood cultures in progress-Follow cultures closely. Close monitoring of platelets,HGB, renal function. with repeat labs ordered for a.m. Maintain gentle IV fluid hydration. Maintain seizure precautions. Noriega discontinued, post void residuals. Strict aspiration precautions, patient currently on nectar thick ground diet as per speech therapy. Prognosis guarded given multiple complex medical issues. The impression and plan of care has been dictated as directed. : I performed a history and examination of this patient, discussed the same with the dictator. I agree with the dictator's note ,documented as a scribe. Any additional findings or plans will be noted.
[2018-01-15] MEDS: POTASSIUM CHLORIDE ER 20 MEQ TAB.ER PO SCH ×2 (11:44→13:12)
[2018-01-15] MEDS: DEXTROSE 5% IN WATER 1,000 ML IV SCH (12:12)
--- NOTE | 2018-01-15 12:15 | P.PN ---
Subjective Progress Note Date: 01/15/18 Principal diagnosis: Acute sepsis, and bacteremia secondary to E. coli urinary tract infection This is a 62-year-old female with history of multiple medical problems including multiple sclerosis, bedridden, seizure disorder, hypothyroidism, breast cancer and previous lumpectomy followed by radiation, patient was brought into the hospital mostly with symptoms of generalized weakness, dehydration, and some confusion. Patient was recently treated for urinary tract infection with Macrodantin however it was later changed to Bactrim. However the patient developed persistent nausea and vomiting, and she was brought into the ER where in she was noted to have leukocytosis, elevated liver enzymes, ultrasound of the abdomen showed gallstones with thickening of the gallbladder wall, and positive dilated common bile duct with intraductal calcification. Patient had no abdominal pain and no tenderness upon presentation. Patient was also seen by general surgery, and she was supposed to undergo laparoscopic cholecystectomy today. However the patient developed thrombocytopenia, and her blood cultures came back positive for E. coli, this was noted in the urine also in the blood cultures, hence laparoscopic cholecystectomy is presently on hold, and the patient is being treated for acute E. coli sepsis and bacteremia. The most likely source is her urinary tract infection. Patient was also seen by other consultants including cardiology for her elevated troponin, and it was felt to be mild elevation reflecting a pipe 2 event. Upon my evaluation today, the patient seemed to be alert, oriented, appropriate, and she had no specific complaints, she denied any abdominal pain, she had no nausea and vomiting this morning, and she had no symptoms of dysuria frequency or urgency. Patient is presently on antibiotics and/Zosyn for her E. coli bacteremia and urinary tract infection secondary to E. coli. Reevaluated today on 01/14/2018, patient is hemodynamically stable, not requiring any pressors. Patient is relatively asymptomatic, denies any shortness of breath no cough no wheezing. Remains on antibiotics for E. coli sepsis and bacteremia, primary source is her urinary tract infection. WBC count is 16.3 hemoglobin is 8.5 rest of the labs were noted to be relatively unremarkable. Renal functioning is steadily improving, creatinine is down to 1.39 today. On 01/15/2018 patient seen in follow-up on medical surgical floor. She appears to be very fatigued and sluggish, she is resting in bed, denies any distress, but tight is poor, patient is on a modified diet with thickened liquids. No fever or chills, room air pulse ox is 95%, she denies any shortness of breath or chest pain, she denies any abdominal pain, no nausea, vomiting or diarrhea. Respirations are even and nonlabored, lung sounds are clear, diminished at the bases. Microbiology results have been reviewed, urine and blood cultures were positive for E. coli, follow blood culture preliminary report showed beta hemolytic strep, final culture is pending, patient is on IV Rocephin, ID service is following, today's labs have been reviewed, WBC 16.3, hemoglobin 7.5 , serum sodium is on the rise, up to 149, potassium is 3.1, chloride is 124, CO2 is 20, BUN is 22 and creatinine is 1.28. Magnesium is 1.5. Potassium and magnesium were being replaced per protocol Objective - Vital Signs Vital signs: Vital Signs Temp 97.8 F 01/15/18 05:00 Pulse 96 01/15/18 05:00 Resp 16 01/15/18 05:00 BP 133/97 01/15/18 05:00 Pulse Ox 95 01/15/18 05:00 Intake & Output 01/14/18 01/15/18 01/15/18 18:59 06:59 18:59 Intake Total 945 300 Output Total 320 Balance 625 300 Weight 56 kg Intake: IV 520 300 Sodium Chloride 0.9% 1, 520 300 000 ml @ 100 mls/hr IV . Q10H KAMILAH Rx#:[id number] Intake, IV Titration 325 Amount Piperacillin-Tazobactam 3 100 .375 gm In Sodium Chloride 0.9% 100 ml @ 25 mls/hr IVPB Q8HR KAMILAH Rx# :[id number] Potassium Phosphate 10 125 mmol In Sodium Chloride 0 .9% 250 ml @ 125 mls/hr IV Q2H KAMILAH Rx#:[id number] levETIRAcetam IV 500 mg 100 In Sodium Chloride 0.9% 100 ml @ 400 mls/hr IVPB Q12HR KAMILAH Rx#:[id number] Oral 100 Output: Urine 320 Other: Voiding Method Indwelling Catheter Diaper Diaper Incontinent Incontinent # Voids 1 4 - Exam General appearance: Revealed a 62-year-old female in no distress, resting in bed , seems to be fatigued and sluggish HET: Head is normocephalic and atraumatic. Pupils are equal and reactive. Oropharynx is clear without lesions. Neck: Supple without lymphadenopathy. Trachea midline. Heart: S1 S2. Regular rate and rhythm. Lungs: No crackles or wheezes are heard. Abdomen: Soft, nontender, nondistended with bowel sounds. No peritoneal signs. No palpable organomegaly or masses. Extremities: Normal skin color and turgor. No cyanosis, rash, ulceration, clubbing, or edema. Radial and pedal pulses are 2/4 bilaterally. Neurological: No focal deficits. Strength and sensation are grossly intact. Psychiatric: Normal mood, affect and mental status examination. Lymphatics: No lymphadenopathy. - Labs CBC & Chem 7: 01/15/18 07:13 01/15/18 07:13 Labs: Abnormal Lab Results - Last 24 Hours (Table) 01/14/18 01/14/18 01/15/18 Range/Units 17:25 23:46 05:48 WBC (3.8-10.6) k/uL RBC (3.80-5.40) m/uL Hgb (11.4-16.0) gm/dL Hct (34.0-46.0) % RDW (11.5-15.5) % Plt Count (150-450) k/uL Neutrophils # (1.3-7.7) k/uL Sodium (137-145) mmol/L Potassium (3.5-5.1) mmol/L Chloride (98-107) mmol/L Carbon Dioxide (22-30) mmol/L BUN (7-17) mg/dL Creatinine (0.52-1.04) mg/dL Glucose (74-99) mg/dL POC Glucose (mg/dL) 148 H 149 H 112 H (75-99) mg/dL Calcium (8.4-10.2) mg/dL Magnesium (1.6-2.3) mg/dL 01/15/18 01/15/18 Range/Units 07:13 07:13 WBC 16.3 H (3.8-10.6) k/uL RBC 2.47 L (3.80-5.40) m/uL Hgb 7.5 L (11.4-16.0) gm/dL Hct 22.5 L (34.0-46.0) % RDW 18.8 H (11.5-15.5) % Plt Count 63 L D (150-450) k/uL Neutrophils # 13.0 H (1.3-7.7) k/uL Sodium 149 H (137-145) mmol/L Potassium 3.1 L (3.5-5.1) mmol/L Chloride 124 H (98-107) mmol/L Carbon Dioxide 20 L (22-30) mmol/L BUN 22 H (7-17) mg/dL Creatinine 1.28 H (0.52-1.04) mg/dL Glucose 129 H (74-99) mg/dL POC Glucose (mg/dL) (75-99) mg/dL Calcium 7.8 L (8.4-10.2) mg/dL Magnesium 1.5 L (1.6-2.3) mg/dL Microbiology - Last 24 Hours (Table) 01/12/18 18:34 Blood Culture Gram Stain - Preliminary Blood Blood Culture - Preliminary Beta Hemolytic Strep 01/12/18 18:34 Blood Culture - Final Blood Assessment and Plan Plan: 1 acute sepsis secondary to E. coli urinary tract infection and E. coli bacteremia. 2 elevated liver enzymes most likely related to sepsis, possible gallstones. Cholelithiasis. 3 acute thrombocytopenia most likely secondary to sepsis, improving, platelets count are up to 29,000 today. 4 acute bacteremia, the most likely source is her urinary tract infection. 5 history of MS 6 acute dehydration secondary to nausea and vomiting most likely secondary to urinary tract infection could also be related to her antibiotics. 7 multiple comorbidities including breast cancer, hypertension, seizure disorder , hypothyroidism, GERD without esophagitis. Recommendation: We'll switch the IV to D5W at a rate of 75 ML per hour. Serum potassium and magnesium are being corrected per protocol. Systems and supervision with meals , maintain aspiration precautions, patient continues on a modified diet with thickened liquids. Antibiotics per ID service recommendations, patient is currently covered with Rocephin. Denies any specific complaints other than fatigue. No shortness of breath or chest pain, no fever or chills. We'll continue to follow I performed a history & physical examination of the patient and discussed their management with my nurse practitioner, Fidelia Williamson. I reviewed the nurse practitioner's note and agree with the documented findings and plan of care. Lung sounds are positive for diminished breath sounds. The findings and the impression was discussed with the patient. I attest to the documentation by the nurse practitioner. Time with Patient: Less than 30
--- NOTE | 2018-01-15 12:38 | P.PN ---
Subjective Progress Note Date: 01/15/18 62-year-old female seen in follow-up visit. Is more awake and alert this morning. Currently is denying any abdominal pain when questioning. There is no dizziness lightheadedness or shortness of breath. Currently patient is on room air with a sat of 95%. Labs were reviewed white count 16.3 did note the mag is 1.5 potassium 3.1 the attending is replacing Patients being followed by surgical service after the abdomen on admission show gallstones possible biliary duct dilatation. mrcp normal appearing biliary system no evidence of common bile duct stone. the patient will be scheduled for laparoscopic cholecystectomy when patient is medically stable Objective - Vital Signs Vital signs: Vital Signs Temp 97.8 F 01/15/18 05:00 Pulse 96 01/15/18 05:00 Resp 16 01/15/18 05:00 BP 133/97 01/15/18 05:00 Pulse Ox 95 01/15/18 05:00 Intake & Output 01/14/18 01/15/18 01/15/18 18:59 06:59 18:59 Intake Total 945 300 Output Total 320 Balance 625 300 Weight 56 kg Intake: IV 520 300 Sodium Chloride 0.9% 1, 520 300 000 ml @ 100 mls/hr IV . Q10H KAMILAH Rx#:[id number] Intake, IV Titration 325 Amount Piperacillin-Tazobactam 3 100 .375 gm In Sodium Chloride 0.9% 100 ml @ 25 mls/hr IVPB Q8HR KAMILAH Rx# :[id number] Potassium Phosphate 10 125 mmol In Sodium Chloride 0 .9% 250 ml @ 125 mls/hr IV Q2H KAMILAH Rx#:[id number] levETIRAcetam IV 500 mg 100 In Sodium Chloride 0.9% 100 ml @ 400 mls/hr IVPB Q12HR KAMILAH Rx#:[id number] Oral 100 Output: Urine 320 Other: Voiding Method Indwelling Catheter Diaper Diaper Incontinent Incontinent # Voids 1 4 - Exam Exam 62-year-old female resting in bed appearing in no acute distress no family member at the bedside patient has limited mobility bedbound due to MS Lungs diminished at the bases otherwise adequate air movement Heart S1-S2 audible regular Abdomen indwelling Noriega catheter in place nontender nondistended no facial grimaces with palpitation reports no abdominal discomfort Extremity contractures to the lower extremities. No edema noted. - Labs CBC & Chem 7: 01/15/18 07:13 01/15/18 07:13 Labs: Abnormal Lab Results - Last 24 Hours (Table) 01/14/18 01/14/18 01/15/18 Range/Units 17:25 23:46 05:48 WBC (3.8-10.6) k/uL RBC (3.80-5.40) m/uL Hgb (11.4-16.0) gm/dL Hct (34.0-46.0) % RDW (11.5-15.5) % Plt Count (150-450) k/uL Neutrophils # (1.3-7.7) k/uL Sodium (137-145) mmol/L Potassium (3.5-5.1) mmol/L Chloride (98-107) mmol/L Carbon Dioxide (22-30) mmol/L BUN (7-17) mg/dL Creatinine (0.52-1.04) mg/dL Glucose (74-99) mg/dL POC Glucose (mg/dL) 148 H 149 H 112 H (75-99) mg/dL Calcium (8.4-10.2) mg/dL Magnesium (1.6-2.3) mg/dL 01/15/18 01/15/18 Range/Units 07:13 07:13 WBC 16.3 H (3.8-10.6) k/uL RBC 2.47 L (3.80-5.40) m/uL Hgb 7.5 L (11.4-16.0) gm/dL Hct 22.5 L (34.0-46.0) % RDW 18.8 H (11.5-15.5) % Plt Count 63 L D (150-450) k/uL Neutrophils # 13.0 H (1.3-7.7) k/uL Sodium 149 H (137-145) mmol/L Potassium 3.1 L (3.5-5.1) mmol/L Chloride 124 H (98-107) mmol/L Carbon Dioxide 20 L (22-30) mmol/L BUN 22 H (7-17) mg/dL Creatinine 1.28 H (0.52-1.04) mg/dL Glucose 129 H (74-99) mg/dL POC Glucose (mg/dL) (75-99) mg/dL Calcium 7.8 L (8.4-10.2) mg/dL Magnesium 1.5 L (1.6-2.3) mg/dL Microbiology - Last 24 Hours (Table) 01/12/18 18:34 Blood Culture Gram Stain - Preliminary Blood Blood Culture - Preliminary Beta Hemolytic Strep 01/12/18 18:34 Blood Culture - Final Blood Assessment and Plan Assessment: Impression Present on admission nausea vomiting elevated liver enzymes Status post MRCP no evidence of biliary tree abnormality Elevated liver enzymes possibly related to sepsis possible symptomatic gallstones UTI infection bacteremia Multiple sclerosis limited mobility bedbound Thrombocytopenia platelets 63 Plan Laparoscopic cholecystectomy will be rescheduled once patient is medically cleared Continue recommendations per the attending Will follow with you The above impression and plan of care have been discussed and directed by signing physician. Maite Weaver nurse practitioner acting as scribe for signing physician.
[2018-01-15] MEDS: MAGNESIUM SULFATE-D5W PMX 1 GM in DEXTROSE/WATER 1 100ML.BAG IVPB SCH ×2 (13:12→15:46)
[2018-01-15] MEDS ORDERED: PIPERACILLIN-TAZOBACTAM 3.375 GM in SODIUM CHLORIDE 0.9% 100 ML IVPB SCH (16:00)
[2018-01-15 18:18] LABS: Glucose,Whole Blood 155 mg/dL (75-99)
[2018-01-15] MEDS: ACETAMINOPHEN TAB 325 MG TAB PO PRN (21:16)
[2018-01-15 23:47] LABS: Glucose,Whole Blood 146 mg/dL (75-99)
[2018-01-16] MEDS: DEXTROSE 5% IN WATER 1,000 ML IV SCH ×2 (02:14→17:52)
[2018-01-16] MEDS: LEVOTHYROXINE 50 MCG TAB PO SCH (06:21)
[2018-01-16 06:28] LABS: Glucose,Whole Blood 121 mg/dL (75-99)
[2018-01-16 08:47] LABS: Anisocytosis Moderate; HCT 24.6 % (34.0-46.0); Hypochromasia Moderate; MCH 29.8 pg (25.0-35.0); MCHC 32.5 g/dL (31.0-37.0); MCV 91.7 fL (80.0-100.0); Macrocytosis Slight; Mean Platelet Volume 10.8; Poikilocytosis Moderate; RBC 2.68 m/uL (3.80-5.40); RDW 20.7 % (11.5-15.5)
[2018-01-16 08:49] LABS: Platelet Count 88 k/uL (150-450)
[2018-01-16 09:14] LABS: Band Neutrophils % 1 %; Eosinophils # (M) 0.18 k/uL (0-0.7); Metamyelocytes # (M) 0.18 k/uL (0); Metamyelocytes % 1 %; Monocytes # (M) 0.72 k/uL (0-1.0); Neutrophils % (M) 85 %; Nucleated Red Blood Cells 1 /100 WBC (0-0); Total Cells Counted 200
[2018-01-16 09:15] LABS: Polychromasia Present; RBC Fragments Present
[2018-01-16 09:30] LABS: Albumin 2.3 g/dL (3.5-5.0); Calcium 7.9 mg/dL (8.4-10.2); Phosphorus 2.6 mg/dL (2.5-4.5); Potassium 3.6 mmol/L (3.5-5.1); Total Bilirubin 1.6 mg/dL (0.2-1.3); Total Protein 5.7 g/dL (6.3-8.2)
[2018-01-16] MEDS: CARVEDILOL 6.25 MG TAB PO SCH ×2 (09:53→16:28)
[2018-01-16] MEDS: AMANTADINE HCL 100 MG CAP PO SCH ×2 (09:53→20:34)
[2018-01-16] MEDS: PANTOPRAZOLE SODIUM 40 MG GRANULE PKT PO SCH (09:53)
[2018-01-16] MEDS: hydrALAZINE HCL 50 MG TAB PO SCH ×3 (09:54→20:34)
[2018-01-16] MEDS: amLODIPine 10 MG TAB PO SCH (09:54)
[2018-01-16] MEDS: levETIRAcetam IV 500 MG in SODIUM CHLORIDE 0.9% 100 ML IVPB SCH ×2 (09:55→20:32)
[2018-01-16] MEDS: LISINOPRIL 10 MG TAB PO SCH (09:59)
[2018-01-16] MEDS: ACETAMINOPHEN TAB 325 MG TAB PO PRN (10:00)
--- NOTE | 2018-01-16 10:05 | P.PN ---
Subjective Progress Note Date: 01/16/18 62-year-old female seen at bedside this morning eyes open more awake and more alert no facial grimacing with palpitation to the abdominal wall abdomen not distended. Did note the platelets are up to 88 this morning. With hemoglobin of 8 Patients being followed by surgical service after the ultrasound of the abdomen show gallstones possible biliary duct dilatation. MRCP was normal. The plan is to schedule for laparoscopic cholecystectomy when medically stable Objective - Vital Signs Vital signs: Vital Signs Temp 100.9 F H 01/16/18 09:42 Pulse 84 01/16/18 07:41 Resp 18 01/16/18 05:00 BP 158/99 01/16/18 07:41 Pulse Ox 96 01/16/18 05:00 Intake & Output 01/15/18 01/16/18 01/16/18 18:59 06:59 18:59 Intake Total 120 820 Output Total 300 Balance -180 820 Weight 56 kg Intake: IV 700 Sodium Chloride 0.9% 1, 700 000 ml @ 100 mls/hr IV . Q10H [facility] Rx#:[id number] Oral 120 120 Output: Urine 300 Other: Voiding Method Diaper Diaper Diaper Incontinent Incontinent Incontinent # Voids 4 - Exam Exam 62-year-old female resting in bed appearing in no acute distress Lungs diminished at the bases otherwise adequate air movement Heart S1-S2 audible regular Abdomen indwelling Noriega catheter in place nontender nondistended no facial grimaces with palpitation reports no abdominal discomfort Extremity contractures to the lower extremities. No edema noted. - Labs CBC & Chem 7: 01/16/18 07:45 01/16/18 07:45 Labs: Abnormal Lab Results - Last 24 Hours (Table) 01/15/18 01/15/18 01/16/18 Range/Units 18:16 23:46 06:27 WBC (3.8-10.6) k/uL RBC (3.80-5.40) m/uL Hgb (11.4-16.0) gm/dL Hct (34.0-46.0) % RDW (11.5-15.5) % Plt Count (150-450) k/uL Neutrophils # (Manual) (1.3-7.7) k/uL Metamyelocytes # (Man) (0) k/uL Nucleated RBCs (0-0) /100 WBC Sodium (137-145) mmol/L Chloride (98-107) mmol/L Carbon Dioxide (22-30) mmol/L Creatinine (0.52-1.04) mg/dL Glucose (74-99) mg/dL POC Glucose (mg/dL) 155 H 146 H 121 H (75-99) mg/dL Calcium (8.4-10.2) mg/dL Total Bilirubin (0.2-1.3) mg/dL AST (14-36) U/L Alkaline Phosphatase (38-126) U/L Total Protein (6.3-8.2) g/dL Albumin (3.5-5.0) g/dL 01/16/18 01/16/18 Range/Units 07:45 07:45 WBC 18.0 H (3.8-10.6) k/uL RBC 2.68 L (3.80-5.40) m/uL Hgb 8.0 L (11.4-16.0) gm/dL Hct 24.6 L (34.0-46.0) % RDW 20.7 H (11.5-15.5) % Plt Count 88 L (150-450) k/uL Neutrophils # (Manual) 15.40 H (1.3-7.7) k/uL Metamyelocytes # (Man) 0.18 H (0) k/uL Nucleated RBCs 1 H (0-0) /100 WBC Sodium 147 H (137-145) mmol/L Chloride 120 H (98-107) mmol/L Carbon Dioxide 21 L (22-30) mmol/L Creatinine 1.12 H (0.52-1.04) mg/dL Glucose 123 H (74-99) mg/dL POC Glucose (mg/dL) (75-99) mg/dL Calcium 7.9 L (8.4-10.2) mg/dL Total Bilirubin 1.6 H (0.2-1.3) mg/dL AST 42 H (14-36) U/L Alkaline Phosphatase 139 H (38-126) U/L Total Protein 5.7 L (6.3-8.2) g/dL Albumin 2.3 L (3.5-5.0) g/dL Assessment and Plan Assessment: Impression Present on admission nausea vomiting elevated liver enzymes Status post MRCP no evidence of biliary tree abnormality Elevated liver enzymes possibly related to sepsis possible symptomatic gallstones UTI infection bacteremia Multiple sclerosis limited mobility bedbound Thrombocytopenia platelets improving Plan Laparoscopic cholecystectomy will be rescheduled once patient is medically cleared Continue recommendations per the attending Will follow with you The above impression and plan of care have been discussed and directed by signing physician. Maite Weaver nurse practitioner acting as scribe for signing physician.
[2018-01-16] MEDS: cefTRIAXone 2,000 MG in SODIUM CHLORIDE 0.9% 100 ML IVPB SCH (10:37)
[2018-01-16] MEDS: Mirabegron [Myrbetriq] 25 MG PO SCH (10:38)
[2018-01-16 11:09] LABS: Glucose,Whole Blood 141 mg/dL (75-99)
--- NOTE | 2018-01-16 13:34 | FL ---
EXAMINATION TYPE: FL barium swallow w video DATE OF EXAM: 01/16/2018 COMPARISON: NONE HISTORY: Possible aspiration, fever of unknown origin TECHNIQUE: Fluoroscopy. FINDINGS: Fluoroscopic guidance was provided for the procedure performed in conjunction with the [facility] pathology department. Please see complete report forthcoming from the Speech Pathology departmen t. Various consistencies from thin liquid to solids were administered. Fluoroscopy time 3 minutes 5 seconds Number of images: 0. Aspiration occurred with thin liquids. There was transient and variable penetration with nectar thick liquids. Some minimal transient penetration with honey thick liquids may be present. Pooling was noted within the vallecula. There is delayed propulsion of the bolus into the hypopharynx. With chin tuck there is improved transit through the hypopharynx into the proximal esophagus without evidence of aspiration or penetration with nectar thick and honey thick liquids. Some penetration may remain with thin liquids. IMPRESSION: 1. Silent aspiration with thin liquids. 2. Variable transient penetration with nectar thick liquids. 3. Improved transit without aspiration or penetration with chin tuck method
--- NOTE | 2018-01-16 16:05 | P.PN ---
Subjective Progress Note Date: 01/16/18 Principal diagnosis: Nausea vomiting elevated liver enzymes 62-year-old female history of multiple sclerosis admitted with nausea vomiting UTI with gram negatives E. coli urine culture and blood culture. Ultrasound abdomen on admission reported gallstones and possible biliary ductal dilatation. MRCP revealed normal-appearing biliary system with no evidence of CBD stones. General surgery consulted laparoscopic cholecystectomy on hold secondary to thrombocytopenia. Total bilirubin improved 1.6. Objective - Vital Signs Vital signs: Vital Signs Temp 99.1 F 01/16/18 12:01 Pulse 81 01/16/18 12:01 Resp 18 01/16/18 12:01 BP 116/70 01/16/18 12:01 Pulse Ox 97 01/16/18 12:01 Intake & Output 01/15/18 01/16/18 01/16/18 18:59 06:59 18:59 Intake Total 120 820 Output Total 300 Balance -180 820 Weight 56 kg Intake: IV 700 Sodium Chloride 0.9% 1, 700 000 ml @ 100 mls/hr IV . Q10H [facility] Rx#:[id number] Oral 120 120 Output: Urine 300 Other: Voiding Method Diaper Diaper Diaper Incontinent Incontinent Incontinent # Voids 4 1 - Exam General appearance: The patient is alert, oriented, in no acute distress. HET: Head is normocephalic and atraumatic. Pupils are equal and reactive. Oropharynx is clear without lesions. Neck: Supple without lymphadenopathy. Trachea midline. Heart: S1 S2. Regular rate and rhythm. Lungs: No crackles or wheezes are heard. Abdomen: Soft, nontender, nondistended with bowel sounds. No peritoneal signs. No palpable organomegaly or masses. Extremities: Normal skin color and turgor. No cyanosis, rash, ulceration, clubbing, or edema. Radial and pedal pulses are 2/4 bilaterally. Neurological: No focal deficits. Strength and sensation are grossly intact. - Labs CBC & Chem 7: 01/16/18 07:45 01/16/18 07:45 Labs: Abnormal Lab Results - Last 24 Hours (Table) 01/15/18 01/15/18 01/16/18 Range/Units 18:16 23:46 06:27 WBC (3.8-10.6) k/uL RBC (3.80-5.40) m/uL Hgb (11.4-16.0) gm/dL Hct (34.0-46.0) % RDW (11.5-15.5) % Plt Count (150-450) k/uL Neutrophils # (Manual) (1.3-7.7) k/uL Metamyelocytes # (Man) (0) k/uL Nucleated RBCs (0-0) /100 WBC Sodium (137-145) mmol/L Chloride (98-107) mmol/L Carbon Dioxide (22-30) mmol/L Creatinine (0.52-1.04) mg/dL Glucose (74-99) mg/dL POC Glucose (mg/dL) 155 H 146 H 121 H (75-99) mg/dL Calcium (8.4-10.2) mg/dL Total Bilirubin (0.2-1.3) mg/dL AST (14-36) U/L Alkaline Phosphatase (38-126) U/L Total Protein (6.3-8.2) g/dL Albumin (3.5-5.0) g/dL 01/16/18 01/16/18 01/16/18 Range/Units 07:45 07:45 11:06 WBC 18.0 H (3.8-10.6) k/uL RBC 2.68 L (3.80-5.40) m/uL Hgb 8.0 L (11.4-16.0) gm/dL Hct 24.6 L (34.0-46.0) % RDW 20.7 H (11.5-15.5) % Plt Count 88 L (150-450) k/uL Neutrophils # (Manual) 15.40 H (1.3-7.7) k/uL Metamyelocytes # (Man) 0.18 H (0) k/uL Nucleated RBCs 1 H (0-0) /100 WBC Sodium 147 H (137-145) mmol/L Chloride 120 H (98-107) mmol/L Carbon Dioxide 21 L (22-30) mmol/L Creatinine 1.12 H (0.52-1.04) mg/dL Glucose 123 H (74-99) mg/dL POC Glucose (mg/dL) 141 H (75-99) mg/dL Calcium 7.9 L (8.4-10.2) mg/dL Total Bilirubin 1.6 H (0.2-1.3) mg/dL AST 42 H (14-36) U/L Alkaline Phosphatase 139 H (38-126) U/L Total Protein 5.7 L (6.3-8.2) g/dL Albumin 2.3 L (3.5-5.0) g/dL Assessment and Plan (1) Elevated liver enzymes Narrative/Plan: 67-year-old female admitted with nausea vomiting elevated transaminases cholelithiasis status post MRCP with no evidence of biliary tree abnormality. Elevated transaminases possibly related to sepsis possible symptomatic gallstones. General surgery following closely. Current Visit: Yes Status: Acute Code(s): R74.8 - ABNORMAL LEVELS OF OTHER SERUM ENZYMES SNOMED Code(s): 931342067 (2) UTI (urinary tract infection) Current Visit: Yes Status: Acute Code(s): N39.0 - URINARY TRACT INFECTION, SITE NOT SPECIFIED SNOMED Code(s): 47643109 (3) Bacteremia Current Visit: Yes Status: Acute Code(s): R78.81 - BACTEREMIA SNOMED Code( s): 9586052 (4) Cholelithiasis Current Visit: Yes Status: Acute Code(s): K80.20 - CALCULUS OF GALLBLADDER W /O CHOLECYSTITIS W/O OBSTRUCTION SNOMED Code(s): 796026087 (5) Multiple sclerosis Current Visit: Yes Status: Acute Code(s): G35 - MULTIPLE SCLEROSIS SNOMED Code(s): 03373376 (6) Sepsis Current Visit: Yes Status: Acute Code(s): A41.9 - SEPSIS, UNSPECIFIED ORGANISM SNOMED Code(s): 22321742 (7) Thrombocytopenia Narrative/Plan: improved Current Visit: Yes Status: Acute Code(s): D69.6 - THROMBOCYTOPENIA, UNSPECIFIED SNOMED Code(s): 466544952 Plan: 1. Liver function tests improved. No further workup. We'll follow as needed. Assessment and plan of care discussed with Dr. Tejeda
[2018-01-16 17:19] LABS: Glucose,Whole Blood 130 mg/dL (75-99)
[2018-01-16 20:36] LABS: Glucose,Whole Blood 144 mg/dL (75-99)
[2018-01-17 00:36] LABS: Glucose,Whole Blood 157 mg/dL (75-99)
--- NOTE | 2018-01-17 00:40 | P.PN ---
Subjective Progress Note Date: 01/16/18 62-year-old female who has multiple medical troubles that includes multiple sclerosis, history of breast carcinoma status post surgical intervention and radiation therapy, seizures and hypothyroidism presents to the emergency center with symptoms of increasing fatigue malaise some altered mentation consequently was brought to the emergency center by her . is her primary lofter and the family home. The patient recently spent having difficulties with urinary tract infection resented with Macrodantin which was then transitioned to Bactrim. Despite this she was not improving with increasing symptoms. She consequently was brought in the hospital on 01/10/2018. Despite antibiotic therapy with Zosyn still continues to feel somewhat poorly and constantly the infectious diseases consultation was requested. The patient has been about a by general surgery because she was having some abdominal pain there is evidence of some elevated liver function tests and alkaline phosphatase. Imaging study reveals evidence of a large gallstone but MRCP failed to reveal evidence of any acute obstruction of the biliary tract at this time. Patient though was symptomatic and there were plans for a laparoscopic cholecystectomy due to significant thrombocytopenia this was held. Today she has improved ane is feeling better without chills, pain improved. Objective - Vital Signs Vital signs: Vital Signs Temp 99.9 F H 01/16/18 21:00 Pulse 83 01/16/18 21:00 Resp 16 01/16/18 21:00 BP 121/73 01/16/18 21:00 Pulse Ox 96 01/16/18 21:00 Intake & Output 01/16/18 01/16/18 01/17/18 06:59 18:59 06:59 Intake Total 820 Balance 820 Intake: IV 700 Sodium Chloride 0.9% 1, 700 000 ml @ 100 mls/hr IV . Q10H [facility] Rx#:[id number] Oral 120 Other: Voiding Method Diaper Diaper Diaper Incontinent Incontinent Incontinent # Voids 4 1 - Exam 62-year-old woman who is profoundly disabled from her MS, she however is awake but is not a good historian. HEENT: Anicteric conjunctiva are pink and moist nasal mucosa grossly intact without evidence of bleeding, oromucosa is dry without thrush Neck: The neck is supple without significant lymphadenopathy or thyromegaly. Lungs: They're symmetrical air entry with few basilar crackles no bronchial sounds normal dullness or egophony Heart: Regular rate and rhythm with an audible S1-S2, no S3 no S4. There is no significant murmur click or rub, PMI was nondisplaced. Abdomen: Positive bowel sounds soft and nontender without palpable masses or organomegaly. There was no guarding or rebound. Extremities: The upper extremities have excellent pulses they are symmetric, no significant petechiae or telangiectasia. No splinter hemorrhages were noted. The lower extremities are free from significant edema. - Labs CBC & Chem 7: 01/16/18 07:45 01/16/18 07:45 Labs: Abnormal Lab Results - Last 24 Hours (Table) 01/16/18 01/16/18 01/16/18 Range/Units 06:27 07:45 07:45 WBC 18.0 H (3.8-10.6) k/uL RBC 2.68 L (3.80-5.40) m/uL Hgb 8.0 L (11.4-16.0) gm/dL Hct 24.6 L (34.0-46.0) % RDW 20.7 H (11.5-15.5) % Plt Count 88 L (150-450) k/uL Neutrophils # (Manual) 15.40 H (1.3-7.7) k/uL Metamyelocytes # (Man) 0.18 H (0) k/uL Nucleated RBCs 1 H (0-0) /100 WBC Sodium 147 H (137-145) mmol/L Chloride 120 H (98-107) mmol/L Carbon Dioxide 21 L (22-30) mmol/L Creatinine 1.12 H (0.52-1.04) mg/dL Glucose 123 H (74-99) mg/dL POC Glucose (mg/dL) 121 H (75-99) mg/dL Calcium 7.9 L (8.4-10.2) mg/dL Total Bilirubin 1.6 H (0.2-1.3) mg/dL AST 42 H (14-36) U/L Alkaline Phosphatase 139 H (38-126) U/L Total Protein 5.7 L (6.3-8.2) g/dL Albumin 2.3 L (3.5-5.0) g/dL 01/16/18 01/16/18 01/16/18 Range/Units 11:06 17:17 20:13 WBC (3.8-10.6) k/uL RBC (3.80-5.40) m/uL Hgb (11.4-16.0) gm/dL Hct (34.0-46.0) % RDW (11.5-15.5) % Plt Count (150-450) k/uL Neutrophils # (Manual) (1.3-7.7) k/uL Metamyelocytes # (Man) (0) k/uL Nucleated RBCs (0-0) /100 WBC Sodium (137-145) mmol/L Chloride (98-107) mmol/L Carbon Dioxide (22-30) mmol/L Creatinine (0.52-1.04) mg/dL Glucose (74-99) mg/dL POC Glucose (mg/dL) 141 H 130 H 144 H (75-99) mg/dL Calcium (8.4-10.2) mg/dL Total Bilirubin (0.2-1.3) mg/dL AST (14-36) U/L Alkaline Phosphatase (38-126) U/L Total Protein (6.3-8.2) g/dL Albumin (3.5-5.0) g/dL Microbiology - Last 24 Hours (Table) 01/12/18 18:34 Blood Culture Gram Stain - Final Blood Blood Culture - Final Beta Hemolytic Strep Laboratory Results WBC 18.0 k/uL (3.8-10.6) H 01/16/18 07:45 RBC 2.68 m/uL (3.80-5.40) L 01/16/18 07:45 Hgb 8.0 gm/dL (11.4-16.0) L 01/16/18 07:45 Hct 24.6 % (34.0-46.0) L 01/16/18 07:45 MCV 91.7 fL (80.0-100.0) 01/16/18 07:45 MCH 29.8 pg (25.0-35.0) 01/16/18 07:45 MCHC 32.5 g/dL (31.0-37.0) 01/16/18 07:45 RDW 20.7 % (11.5-15.5) H 01/16/18 07:45 Plt Count 88 k/uL (150-450) L 01/16/18 07:45 Neutrophils % 80 % 01/15/18 07:13 Neutrophils % (Manual) 85 % 01/16/18 07:45 Band Neutrophils % 1 % 01/16/18 07:45 Lymphocytes % 11 % 01/15/18 07:13 Lymphocytes % (Manual) 10 % 01/16/18 07:45 Monocytes % 5 % 01/15/18 07:13 Monocytes % (Manual) 4 % 01/16/18 07:45 Eosinophils % 1 % 01/15/18 07:13 Eosinophils % (Manual) 1 % 01/16/18 07:45 Basophils % 0 % 01/15/18 07:13 Metamyelocytes % 1 % 01/16/18 07:45 Neutrophils # 13.0 k/uL (1.3-7.7) H 01/15/18 07:13 Neutrophils # (Manual) 15.40 k/uL (1.3-7.7) H 01/16/18 07:45 Lymphocytes # 1.8 k/uL (1.0-4.8) 01/15/18 07:13 Lymphocytes # (Manual) 1.80 k/uL (1.0-4.8) 01/16/18 07:45 Monocytes # 0.8 k/uL (0-1.0) 01/15/18 07:13 Monocytes # (Manual) 0.72 k/uL (0-1.0) 01/16/18 07:45 Eosinophils # 0.1 k/uL (0-0.7) 01/15/18 07:13 Eosinophils # (Manual) 0.18 k/uL (0-0.7) 01/16/18 07:45 Basophils # 0.1 k/uL (0-0.2) 01/15/18 07:13 Metamyelocytes # (Man) 0.18 k/uL (0) H 01/16/18 07:45 Nucleated RBCs 1 /100 WBC (0-0) H 01/16/18 07:45 Manual Slide Review Performed 01/14/18 05:11 Polychromasia Present 01/16/18 07:45 Hypochromasia Moderate 01/16/18 07:45 Poikilocytosis Moderate 01/16/18 07:45 Anisocytosis Moderate 01/16/18 07:45 Macrocytosis Slight 01/16/18 07:45 Fragmented RBCs Present 01/16/18 07:45 PT 10.5 sec (9.0-12.0) 01/10/18 13:31 INR 1.1 (<1.2) 01/10/18 13:31 APTT 23.3 sec (22.0-30.0) 01/10/18 13:31 Sodium 147 mmol/L (137-145) H 01/16/18 07:45 Potassium 3.6 mmol/L (3.5-5.1) 01/16/18 07:45 Chloride 120 mmol/L (98-107) H 01/16/18 07:45 Carbon Dioxide 21 mmol/L (22-30) L 01/16/18 07:45 Anion Gap 6 mmol/L 01/16/18 07:45 BUN 15 mg/dL (7-17) 01/16/18 07:45 Creatinine 1.12 mg/dL (0.52-1.04) H 01/16/18 07:45 Est GFR (CKD-EPI)AfAm 60 (>60 ml/min/1.73 sqM) 01/16/18 07:45 Est GFR (CKD-EPI)NonAf 52 (>60 ml/min/1.73 sqM) 01/16/18 07:45 Glucose 123 mg/dL (74-99) H 01/16/18 07:45 POC Glucose (mg/dL) 144 mg/dL (75-99) H 01/16/18 20:13 POC Glu Crew Chief ID Courtney Elena 01/16/18 20:[address] Glu mg/dL 134 01/11/18 06:11 Hemoglobin A1c 6.3 % (4.0-6.0) H 01/11/18 06:11 Lactic Ac Sepsis Rflx Y 01/10/18 14:22 Plasma Lactic Acid Jsoé 1.0 mmol/L (0.7-2.0) 01/12/18 18:34 Calcium 7.9 mg/dL (8.4-10.2) L 01/16/18 07:45 Phosphorus 2.6 mg/dL (2.5-4.5) 01/16/18 07:45 Magnesium 2.0 mg/dL (1.6-2.3) 01/16/18 07:45 Total Bilirubin 1.6 mg/dL (0.2-1.3) H 01/16/18 07:45 AST 42 U/L (14-36) H 01/16/18 07:45 ALT 29 U/L (9-52) 01/16/18 07:45 Alkaline Phosphatase 139 U/L (38-126) H 01/16/18 07:45 Total Creatine Kinase 1070 U/L (30-135) H* 01/11/18 01:25 CK-MB (CK-2) 14.0 ng/mL (0.0-2.4) H 01/11/18 01:25 CK-MB (CK-2) Rel Index 1.3 01/11/18 01:25 Troponin I 0.086 ng/mL (0.000-0.034) H* 01/11/18 01:25 Total Protein 5.7 g/dL (6.3-8.2) L 01/16/18 07:45 Albumin 2.3 g/dL (3.5-5.0) L 01/16/18 07:45 Lipase 26 U/L (23-300) 01/11/18 06:11 Urine Color Yellow 01/10/18 13:31 Urine Appearance Turbid (Clear) H 01/10/18 13:31 Urine pH 7.5 (5.0-8.0) 01/10/18 13:31 Ur Specific [place] 1.012 (1.001-1.035) 01/10/18 13:31 Urine Protein 2+ (Negative) H 01/10/18 13:31 Urine Glucose (UA) Negative (Negative) 01/10/18 13:31 Urine Ketones Negative (Negative) 01/10/18 13:31 Urine Blood Moderate (Negative) H 01/10/18 13:31 Urine Nitrite Negative (Negative) 01/10/18 13:31 Urine Bilirubin Negative (Negative) 01/10/18 13:31 Urine Urobilinogen 2.0 mg/dL (<2.0) 01/10/18 13:31 Ur Leukocyte Esterase Moderate (Negative) H 01/10/18 13:31 Urine WBC 18 /hpf (0-5) H 01/10/18 13:31 Ur Squamous Epith Cells 1 /hpf (0-4) 01/10/18 13:31 Urine Bacteria Many /hpf (None) H 01/10/18 13:31 Urine Mucus Occasional /hpf (None) H 01/10/18 13:31 Hepatitis A IgM Ab Non-Reactive (Non-Reactive) 01/13/18 17:10 Hep Bs Antigen Non-Reactive (Non-Reactive) 01/13/18 17:10 Hep B Core IgM Ab Non-Reactive (Non-Reactive) 01/13/18 17:10 Hep C IgG Ab Non-Reactive (Non-Reactive) 01/13/18 17:10 Microbiology 01/12/18 18:34 Blood Blood Culture Gram Stain - Final 01/12/18 18:34 Blood Blood Culture - Final Beta Hemolytic Strep 01/12/18 18:34 Blood Blood Culture - Final 01/10/18 13:31 Blood Blood Culture Gram Stain - Final 01/10/18 13:31 Blood Blood Culture - Final Escherichia coli 01/10/18 13:31 Urine,Catheterized Urine Culture - Final Escherichia coli 01/10/18 13:31 Blood Blood Culture - Final Assessment and Plan (1) Acute cholecystitis Current Visit: Yes Status: Acute Code(s): K81.0 - ACUTE CHOLECYSTITIS SNOMED Code(s): 43564604 (2) Sepsis Narrative/Plan: 62-year-old woman with multiple medical troubles including progressive MS who is bedbound and cared for by her family and her in the home setting presents to Hospital from home with increasing weakness lethargy and altered mental status. At this time it appears to be some improvement as she has been hydrated and has been treated with appropriate antibiotic therapy. Patient however is now developed evidence of progressive thrombocytopenia originally platelets were at 147 noted decreased and 19. It is likely the piperacillin tazobactam is etiology of her significant drop of platelets and this is discontinued. Urine culture is available and has evidence of a nonresistant E. coli and constantly antibiotic therapy is changed to ceftriaxone. Platelets will be followed it would expect them to rapidly improve with the withdrawal of the Zosyn. She is being seen by surgery with potential laparoscopic cholecystectomy planned in the future because of the symptomatic choledocholithiasis. Fortunately MRCP does not show evidence of any acute obstructive biliary pattern. Follow blood cultures are negative. The fever and leukocytosis have also improved. 01/16/2018 further improved and platelets recovering with discontinuation of zosyn. Doing well with rocephin. follow up blood culture in progress. Current Visit: Yes Status: Acute Code(s): A41.9 - SEPSIS, UNSPECIFIED ORGANISM SNOMED Code(s): 63457647 (3) Thrombocytopenia Current Visit: Yes Status: Acute Code(s): D69.6 - THROMBOCYTOPENIA, UNSPECIFIED SNOMED Code(s): 328169061
[2018-01-17 06:10] LABS: Glucose,Whole Blood 144 mg/dL (75-99)
[2018-01-17] MEDS: DEXTROSE 5% IN WATER 1,000 ML IV SCH ×2 (07:57→16:31)
[2018-01-17] MEDS: AMANTADINE HCL 100 MG CAP PO SCH ×2 (08:00→21:54)
[2018-01-17] MEDS: PANTOPRAZOLE SODIUM 40 MG GRANULE PKT PO SCH (08:00)
[2018-01-17] MEDS: LEVOTHYROXINE 50 MCG TAB PO SCH (08:00)
[2018-01-17] MEDS: hydrALAZINE HCL 50 MG TAB PO SCH ×3 (08:00→21:53)
[2018-01-17] MEDS: LISINOPRIL 10 MG TAB PO SCH (08:01)
[2018-01-17] MEDS: amLODIPine 10 MG TAB PO SCH (08:01)
[2018-01-17] MEDS: CARVEDILOL 6.25 MG TAB PO SCH ×2 (08:01→16:26)
[2018-01-17] MEDS: cefTRIAXone 2,000 MG in SODIUM CHLORIDE 0.9% 100 ML IVPB SCH (08:02)
[2018-01-17] MEDS: levETIRAcetam IV 500 MG in SODIUM CHLORIDE 0.9% 100 ML IVPB SCH ×2 (09:14→20:58)
[2018-01-17] MEDS: Mirabegron [Myrbetriq] 25 MG PO SCH (09:17)
[2018-01-17 11:18] LABS: Glucose,Whole Blood 177 mg/dL (75-99)
--- NOTE | 2018-01-17 12:13 | P.PN ---
Subjective Progress Note Date: 01/17/18 62-year-old female sitting up in bed opens eyes to verbal stimuli. Does not appear in any acute distress currently no labs pending nursing reports has been no nausea vomiting. Incontinently urine Patients being followed by general surgery for possible laparoscopic cholecystectomy which currently is on hold secondary to thrombocytopenia. Patient had an ultrasound on admission it did show gallstones and possible biliary ductal dilatation. MRCP showed normal-appearing biliary system there were no evidence of any gallstones and the common bile duct Objective - Vital Signs Vital signs: Vital Signs Temp 98.3 F 01/17/18 11:44 Pulse 71 01/17/18 11:44 Resp 18 01/17/18 11:44 BP 111/68 01/17/18 11:44 Pulse Ox 98 01/17/18 11:44 Intake & Output 01/16/18 01/17/18 01/17/18 18:59 06:59 18:59 Intake Total 240 Balance 240 Weight 56 kg 56 kg Intake: Oral 240 Other: Voiding Method Diaper Diaper Diaper Incontinent Incontinent Incontinent # Voids 1 3 - Exam Exam 62-year-old female resting in bed appearing in no acute distress Lungs diminished at the bases otherwise adequate air movement Heart S1-S2 audible regular Abdomen indwelling Noriega catheter in place nontender nondistended no facial grimaces with palpitation reports no abdominal discomfort Extremity contractures to the lower extremities. No edema noted. - Constitutional Constitutional Comment(s): Physical exam 62-year-old female awake resting in bed appears in no acute distress Lungs adequate air movement bilaterally Heart S1-S2 audible regular Abdomen not distended nontender no facial grimacing with palpitation to the abdominal wall incontinent urine no stool no report of nausea vomiting bowel tones present Extremities no edema noted - Labs CBC & Chem 7: 01/16/18 07:45 01/16/18 07:45 Labs: Abnormal Lab Results - Last 24 Hours (Table) 01/16/18 01/16/18 01/17/18 Range/Units 17:17 20:13 00:29 POC Glucose (mg/dL) 130 H 144 H 157 H (75-99) mg/dL 01/17/18 01/17/18 Range/Units 06:08 11:17 POC Glucose (mg/dL) 144 H 177 H (75-99) mg/dL Microbiology - Last 24 Hours (Table) 01/12/18 18:34 Blood Culture Gram Stain - Final Blood Blood Culture - Final Beta Hemolytic Strep Assessment and Plan Assessment: Impression Present on admission nausea vomiting elevated liver enzymes Status post MRCP no evidence of biliary tree abnormality Elevated liver enzymes possibly related to sepsis possible symptomatic gallstones UTI infection bacteremia Multiple sclerosis limited mobility bedbound Thrombocytopenia platelets improving Plan Laparoscopic cholecystectomy will be rescheduled once patient is medically cleared Continue recommendations per the attending Will follow with you We'll repeat labs in the morning The above impression and plan of care have been discussed and directed by signing physician. Maite Weaver nurse practitioner acting as scribe for signing physician.
[2018-01-17 13:27] LABS: Anisocytosis Moderate; HCT 22.1 % (34.0-46.0); Hypochromasia Marked; MCH 29.7 pg (25.0-35.0); MCHC 31.5 g/dL (31.0-37.0); MCV 94.4 fL (80.0-100.0); Macrocytosis Slight; Mean Platelet Volume 10.4; Platelet Count 104 k/uL (150-450); Poikilocytosis Moderate; RBC 2.34 m/uL (3.80-5.40); RDW 21.3 % (11.5-15.5); WBC 22.2 k/uL (3.8-10.6)
[2018-01-17 13:32] LABS: HGB 6.9 gm/dL (11.4-16.0)
[2018-01-17 13:36] LABS: Calcium 7.8 mg/dL (8.4-10.2)
[2018-01-17 13:48] LABS: Potassium 2.7 mmol/L (3.5-5.1)
--- NOTE | 2018-01-17 14:31 | P.PN ---
Subjective Progress Note Date: 01/17/18 62-year-old female who has multiple medical troubles that includes multiple sclerosis, history of breast carcinoma status post surgical intervention and radiation therapy, seizures and hypothyroidism presents to the emergency center with symptoms of increasing fatigue malaise some altered mentation consequently was brought to the emergency center by her . 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 The patient recently spent having difficulties with urinary tract infection resented with Macrodantin which was then transitioned to Bactrim. Despite this she was not improving with increasing symptoms. She consequently was brought in the hospital on 01/10/2018. Despite antibiotic therapy with Zosyn still continues to feel somewhat poorly and constantly the infectious diseases consultation was requested. The patient has been about a by general surgery because she was having some abdominal pain there is evidence of some elevated liver function tests and alkaline phosphatase. Imaging study reveals evidence of a large gallstone but MRCP failed to reveal evidence of any acute obstruction of the biliary tract at this time. Patient though was symptomatic and there were plans for a laparoscopic cholecystectomy due to significant thrombocytopenia this was held. 01/17/2018 Patient is seen and evaluated in the room at bedside; patient does report improvement in symptoms today and denies any nausea or vomiting General surgery is following for possible laparoscopic cholecystectomy; remains on hold secondary to thrombocytopenia Objective - Vital Signs Vital signs: Vital Signs Temp 98.3 F 01/17/18 11:44 Pulse 71 01/17/18 11:44 Resp 18 01/17/18 11:44 BP 111/68 01/17/18 11:44 Pulse Ox 98 01/17/18 11:44 Intake & Output 01/16/18 01/17/18 01/17/18 18:59 06:59 18:59 Intake Total 240 Balance 240 Weight 56 kg 56 kg Intake: Oral 240 Other: Voiding Method Diaper Diaper Diaper Incontinent Incontinent Incontinent # Voids 1 3 2 - Exam 62-year-old woman who is profoundly disabled from her MS, she however is awake but is not a good historian. HEENT: Anicteric conjunctiva are pink and moist nasal mucosa grossly intact without evidence of bleeding, oromucosa is dry without thrush Neck: The neck is supple without significant lymphadenopathy or thyromegaly. Lungs: They're symmetrical air entry with few basilar crackles no bronchial sounds normal dullness or egophony Heart: Regular rate and rhythm with an audible S1-S2, no S3 no S4. There is no significant murmur click or rub, PMI was nondisplaced. Abdomen: Positive bowel sounds soft and nontender without palpable masses or organomegaly. There was no guarding or rebound. Extremities: The upper extremities have excellent pulses they are symmetric, no significant petechiae or telangiectasia. No splinter hemorrhages were noted. The lower extremities are free from significant edema. - Labs CBC & Chem 7: 01/17/18 12:47 01/17/18 12:47 Labs: Abnormal Lab Results - Last 24 Hours (Table) 01/16/18 01/16/18 01/17/18 Range/Units 17:17 20:13 00:29 WBC (3.8-10.6) k/uL RBC (3.80-5.40) m/uL Hgb (11.4-16.0) gm/dL Hct (34.0-46.0) % RDW (11.5-15.5) % Plt Count (150-450) k/uL Potassium (3.5-5.1) mmol/L Chloride (98-107) mmol/L Carbon Dioxide (22-30) mmol/L Creatinine (0.52-1.04) mg/dL Glucose (74-99) mg/dL POC Glucose (mg/dL) 130 H 144 H 157 H (75-99) mg/dL Calcium (8.4-10.2) mg/dL 01/17/18 01/17/18 01/17/18 Range/Units 06:08 11:17 12:47 WBC 22.2 H (3.8-10.6) k/uL RBC 2.34 L (3.80-5.40) m/uL Hgb 6.9 L* (11.4-16.0) gm/dL Hct 22.1 L (34.0-46.0) % RDW 21.3 H (11.5-15.5) % Plt Count 104 L (150-450) k/uL Potassium (3.5-5.1) mmol/L Chloride (98-107) mmol/L Carbon Dioxide (22-30) mmol/L Creatinine (0.52-1.04) mg/dL Glucose (74-99) mg/dL POC Glucose (mg/dL) 144 H 177 H (75-99) mg/dL Calcium (8.4-10.2) mg/dL 01/17/18 Range/Units 12:47 WBC (3.8-10.6) k/uL RBC (3.80-5.40) m/uL Hgb (11.4-16.0) gm/dL Hct (34.0-46.0) % RDW (11.5-15.5) % Plt Count (150-450) k/uL Potassium 2.7 L* (3.5-5.1) mmol/L Chloride 115 H (98-107) mmol/L Carbon Dioxide 19 L (22-30) mmol/L Creatinine 1.21 H (0.52-1.04) mg/dL Glucose 170 H (74-99) mg/dL POC Glucose (mg/dL) (75-99) mg/dL Calcium 7.8 L (8.4-10.2) mg/dL Microbiology - Last 24 Hours (Table) 01/12/18 18:34 Blood Culture Gram Stain - Final Blood Blood Culture - Final Beta Hemolytic Strep Assessment and Plan Assessment: 1. Acute sepsis secondary to E. coli urinary tract infection and E. coli bacteremia. - Patient has been transitioned to IV Rocephin - Patient's white blood count and temperature is within normal limit; continues to make clinical improvement - Further recommendations on antibiotic therapy per ID 2. Acute cholecystitis/ Cholelithiasis. - Elevated liver enzymes most likely related to sepsis, possible gallstones. - General surgery is following and recommending laparoscopic cholecystectomy pending improvement in platelet, 3. Acute thrombocytopenia most likely secondary to sepsis versus Zosyn - Zosyn has been discontinued and patient has been started on IV Rocephin, - improving, platelets count are up to 104,000 today. 4. Acute bacteremia the most likely source is her urinary tract infection. - We will and leukocytosis has resolved - Patient remains on IV Rocephin per ID recommendations - Follow blood cultures are negative so far - Await final recommendations from ID for final choice of antibiotic and duration of therapy 5. History of MS; continue with amantadine 100 mg twice a day - Noriega catheter remains in place 6. Acute dehydration secondary to nausea and vomiting most likely secondary to urinary tract infection could also be related to her antibiotics. - Clinically resolved 7. Hypertension; - Stable on Coreg 6.25 mg twice a day and amlodipine 10 mg daily and hydralazine 50 mg 3 times a day along with lisinopril 10 mg daily 8. Seizure disorder; continue with Keppra 500 mg every 12 hours - Patient remains stable on seizure precautions 9. Hypothyroidism; stable on levothyroxine 50 MCG daily 10. GERD without esophagitis; remains on Protonix 40 mg before meals breakfast 11. DVT prophylaxis; SCDs only CODE STATUS; full code Time with Patient: Greater than 30
[2018-01-17] MEDS ORDERED: Potassium Replacement Protocol 1 EACH MISC MISCELLANE PRN (14:35)
[2018-01-17 15:12] LABS: Magnesium 1.8 mg/dL (1.6-2.3)
[2018-01-17] MEDS: POTASSIUM CHLORIDE ER 20 MEQ TAB.ER PO SCH ×3 (16:26→18:20)
[2018-01-17 17:58] LABS: Glucose,Whole Blood 121 mg/dL (75-99)
--- NOTE | 2018-01-17 21:56 | P.PN ---
Subjective Progress Note Date: 01/16/18 Progress note being dictated for Dr. Conn. Sepsis secondary to urinary tract infection Elevated liver enzymes Chronic cholecystitis Interval history:62-year-old female with a known history of multiple sclerosis currently bedridden, hypertension, GERD, history of breast cancer status post lumpectomy and radiation, hypothyroidism and multiple other medical problems was brought to the hospital due to generalized weakness and dehydration. Patient has history of MS and some residual right-sided weakness and contracture. Over the past several days she has begun oral antibiotics for urinary tract infection. Initially put on nitrofurantoin, symptoms did not improve patient had an episode of nausea and vomiting. She was switched to Bactrim. She's had one dose of Bactrim yesterday but has been unable to tolerate anything orally since that time. She's had nausea with one episode of vomiting. Patient is accompanied by her who is able to give the majority the history. Patient does complain of some chronic leg pain and cramping which is typical for her. No other pain complaints. No abdominal pain. No chest pain or dyspnea. No history of fever or chills. Patient is also confused and altered for the last couple days. WBC 27.2 BUN 69 creatinine 3.75. Lactic acid 2.8 troponin 0.084. CPK 762 AST 87, alk phos 240, albumin 2.9 UA showed large leukocyte esterase, WBC 18 and moderate blood. Chest x-ray showed no acute cardio for process EKG normal sinus rhythm Ultrasound ABDOMEN showed cholelithiasis. Gallbladder wall thickening with positive Juan sign. Correlate for acute cholecystitis. Suspicion for dilated common bile duct intraductal calcifications 01/11/2018 Patient is more awake and oriented today. Able to sit in the chair. Afebrile. Denied any complains of chest pain or shortness of breath. Denied any abdominal pain. Able to tolerate oral diet and take her oral medications. MRCP showed large bile stone. No dilated ducts. Mild gallbladder wall thickening. WBC is trending down. Potassium was replaced. General surgery is planning for cholecystectomy possibly on Saturday and clinically stable. 01/12/2018 Patient became confused again today. Able to nod her head but could not communicate. Could not able to swallow. Blood pressure is uncontrolled. Patient was given IV hydralazine and IV labetalol with some improvement in blood pressure. Otherwise Catapres patch could not be applied due to short supply from pharmacy. CT head is negative. Was done due to altered mentation. Leukocytosis is much improved to 10.8 today morning. Platelet count dropped further to 32,000. Patient is being continued on antibiotics continued on Zosyn. Renal function improved with creatinine level II.0 Patient is not tolerating any oral diet. Currently on IV fluids in the form of half-normal saline. Patient became febrile this afternoon with T-max 100.0 and blood pressure is also not controlled well. Due to altered mental status and uncontrolled hypertension, thrombocytopenia with underlying sepsis patient will be transferred to MICU for further management. 01/13/2018 Patient is awake and alert today. Able to communicate slowly. No complaints of chest pain or shortness of breath. Able to take by mouth medications. Platelet count is dropping down to 19,000 today. No active bleeding noted. No leukocytosis currently. Potassium and magnesium being replaced. Renal function improved with creatinine level I.7. Patient is being closely monitored in the ICU. Patient has been afebrile. Saturating well on room air. Blood pressure is fairly controlled today. Current medications reviewed Active Medications Generic Name Dose Route Start Last Admin Trade Name Freq PRN Reason Stop Dose Admin Acetaminophen 650 mg 01/10/18 16:33 Tylenol Tab PO Q6HR PRN Mild Pain or Fever > 100.5 Amantadine HCl 100 mg 01/12/18 09:00 01/13/18 21:20 Symmetrel PO 100 mg BID KAMILAH Administration Amlodipine Besylate 10 mg 01/12/18 20:45 01/13/18 10:19 Norvasc PO 10 mg DAILY KAMILAH Administration Carvedilol 6.25 mg 01/12/18 17:30 01/13/18 16:50 Coreg PO 6.25 mg BID-W/MEALS KAMILAH Administration Hydralazine HCl 25 mg 01/13/18 09:00 01/13/18 21:20 Apresoline PO 25 mg BID KAMILAH Administration Hydromorphone HCl 0.5 mg 01/10/18 16:33 01/13/18 04:07 Dilaudid IVP 0.5 mg Q3HR PRN Administration Moderate Pain Levetiracetam 500 mg/ Sodium 105 mls @ 400 mls/hr 01/12/18 09:00 01/13/18 21: 20 Chloride IVPB 400 mls/hr Q12HR KAMILAH Administration Piperacillin/Tazobactam/ 50 mls @ 12.5 mls/hr 01/13/18 00:00 01/13/18 16:50 Dextrose 3.375 gm/ IV Solution IVPB 12.5 mls/hr Q8HR KAMILAH Administration Sodium Chloride 1,000 mls @ 100 mls/hr 01/13/18 11:15 01/13/18 21:20 Saline 0.9% IV 100 mls/hr .Q10H KAMILAH Administration Levothyroxine Sodium 50 mcg 01/12/18 06:30 01/13/18 10:21 Synthroid PO 50 mcg DAILY@0630 KAMILAH Administration Lisinopril 10 mg 01/11/18 22:45 01/13/18 11:15 Zestril PO 10 mg DAILY KAMILAH Administration Miscellaneous Information 1 each 01/11/18 11:38 Potassium Per Protocol MISCELLANE DAILY PRN Per Protocol Protocol Miscellaneous Information 1 each 01/12/18 07:07 Potassium Per Protocol MISCELLANE DAILY PRN Per Protocol Protocol Miscellaneous Information 1 each 01/13/18 06:37 Magnesium Per Protocol MISCELLANE DAILY PRN Per Protocol Protocol Naloxone HCl 0.2 mg 01/10/18 16:33 Narcan IV Q2M PRN Opioid Reversal Mirabegron [ 25 mg 01/12/18 09:00 01/13/18 11:12 Myrbetriq] 25 Mg PO Not Given DAILY KAMILAH Ondansetron HCl 4 mg 01/10/18 16:33 Zofran IVP Q8HR PRN Nausea And Vomiting Pantoprazole Sodium 40 mg 01/13/18 09:00 01/13/18 09:01 Protonix IVP 40 mg DAILY KAMILAH Administration transferred out of ICU to MedSurg unit. maintained on gentle IV fluid hydration, renal function improving. Strict aspiration precautions maintained , patient requires encouragement to eat, diet intake fair. Hemoglobin 8.5, no signs or symptoms of bleeding. UTI with E. coli.Antibiotics adjusted from Zosyn to Rocephin, platelets improving. Laparoscopic cholecystectomy pending , pending improvement in thrombocytopenia. 01/15/2018 maintained on IV antibiotics as per infectious disease. Platelets continue to improve. Urine and blood cultures positive for E. coli. Preliminary Repeat blood cultures reporting beta-hemolytic strep. Spiked fever , T-max 100.2. Lethargic. hypernatremia worsening. Receiving potassium and magnesium supplements. Maintaining O2 sats in the mid 90s on room air. Denies chest pain, palpitations or increasing shortness of breath. Denies nausea vomiting or abdominal pain. Renal function improving. Potassium and magnesium currently being supplemented. Objective - Vital Signs Vital signs: Vital Signs Temp 100.2 F H 01/15/18 21:08 Pulse 82 01/15/18 21:08 Resp 22 01/15/18 21:08 BP 139/80 01/15/18 21:08 Pulse Ox 97 01/15/18 21:08 Intake & Output 01/15/18 01/15/18 01/16/18 06:59 18:59 06:59 Intake Total 300 120 120 Output Total 300 Balance 300 -180 120 Weight 56 kg Intake: IV 300 Sodium Chloride 0.9% 1, 300 000 ml @ 100 mls/hr IV . Q10H KAMILAH Rx#:[id number] Oral 120 120 Output: Urine 300 Other: Voiding Method Diaper Diaper Incontinent Incontinent # Voids 4 1 - Exam PHYSICAL EXAMINATION: PHYSICAL EXAMINATION: Patient is lying in the bed, lethargic, tired appearing, febrile HEENT: Normocephalic. Neck is supple. Pupils reactive. Nostrils clear. Oral cavity is moist. Neck reveals no JVD, carotid bruits, or thyromegaly. CHEST EXAMINATION: Trachea is central. Symmetrical expansion. Lung castillo clear to auscultation and percussion., Lateral bases diminished CARDIAC: Normal S1, S2 with no gallops. No murmurs ABDOMEN: Soft. Bowel sounds normal. No organomegaly. No abdominal bruits. Extremities: reveal no edema. No clubbing or cyanosis, lower extremity contractures, positive pulses Neurologically awake, alert, oriented x2-3 . Able to move all extremities, extremely weak. Skin: No rash or skin lesions. Psychiatric: Coperative. Could not be assessed completely - Labs CBC & Chem 7: 01/17/18 12:47 01/17/18 12:47 Labs: Abnormal Lab Results - Last 24 Hours (Table) 01/14/18 01/15/18 01/15/18 Range/Units 23:46 05:48 07:13 WBC 16.3 H (3.8-10.6) k/uL RBC 2.47 L (3.80-5.40) m/uL Hgb 7.5 L (11.4-16.0) gm/dL Hct 22.5 L (34.0-46.0) % RDW 18.8 H (11.5-15.5) % Plt Count 63 L D (150-450) k/uL Neutrophils # 13.0 H (1.3-7.7) k/uL Sodium (137-145) mmol/L Potassium (3.5-5.1) mmol/L Chloride (98-107) mmol/L Carbon Dioxide (22-30) mmol/L BUN (7-17) mg/dL Creatinine (0.52-1.04) mg/dL Glucose (74-99) mg/dL POC Glucose (mg/dL) 149 H 112 H (75-99) mg/dL Calcium (8.4-10.2) mg/dL Magnesium (1.6-2.3) mg/dL 01/15/18 01/15/18 Range/Units 07:13 18:16 WBC (3.8-10.6) k/uL RBC (3.80-5.40) m/uL Hgb (11.4-16.0) gm/dL Hct (34.0-46.0) % RDW (11.5-15.5) % Plt Count (150-450) k/uL Neutrophils # (1.3-7.7) k/uL Sodium 149 H (137-145) mmol/L Potassium 3.1 L (3.5-5.1) mmol/L Chloride 124 H (98-107) mmol/L Carbon Dioxide 20 L (22-30) mmol/L BUN 22 H (7-17) mg/dL Creatinine 1.28 H (0.52-1.04) mg/dL Glucose 129 H (74-99) mg/dL POC Glucose (mg/dL) 155 H (75-99) mg/dL Calcium 7.8 L (8.4-10.2) mg/dL Magnesium 1.5 L (1.6-2.3) mg/dL Microbiology - Last 24 Hours (Table) 01/12/18 18:34 Blood Culture Gram Stain - Preliminary Blood Blood Culture - Preliminary Beta Hemolytic Strep Assessment and Plan Assessment: Severe Sepsis/septicemia gram-negative secondary to acute urinary tract infection with E. coli and E. coli bacteremia. Failed outpatient antibiotic therapy. Acute UTI with E. coli and E. coli bacteremia Thrombocytopenia. Likely due to sepsis, and Zosyn. Antibiotics adjusted, platelets improving. Lactic acidosis. Improving. Hypernatremia, secondary to dehydration Elevated troponin level possible demand ischemia Acute kidney injury. Possible ATN, Elevated alk phos and AST with dilated common bile duct and acute cholecystitis as per ultrasound of abdomen. MRCP showed no dilated ducts. Showed large bile stone. Hyperbilirubinemia Altered mental status possible metabolic encephalopathy Uncontrolled hypertension/accelerated hypertension, improving rhabdomyolysis History of MS and residual right-sided weakness and contractures, bedbound History of right breast cancer in 2003 status post lumpectomy and radiation Seizure disorder. Hypothyroidism Diverticulosis and past colon polyps benign Previous history of smoking Mild to moderate protein calorie malnutrition with albumin 2.4 Plan: Continue on current medication regime ,monitoring and symptomatic treatment. IV fluids switched to D5 and a half related to her worsening hypernatremia. IV antibiotics as per infectious disease. Spiking fevers, repeat blood cultures. Close monitoring of platelets,HGB, renal function, electrolytes with repeat labs ordered for a.m. Maintain seizure precautions. Prognosis guarded given multiple complex medical issues. The impression and plan of care has been dictated as directed. : I performed a history and examination of this patient, discussed the same with the dictator. I agree with the dictator's note ,documented as a scribe. Any additional findings or plans will be noted.
--- NOTE | 2018-01-17 22:50 | P.PN ---
Subjective Progress Note Date: 01/17/18 62-year-old female who has multiple medical troubles that includes multiple sclerosis, history of breast carcinoma status post surgical intervention and radiation therapy, seizures and hypothyroidism presents to the emergency center with symptoms of increasing fatigue malaise some altered mentation consequently was brought to the emergency center by her . 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 The patient recently spent having difficulties with urinary tract infection resented with Macrodantin which was then transitioned to Bactrim. Despite this she was not improving with increasing symptoms. She consequently was brought in the hospital on 01/10/2018. Despite antibiotic therapy with Zosyn still continues to feel somewhat poorly and constantly the infectious diseases consultation was requested. The patient has been about a by general surgery because she was having some abdominal pain there is evidence of some elevated liver function tests and alkaline phosphatase. Imaging study reveals evidence of a large gallstone but MRCP failed to reveal evidence of any acute obstruction of the biliary tract at this time. Patient though was symptomatic and there were plans for a laparoscopic cholecystectomy due to significant thrombocytopenia this was held. Today she has improved ane is feeling better without chills, pain improved. 01/17/2018 reveals the patient toLittle change of her status. She seems to be comfortable no new acute changes are related from the staff. Objective - Vital Signs Vital signs: Vital Signs Temp 99.4 F 01/17/18 21:00 Pulse 77 01/17/18 21:00 Resp 20 01/17/18 21:00 BP 120/79 01/17/18 21:00 Pulse Ox 98 01/17/18 21:00 Intake & Output 01/17/18 01/17/18 01/18/18 06:59 18:59 06:59 Intake Total 240 0 310 Output Total 300 Balance 240 -300 310 Weight 56 kg 56 kg Intake: Oral 240 Blood Product 0 310 Rc Pheresis 2 As3 Unit 0 310 [id number] Output: Urine 300 Other: Voiding Method Diaper Diaper Incontinent Incontinent # Voids 3 2 - Exam 62-year-old woman who is profoundly disabled from her MS, she however is awake but is not a good historian. HEENT: Anicteric conjunctiva are pink and moist nasal mucosa grossly intact without evidence of bleeding, oromucosa is dry without thrush Neck: The neck is supple without significant lymphadenopathy or thyromegaly. Lungs: They're symmetrical air entry with few basilar crackles no bronchial sounds normal dullness or egophony Heart: Regular rate and rhythm with an audible S1-S2, no S3 no S4. There is no significant murmur click or rub, PMI was nondisplaced. Abdomen: Positive bowel sounds soft and nontender without palpable masses or organomegaly. There was no guarding or rebound. Extremities: The upper extremities have excellent pulses they are symmetric, no significant petechiae or telangiectasia. No splinter hemorrhages were noted. The lower extremities are free from significant edema. - Labs CBC & Chem 7: 01/17/18 12:47 01/17/18 12:47 Labs: Abnormal Lab Results - Last 24 Hours (Table) 01/17/18 01/17/18 01/17/18 Range/Units 00:29 06:08 11:17 WBC (3.8-10.6) k/uL RBC (3.80-5.40) m/uL Hgb (11.4-16.0) gm/dL Hct (34.0-46.0) % RDW (11.5-15.5) % Plt Count (150-450) k/uL Potassium (3.5-5.1) mmol/L Chloride (98-107) mmol/L Carbon Dioxide (22-30) mmol/L Creatinine (0.52-1.04) mg/dL Glucose (74-99) mg/dL POC Glucose (mg/dL) 157 H 144 H 177 H (75-99) mg/dL Calcium (8.4-10.2) mg/dL Crossmatch 01/17/18 01/17/18 01/17/18 Range/Units 12:47 12:47 14:52 WBC 22.2 H (3.8-10.6) k/uL RBC 2.34 L (3.80-5.40) m/uL Hgb 6.9 L* (11.4-16.0) gm/dL Hct 22.1 L (34.0-46.0) % RDW 21.3 H (11.5-15.5) % Plt Count 104 L (150-450) k/uL Potassium 2.7 L* (3.5-5.1) mmol/L Chloride 115 H (98-107) mmol/L Carbon Dioxide 19 L (22-30) mmol/L Creatinine 1.21 H (0.52-1.04) mg/dL Glucose 170 H (74-99) mg/dL POC Glucose (mg/dL) (75-99) mg/dL Calcium 7.8 L (8.4-10.2) mg/dL Crossmatch See Detail 01/17/18 Range/Units 17:56 WBC (3.8-10.6) k/uL RBC (3.80-5.40) m/uL Hgb (11.4-16.0) gm/dL Hct (34.0-46.0) % RDW (11.5-15.5) % Plt Count (150-450) k/uL Potassium (3.5-5.1) mmol/L Chloride (98-107) mmol/L Carbon Dioxide (22-30) mmol/L Creatinine (0.52-1.04) mg/dL Glucose (74-99) mg/dL POC Glucose (mg/dL) 121 H (75-99) mg/dL Calcium (8.4-10.2) mg/dL Crossmatch Microbiology - Last 24 Hours (Table) 01/16/18 14:14 Blood Culture - Preliminary Blood No Growth after 24 hours 01/12/18 18:34 Blood Culture Gram Stain - Final Blood Blood Culture - Final Beta Hemolytic Strep Laboratory Results WBC 22.2 k/uL (3.8-10.6) H 01/17/18 12:47 RBC 2.34 m/uL (3.80-5.40) L 01/17/18 12:47 Hgb 6.9 gm/dL (11.4-16.0) L* 01/17/18 12:47 Hct 22.1 % (34.0-46.0) L 01/17/18 12:47 MCV 94.4 fL (80.0-100.0) 01/17/18 12:47 MCH 29.7 pg (25.0-35.0) 01/17/18 12:47 MCHC 31.5 g/dL (31.0-37.0) 01/17/18 12:47 RDW 21.3 % (11.5-15.5) H 01/17/18 12:47 Plt Count 104 k/uL (150-450) L 01/17/18 12:47 Neutrophils % 80 % 01/15/18 07:13 Neutrophils % (Manual) 85 % 01/16/18 07:45 Band Neutrophils % 1 % 01/16/18 07:45 Lymphocytes % 11 % 01/15/18 07:13 Lymphocytes % (Manual) 10 % 01/16/18 07:45 Monocytes % 5 % 01/15/18 07:13 Monocytes % (Manual) 4 % 01/16/18 07:45 Eosinophils % 1 % 01/15/18 07:13 Eosinophils % (Manual) 1 % 01/16/18 07:45 Basophils % 0 % 01/15/18 07:13 Metamyelocytes % 1 % 01/16/18 07:45 Neutrophils # 13.0 k/uL (1.3-7.7) H 01/15/18 07:13 Neutrophils # (Manual) 15.40 k/uL (1.3-7.7) H 01/16/18 07:45 Lymphocytes # 1.8 k/uL (1.0-4.8) 01/15/18 07:13 Lymphocytes # (Manual) 1.80 k/uL (1.0-4.8) 01/16/18 07:45 Monocytes # 0.8 k/uL (0-1.0) 01/15/18 07:13 Monocytes # (Manual) 0.72 k/uL (0-1.0) 01/16/18 07:45 Eosinophils # 0.1 k/uL (0-0.7) 01/15/18 07:13 Eosinophils # (Manual) 0.18 k/uL (0-0.7) 01/16/18 07:45 Basophils # 0.1 k/uL (0-0.2) 01/15/18 07:13 Metamyelocytes # (Man) 0.18 k/uL (0) H 01/16/18 07:45 Nucleated RBCs 1 /100 WBC (0-0) H 01/16/18 07:45 Manual Slide Review Performed 01/14/18 05:11 Polychromasia Present 01/16/18 07:45 Hypochromasia Marked 01/17/18 12:47 Poikilocytosis Moderate 01/17/18 12:47 Anisocytosis Moderate 01/17/18 12:47 Macrocytosis Slight 01/17/18 12:47 Fragmented RBCs Present 01/16/18 07:45 PT 10.5 sec (9.0-12.0) 01/10/18 13:31 INR 1.1 (<1.2) 01/10/18 13:31 APTT 23.3 sec (22.0-30.0) 01/10/18 13:31 Sodium 143 mmol/L (137-145) 01/17/18 12:47 Potassium 2.7 mmol/L (3.5-5.1) L* 01/17/18 12:47 Chloride 115 mmol/L (98-107) H 01/17/18 12:47 Carbon Dioxide 19 mmol/L (22-30) L 01/17/18 12:47 Anion Gap 9 mmol/L 01/17/18 12:47 BUN 15 mg/dL (7-17) 01/17/18 12:47 Creatinine 1.21 mg/dL (0.52-1.04) H 01/17/18 12:47 Est GFR (CKD-EPI)AfAm 55 (>60 ml/min/1.73 sqM) 01/17/18 12:47 Est GFR (CKD-EPI)NonAf 48 (>60 ml/min/1.73 sqM) 01/17/18 12:47 Glucose 170 mg/dL (74-99) H 01/17/18 12:47 POC Glucose (mg/dL) 121 mg/dL (75-99) H 01/17/18 17:56 POC Glu [employer] 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 Chioma Lomas 01/17/18 17:[address] Glu mg/dL 134 01/11/18 06:11 Hemoglobin A1c 6.3 % (4.0-6.0) H 01/11/18 06:11 Lactic Ac Sepsis Rflx Y 01/10/18 14:22 Plasma Lactic Acid José 1.0 mmol/L (0.7-2.0) 01/12/18 18:34 Calcium 7.8 mg/dL (8.4-10.2) L 01/17/18 12:47 Phosphorus 2.6 mg/dL (2.5-4.5) 01/16/18 07:45 Magnesium 1.8 mg/dL (1.6-2.3) 01/17/18 12:47 Total Bilirubin 1.6 mg/dL (0.2-1.3) H 01/16/18 07:45 AST 42 U/L (14-36) H 01/16/18 07:45 ALT 29 U/L (9-52) 01/16/18 07:45 Alkaline Phosphatase 139 U/L (38-126) H 01/16/18 07:45 Total Creatine Kinase 1070 U/L (30-135) H* 01/11/18 01:25 CK-MB (CK-2) 14.0 ng/mL (0.0-2.4) H 01/11/18 01:25 CK-MB (CK-2) Rel Index 1.3 01/11/18 01:25 Troponin I 0.086 ng/mL (0.000-0.034) H* 01/11/18 01:25 Total Protein 5.7 g/dL (6.3-8.2) L 01/16/18 07:45 Albumin 2.3 g/dL (3.5-5.0) L 01/16/18 07:45 Lipase 26 U/L (23-300) 01/11/18 06:11 Urine Color Yellow 01/10/18 13:31 Urine Appearance Turbid (Clear) H 01/10/18 13:31 Urine pH 7.5 (5.0-8.0) 01/10/18 13:31 Ur Specific [place] 1.012 (1.001-1.035) 01/10/18 13:31 Urine Protein 2+ (Negative) H 01/10/18 13:31 Urine Glucose (UA) Negative (Negative) 01/10/18 13:31 Urine Ketones Negative (Negative) 01/10/18 13:31 Urine Blood Moderate (Negative) H 01/10/18 13:31 Urine Nitrite Negative (Negative) 01/10/18 13:31 Urine Bilirubin Negative (Negative) 01/10/18 13:31 Urine Urobilinogen 2.0 mg/dL (<2.0) 01/10/18 13:31 Ur Leukocyte Esterase Moderate (Negative) H 01/10/18 13:31 Urine WBC 18 /hpf (0-5) H 01/10/18 13:31 Ur Squamous Epith Cells 1 /hpf (0-4) 01/10/18 13:31 Urine Bacteria Many /hpf (None) H 01/10/18 13:31 Urine Mucus Occasional /hpf (None) H 01/10/18 13:31 Hepatitis A IgM Ab Non-Reactive (Non-Reactive) 01/13/18 17:10 Hep Bs Antigen Non-Reactive (Non-Reactive) 01/13/18 17:10 Hep B Core IgM Ab Non-Reactive (Non-Reactive) 01/13/18 17:10 Hep C IgG Ab Non-Reactive (Non-Reactive) 01/13/18 17:10 Blood Type O Positive 01/17/18 14:52 Blood Type Confirm O Positive 01/17/18 12:47 Blood Type Recheck CABO Indicated 01/17/18 14:52 Antibody Screen NEGATIVE 01/17/18 14:52 Crossmatch See Detail 01/17/18 14:52 Spec Expiration Date 01/20/2018 - 07001/17/18 14:52 Microbiology 01/16/18 14:14 Blood Blood Culture - Preliminary No Growth after 24 hours 01/12/18 18:34 Blood Blood Culture Gram Stain - Final 01/12/18 18:34 Blood Blood Culture - Final Beta Hemolytic Strep 01/12/18 18:34 Blood Blood Culture - Final 01/10/18 13:31 Blood Blood Culture Gram Stain - Final 01/10/18 13:31 Blood Blood Culture - Final Escherichia coli 01/10/18 13:31 Urine,Catheterized Urine Culture - Final Escherichia coli 01/10/18 13:31 Blood Blood Culture - Final Assessment and Plan (1) Acute cholecystitis Current Visit: Yes Status: Acute Code(s): K81.0 - ACUTE CHOLECYSTITIS SNOMED Code(s): 28753828 (2) Sepsis Narrative/Plan: 62-year-old woman with multiple medical troubles including progressive MS who is bedbound and cared for by her family and her in the home setting presents to Hospital from home with increasing weakness lethargy and altered mental status. At this time it appears to be some improvement as she has been hydrated and has been treated with appropriate antibiotic therapy. Patient however is now developed evidence of progressive thrombocytopenia originally platelets were at 147 noted decreased and 19. It is likely the piperacillin tazobactam is etiology of her significant drop of platelets and this is discontinued. Urine culture is available and has evidence of a nonresistant E. coli and constantly antibiotic therapy is changed to ceftriaxone. Platelets will be followed it would expect them to rapidly improve with the withdrawal of the Zosyn. She is being seen by surgery with potential laparoscopic cholecystectomy planned in the future because of the symptomatic choledocholithiasis. Fortunately MRCP does not show evidence of any acute obstructive biliary pattern. Follow blood cultures are negative. The fever and leukocytosis have also improved. 01/16/2018 further improved and platelets recovering with discontinuation of zosyn. Doing well with rocephin. follow up blood culture in progress. 01/17/2018 patient has had further improvement. Repleted some increased to 104. There is contemplation of discharge the near future. However she developed significant and worsening anemia with hemoglobin of 6.8 and continues to have a leukocytosis. There is a concern that there was an aspiration event. Continue current antibiotic therapy The urine culture does have an E. coli that will be not difficult to treat there is evidence of a beta-hemolytic strep in the blood stream which could be contamination. When she is improved plan would be for Levaquin to finish her course of therapy. She'll continue to have needs of following with surgery regarding her choledocholithiasis. Current Visit: Yes Status: Acute Code(s): A41.9 - SEPSIS, UNSPECIFIED ORGANISM SNOMED Code(s): 08888502 (3) Thrombocytopenia Current Visit: Yes Status: Acute Code(s): D69.6 - THROMBOCYTOPENIA, UNSPECIFIED SNOMED Code(s): 973230767
[2018-01-17 23:56] LABS: Glucose,Whole Blood 133 mg/dL (75-99)
[2018-01-18] MEDS: DEXTROSE 5% IN WATER 1,000 ML IV SCH ×2 (02:02→20:08)
[2018-01-18 05:56] LABS: Glucose,Whole Blood 133 mg/dL (75-99)
[2018-01-18] MEDS: LEVOTHYROXINE 50 MCG TAB PO SCH (06:02)
[2018-01-18 07:40] LABS: Anisocytosis Moderate; Basophils % (A) 0 %; Eosinophils % (A) 0 %; HCT 25.3 % (34.0-46.0); HGB 8.1 gm/dL (11.4-16.0); Hypochromasia Slight; Lymphocytes # (A) 0.5 k/uL (1.0-4.8); Lymphocytes % (A) 2 %; MCH 29.4 pg (25.0-35.0); MCHC 32.2 g/dL (31.0-37.0); MCV 91.2 fL (80.0-100.0); Macrocytosis Slight; Mean Platelet Volume 10.1; Monocytes # (A) 0.9 k/uL (0-1.0); Monocytes % (A) 4 %; Neutrophils # (A) 20.5 k/uL (1.3-7.7); Neutrophils % (A) 93 %; Platelet Count 133 k/uL (150-450); Poikilocytosis Moderate; RBC 2.77 m/uL (3.80-5.40); RDW 20.9 % (11.5-15.5); WBC 22.2 k/uL (3.8-10.6)
[2018-01-18] MEDS: AMANTADINE HCL 100 MG CAP PO SCH ×2 (08:03→21:08)
[2018-01-18] MEDS: PANTOPRAZOLE SODIUM 40 MG GRANULE PKT PO SCH (08:03)
[2018-01-18] MEDS: CARVEDILOL 6.25 MG TAB PO SCH ×2 (08:03→17:19)
[2018-01-18] MEDS: hydrALAZINE HCL 50 MG TAB PO SCH ×3 (08:04→21:08)
[2018-01-18] MEDS: amLODIPine 10 MG TAB PO SCH (08:04)
[2018-01-18] MEDS: cefTRIAXone 2,000 MG in SODIUM CHLORIDE 0.9% 100 ML IVPB SCH (08:04)
[2018-01-18] MEDS: Mirabegron [Myrbetriq] 25 MG PO SCH (08:08)
[2018-01-18] MEDS: LISINOPRIL 10 MG TAB PO SCH (08:09)
[2018-01-18 08:36] LABS: Calcium 7.8 mg/dL (8.4-10.2); Potassium 3.5 mmol/L (3.5-5.1); Total Bilirubin 0.9 mg/dL (0.2-1.3); Total Protein 5.1 g/dL (6.3-8.2)
[2018-01-18] MEDS: levETIRAcetam IV 500 MG in SODIUM CHLORIDE 0.9% 100 ML IVPB SCH ×2 (10:28→21:09)
[2018-01-18 12:17] LABS: Glucose,Whole Blood 100 mg/dL (75-99)
--- NOTE | 2018-01-18 12:44 | P.PN ---
Subjective Progress Note Date: 01/18/18 Principal diagnosis: Elevated liver enzymes Patient seems to be doing fairly well. White blood cell count remains elevated. Patient denies pain. Objective - Vital Signs Vital signs: Vital Signs Temp 98.5 F 01/18/18 05:00 Pulse 88 01/18/18 05:00 Resp 20 01/18/18 05:00 BP 121/69 01/18/18 05:00 Pulse Ox 95 01/18/18 05:00 Intake & Output 01/17/18 01/18/18 01/18/18 18:59 06:59 18:59 Intake Total 0 1550 Output Total 300 Balance -300 1550 Weight 56 kg 56 kg Intake: Intake, IV Titration 900 Amount Dextrose 5% in Water 1, 900 000 ml @ 75 mls/hr IV . [id number] [facility] Rx#:[id number] Oral 340 Blood Product 0 310 Rc Pheresis 2 As3 Unit 0 310 [id number] Output: Urine 300 Other: Voiding Method Diaper Diaper Diaper Incontinent Incontinent Incontinent # Voids 2 1 - Exam Abdomen: Soft, nontender, nondistended - Labs CBC & Chem 7: 01/18/18 07:15 01/18/18 07:15 Labs: Abnormal Lab Results - Last 24 Hours (Table) 01/17/18 01/17/18 01/17/18 Range/Units 12:47 12:47 14:52 WBC 22.2 H (3.8-10.6) k/uL RBC 2.34 L (3.80-5.40) m/uL Hgb 6.9 L* (11.4-16.0) gm/dL Hct 22.1 L (34.0-46.0) % RDW 21.3 H (11.5-15.5) % Plt Count 104 L (150-450) k/uL Neutrophils # (1.3-7.7) k/uL Lymphocytes # (1.0-4.8) k/uL Potassium 2.7 L* (3.5-5.1) mmol/L Chloride 115 H (98-107) mmol/L Carbon Dioxide 19 L (22-30) mmol/L Creatinine 1.21 H (0.52-1.04) mg/dL Glucose 170 H (74-99) mg/dL POC Glucose (mg/dL) (75-99) mg/dL Calcium 7.8 L (8.4-10.2) mg/dL Total Protein (6.3-8.2) g/dL Albumin (3.5-5.0) g/dL Crossmatch See Detail 01/17/18 01/17/18 01/18/18 Range/Units 17:56 23:44 05:54 WBC (3.8-10.6) k/uL RBC (3.80-5.40) m/uL Hgb (11.4-16.0) gm/dL Hct (34.0-46.0) % RDW (11.5-15.5) % Plt Count (150-450) k/uL Neutrophils # (1.3-7.7) k/uL Lymphocytes # (1.0-4.8) k/uL Potassium (3.5-5.1) mmol/L Chloride (98-107) mmol/L Carbon Dioxide (22-30) mmol/L Creatinine (0.52-1.04) mg/dL Glucose (74-99) mg/dL POC Glucose (mg/dL) 121 H 133 H 133 H (75-99) mg/dL Calcium (8.4-10.2) mg/dL Total Protein (6.3-8.2) g/dL Albumin (3.5-5.0) g/dL Crossmatch 01/18/18 01/18/18 01/18/18 Range/Units 07:15 07:15 12:16 WBC 22.2 H (3.8-10.6) k/uL RBC 2.77 L (3.80-5.40) m/uL Hgb 8.1 L (11.4-16.0) gm/dL Hct 25.3 L (34.0-46.0) % RDW 20.9 H (11.5-15.5) % Plt Count 133 L (150-450) k/uL Neutrophils # 20.5 H (1.3-7.7) k/uL Lymphocytes # 0.5 L (1.0-4.8) k/uL Potassium (3.5-5.1) mmol/L Chloride 116 H (98-107) mmol/L Carbon Dioxide 20 L (22-30) mmol/L Creatinine 1.30 H (0.52-1.04) mg/dL Glucose 131 H (74-99) mg/dL POC Glucose (mg/dL) 100 H (75-99) mg/dL Calcium 7.8 L (8.4-10.2) mg/dL Total Protein 5.1 L (6.3-8.2) g/dL Albumin 2.0 L (3.5-5.0) g/dL Crossmatch Microbiology - Last 24 Hours (Table) 01/16/18 14:14 Blood Culture - Preliminary Blood No Growth after 24 hours Assessment and Plan Plan: Continue diet as ordered. Monitor leukocytosis. Dr. Miranda will reevaluate on Saturday.
--- NOTE | 2018-01-18 15:46 | P.PN ---
Subjective Progress Note Date: 01/18/18 62-year-old female who has multiple medical troubles that includes multiple sclerosis, history of breast carcinoma status post surgical intervention and radiation therapy, seizures and hypothyroidism presents to the emergency center with symptoms of increasing fatigue malaise some altered mentation consequently was brought to the emergency center by her . 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 The patient recently spent having difficulties with urinary tract infection resented with Macrodantin which was then transitioned to Bactrim. Despite this she was not improving with increasing symptoms. She consequently was brought in the hospital on 01/10/2018. Despite antibiotic therapy with Zosyn still continues to feel somewhat poorly and constantly the infectious diseases consultation was requested. The patient has been about a by general surgery because she was having some abdominal pain there is evidence of some elevated liver function tests and alkaline phosphatase. Imaging study reveals evidence of a large gallstone but MRCP failed to reveal evidence of any acute obstruction of the biliary tract at this time. Patient though was symptomatic and there were plans for a laparoscopic cholecystectomy due to significant thrombocytopenia this was held. 01/17/2018 Patient is seen and evaluated in the room at bedside; patient does report improvement in symptoms today and denies any nausea or vomiting General surgery is following for possible laparoscopic cholecystectomy; remains on hold secondary to thrombocytopenia 01/18/2018 Patient is seen for follow-up at bedside; remains aphasic and alert and seems to be in no acute distress; vital signs remained stable with patient being afebrile and blood pressure 117/67; lab work shows a white blood count that continues to trend up at 22.2; hemoglobin and stable at 8.1 this morning and platelets have improved to 133 Patient remains on IV antibiotics with ID following; surgery service is following for need for cholecystectomy; surgery is recommending to continue diet as ordered and reevaluate on Saturday with continued monitoring of CBC Objective - Vital Signs Vital signs: Vital Signs Temp 98.2 F 01/18/18 13:55 Pulse 81 01/18/18 13:55 Resp 16 01/18/18 13:55 BP 117/67 01/18/18 13:55 Pulse Ox 94 L 01/18/18 13:55 Intake & Output 01/17/18 01/18/18 01/18/18 18:59 06:59 18:59 Intake Total 0 1550 1580 Output Total 300 Balance -300 1550 1580 Weight 56 kg 56 kg Intake: Intake, IV Titration 900 800 Amount Dextrose 5% in Water 1, 900 600 000 ml @ 75 mls/hr IV . [id number] [facility] Rx#:[id number] cefTRIAXone 2,000 mg In 100 Sodium Chloride 0.9% 100 ml @ 100 mls/hr IVPB Q24HR [facility] Rx#:[id number] levETIRAcetam IV 500 mg 100 In Sodium Chloride 0.9% 100 ml @ 400 mls/hr IVPB Q12HR [facility] Rx#:[id number] Oral 340 780 Blood Product 0 310 Rc Pheresis 2 As3 Unit 0 310 [id number] Output: Urine 300 Other: Voiding Method Diaper Diaper Diaper Incontinent Incontinent Incontinent # Voids 2 1 2 - Exam 62-year-old woman who is profoundly disabled from her MS, she however is awake but is not a good historian. HEENT: Anicteric conjunctiva are pink and moist nasal mucosa grossly intact without evidence of bleeding, oromucosa is dry without thrush Neck: The neck is supple without significant lymphadenopathy or thyromegaly. Lungs: They're symmetrical air entry with few basilar crackles no bronchial sounds normal dullness or egophony Heart: Regular rate and rhythm with an audible S1-S2, no S3 no S4. There is no significant murmur click or rub, PMI was nondisplaced. Abdomen: Positive bowel sounds soft and nontender without palpable masses or organomegaly. There was no guarding or rebound. Extremities: The upper extremities have excellent pulses they are symmetric, no significant petechiae or telangiectasia. No splinter hemorrhages were noted. The lower extremities are free from significant edema. - Labs CBC & Chem 7: 01/18/18 07:15 01/18/18 07:15 Labs: Abnormal Lab Results - Last 24 Hours (Table) 01/17/18 01/17/18 01/17/18 Range/Units 14:52 17:56 23:44 WBC (3.8-10.6) k/uL RBC (3.80-5.40) m/uL Hgb (11.4-16.0) gm/dL Hct (34.0-46.0) % RDW (11.5-15.5) % Plt Count (150-450) k/uL Neutrophils # (1.3-7.7) k/uL Lymphocytes # (1.0-4.8) k/uL Chloride (98-107) mmol/L Carbon Dioxide (22-30) mmol/L Creatinine (0.52-1.04) mg/dL Glucose (74-99) mg/dL POC Glucose (mg/dL) 121 H 133 H (75-99) mg/dL Calcium (8.4-10.2) mg/dL Total Protein (6.3-8.2) g/dL Albumin (3.5-5.0) g/dL Crossmatch See Detail 01/18/18 01/18/18 01/18/18 Range/Units 05:54 07:15 07:15 WBC 22.2 H (3.8-10.6) k/uL RBC 2.77 L (3.80-5.40) m/uL Hgb 8.1 L (11.4-16.0) gm/dL Hct 25.3 L (34.0-46.0) % RDW 20.9 H (11.5-15.5) % Plt Count 133 L (150-450) k/uL Neutrophils # 20.5 H (1.3-7.7) k/uL Lymphocytes # 0.5 L (1.0-4.8) k/uL Chloride 116 H (98-107) mmol/L Carbon Dioxide 20 L (22-30) mmol/L Creatinine 1.30 H (0.52-1.04) mg/dL Glucose 131 H (74-99) mg/dL POC Glucose (mg/dL) 133 H (75-99) mg/dL Calcium 7.8 L (8.4-10.2) mg/dL Total Protein 5.1 L (6.3-8.2) g/dL Albumin 2.0 L (3.5-5.0) g/dL Crossmatch 01/18/18 Range/Units 12:16 WBC (3.8-10.6) k/uL RBC (3.80-5.40) m/uL Hgb (11.4-16.0) gm/dL Hct (34.0-46.0) % RDW (11.5-15.5) % Plt Count (150-450) k/uL Neutrophils # (1.3-7.7) k/uL Lymphocytes # (1.0-4.8) k/uL Chloride (98-107) mmol/L Carbon Dioxide (22-30) mmol/L Creatinine (0.52-1.04) mg/dL Glucose (74-99) mg/dL POC Glucose (mg/dL) 100 H (75-99) mg/dL Calcium (8.4-10.2) mg/dL Total Protein (6.3-8.2) g/dL Albumin (3.5-5.0) g/dL Crossmatch Microbiology - Last 24 Hours (Table) 01/16/18 14:14 Blood Culture - Preliminary Blood No Growth after 24 hours Assessment and Plan Assessment: 1. Acute sepsis secondary to E. coli urinary tract infection and E. coli bacteremia. - Patient has been transitioned to IV Rocephin - Patient's white blood count and temperature is within normal limit; continues to make clinical improvement - Further recommendations on antibiotic therapy per ID 2. Acute cholecystitis/ Cholelithiasis. - Elevated liver enzymes most likely related to sepsis, possible gallstones. - General surgery is following and recommending laparoscopic cholecystectomy pending improvement in platelet, 3. Acute thrombocytopenia most likely secondary to sepsis versus Zosyn - Zosyn has been discontinued and patient has been started on IV Rocephin, - improving, platelets count are up to 104,000 today. 4. Acute bacteremia the most likely source is her urinary tract infection. - We will and leukocytosis has resolved - Patient remains on IV Rocephin per ID recommendations - Follow blood cultures are negative so far - Await final recommendations from ID for final choice of antibiotic and duration of therapy 5. History of MS; continue with amantadine 100 mg twice a day - Noriega catheter remains in place 6. Acute dehydration secondary to nausea and vomiting most likely secondary to urinary tract infection could also be related to her antibiotics. - Clinically resolved 7. Hypertension; - Stable on Coreg 6.25 mg twice a day and amlodipine 10 mg daily and hydralazine 50 mg 3 times a day along with lisinopril 10 mg daily 8. Seizure disorder; continue with Keppra 500 mg every 12 hours - Patient remains stable on seizure precautions 9. Hypothyroidism; stable on levothyroxine 50 MCG daily 10. GERD without esophagitis; remains on Protonix 40 mg before meals breakfast 11. DVT prophylaxis; SCDs only CODE STATUS; full code Time with Patient: Greater than 30
[2018-01-18 18:00] LABS: Glucose,Whole Blood 122 mg/dL (75-99)
[2018-01-18] MEDS: ACETAMINOPHEN TAB 325 MG TAB PO PRN (19:34)
[2018-01-18 23:24] LABS: Glucose,Whole Blood 109 mg/dL (75-99)
[2018-01-19 04:59] LABS: Glucose,Whole Blood 114 mg/dL (75-99)
[2018-01-19] MEDS: LEVOTHYROXINE 50 MCG TAB PO SCH (06:05)
[2018-01-19] MEDS: PANTOPRAZOLE SODIUM 40 MG GRANULE PKT PO SCH (07:58)
[2018-01-19] MEDS: CARVEDILOL 6.25 MG TAB PO SCH ×2 (07:59→16:38)
[2018-01-19] MEDS: AMANTADINE HCL 100 MG CAP PO SCH ×2 (07:59→21:01)
[2018-01-19] MEDS: cefTRIAXone 2,000 MG in SODIUM CHLORIDE 0.9% 100 ML IVPB SCH (07:59)
[2018-01-19] MEDS: amLODIPine 10 MG TAB PO SCH (07:59)
[2018-01-19 08:07] LABS: Anisocytosis Moderate; Basophils % (A) 0 %; Eosinophils # (A) 0.1 k/uL (0-0.7); Eosinophils % (A) 0 %; HCT 24.5 % (34.0-46.0); Hypochromasia Slight; Lymphocytes # (A) 0.7 k/uL (1.0-4.8); Lymphocytes % (A) 4 %; MCH 29.8 pg (25.0-35.0); MCHC 32.6 g/dL (31.0-37.0); MCV 91.4 fL (80.0-100.0); Macrocytosis Slight; Mean Platelet Volume 10.2; Monocytes # (A) 0.5 k/uL (0-1.0); Monocytes % (A) 3 %; Neutrophils # (A) 16.6 k/uL (1.3-7.7); Neutrophils % (A) 92 %; Platelet Count 158 k/uL (150-450); Poikilocytosis Moderate; RBC 2.69 m/uL (3.80-5.40); RDW 20.7 % (11.5-15.5)
[2018-01-19 09:22] LABS: RBC Fragments Present; Toxic Granulation Present
[2018-01-19 09:23] LABS: Polychromasia Present
[2018-01-19] MEDS: Mirabegron [Myrbetriq] 25 MG PO SCH (09:34)
[2018-01-19] MEDS: hydrALAZINE HCL 50 MG TAB PO SCH ×4 (09:34→21:03)
[2018-01-19] MEDS: levETIRAcetam IV 500 MG in SODIUM CHLORIDE 0.9% 100 ML IVPB SCH ×2 (09:35→21:00)
[2018-01-19] MEDS: LISINOPRIL 10 MG TAB PO SCH (09:36)
[2018-01-19] MEDS: DEXTROSE 5% IN WATER 1,000 ML IV SCH ×2 (09:36→21:00)
[2018-01-19 12:05] LABS: Glucose,Whole Blood 112 mg/dL (75-99)
--- NOTE | 2018-01-19 14:47 | P.PN ---
Subjective Progress Note Date: 01/19/18 62-year-old female who has multiple medical troubles that includes multiple sclerosis, history of breast carcinoma status post surgical intervention and radiation therapy, seizures and hypothyroidism presents to the emergency center with symptoms of increasing fatigue malaise some altered mentation consequently was brought to the emergency center by her . 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 The patient recently spent having difficulties with urinary tract infection resented with Macrodantin which was then transitioned to Bactrim. Despite this she was not improving with increasing symptoms. She consequently was brought in the hospital on 01/10/2018. Despite antibiotic therapy with Zosyn still continues to feel somewhat poorly and constantly the infectious diseases consultation was requested. The patient has been about a by general surgery because she was having some abdominal pain there is evidence of some elevated liver function tests and alkaline phosphatase. Imaging study reveals evidence of a large gallstone but MRCP failed to reveal evidence of any acute obstruction of the biliary tract at this time. Patient though was symptomatic and there were plans for a laparoscopic cholecystectomy due to significant thrombocytopenia this was held. 01/17/2018 Patient is seen and evaluated in the room at bedside; patient does report improvement in symptoms today and denies any nausea or vomiting General surgery is following for possible laparoscopic cholecystectomy; remains on hold secondary to thrombocytopenia 01/18/2018 Patient is seen for follow-up at bedside; remains aphasic and alert and seems to be in no acute distress; vital signs remained stable with patient being afebrile and blood pressure 117/67; lab work shows a white blood count that continues to trend up at 22.2; hemoglobin and stable at 8.1 this morning and platelets have improved to 133 Patient remains on IV antibiotics with ID following; surgery service is following for need for cholecystectomy; surgery is recommending to continue diet as ordered and reevaluate on Saturday with continued monitoring of CBC 01/19/2018 Patient continues to deny any concerns; labs reviewed which show an improvement in white blood count 18.0; hemoglobin remained stable at 8.0; patient remains on IV antibiotics and ID is following; await surgery reevaluate patient tomorrow morning to decide on possible cholecystectomy Objective - Vital Signs Vital signs: Vital Signs Temp 98.3 F 01/19/18 04:45 Pulse 82 01/19/18 04:45 Resp 16 01/19/18 04:45 BP 108/72 01/19/18 09:34 Pulse Ox 95 01/19/18 04:45 Intake & Output 01/18/18 01/19/18 01/19/18 19:59 06:59 18:59 Intake Total 1010 Balance 1010 Weight Intake: Intake, IV Titration 950 Amount Dextrose 5% in Water 1, 750 000 ml @ 75 mls/hr IV . [id number] [facility] Rx#:[id number] cefTRIAXone 2,000 mg In 100 Sodium Chloride 0.9% 100 ml @ 100 mls/hr IVPB Q24HR [facility] Rx#:[id number] levETIRAcetam IV 500 mg 100 In Sodium Chloride 0.9% 100 ml @ 400 mls/hr IVPB Q12HR [facility] Rx#:[id number] Oral 60 Other: Voiding Method Diaper Incontinent # Voids 3 - Exam 62-year-old woman who is profoundly disabled from her MS, she however is awake but is not a good historian. HEENT: Anicteric conjunctiva are pink and moist nasal mucosa grossly intact without evidence of bleeding, oromucosa is dry without thrush Neck: The neck is supple without significant lymphadenopathy or thyromegaly. Lungs: They're symmetrical air entry with few basilar crackles no bronchial sounds normal dullness or egophony Heart: Regular rate and rhythm with an audible S1-S2, no S3 no S4. There is no significant murmur click or rub, PMI was nondisplaced. Abdomen: Positive bowel sounds soft and nontender without palpable masses or organomegaly. There was no guarding or rebound. Extremities: The upper extremities have excellent pulses they are symmetric, no significant petechiae or telangiectasia. No splinter hemorrhages were noted. The lower extremities are free from significant edema. - Labs CBC & Chem 7: 01/19/18 07:00 01/18/18 07:15 Labs: Abnormal Lab Results - Last 24 Hours (Table) 01/18/18 01/18/18 01/19/18 Range/Units 17:59 23:23 04:56 WBC (3.8-10.6) k/uL RBC (3.80-5.40) m/uL Hgb (11.4-16.0) gm/dL Hct (34.0-46.0) % RDW (11.5-15.5) % Neutrophils # (1.3-7.7) k/uL Lymphocytes # (1.0-4.8) k/uL POC Glucose (mg/dL) 122 H 109 H 114 H (75-99) mg/dL 01/19/18 01/19/18 Range/Units 07:00 12:04 WBC 18.0 H (3.8-10.6) k/uL RBC 2.69 L (3.80-5.40) m/uL Hgb 8.0 L (11.4-16.0) gm/dL Hct 24.5 L (34.0-46.0) % RDW 20.7 H (11.5-15.5) % Neutrophils # 16.6 H (1.3-7.7) k/uL Lymphocytes # 0.7 L (1.0-4.8) k/uL POC Glucose (mg/dL) 112 H (75-99) mg/dL Microbiology - Last 24 Hours (Table) 01/16/18 14:14 Blood Culture - Final Blood Assessment and Plan Assessment: 1. Acute sepsis secondary to E. coli urinary tract infection and E. coli bacteremia. - Patient has been transitioned to IV Rocephin - Patient's white blood count and temperature is within normal limit; continues to make clinical improvement - Further recommendations on antibiotic therapy per ID 2. Acute cholecystitis/ Cholelithiasis. - Elevated liver enzymes most likely related to sepsis, possible gallstones. - General surgery is following and recommending laparoscopic cholecystectomy pending improvement in platelet, 3. Acute thrombocytopenia most likely secondary to sepsis versus Zosyn - Zosyn has been discontinued and patient has been started on IV Rocephin, - improving, platelets count are up to 104,000 today. 4. Acute bacteremia the most likely source is her urinary tract infection. - We will and leukocytosis has resolved - Patient remains on IV Rocephin per ID recommendations - Follow blood cultures are negative so far - Await final recommendations from ID for final choice of antibiotic and duration of therapy 5. History of MS; continue with amantadine 100 mg twice a day - Noriega catheter remains in place 6. Acute dehydration secondary to nausea and vomiting most likely secondary to urinary tract infection could also be related to her antibiotics. - Clinically resolved 7. Hypertension; - Stable on Coreg 6.25 mg twice a day and amlodipine 10 mg daily and hydralazine 50 mg 3 times a day along with lisinopril 10 mg daily 8. Seizure disorder; continue with Keppra 500 mg every 12 hours - Patient remains stable on seizure precautions 9. Hypothyroidism; stable on levothyroxine 50 MCG daily 10. GERD without esophagitis; remains on Protonix 40 mg before meals breakfast 11. DVT prophylaxis; SCDs only CODE STATUS; full code Time with Patient: Greater than 30
[2018-01-19] MEDS: ACETAMINOPHEN TAB 325 MG TAB PO PRN (14:48)
[2018-01-19] MEDS: FLUCONAZOLE IN NACL,ISO-OSM 200 MG in SALINE 1 100ML.BAG IVPB SCH (16:38)
[2018-01-19 18:18] LABS: Glucose,Whole Blood 109 mg/dL (75-99)
[2018-01-19 23:51] LABS: Glucose,Whole Blood 98 mg/dL (75-99)
[2018-01-20 05:06] LABS: Glucose,Whole Blood 107 mg/dL (75-99)
[2018-01-20] MEDS: LEVOTHYROXINE 50 MCG TAB PO SCH ×2 (06:11→07:53)
[2018-01-20] MEDS: ACETAMINOPHEN TAB 325 MG TAB PO PRN ×2 (06:11→11:25)
[2018-01-20] MEDS: CARVEDILOL 6.25 MG TAB PO SCH ×2 (07:53→14:54)
[2018-01-20] MEDS: LISINOPRIL 10 MG TAB PO SCH (07:53)
[2018-01-20] MEDS: cefTRIAXone 2,000 MG in SODIUM CHLORIDE 0.9% 100 ML IVPB SCH (07:53)
[2018-01-20] MEDS: hydrALAZINE HCL 50 MG TAB PO SCH ×3 (07:53→22:22)
[2018-01-20] MEDS: PANTOPRAZOLE SODIUM 40 MG GRANULE PKT PO SCH (07:53)
[2018-01-20] MEDS: amLODIPine 10 MG TAB PO SCH (07:53)
[2018-01-20] MEDS: Mirabegron [Myrbetriq] 25 MG PO SCH (07:56)
[2018-01-20] MEDS: AMANTADINE HCL 100 MG CAP PO SCH ×2 (07:56→21:12)
[2018-01-20 08:55] LABS: Anisocytosis Slight; Basophils % (A) 0 %; Eosinophils # (A) 0.1 k/uL (0-0.7); Eosinophils % (A) 0 %; HCT 23.9 % (34.0-46.0); HGB 7.5 gm/dL (11.4-16.0); Hypochromasia Moderate; Lymphocytes # (A) 0.9 k/uL (1.0-4.8); Lymphocytes % (A) 7 %; MCH 28.9 pg (25.0-35.0); MCHC 31.5 g/dL (31.0-37.0); MCV 91.7 fL (80.0-100.0); Macrocytosis Slight; Mean Platelet Volume 8.9; Monocytes # (A) 0.5 k/uL (0-1.0); Monocytes % (A) 4 %; Neutrophils # (A) 10.8 k/uL (1.3-7.7); Neutrophils % (A) 86 %; Platelet Count 188 k/uL (150-450); Poikilocytosis Moderate; RBC 2.61 m/uL (3.80-5.40); RDW 19.8 % (11.5-15.5); WBC 12.5 k/uL (3.8-10.6)
[2018-01-20 09:06] LABS: Calcium 7.5 mg/dL (8.4-10.2)
[2018-01-20] MEDS: levETIRAcetam IV 500 MG in SODIUM CHLORIDE 0.9% 100 ML IVPB SCH ×2 (09:56→21:11)
[2018-01-20 10:00] LABS: Potassium 2.5 mmol/L (3.5-5.1)
--- NOTE | 2018-01-20 10:47 | P.PN ---
Subjective Progress Note Date: 01/20/18 62-year-old female seen more awake and alert resting in bed appears calm white count is down to 12.5 was 18 temps 101 currently denying abdominal pain no nausea no vomiting platelets are up to 188 being followed by general surgery for possible laparoscopic cholecystectomy which currently is on hold secondary to thrombocytopenia which is improved. Patient had an ultrasound on admission it did show gallstones and possible biliary ductal dilatation. MRCP showed normal-appearing biliary system there were no evidence of any gallstones and the common bile duct Objective - Vital Signs Vital signs: Vital Signs Temp 101.1 F H 01/20/18 06:10 Pulse 90 01/20/18 04:20 Resp 16 01/20/18 04:20 BP 141/81 01/20/18 04:20 Pulse Ox 95 01/20/18 04:20 Intake & Output 01/19/18 01/20/18 01/20/18 18:59 06:59 18:59 Intake Total 1010 Balance 1010 Weight 56 kg Intake: Intake, IV Titration 950 Amount Dextrose 5% in Water 1, 750 000 ml @ 75 mls/hr IV . [id number] [facility] Rx#:[id number] cefTRIAXone 2,000 mg In 100 Sodium Chloride 0.9% 100 ml @ 100 mls/hr IVPB Q24HR [facility] Rx#:[id number] levETIRAcetam IV 500 mg 100 In Sodium Chloride 0.9% 100 ml @ 400 mls/hr IVPB Q12HR [facility] Rx#:[id number] Oral 60 Other: Voiding Method Diaper Diaper Incontinent Incontinent # Voids 3 2 - Exam Exam 62-year-old female resting in bed appearing in no acute distress Lungs diminished at the bases otherwise adequate air movement Heart S1-S2 audible regular Abdomen indwelling Noriega catheter in place nontender nondistended no facial grimaces with palpitation reports no abdominal discomfort Extremity contractures to the lower extremities. No edema noted. - Labs CBC & Chem 7: 01/20/18 08:31 01/20/18 08:31 Labs: Abnormal Lab Results - Last 24 Hours (Table) 01/19/18 01/19/18 01/20/18 Range/Units 12:04 18:17 05:04 WBC (3.8-10.6) k/uL RBC (3.80-5.40) m/uL Hgb (11.4-16.0) gm/dL Hct (34.0-46.0) % RDW (11.5-15.5) % Neutrophils # (1.3-7.7) k/uL Lymphocytes # (1.0-4.8) k/uL Potassium (3.5-5.1) mmol/L Chloride (98-107) mmol/L Carbon Dioxide (22-30) mmol/L Creatinine (0.52-1.04) mg/dL Glucose (74-99) mg/dL POC Glucose (mg/dL) 112 H 109 H 107 H (75-99) mg/dL Calcium (8.4-10.2) mg/dL 01/20/18 01/20/18 Range/Units 08:31 08:31 WBC 12.5 H (3.8-10.6) k/uL RBC 2.61 L (3.80-5.40) m/uL Hgb 7.5 L (11.4-16.0) gm/dL Hct 23.9 L (34.0-46.0) % RDW 19.8 H (11.5-15.5) % Neutrophils # 10.8 H (1.3-7.7) k/uL Lymphocytes # 0.9 L (1.0-4.8) k/uL Potassium 2.5 L* (3.5-5.1) mmol/L Chloride 113 H (98-107) mmol/L Carbon Dioxide 20 L (22-30) mmol/L Creatinine 1.19 H (0.52-1.04) mg/dL Glucose 101 H (74-99) mg/dL POC Glucose (mg/dL) (75-99) mg/dL Calcium 7.5 L (8.4-10.2) mg/dL Microbiology - Last 24 Hours (Table) 01/16/18 14:14 Blood Culture Gram Stain - Preliminary Blood Blood Culture - Preliminary Gabbie albicans 01/16/18 14:14 Blood Culture - Final Blood Assessment and Plan Assessment: Impression Present on admission nausea vomiting elevated liver enzymes Status post MRCP no evidence of biliary tree abnormality Elevated liver enzymes possibly related to sepsis possible symptomatic gallstones UTI infection bacteremia Multiple sclerosis limited mobility bedbound Thrombocytopenia platelets improved Plan Laparoscopic cholecystectomy will be rescheduled once patient is medically cleared Continue recommendations per the attending Will follow with you Continue recommendations by infectious disease The above impression and plan of care have been discussed and directed by signing physician. Maite Weaver nurse practitioner acting as scribe for signing physician.
[2018-01-20] MEDS ORDERED: Potassium Replacement Protocol 1 EACH MISC MISCELLANE PRN (11:06)
[2018-01-20] MEDS ORDERED: Magnesium Replacement Protocol 1 EACH MISC MISCELLANE PRN (11:07)
[2018-01-20] MEDS: POTASSIUM CHLORIDE ER 20 MEQ TAB.ER PO SCH ×3 (11:14→12:36)
[2018-01-20] MEDS ORDERED: ANIDULAFUNGIN 200 MG in SODIUM CHLORIDE 0.9% 200 ML IVPB ONE (12:00)
[2018-01-20 12:08] LABS: Glucose,Whole Blood 121 mg/dL (75-99)
[2018-01-20] MEDS: DEXTROSE 5% IN WATER 1,000 ML IV SCH (12:36)
--- NOTE | 2018-01-20 15:17 | P.PN ---
Subjective Progress Note Date: 01/16/18 Progress note being dictated for Dr. Conn. Sepsis secondary to urinary tract infection Elevated liver enzymes Chronic cholecystitis Interval history:62-year-old female with a known history of multiple sclerosis currently bedridden, hypertension, GERD, history of breast cancer status post lumpectomy and radiation, hypothyroidism and multiple other medical problems was brought to the hospital due to generalized weakness and dehydration. Patient has history of MS and some residual right-sided weakness and contracture. Over the past several days she has begun oral antibiotics for urinary tract infection. Initially put on nitrofurantoin, symptoms did not improve patient had an episode of nausea and vomiting. She was switched to Bactrim. She's had one dose of Bactrim yesterday but has been unable to tolerate anything orally since that time. She's had nausea with one episode of vomiting. Patient is accompanied by her who is able to give the majority the history. Patient does complain of some chronic leg pain and cramping which is typical for her. No other pain complaints. No abdominal pain. No chest pain or dyspnea. No history of fever or chills. Patient is also confused and altered for the last couple days. WBC 27.2 BUN 69 creatinine 3.75. Lactic acid 2.8 troponin 0.084. CPK 762 AST 87, alk phos 240, albumin 2.9 UA showed large leukocyte esterase, WBC 18 and moderate blood. Chest x-ray showed no acute cardio for process EKG normal sinus rhythm Ultrasound ABDOMEN showed cholelithiasis. Gallbladder wall thickening with positive Juan sign. Correlate for acute cholecystitis. Suspicion for dilated common bile duct intraductal calcifications 01/11/2018 Patient is more awake and oriented today. Able to sit in the chair. Afebrile. Denied any complains of chest pain or shortness of breath. Denied any abdominal pain. Able to tolerate oral diet and take her oral medications. MRCP showed large bile stone. No dilated ducts. Mild gallbladder wall thickening. WBC is trending down. Potassium was replaced. General surgery is planning for cholecystectomy possibly on Saturday and clinically stable. 01/12/2018 Patient became confused again today. Able to nod her head but could not communicate. Could not able to swallow. Blood pressure is uncontrolled. Patient was given IV hydralazine and IV labetalol with some improvement in blood pressure. Otherwise Catapres patch could not be applied due to short supply from pharmacy. CT head is negative. Was done due to altered mentation. Leukocytosis is much improved to 10.8 today morning. Platelet count dropped further to 32,000. Patient is being continued on antibiotics continued on Zosyn. Renal function improved with creatinine level II.0 Patient is not tolerating any oral diet. Currently on IV fluids in the form of half-normal saline. Patient became febrile this afternoon with T-max 100.0 and blood pressure is also not controlled well. Due to altered mental status and uncontrolled hypertension, thrombocytopenia with underlying sepsis patient will be transferred to MICU for further management. 01/13/2018 Patient is awake and alert today. Able to communicate slowly. No complaints of chest pain or shortness of breath. Able to take by mouth medications. Platelet count is dropping down to 19,000 today. No active bleeding noted. No leukocytosis currently. Potassium and magnesium being replaced. Renal function improved with creatinine level I.7. Patient is being closely monitored in the ICU. Patient has been afebrile. Saturating well on room air. Blood pressure is fairly controlled today. Current medications reviewed Active Medications Generic Name Dose Route Start Last Admin Trade Name Freq PRN Reason Stop Dose Admin Acetaminophen 650 mg 01/10/18 16:33 Tylenol Tab PO Q6HR PRN Mild Pain or Fever > 100.5 Amantadine HCl 100 mg 01/12/18 09:00 01/13/18 21:20 Symmetrel PO 100 mg BID [facility] Administration Amlodipine Besylate 10 mg 01/12/18 20:45 01/13/18 10:19 Norvasc PO 10 mg DAILY [facility] Administration Carvedilol 6.25 mg 01/12/18 17:30 01/13/18 16:50 Coreg PO 6.25 mg BID-W/MEALS [facility] Administration Hydralazine HCl 25 mg 01/13/18 09:00 01/13/18 21:20 Apresoline PO 25 mg BID [facility] Administration Hydromorphone HCl 0.5 mg 01/10/18 16:33 01/13/18 04:07 Dilaudid IVP 0.5 mg Q3HR PRN Administration Moderate Pain Levetiracetam 500 mg/ Sodium 105 mls @ 400 mls/hr 01/12/18 09:00 01/13/18 21: 20 Chloride IVPB 400 mls/hr Q12HR [facility] Administration Piperacillin/Tazobactam/ 50 mls @ 12.5 mls/hr 01/13/18 00:00 01/13/18 16:50 Dextrose 3.375 gm/ IV Solution IVPB 12.5 mls/hr Q8HR [facility] Administration Sodium Chloride 1,000 mls @ 100 mls/hr 01/13/18 11:15 01/13/18 21:20 Saline 0.9% IV 100 mls/hr .Q10H [facility] Administration Levothyroxine Sodium 50 mcg 01/12/18 06:30 01/13/18 10:21 Synthroid PO 50 mcg DAILY@0630 [facility] Administration Lisinopril 10 mg 01/11/18 22:45 01/13/18 11:15 Zestril PO 10 mg DAILY [facility] Administration Miscellaneous Information 1 each 01/11/18 11:38 Potassium Per Protocol MISCELLANE DAILY PRN Per Protocol Protocol Miscellaneous Information 1 each 01/12/18 07:07 Potassium Per Protocol MISCELLANE DAILY PRN Per Protocol Protocol Miscellaneous Information 1 each 01/13/18 06:37 Magnesium Per Protocol MISCELLANE DAILY PRN Per Protocol Protocol Naloxone HCl 0.2 mg 01/10/18 16:33 Narcan IV Q2M PRN Opioid Reversal Mirabegron [ 25 mg 01/12/18 09:00 01/13/18 11:12 Myrbetriq] 25 Mg PO Not Given DAILY [facility] Ondansetron HCl 4 mg 01/10/18 16:33 Zofran IVP Q8HR PRN Nausea And Vomiting Pantoprazole Sodium 40 mg 01/13/18 09:00 01/13/18 09:01 Protonix IVP 40 mg DAILY [facility] Administration transferred out of ICU to MedSurg unit. maintained on gentle IV fluid hydration, renal function improving. Strict aspiration precautions maintained , patient requires encouragement to eat, diet intake fair. Hemoglobin 8.5, no signs or symptoms of bleeding. UTI with E. coli.Antibiotics adjusted from Zosyn to Rocephin, platelets improving. Laparoscopic cholecystectomy pending , pending improvement in thrombocytopenia. 01/15/2018 maintained on IV antibiotics as per infectious disease. Platelets continue to improve. Urine and blood cultures positive for E. coli. Preliminary Repeat blood cultures reporting beta-hemolytic strep. Spiked fever , T-max 100.2. Lethargic. hypernatremia worsening. Receiving potassium and magnesium supplements. Maintaining O2 sats in the mid 90s on room air. Denies chest pain, palpitations or increasing shortness of breath. Denies nausea vomiting or abdominal pain. Renal function improving. Potassium and magnesium currently being supplemented. 01/16/2018 thrombocytopenia continues to improve. Maintained on IV antibiotics as per infectious disease. Persistent fevers, T-max 100.9. T bili down to 1.6. Initially scheduled for Cholecystectomy, placed on hold secondary to thrombocytopenia. Platelets currently increased to 88. Renal function improving , creatinine 1.12. Abdominal pain improved. Sodium slowly improving, continues on D5 and a half, down to 147. Objective - Vital Signs Vital signs: Vital Signs Temp 99.7 F H 01/16/18 17:57 Pulse 81 01/16/18 12:01 Resp 16 01/16/18 17:04 BP 116/70 01/16/18 12:01 Pulse Ox 97 01/16/18 12:01 Intake & Output 01/15/18 01/16/18 01/16/18 18:59 06:59 18:59 Intake Total 120 820 Output Total 300 Balance -180 820 Weight 56 kg Intake: IV 700 Sodium Chloride 0.9% 1, 700 000 ml @ 100 mls/hr IV . Q10H [facility] Rx#:[id number] Oral 120 120 Output: Urine 300 Other: Voiding Method Diaper Diaper Diaper Incontinent Incontinent Incontinent # Voids 4 1 - Exam PHYSICAL EXAMINATION: PHYSICAL EXAMINATION: Patient is lying in the bed, lethargic, tired appearing, febrile HEENT: Normocephalic. Neck is supple. Pupils reactive. Nostrils clear. Oral cavity is moist. Neck reveals no JVD, carotid bruits, or thyromegaly. CHEST EXAMINATION: Trachea is central. Symmetrical expansion. Fine bibasilar crackles, Lateral bases diminished CARDIAC: Normal S1, S2 with no gallops. No murmurs ABDOMEN: Soft. Bowel sounds normal. No organomegaly. No abdominal bruits. Extremities: reveal no edema. No clubbing or cyanosis, lower extremity contractures, positive pulses Neurologically awake, alert, oriented x2-3 . Able to move all extremities, extremely weak. Skin: No rash or skin lesions. Microbiology 01/12/18 18:34 Blood Blood Culture Gram Stain - Final 01/12/18 18:34 Blood Blood Culture - Final Beta Hemolytic Strep 01/12/18 18:34 Blood Blood Culture - Final 01/10/18 13:31 Blood Blood Culture Gram Stain - Final 01/10/18 13:31 Blood Blood Culture - Final Escherichia coli 01/10/18 13:31 Urine,Catheterized Urine Culture - Final Escherichia coli 01/10/18 13:31 Blood Blood Culture - Final - Labs CBC & Chem 7: 01/20/18 08:31 01/20/18 08:31 Labs: Abnormal Lab Results - Last 24 Hours (Table) 01/15/18 01/15/18 01/16/18 Range/Units 18:16 23:46 06:27 WBC (3.8-10.6) k/uL RBC (3.80-5.40) m/uL Hgb (11.4-16.0) gm/dL Hct (34.0-46.0) % RDW (11.5-15.5) % Plt Count (150-450) k/uL Neutrophils # (Manual) (1.3-7.7) k/uL Metamyelocytes # (Man) (0) k/uL Nucleated RBCs (0-0) /100 WBC Sodium (137-145) mmol/L Chloride (98-107) mmol/L Carbon Dioxide (22-30) mmol/L Creatinine (0.52-1.04) mg/dL Glucose (74-99) mg/dL POC Glucose (mg/dL) 155 H 146 H 121 H (75-99) mg/dL Calcium (8.4-10.2) mg/dL Total Bilirubin (0.2-1.3) mg/dL AST (14-36) U/L Alkaline Phosphatase (38-126) U/L Total Protein (6.3-8.2) g/dL Albumin (3.5-5.0) g/dL 01/16/18 01/16/18 01/16/18 Range/Units 07:45 07:45 11:06 WBC 18.0 H (3.8-10.6) k/uL RBC 2.68 L (3.80-5.40) m/uL Hgb 8.0 L (11.4-16.0) gm/dL Hct 24.6 L (34.0-46.0) % RDW 20.7 H (11.5-15.5) % Plt Count 88 L (150-450) k/uL Neutrophils # (Manual) 15.40 H (1.3-7.7) k/uL Metamyelocytes # (Man) 0.18 H (0) k/uL Nucleated RBCs 1 H (0-0) /100 WBC Sodium 147 H (137-145) mmol/L Chloride 120 H (98-107) mmol/L Carbon Dioxide 21 L (22-30) mmol/L Creatinine 1.12 H (0.52-1.04) mg/dL Glucose 123 H (74-99) mg/dL POC Glucose (mg/dL) 141 H (75-99) mg/dL Calcium 7.9 L (8.4-10.2) mg/dL Total Bilirubin 1.6 H (0.2-1.3) mg/dL AST 42 H (14-36) U/L Alkaline Phosphatase 139 H (38-126) U/L Total Protein 5.7 L (6.3-8.2) g/dL Albumin 2.3 L (3.5-5.0) g/dL 01/16/18 Range/Units 17:17 WBC (3.8-10.6) k/uL RBC (3.80-5.40) m/uL Hgb (11.4-16.0) gm/dL Hct (34.0-46.0) % RDW (11.5-15.5) % Plt Count (150-450) k/uL Neutrophils # (Manual) (1.3-7.7) k/uL Metamyelocytes # (Man) (0) k/uL Nucleated RBCs (0-0) /100 WBC Sodium (137-145) mmol/L Chloride (98-107) mmol/L Carbon Dioxide (22-30) mmol/L Creatinine (0.52-1.04) mg/dL Glucose (74-99) mg/dL POC Glucose (mg/dL) 130 H (75-99) mg/dL Calcium (8.4-10.2) mg/dL Total Bilirubin (0.2-1.3) mg/dL AST (14-36) U/L Alkaline Phosphatase (38-126) U/L Total Protein (6.3-8.2) g/dL Albumin (3.5-5.0) g/dL Assessment and Plan Assessment: Severe Sepsis/septicemia gram-negative secondary to acute urinary tract infection with E. coli and E. coli bacteremia. Failed outpatient antibiotic therapy. Acute UTI with E. coli and E. coli bacteremia Thrombocytopenia. Likely due to sepsis, and Zosyn. Antibiotics adjusted, platelets improving. Lactic acidosis. Improving. Hypernatremia, secondary to dehydration, improving Elevated troponin level possible demand ischemia Acute kidney injury. Possible ATN, Elevated alk phos and AST with dilated common bile duct and acute cholecystitis as per ultrasound of abdomen. MRCP showed no dilated ducts. Showed large bile stone. Hyperbilirubinemia Altered mental status possible metabolic encephalopathy Uncontrolled hypertension/accelerated hypertension, improving rhabdomyolysis History of MS and residual right-sided weakness and contractures, bedbound History of right breast cancer in 2002 status post lumpectomy and radiation Seizure disorder. Hypothyroidism Diverticulosis and past colon polyps benign Previous history of smoking Mild to moderate protein calorie malnutrition with albumin 2.4 Plan: Continue on current medication regime ,monitoring and symptomatic treatment. Persistent fevers, Repeat blood cultures. IV antibiotics as per infectious disease. Close monitoring of electrolytes, platelets with repeat labs ordered for a.m. Maintain IV fluids of D5 and a half . Laparoscopic cholecystectomy pending. Maintain seizure precautions. Prognosis guarded given multiple complex medical issues. The impression and plan of care has been dictated as directed. : I performed a history and examination of this patient, discussed the same with the dictator. I agree with the dictator's note ,documented as a scribe. Any additional findings or plans will be noted.
--- NOTE | 2018-01-20 15:27 | P.PN ---
Subjective Progress Note Date: 01/20/18 Progress note being dictated for Dr. New. Sepsis secondary to urinary tract infection Elevated liver enzymes Chronic cholecystitis Interval history:62-year-old female with a known history of multiple sclerosis currently bedridden, hypertension, GERD, history of breast cancer status post lumpectomy and radiation, hypothyroidism and multiple other medical problems was brought to the hospital due to generalized weakness and dehydration. Patient has history of MS and some residual right-sided weakness and contracture. Over the past several days she has begun oral antibiotics for urinary tract infection. Initially put on nitrofurantoin, symptoms did not improve patient had an episode of nausea and vomiting. She was switched to Bactrim. She's had one dose of Bactrim yesterday but has been unable to tolerate anything orally since that time. She's had nausea with one episode of vomiting. Patient is accompanied by her who is able to give the majority the history. Patient does complain of some chronic leg pain and cramping which is typical for her. No other pain complaints. No abdominal pain. No chest pain or dyspnea. No history of fever or chills. Patient is also confused and altered for the last couple days. WBC 27.2 BUN 69 creatinine 3.75. Lactic acid 2.8 troponin 0.084. CPK 762 AST 87, alk phos 240, albumin 2.9 UA showed large leukocyte esterase, WBC 18 and moderate blood. Chest x-ray showed no acute cardio for process EKG normal sinus rhythm Ultrasound ABDOMEN showed cholelithiasis. Gallbladder wall thickening with positive Juan sign. Correlate for acute cholecystitis. Suspicion for dilated common bile duct intraductal calcifications 01/11/2018 Patient is more awake and oriented today. Able to sit in the chair. Afebrile. Denied any complains of chest pain or shortness of breath. Denied any abdominal pain. Able to tolerate oral diet and take her oral medications. MRCP showed large bile stone. No dilated ducts. Mild gallbladder wall thickening. WBC is trending down. Potassium was replaced. General surgery is planning for cholecystectomy possibly on Saturday and clinically stable. 01/12/2018 Patient became confused again today. Able to nod her head but could not communicate. Could not able to swallow. Blood pressure is uncontrolled. Patient was given IV hydralazine and IV labetalol with some improvement in blood pressure. Otherwise Catapres patch could not be applied due to short supply from pharmacy. CT head is negative. Was done due to altered mentation. Leukocytosis is much improved to 10.8 today morning. Platelet count dropped further to 32,000. Patient is being continued on antibiotics continued on Zosyn. Renal function improved with creatinine level II.0 Patient is not tolerating any oral diet. Currently on IV fluids in the form of half-normal saline. Patient became febrile this afternoon with T-max 100.0 and blood pressure is also not controlled well. Due to altered mental status and uncontrolled hypertension, thrombocytopenia with underlying sepsis patient will be transferred to MICU for further management. 01/13/2018 Patient is awake and alert today. Able to communicate slowly. No complaints of chest pain or shortness of breath. Able to take by mouth medications. Platelet count is dropping down to 19,000 today. No active bleeding noted. No leukocytosis currently. Potassium and magnesium being replaced. Renal function improved with creatinine level I.7. Patient is being closely monitored in the ICU. Patient has been afebrile. Saturating well on room air. Blood pressure is fairly controlled today. Current medications reviewed Active Medications Generic Name Dose Route Start Last Admin Trade Name Freq PRN Reason Stop Dose Admin Acetaminophen 650 mg 01/10/18 16:33 Tylenol Tab PO Q6HR PRN Mild Pain or Fever > 100.5 Amantadine HCl 100 mg 01/12/18 09:00 01/13/18 21:20 Symmetrel PO 100 mg BID KAMILAH Administration Amlodipine Besylate 10 mg 01/12/18 20:45 01/13/18 10:19 Norvasc PO 10 mg DAILY KAMILAH Administration Carvedilol 6.25 mg 01/12/18 17:30 01/13/18 16:50 Coreg PO 6.25 mg BID-W/MEALS KAMILAH Administration Hydralazine HCl 25 mg 01/13/18 09:00 01/13/18 21:20 Apresoline PO 25 mg BID KAMILAH Administration Hydromorphone HCl 0.5 mg 01/10/18 16:33 01/13/18 04:07 Dilaudid IVP 0.5 mg Q3HR PRN Administration Moderate Pain Levetiracetam 500 mg/ Sodium 105 mls @ 400 mls/hr 01/12/18 09:00 01/13/18 21: 20 Chloride IVPB 400 mls/hr Q12HR KAMILAH Administration Piperacillin/Tazobactam/ 50 mls @ 12.5 mls/hr 01/13/18 00:00 01/13/18 16:50 Dextrose 3.375 gm/ IV Solution IVPB 12.5 mls/hr Q8HR KAMILAH Administration Sodium Chloride 1,000 mls @ 100 mls/hr 01/13/18 11:15 01/13/18 21:20 Saline 0.9% IV 100 mls/hr .Q10H KAMILAH Administration Levothyroxine Sodium 50 mcg 01/12/18 06:30 01/13/18 10:21 Synthroid PO 50 mcg DAILY@0630 KAMILAH Administration Lisinopril 10 mg 01/11/18 22:45 01/13/18 11:15 Zestril PO 10 mg DAILY KAMILAH Administration Miscellaneous Information 1 each 01/11/18 11:38 Potassium Per Protocol MISCELLANE DAILY PRN Per Protocol Protocol Miscellaneous Information 1 each 01/12/18 07:07 Potassium Per Protocol MISCELLANE DAILY PRN Per Protocol Protocol Miscellaneous Information 1 each 01/13/18 06:37 Magnesium Per Protocol MISCELLANE DAILY PRN Per Protocol Protocol Naloxone HCl 0.2 mg 01/10/18 16:33 Narcan IV Q2M PRN Opioid Reversal Mirabegron [ 25 mg 01/12/18 09:00 01/13/18 11:12 Myrbetriq] 25 Mg PO Not Given DAILY KAMILAH Ondansetron HCl 4 mg 01/10/18 16:33 Zofran IVP Q8HR PRN Nausea And Vomiting Pantoprazole Sodium 40 mg 01/13/18 09:00 01/13/18 09:01 Protonix IVP 40 mg DAILY KAMILAH Administration transferred out of ICU to MedSurg unit. maintained on gentle IV fluid hydration, renal function improving. Strict aspiration precautions maintained , patient requires encouragement to eat, diet intake fair. Hemoglobin 8.5, no signs or symptoms of bleeding. UTI with E. coli.Antibiotics adjusted from Zosyn to Rocephin, platelets improving. Laparoscopic cholecystectomy pending , pending improvement in thrombocytopenia. 01/15/2018 maintained on IV antibiotics as per infectious disease. Platelets continue to improve. Urine and blood cultures positive for E. coli. Preliminary Repeat blood cultures reporting beta-hemolytic strep. Spiked fever , T-max 100.2. Lethargic. hypernatremia worsening. Receiving potassium and magnesium supplements. Maintaining O2 sats in the mid 90s on room air. Denies chest pain, palpitations or increasing shortness of breath. Denies nausea vomiting or abdominal pain. Renal function improving. Potassium and magnesium currently being supplemented. 01/16/2018 thrombocytopenia continues to improve. Maintained on IV antibiotics as per infectious disease. Persistent fevers, T-max 100.9. T bili down to 1.6. Initially scheduled for Cholecystectomy, placed on hold secondary to thrombocytopenia. Platelets currently increased to 88. Renal function improving , creatinine 1.12. Abdominal pain improved. Sodium slowly improving, continues on D5 and a half, down to 147. 01/17/2018 persistent fevers, T-max 101.1. Leukocytosis improving, trending down to 12.5 Most recent blood culture now with Gabbie. No nausea, vomiting. Denies abdominal pain. Hypokalemic, receiving supplements. Renal function improving. Scheduled for laparoscopic cholecystectomy Saturday. Objective - Vital Signs Vital signs: Vital Signs Temp 97.8 F 01/20/18 13:00 Pulse 69 01/20/18 13:00 Resp 18 01/20/18 13:00 BP 87/55 01/20/18 13:00 Pulse Ox 97 01/20/18 13:00 Intake & Output 01/19/18 01/20/18 01/20/18 18:59 06:59 18:59 Intake Total 1010 1200 Balance 1010 1200 Weight 56 kg 56 kg Intake: Intake, IV Titration 950 1080 Amount Anidulafungin 100 mg In 280 Sodium Chloride 0.9% 100 ml @ 84 mls/hr IVPB DAILY KAMILAH Rx#:[id number] Dextrose 5% in Water 1, 750 600 000 ml @ 75 mls/hr IV . [id number] KAMILAH Rx#:[id number] cefTRIAXone 2,000 mg In 100 100 Sodium Chloride 0.9% 100 ml @ 100 mls/hr IVPB Q24HR KAMILAH Rx#:[id number] levETIRAcetam IV 500 mg 100 100 In Sodium Chloride 0.9% 100 ml @ 400 mls/hr IVPB Q12HR KAMILAH Rx#:[id number] Oral 60 120 Other: Voiding Method Diaper Diaper Diaper Incontinent Incontinent Incontinent # Voids 3 2 2 - Exam PHYSICAL EXAMINATION: PHYSICAL EXAMINATION: Patient is sitting up in the bed, tired appearing. HEENT: Normocephalic. Neck is supple. Pupils reactive. Nostrils clear. Oral cavity is moist. Neck reveals no JVD, carotid bruits, or thyromegaly. CHEST EXAMINATION: Trachea is central. Symmetrical expansion. Bilateral bases diminished CARDIAC: Normal S1, S2 with no gallops. No murmurs ABDOMEN: Soft. Bowel sounds normal. No organomegaly. No abdominal bruits. Extremities: reveal no edema. No clubbing or cyanosis, lower extremity contractures, positive pulses Neurologically awake, alert, oriented x2-3 . Able to move all extremities, extremely weak. Skin: No rash or skin lesions. Microbiology 01/16/18 14:14 Blood Blood Culture Gram Stain - Final 01/16/18 14:14 Blood Blood Culture - Final Gabbie albicans 01/16/18 14:14 Blood Blood Culture - Final 01/12/18 18:34 Blood Blood Culture Gram Stain - Final 01/12/18 18:34 Blood Blood Culture - Final Beta Hemolytic Strep 01/12/18 18:34 Blood Blood Culture - Final 01/10/18 13:31 Blood Blood Culture Gram Stain - Final 01/10/18 13:31 Blood Blood Culture - Final Escherichia coli 01/10/18 13:31 Urine,Catheterized Urine Culture - Final Escherichia coli 01/10/18 13:31 Blood Blood Culture - Final - Labs CBC & Chem 7: 01/20/18 08:31 01/20/18 08:31 Labs: Abnormal Lab Results - Last 24 Hours (Table) 01/19/18 01/20/18 01/20/18 Range/Units 18:17 05:04 08:31 WBC 12.5 H (3.8-10.6) k/uL RBC 2.61 L (3.80-5.40) m/uL Hgb 7.5 L (11.4-16.0) gm/dL Hct 23.9 L (34.0-46.0) % RDW 19.8 H (11.5-15.5) % Neutrophils # 10.8 H (1.3-7.7) k/uL Lymphocytes # 0.9 L (1.0-4.8) k/uL Potassium (3.5-5.1) mmol/L Chloride (98-107) mmol/L Carbon Dioxide (22-30) mmol/L Creatinine (0.52-1.04) mg/dL Glucose (74-99) mg/dL POC Glucose (mg/dL) 109 H 107 H (75-99) mg/dL Calcium (8.4-10.2) mg/dL 01/20/18 01/20/18 Range/Units 08:31 12:06 WBC (3.8-10.6) k/uL RBC (3.80-5.40) m/uL Hgb (11.4-16.0) gm/dL Hct (34.0-46.0) % RDW (11.5-15.5) % Neutrophils # (1.3-7.7) k/uL Lymphocytes # (1.0-4.8) k/uL Potassium 2.5 L* (3.5-5.1) mmol/L Chloride 113 H (98-107) mmol/L Carbon Dioxide 20 L (22-30) mmol/L Creatinine 1.19 H (0.52-1.04) mg/dL Glucose 101 H (74-99) mg/dL POC Glucose (mg/dL) 121 H (75-99) mg/dL Calcium 7.5 L (8.4-10.2) mg/dL Microbiology - Last 24 Hours (Table) 01/16/18 14:14 Blood Culture Gram Stain - Final Blood Blood Culture - Final Gabbie albicans 01/16/18 14:14 Blood Culture - Final Blood Assessment and Plan Assessment: Severe Sepsis/septicemia gram-negative secondary to acute urinary tract infection & bacteremia. Failed outpatient antibiotic therapy. Acute UTI with E. coli, E. coli and gabbie bacteremia Thrombocytopenia. Likely due to sepsis, and Zosyn. Antibiotics adjusted, platelets improving. Lactic acidosis. Improving. Hypernatremia, secondary to dehydration, improving Elevated troponin level possible demand ischemia Acute kidney injury. Possible ATN, Elevated alk phos and AST with dilated common bile duct and acute cholecystitis as per ultrasound of abdomen. MRCP showed no dilated ducts. Showed large bile stone. Hyperbilirubinemia Altered mental status possible metabolic encephalopathy Uncontrolled hypertension/accelerated hypertension, improving rhabdomyolysis History of MS and residual right-sided weakness and contractures, bedbound History of right breast cancer in 2002 status post lumpectomy and radiation Seizure disorder. Hypothyroidism Hypokalemia Diverticulosis and past colon polyps benign Previous history of smoking Mild to moderate protein calorie malnutrition with albumin 2.4 Plan: Continue on current medication regime ,monitoring and symptomatic treatment. Potassium replacements in progress, repeat potassium level at 1600. Persistent fevers, maintain IV antibiotics as per infectious disease. Laparoscopic cholecystectomy scheduled for Saturday .Close monitoring of electrolytes, platelets with repeat labs ordered for a.m. Maintain seizure precautions. Prognosis guarded given multiple complex medical issues. The impression and plan of care has been dictated as directed. : I performed a history and examination of this patient, discussed the same with the dictator. I agree with the dictator's note ,documented as a scribe. Any additional findings or plans will be noted.
[2018-01-20] MEDS: FLUCONAZOLE IN NACL,ISO-OSM 200 MG in SALINE 1 100ML.BAG IVPB SCH (15:35)
[2018-01-20 17:51] LABS: Glucose,Whole Blood 143 mg/dL (75-99)
[2018-01-20] MEDS: POTASSIUM CHLORIDE 10 MEQ in WATER FOR INJECTION 1 100ML.BAG IVPB SCH ×4 (19:06→22:23)
[2018-01-20 20:41] LABS: Glucose,Whole Blood 120 mg/dL (75-99)
--- NOTE | 2018-01-20 22:54 | P.PN ---
Subjective Progress Note Date: 01/20/18 62-year-old female who has multiple medical troubles that includes multiple sclerosis, history of breast carcinoma status post surgical intervention and radiation therapy, seizures and hypothyroidism presents to the emergency center with symptoms of increasing fatigue malaise some altered mentation consequently was brought to the emergency center by her . 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 The patient recently spent having difficulties with urinary tract infection resented with Macrodantin which was then transitioned to Bactrim. Despite this she was not improving with increasing symptoms. She consequently was brought in the hospital on 01/10/2018. Despite antibiotic therapy with Zosyn still continues to feel somewhat poorly and constantly the infectious diseases consultation was requested. The patient has been about a by general surgery because she was having some abdominal pain there is evidence of some elevated liver function tests and alkaline phosphatase. Imaging study reveals evidence of a large gallstone but MRCP failed to reveal evidence of any acute obstruction of the biliary tract at this time. Patient though was symptomatic and there were plans for a laparoscopic cholecystectomy due to significant thrombocytopenia this was held. Today she has improved ane is feeling better without chills, pain improved. 01/17/2018 reveals the patient toLittle change of her status. She seems to be comfortable no new acute changes are related from the staff. 01/20/2018 patient continues to seem comfortable. Continues to have difficulty with her swallowing. Blood culture now shows evidence of Gabbie Objective - Vital Signs Vital signs: Vital Signs Temp 98.9 F 01/20/18 21:00 Pulse 89 01/20/18 21:00 Resp 16 01/20/18 21:00 BP 132/81 01/20/18 21:00 Pulse Ox 94 L 01/20/18 21:00 Intake & Output 01/20/18 01/20/18 01/21/18 06:59 18:59 06:59 Intake Total 1200 Balance 1200 Weight 56 kg Intake: Intake, IV Titration 1080 Amount Anidulafungin 100 mg In 280 Sodium Chloride 0.9% 100 ml @ 84 mls/hr IVPB DAILY [facility] Rx#:[id number] Dextrose 5% in Water 1, 600 000 ml @ 75 mls/hr IV . [id number] [facility] Rx#:[id number] cefTRIAXone 2,000 mg In 100 Sodium Chloride 0.9% 100 ml @ 100 mls/hr IVPB Q24HR [facility] Rx#:[id number] levETIRAcetam IV 500 mg 100 In Sodium Chloride 0.9% 100 ml @ 400 mls/hr IVPB Q12HR [facility] Rx#:[id number] Oral 120 Other: Voiding Method Diaper Diaper Incontinent Incontinent # Voids 2 2 - Exam 62-year-old woman who is profoundly disabled from her MS, she however is awake but is not a good historian. HEENT: Anicteric conjunctiva are pink and moist nasal mucosa grossly intact without evidence of bleeding, oral mucosa is dry without thrush Neck: The neck is supple without significant lymphadenopathy or thyromegaly. Lungs: They're symmetrical air entry with few basilar crackles no bronchial sounds normal dullness or egophony Heart: Regular rate and rhythm with an audible S1-S2, no S3 no S4. There is no significant murmur click or rub, PMI was nondisplaced. Abdomen: Positive bowel sounds soft and nontender without palpable masses or organomegaly. There was no guarding or rebound. Extremities: The upper extremities have excellent pulses they are symmetric, no significant petechiae or telangiectasia. No splinter hemorrhages were noted. The lower extremities are free from significant edema. - Labs CBC & Chem 7: 01/20/18 08:31 01/20/18 16:28 Labs: Abnormal Lab Results - Last 24 Hours (Table) 01/20/18 01/20/18 01/20/18 Range/Units 05:04 08:31 08:31 WBC 12.5 H (3.8-10.6) k/uL RBC 2.61 L (3.80-5.40) m/uL Hgb 7.5 L (11.4-16.0) gm/dL Hct 23.9 L (34.0-46.0) % RDW 19.8 H (11.5-15.5) % Neutrophils # 10.8 H (1.3-7.7) k/uL Lymphocytes # 0.9 L (1.0-4.8) k/uL Potassium 2.5 L* (3.5-5.1) mmol/L Chloride 113 H (98-107) mmol/L Carbon Dioxide 20 L (22-30) mmol/L Creatinine 1.19 H (0.52-1.04) mg/dL Glucose 101 H (74-99) mg/dL POC Glucose (mg/dL) 107 H (75-99) mg/dL Calcium 7.5 L (8.4-10.2) mg/dL 01/20/18 01/20/18 01/20/18 Range/Units 12:06 16:28 17:49 WBC (3.8-10.6) k/uL RBC (3.80-5.40) m/uL Hgb (11.4-16.0) gm/dL Hct (34.0-46.0) % RDW (11.5-15.5) % Neutrophils # (1.3-7.7) k/uL Lymphocytes # (1.0-4.8) k/uL Potassium 2.9 L (3.5-5.1) mmol/L Chloride (98-107) mmol/L Carbon Dioxide (22-30) mmol/L Creatinine (0.52-1.04) mg/dL Glucose (74-99) mg/dL POC Glucose (mg/dL) 121 H 143 H (75-99) mg/dL Calcium (8.4-10.2) mg/dL 01/20/18 Range/Units 20:40 WBC (3.8-10.6) k/uL RBC (3.80-5.40) m/uL Hgb (11.4-16.0) gm/dL Hct (34.0-46.0) % RDW (11.5-15.5) % Neutrophils # (1.3-7.7) k/uL Lymphocytes # (1.0-4.8) k/uL Potassium (3.5-5.1) mmol/L Chloride (98-107) mmol/L Carbon Dioxide (22-30) mmol/L Creatinine (0.52-1.04) mg/dL Glucose (74-99) mg/dL POC Glucose (mg/dL) 120 H (75-99) mg/dL Calcium (8.4-10.2) mg/dL Microbiology - Last 24 Hours (Table) 01/16/18 14:14 Blood Culture Gram Stain - Final Blood Blood Culture - Final Gabbie albicans Laboratory Results WBC 12.5 k/uL (3.8-10.6) H 01/20/18 08:31 RBC 2.61 m/uL (3.80-5.40) L 01/20/18 08:31 Hgb 7.5 gm/dL (11.4-16.0) L 01/20/18 08:31 Hct 23.9 % (34.0-46.0) L 01/20/18 08:31 MCV 91.7 fL (80.0-100.0) 01/20/18 08:31 MCH 28.9 pg (25.0-35.0) 01/20/18 08:31 MCHC 31.5 g/dL (31.0-37.0) 01/20/18 08:31 RDW 19.8 % (11.5-15.5) H 01/20/18 08:31 Plt Count 188 k/uL (150-450) 01/20/18 08:31 Neutrophils % 86 % 01/20/18 08:31 Neutrophils % (Manual) 85 % 01/16/18 07:45 Band Neutrophils % 1 % 01/16/18 07:45 Lymphocytes % 7 % 01/20/18 08:31 Lymphocytes % (Manual) 10 % 01/16/18 07:45 Monocytes % 4 % 01/20/18 08:31 Monocytes % (Manual) 4 % 01/16/18 07:45 Eosinophils % 0 % 01/20/18 08:31 Eosinophils % (Manual) 1 % 01/16/18 07:45 Basophils % 0 % 01/20/18 08:31 Metamyelocytes % 1 % 01/16/18 07:45 Neutrophils # 10.8 k/uL (1.3-7.7) H 01/20/18 08:31 Neutrophils # (Manual) 15.40 k/uL (1.3-7.7) H 01/16/18 07:45 Lymphocytes # 0.9 k/uL (1.0-4.8) L 01/20/18 08:31 Lymphocytes # (Manual) 1.80 k/uL (1.0-4.8) 01/16/18 07:45 Monocytes # 0.5 k/uL (0-1.0) 01/20/18 08:31 Monocytes # (Manual) 0.72 k/uL (0-1.0) 01/16/18 07:45 Eosinophils # 0.1 k/uL (0-0.7) 01/20/18 08:31 Eosinophils # (Manual) 0.18 k/uL (0-0.7) 01/16/18 07:45 Basophils # 0.0 k/uL (0-0.2) 01/20/18 08:31 Metamyelocytes # (Man) 0.18 k/uL (0) H 01/16/18 07:45 Nucleated RBCs 1 /100 WBC (0-0) H 01/16/18 07:45 Manual Slide Review Performed 01/19/18 07:00 Toxic Granulation Present 01/19/18 07:00 Polychromasia Present 01/19/18 07:00 Hypochromasia Moderate 01/20/18 08:31 Poikilocytosis Moderate 01/20/18 08:31 Anisocytosis Slight 01/20/18 08:31 Macrocytosis Slight 01/20/18 08:31 Fragmented RBCs Present 01/19/18 07:00 PT 10.5 sec (9.0-12.0) 01/10/18 13:31 INR 1.1 (<1.2) 01/10/18 13:31 APTT 23.3 sec (22.0-30.0) 01/10/18 13:31 Sodium 142 mmol/L (137-145) 01/20/18 08:31 Potassium 2.9 mmol/L (3.5-5.1) L 01/20/18 16:28 Chloride 113 mmol/L (98-107) H 01/20/18 08:31 Carbon Dioxide 20 mmol/L (22-30) L 01/20/18 08:31 Anion Gap 9 mmol/L 01/20/18 08:31 BUN 14 mg/dL (7-17) 01/20/18 08:31 Creatinine 1.19 mg/dL (0.52-1.04) H 01/20/18 08:31 Est GFR (CKD-EPI)AfAm 56 (>60 ml/min/1.73 sqM) 01/20/18 08:31 Est GFR (CKD-EPI)NonAf 48 (>60 ml/min/1.73 sqM) 01/20/18 08:31 Glucose 101 mg/dL (74-99) H 01/20/18 08:31 POC Glucose (mg/dL) 120 mg/dL (75-99) H 01/20/18 20:40 POC Glu Field Operations Manager ID 01/20/18 20:[address] Glu mg/dL 134 01/11/18 06:11 Hemoglobin A1c 6.3 % (4.0-6.0) H 01/11/18 06:11 Lactic Ac Sepsis Rflx Y 01/10/18 14:22 Plasma Lactic Acid José 1.0 mmol/L (0.7-2.0) 01/12/18 18:34 Calcium 7.5 mg/dL (8.4-10.2) L 01/20/18 08:31 Phosphorus 2.6 mg/dL (2.5-4.5) 01/16/18 07:45 Magnesium 1.8 mg/dL (1.6-2.3) 01/20/18 08:31 Total Bilirubin 0.9 mg/dL (0.2-1.3) 01/18/18 07:15 AST 28 U/L (14-36) 01/18/18 07:15 ALT 25 U/L (9-52) 01/18/18 07:15 Alkaline Phosphatase 124 U/L (38-126) 01/18/18 07:15 Total Creatine Kinase 1070 U/L (30-135) H* 01/11/18 01:25 CK-MB (CK-2) 14.0 ng/mL (0.0-2.4) H 01/11/18 01:25 CK-MB (CK-2) Rel Index 1.3 01/11/18 01:25 Troponin I 0.086 ng/mL (0.000-0.034) H* 01/11/18 01:25 Total Protein 5.1 g/dL (6.3-8.2) L 01/18/18 07:15 Albumin 2.0 g/dL (3.5-5.0) L 01/18/18 07:15 Lipase 26 U/L (23-300) 01/11/18 06:11 Urine Color Yellow 01/10/18 13:31 Urine Appearance Turbid (Clear) H 01/10/18 13:31 Urine pH 7.5 (5.0-8.0) 01/10/18 13:31 Ur Specific [place] 1.012 (1.001-1.035) 01/10/18 13:31 Urine Protein 2+ (Negative) H 01/10/18 13:31 Urine Glucose (UA) Negative (Negative) 01/10/18 13:31 Urine Ketones Negative (Negative) 01/10/18 13:31 Urine Blood Moderate (Negative) H 01/10/18 13:31 Urine Nitrite Negative (Negative) 01/10/18 13:31 Urine Bilirubin Negative (Negative) 01/10/18 13:31 Urine Urobilinogen 2.0 mg/dL (<2.0) 01/10/18 13:31 Ur Leukocyte Esterase Moderate (Negative) H 01/10/18 13:31 Urine WBC 18 /hpf (0-5) H 01/10/18 13:31 Ur Squamous Epith Cells 1 /hpf (0-4) 01/10/18 13:31 Urine Bacteria Many /hpf (None) H 01/10/18 13:31 Urine Mucus Occasional /hpf (None) H 01/10/18 13:31 Hepatitis A IgM Ab Non-Reactive (Non-Reactive) 01/13/18 17:10 Hep Bs Antigen Non-Reactive (Non-Reactive) 01/13/18 17:10 Hep B Core IgM Ab Non-Reactive (Non-Reactive) 01/13/18 17:10 Hep C IgG Ab Non-Reactive (Non-Reactive) 01/13/18 17:10 Blood Type O Positive 01/17/18 14:52 Blood Type Confirm O Positive 01/17/18 12:47 Blood Type Recheck CABO Indicated 01/17/18 14:52 Antibody Screen NEGATIVE 01/17/18 14:52 Crossmatch See Detail 01/17/18 14:52 Spec Expiration Date 01/20/2018 [id number] 01/17/18 14:52 Microbiology 01/16/18 14:14 Blood Blood Culture Gram Stain - Final 01/16/18 14:14 Blood Blood Culture - Final Gabbie albicans 01/16/18 14:14 Blood Blood Culture - Final 01/12/18 18:34 Blood Blood Culture Gram Stain - Final 01/12/18 18:34 Blood Blood Culture - Final Beta Hemolytic Strep 01/12/18 18:34 Blood Blood Culture - Final 01/10/18 13:31 Blood Blood Culture Gram Stain - Final 01/10/18 13:31 Blood Blood Culture - Final Escherichia coli 01/10/18 13:31 Urine,Catheterized Urine Culture - Final Escherichia coli 01/10/18 13:31 Blood Blood Culture - Final Assessment and Plan (1) Acute cholecystitis Current Visit: Yes Status: Acute Code(s): K81.0 - ACUTE CHOLECYSTITIS SNOMED Code(s): 86073872 (2) Sepsis Narrative/Plan: 62-year-old woman with multiple medical troubles including progressive MS who is bedbound and cared for by her family and her in the home setting presents to Hospital from home with increasing weakness lethargy and altered mental status. At this time it appears to be some improvement as she has been hydrated and has been treated with appropriate antibiotic therapy. Patient however is now developed evidence of progressive thrombocytopenia originally platelets were at 147 noted decreased and 19. It is likely the piperacillin tazobactam is etiology of her significant drop of platelets and this is discontinued. Urine culture is available and has evidence of a nonresistant E. coli and constantly antibiotic therapy is changed to ceftriaxone. Platelets will be followed it would expect them to rapidly improve with the withdrawal of the Zosyn. She is being seen by surgery with potential laparoscopic cholecystectomy planned in the future because of the symptomatic choledocholithiasis. Fortunately MRCP does not show evidence of any acute obstructive biliary pattern. Follow blood cultures are negative. The fever and leukocytosis have also improved. 01/16/2018 further improved and platelets recovering with discontinuation of zosyn. Doing well with rocephin. follow up blood culture in progress. 01/17/2018 patient has had further improvement. Repleted some increased to 104. There is contemplation of discharge the near future. However she developed significant and worsening anemia with hemoglobin of 6.8 and continues to have a leukocytosis. There is a concern that there was an aspiration event. Continue current antibiotic therapy The urine culture does have an E. coli that will be not difficult to treat there is evidence of a beta-hemolytic strep in the blood stream which could be contamination. When she is improved plan would be for Levaquin to finish her course of therapy. She'll continue to have needs of following with surgery regarding her choledocholithiasis. 01/20/2018 patient does seem to be feeling relatively well. Not having high- grade fever today. However we now have blood culture with evidence of gabbie. Eraxis is added for the treatment of her current funky anemia and prior antibiotic therapy with vancomycin and Zosyn have been utilized for the E. coli and streptococcal infection that have been isolated from the bloodstream. Since her has been changing pathogens found in the blood cultures underlying abscess is a likely etiology, likely is related to her gallbladder. Given her symptoms at admission any abnormal findings. The case is discussed the general surgeon and she will be taken to the operating room on Saturday for laparoscopic cholecystectomy. 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
[2018-01-21] MEDS: POTASSIUM CHLORIDE 10 MEQ in WATER FOR INJECTION 1 100ML.BAG IVPB SCH ×2 (00:06→01:18)
[2018-01-21 00:14] LABS: Glucose,Whole Blood 90 mg/dL (75-99)
[2018-01-21] MEDS: DEXTROSE 5% IN WATER 1,000 ML IV SCH ×2 (04:20→16:55)
[2018-01-21] MEDS: LEVOTHYROXINE 50 MCG TAB PO SCH (06:31)
[2018-01-21] MEDS: hydrALAZINE HCL 50 MG TAB PO SCH ×3 (08:35→21:26)
[2018-01-21] MEDS: LISINOPRIL 10 MG TAB PO SCH (08:36)
[2018-01-21] MEDS: amLODIPine 10 MG TAB PO SCH (08:36)
[2018-01-21] MEDS: CARVEDILOL 6.25 MG TAB PO SCH ×2 (08:36→16:55)
[2018-01-21] MEDS: cefTRIAXone 2,000 MG in SODIUM CHLORIDE 0.9% 100 ML IVPB SCH (08:36)
[2018-01-21] MEDS: PANTOPRAZOLE SODIUM 40 MG GRANULE PKT PO SCH (08:36)
[2018-01-21] MEDS: AMANTADINE HCL 100 MG CAP PO SCH ×2 (08:36→20:13)
[2018-01-21] MEDS: Mirabegron [Myrbetriq] 25 MG PO SCH (08:37)
[2018-01-21 09:22] LABS: Albumin 2.2 g/dL (3.5-5.0); Calcium 7.8 mg/dL (8.4-10.2); Total Bilirubin 0.8 mg/dL (0.2-1.3); Total Protein 5.7 g/dL (6.3-8.2)
[2018-01-21 09:24] LABS: Anisocytosis Slight; Basophils % (A) 0 %; Eosinophils # (A) 0.1 k/uL (0-0.7); Eosinophils % (A) 1 %; HCT 25.8 % (34.0-46.0); HGB 8.2 gm/dL (11.4-16.0); Hypochromasia Marked; Lymphocytes % (A) 8 %; MCH 29.4 pg (25.0-35.0); MCHC 31.9 g/dL (31.0-37.0); MCV 92.2 fL (80.0-100.0); Macrocytosis Slight; Mean Platelet Volume 8.9; Monocytes # (A) 0.4 k/uL (0-1.0); Monocytes % (A) 3 %; Neutrophils # (A) 10.4 k/uL (1.3-7.7); Neutrophils % (A) 85 %; Platelet Count 273 k/uL (150-450); Poikilocytosis Moderate; RDW 19.7 % (11.5-15.5); WBC 12.4 k/uL (3.8-10.6)
[2018-01-21] MEDS: levETIRAcetam IV 500 MG in SODIUM CHLORIDE 0.9% 100 ML IVPB SCH ×2 (10:40→20:13)
[2018-01-21] MEDS: ANIDULAFUNGIN 100 MG in SODIUM CHLORIDE 0.9% 100 ML IVPB SCH (11:14)
[2018-01-21 11:51] LABS: Glucose,Whole Blood 115 mg/dL (75-99)
--- NOTE | 2018-01-21 13:16 | P.PN ---
Subjective Progress Note Date: 01/21/18 62-year-old patient seen at the bedside spouse at the bedside feeding patient. Spouse is aware of the plan of care scheduled for laparoscopic cholecystectomy tomorrow current temp this morning 98.9 currently tolerating a diet no nausea no vomiting Objective - Vital Signs Vital signs: Vital Signs Temp 98.9 F 01/21/18 11:57 Pulse 85 01/21/18 11:57 Resp 16 01/21/18 11:57 BP 128/75 01/21/18 11:57 Pulse Ox 97 01/21/18 11:57 Intake & Output 01/20/18 01/21/18 01/21/18 18:59 06:59 18:59 Intake Total 1200 1580 Balance 1200 1580 Weight 56 kg 56 kg Intake: Intake, IV Titration 1080 1400 Amount Anidulafungin 100 mg In 280 Sodium Chloride 0.9% 100 ml @ 84 mls/hr IVPB DAILY [facility] Rx#:[id number] Dextrose 5% in Water 1, 600 900 000 ml @ 75 mls/hr IV . [id number] [facility] Rx#:[id number] Potassium Chloride 10 meq 400 In Water For Injection 1 100ml.bag @ 100 mls/hr IVPB Q1HR [facility] Rx#: [id number] cefTRIAXone 2,000 mg In 100 Sodium Chloride 0.9% 100 ml @ 100 mls/hr IVPB Q24HR [facility] Rx#:[id number] levETIRAcetam IV 500 mg 100 100 In Sodium Chloride 0.9% 100 ml @ 400 mls/hr IVPB Q12HR [facility] Rx#:[id number] Oral 120 180 Other: Voiding Method Diaper Diaper Diaper Incontinent Incontinent Incontinent # Voids 2 1 - Exam Exam 62-year-old female resting in bed appearing in no acute distress spouse at bedside feeding patient Lungs adequate air movement no shortness of breath Heart S1-S2 audible regular Abdomen indwelling Noriega catheter in place nontender nondistended no facial grimaces with palpitation reports no abdominal discomfort Extremity contractures to the lower extremities. No edema noted. - Labs CBC & Chem 7: 01/21/18 08:31 01/21/18 08:31 Labs: Abnormal Lab Results - Last 24 Hours (Table) 01/20/18 01/20/18 01/20/18 Range/Units 16:28 17:49 20:40 WBC (3.8-10.6) k/uL RBC (3.80-5.40) m/uL Hgb (11.4-16.0) gm/dL Hct (34.0-46.0) % RDW (11.5-15.5) % Neutrophils # (1.3-7.7) k/uL Potassium 2.9 L (3.5-5.1) mmol/L Chloride (98-107) mmol/L Carbon Dioxide (22-30) mmol/L Creatinine (0.52-1.04) mg/dL POC Glucose (mg/dL) 143 H 120 H (75-99) mg/dL Calcium (8.4-10.2) mg/dL AST (14-36) U/L Alkaline Phosphatase (38-126) U/L Total Protein (6.3-8.2) g/dL Albumin (3.5-5.0) g/dL 01/21/18 01/21/18 01/21/18 Range/Units 08:31 08:31 11:49 WBC 12.4 H (3.8-10.6) k/uL RBC 2.80 L (3.80-5.40) m/uL Hgb 8.2 L (11.4-16.0) gm/dL Hct 25.8 L (34.0-46.0) % RDW 19.7 H (11.5-15.5) % Neutrophils # 10.4 H (1.3-7.7) k/uL Potassium (3.5-5.1) mmol/L Chloride 116 H (98-107) mmol/L Carbon Dioxide 17 L (22-30) mmol/L Creatinine 1.23 H (0.52-1.04) mg/dL POC Glucose (mg/dL) 115 H (75-99) mg/dL Calcium 7.8 L (8.4-10.2) mg/dL AST 42 H (14-36) U/L Alkaline Phosphatase 171 H (38-126) U/L Total Protein 5.7 L (6.3-8.2) g/dL Albumin 2.2 L (3.5-5.0) g/dL Microbiology - Last 24 Hours (Table) 01/16/18 14:14 Blood Culture Gram Stain - Final Blood Blood Culture - Final Gabbie albicans Assessment and Plan Assessment: Impression Present on admission nausea vomiting elevated liver enzymes Status post MRCP no evidence of biliary tree abnormality Elevated liver enzymes possibly related to sepsis possible symptomatic gallstones UTI infection bacteremia Multiple sclerosis limited mobility bedbound Thrombocytopenia platelets improved Plan Laparoscopic cholecystectomy scheduled for tomorrow Continue recommendations per the attending Will follow with you Continue recommendations by infectious disease for IV antibiotic recommendations The above impression and plan of care have been discussed and directed by signing physician. Maite Weaver nurse practitioner acting as scribe for signing physician.
[2018-01-21] MEDS: ACETAMINOPHEN TAB 325 MG TAB PO PRN (14:31)
[2018-01-21] MEDS: FLUCONAZOLE IN NACL,ISO-OSM 200 MG in SALINE 1 100ML.BAG IVPB SCH (16:55)
[2018-01-21 20:14] LABS: Glucose,Whole Blood 124 mg/dL (75-99)
[2018-01-22] MEDS: DEXTROSE 5% IN WATER 1,000 ML IV SCH ×2 (04:54→17:22)
[2018-01-22] MEDS: LEVOTHYROXINE 50 MCG TAB PO SCH (04:55)
[2018-01-22] MEDS ORDERED: LIDOCAINE 1% 20 ML VIAL (10MG/ML) FOR IV START INTRADERMA PRN (05:35)
[2018-01-22] MEDS: CARVEDILOL 6.25 MG TAB PO SCH ×2 (07:50→17:22)
[2018-01-22] MEDS: cefTRIAXone 2,000 MG in SODIUM CHLORIDE 0.9% 100 ML IVPB SCH (07:52)
[2018-01-22 08:14] LABS: Anisocytosis Slight; HGB 7.6 gm/dL (11.4-16.0); Hypochromasia Marked; MCH 30.5 pg (25.0-35.0); MCHC 32.9 g/dL (31.0-37.0); MCV 92.7 fL (80.0-100.0); Macrocytosis Slight; Mean Platelet Volume 9.4; Platelet Count 277 k/uL (150-450); Poikilocytosis Moderate; RBC 2.48 m/uL (3.80-5.40); RDW 19.6 % (11.5-15.5); WBC 9.3 k/uL (3.8-10.6)
[2018-01-22] MEDS ORDERED: LIDOCAINE 1% 20 ML VIAL (10MG/ML) FOR IV START INTRADERMA ONE (09:24)
[2018-01-22] MEDS: LACTATED RINGERS 1,000 ML IV SCH (09:24)
[2018-01-22] MEDS ORDERED: HEPARIN SODIUM,PORCINE 5,000 UNIT/ML 1 ML VIAL SQ ONE (09:25)
[2018-01-22] MEDS ORDERED: IV FLUID CONTINUATION 850 ML IV ONE (09:25)
[2018-01-22] MEDS: PANTOPRAZOLE SODIUM 40 MG GRANULE PKT PO SCH (09:29)
[2018-01-22] MEDS ORDERED: PROPOFOL 10 MG/ML 20 ML VIAL IV ONE (09:41)
[2018-01-22] MEDS ORDERED: ePHEDrine SULFATE/0.9% NACL/PF 50 MG/5 ML SYRINGE IV ONE (09:41)
[2018-01-22] MEDS ORDERED: ROCURONIUM BROMIDE 10 MG/ML 10 ML VIAL IV ONE (09:41)
[2018-01-22] MEDS ORDERED: SUCCINYLCHOLINE CHLORIDE 100 MG/5 ML SYR IV ONE (09:41)
[2018-01-22] MEDS ORDERED: GLYCOPYRROLATE 0.2 MG/ML 2 ML VIAL ONE (09:41)
[2018-01-22] MEDS ORDERED: NEOSTIGMINE 1 MG/ML 10 ML VIAL ONE (09:41)
[2018-01-22] MEDS ORDERED: LIDOCAINE 1% INJ 10MG/ML (20 ML MDV) ONE (09:41)
[2018-01-22] MEDS ORDERED: fentaNYL (PF) 50 MCG/ML 2 ML AMP ONE (09:41)
[2018-01-22] MEDS ORDERED: BUPIVACAIN-EPI 0.25%-1:200,000 30 ML VIAL SQ ONE (10:11)
[2018-01-22 10:32] LABS: Calcium 7.7 mg/dL (8.4-10.2); Potassium 2.9 mmol/L (3.5-5.1)
--- NOTE | 2018-01-22 10:54 | P.OP ---
Date of Procedure: 01/22/18 Preoperative Diagnosis: Cholecystitis Postoperative Diagnosis: Cholecystitis Procedure(s) Performed: Laparoscopic cholecystectomy Anesthesia: MAC Surgeon: Papito Miranda Estimated Blood Loss (ml): 5 Pathology: other (Gallbladder, gallstones) Condition: stable Disposition: PACU Description of Procedure: The patient was placed on the operating table. The patient received a general endotracheal tube anesthesia. The patients abdomen was prepped and draped in the usual sterile fashion. Through an infraumbilical stab incision, the fascia of the anterior abdominal wall was grasped with a pair of Kochers and then the Veress needle was placed in the peritoneal cavity. Position of the Veress needle was confirmed with positive drop test. The abdomen was then insufflated. After adequate insufflation, the 10 mm trocar was placed in the peritoneal cavity. Following this the laparoscope was placed in the peritoneal cavity. The patient was placed in the head-up, right side up position and then a 5 mm trocar was placed in the right lateral and right subcostal position under direct visualization. A 8 mm trocar was placed in the epigastric position. The gallbladder was grasped in the fundus and infundibulum. Traction on the gallbladder was placed in the lateral and the cephalad positions. The triangle of Calot was visualized.. The cystic duct was bluntly dissected until the union of the cystic duct and common bile duct was seen. The cystic duct was then divided and sealed with the Harmonic scissors. A PDS Endoloop was then placed throughout the cystic duct stump. The cystic artery divided and sealed with the Harmonic scissors. The gallbladder was then removed from the liver bed using Harmonic scissors. The gallbladder was then extracted through the epigastric port site. Operative field was checked for any bleeding spots and Harmonic scissors was used to coagulate the liver bed. The abdomen was irrigated. The trocars were removed. The skin was closed using interrupted 3-0 Vicryl suture. Dermabond dressing were applied. The patient tolerated the procedure well.
[2018-01-22 11:10] LABS: Band Neutrophils % 2 %; Eosinophils # (M) 0.28 k/uL (0-0.7); Lymphocytes # (M) 0.84 k/uL (1.0-4.8); Metamyelocytes # (M) 0.09 k/uL (0); Metamyelocytes % 1 %; Monocytes # (M) 0.19 k/uL (0-1.0); Myelocytes # (M) 0.09 k/uL (0); Myelocytes % 1 %; Neutrophils % (M) 85 %; Nucleated Red Blood Cells 0 /100 WBC (0-0); Total Cells Counted 200
[2018-01-22 11:15] LABS: Polychromasia Present; RBC Fragments Present
[2018-01-22] MEDS: HYDROmorphone 0.5 MG/0.5 ML SYRINGE IVP PRN ×2 (11:33→11:45)
[2018-01-22] MEDS ORDERED: LACTATED RINGERS 1,000 ML IV ONE (11:56)
[2018-01-22] MEDS: hydrALAZINE HCL 50 MG TAB PO SCH ×3 (12:27→21:01)
[2018-01-22] MEDS: Mirabegron [Myrbetriq] 25 MG PO SCH (13:24)
[2018-01-22] MEDS: AMANTADINE HCL 100 MG CAP PO SCH ×2 (13:24→21:01)
[2018-01-22] MEDS: levETIRAcetam IV 500 MG in SODIUM CHLORIDE 0.9% 100 ML IVPB SCH ×2 (14:55→20:58)
[2018-01-22] MEDS: FLUCONAZOLE IN NACL,ISO-OSM 200 MG in SALINE 1 100ML.BAG IVPB SCH (14:58)
[2018-01-22] MEDS: ANIDULAFUNGIN 100 MG in SODIUM CHLORIDE 0.9% 100 ML IVPB SCH (14:58)
[2018-01-22] MEDS: LISINOPRIL 10 MG TAB PO SCH (15:05)
[2018-01-22] MEDS: amLODIPine 10 MG TAB PO SCH (15:05)
[2018-01-22] MEDS ORDERED: Potassium Replacement Protocol 1 EACH MISC MISCELLANE PRN (17:54)
[2018-01-22] MEDS: POTASSIUM CHLORIDE 10 MEQ in WATER FOR INJECTION 1 100ML.BAG IVPB SCH ×3 (18:28→22:48)
[2018-01-22 20:19] LABS: Glucose,Whole Blood 98 mg/dL (75-99)
[2018-01-23] MEDS: POTASSIUM CHLORIDE 10 MEQ in WATER FOR INJECTION 1 100ML.BAG IVPB SCH ×3 (00:15→03:37)
[2018-01-23] MEDS: HYDROmorphone 1 MG/ML 1 ML SYRINGE IVP PRN ×2 (03:38→11:00)
[2018-01-23] MEDS: DEXTROSE 5% IN WATER 1,000 ML IV SCH ×2 (03:53→19:58)
[2018-01-23] MEDS: LACTATED RINGERS 1,000 ML IV SCH ×2 (07:53→21:28)
[2018-01-23] MEDS: levETIRAcetam IV 500 MG in SODIUM CHLORIDE 0.9% 100 ML IVPB SCH ×2 (07:56→19:57)
[2018-01-23] MEDS: PANTOPRAZOLE SODIUM 40 MG GRANULE PKT PO SCH (07:57)
[2018-01-23] MEDS: LISINOPRIL 10 MG TAB PO SCH (07:57)
[2018-01-23] MEDS: CARVEDILOL 6.25 MG TAB PO SCH ×2 (07:58→15:50)
[2018-01-23] MEDS: AMANTADINE HCL 100 MG CAP PO SCH ×2 (07:58→19:55)
[2018-01-23] MEDS: Mirabegron [Myrbetriq] 25 MG PO SCH (07:58)
[2018-01-23] MEDS: LEVOTHYROXINE 50 MCG TAB PO SCH (07:58)
[2018-01-23] MEDS: amLODIPine 10 MG TAB PO SCH (07:59)
[2018-01-23] MEDS: hydrALAZINE HCL 50 MG TAB PO SCH (07:59)
[2018-01-23 08:10] LABS: Anisocytosis Slight; Basophils % (A) 0 %; Eosinophils # (A) 0.1 k/uL (0-0.7); Eosinophils % (A) 1 %; HCT 24.1 % (34.0-46.0); HGB 7.8 gm/dL (11.4-16.0); Hypochromasia Moderate; Lymphocytes # (A) 1.3 k/uL (1.0-4.8); Lymphocytes % (A) 14 %; MCH 29.2 pg (25.0-35.0); MCHC 32.2 g/dL (31.0-37.0); MCV 90.6 fL (80.0-100.0); Mean Platelet Volume 8.9; Monocytes # (A) 0.5 k/uL (0-1.0); Monocytes % (A) 5 %; Neutrophils # (A) 7.1 k/uL (1.3-7.7); Neutrophils % (A) 75 %; Platelet Count 383 k/uL (150-450); Poikilocytosis Moderate; RBC 2.66 m/uL (3.80-5.40); RDW 19.3 % (11.5-15.5); WBC 9.5 k/uL (3.8-10.6)
[2018-01-23] MEDS: ANIDULAFUNGIN 100 MG in SODIUM CHLORIDE 0.9% 100 ML IVPB SCH (08:20)
[2018-01-23] MEDS: cefTRIAXone 2,000 MG in SODIUM CHLORIDE 0.9% 100 ML IVPB SCH (10:01)
[2018-01-23 10:47] LABS: Calcium 8.1 mg/dL (8.4-10.2); Potassium 4.2 mmol/L (3.5-5.1)
[2018-01-23] MEDS ORDERED: HYDROcodone/APAP 5-325MG 1 EACH TAB PO PRN (11:11)
--- NOTE | 2018-01-23 11:39 | P.PN ---
Subjective Progress Note Date: 01/23/18 62-year-old female seen at bedside. Patient is received IV pain medication. Opens eyes to verbal stimuli. No postop events noted. Abdomen flat not distended with surgical dressing sites dry nursing reports patient incontinently urine no stool tolerating diet no reports of nausea vomiting Postop January 22 laparoscopic cholecystectomy for cholecystitis Objective - Vital Signs Vital signs: Vital Signs Temp 98 F 01/23/18 05:00 Pulse 79 01/23/18 05:00 Resp 18 01/23/18 09:00 BP 125/79 01/23/18 05:00 Pulse Ox 94 L 01/23/18 05:00 Intake & Output 01/22/18 01/23/18 01/23/18 18:59 06:59 18:59 Intake Total 1150 600 Output Total 5 Balance 1145 600 Weight 56 kg Intake: IV 900 Intake, IV Titration 250 400 Amount Dextrose 5% in Water 1, 150 000 ml @ 75 mls/hr IV . [id number] [facility] Rx#:[id number] Potassium Chloride 10 meq 300 In Water For Injection 1 100ml.bag @ 100 mls/hr IVPB Q1HR [facility] Rx#: [id number] cefTRIAXone 2,000 mg In 100 Sodium Chloride 0.9% 100 ml @ 100 mls/hr IVPB Q24HR [facility] Rx#:[id number] levETIRAcetam IV 500 mg 100 In Sodium Chloride 0.9% 100 ml @ 400 mls/hr IVPB Q12HR [facility] Rx#:[id number] Oral 200 Output: Estimated Blood Loss 5 Other: Voiding Method Diaper Diaper Diaper Incontinent Incontinent Incontinent # Voids 2 3 - Exam Physical exam Abdomen soft flat facial grimacing with palpitation to abdominal wall few hypoactive bowel tones incontinent urine surgical dressing sites dry no redness not distended - Labs CBC & Chem 7: 01/23/18 07:14 01/23/18 07:14 Labs: Abnormal Lab Results - Last 24 Hours (Table) 01/23/18 01/23/18 Range/Units 07:14 07:14 RBC 2.66 L (3.80-5.40) m/uL Hgb 7.8 L (11.4-16.0) gm/dL Hct 24.1 L (34.0-46.0) % RDW 19.3 H (11.5-15.5) % Chloride 115 H (98-107) mmol/L Carbon Dioxide 20 L (22-30) mmol/L Creatinine 1.18 H (0.52-1.04) mg/dL Calcium 8.1 L (8.4-10.2) mg/dL Microbiology - Last 24 Hours (Table) 01/21/18 08:39 Blood Culture - Preliminary Blood No Growth after 48 hours 01/21/18 08:31 Blood Culture - Preliminary Blood No Growth after 48 hours 01/16/18 14:14 Blood Culture Gram Stain - Final Blood Blood Culture - Final Gabbie albicans 01/20/18 12:21 Blood Culture Gram Stain - Preliminary Blood Blood Culture - Preliminary Yeast species 01/20/18 12:21 Blood Culture - Final Blood 01/20/18 11:40 Blood Culture - Preliminary Blood No Growth after 48 hours Assessment and Plan Assessment: Impression Present on admission nausea vomiting elevated liver enzymes Status post MRCP no evidence of biliary tree abnormality Elevated liver enzymes possibly related to sepsis possible symptomatic gallstones UTI infection bacteremia Multiple sclerosis limited mobility bedbound Thrombocytopenia platelets improved Postop laparoscopic cholecystectomy for cholecystitis done January 22 Plan Continue postop surgical care Continue recommendations per the attending Will follow with you Continue recommendations by infectious disease for IV antibiotic recommendations Discharge plan per the attending The above impression and plan of care have been discussed and directed by signing physician. Maite Weaver nurse practitioner acting as scribe for signing physician.
[2018-01-23] MEDS: ACETAMINOPHEN TAB 325 MG TAB PO PRN (15:48)
[2018-01-23] MEDS: FLUCONAZOLE IN NACL,ISO-OSM 200 MG in SALINE 1 100ML.BAG IVPB SCH (15:49)
--- NOTE | 2018-01-23 22:09 | P.PN ---
Subjective Progress Note Date: 01/23/18 62-year-old female who has multiple medical troubles that includes multiple sclerosis, history of breast carcinoma status post surgical intervention and radiation therapy, seizures and hypothyroidism presents to the emergency center with symptoms of increasing fatigue malaise some altered mentation consequently was brought to the emergency center by her . is her primary sole rougher and the family home. The patient recently spent having difficulties with urinary tract infection resented with Macrodantin which was then transitioned to Bactrim. Despite this she was not improving with increasing symptoms. She consequently was brought in the hospital on 01/10/2018. Despite antibiotic therapy with Zosyn still continues to feel somewhat poorly and constantly the infectious diseases consultation was requested. The patient has been about a by general surgery because she was having some abdominal pain there is evidence of some elevated liver function tests and alkaline phosphatase. Imaging study reveals evidence of a large gallstone but MRCP failed to reveal evidence of any acute obstruction of the biliary tract at this time. Patient though was symptomatic and there were plans for a laparoscopic cholecystectomy due to significant thrombocytopenia this was held. Today she has improved ane is feeling better without chills, pain improved. 01/17/2018 reveals the patient toLittle change of her status. She seems to be comfortable no new acute changes are related from the staff. 01/20/2018 patient continues to seem comfortable. Continues to have difficulty with her swallowing. Blood culture now shows evidence of Terrance 01/23/2018 patient comfortable status post cholecystectomy. Objective - Vital Signs Vital signs: Vital Signs Temp 97.6 F 01/23/18 21:00 Pulse 67 01/23/18 21:00 Resp 16 01/23/18 21:00 BP 104/60 01/23/18 21:00 Pulse Ox 96 01/23/18 21:00 Intake & Output 01/23/18 01/23/18 01/24/18 06:59 18:59 06:59 Intake Total 600 1190 Balance 600 1190 Weight 56 kg 56 kg Intake: Intake, IV Titration 400 950 Amount Anidulafungin 100 mg In 100 Sodium Chloride 0.9% 100 ml @ 84 mls/hr IVPB DAILY [facility] Rx#:[id number] Dextrose 5% in Water 1, 650 000 ml @ 75 mls/hr IV . [id number] [facility] Rx#:[id number] Potassium Chloride 10 meq 300 In Water For Injection 1 100ml.bag @ 100 mls/hr IVPB Q1HR [facility] Rx#: [id number] cefTRIAXone 2,000 mg In 100 Sodium Chloride 0.9% 100 ml @ 100 mls/hr IVPB Q24HR [facility] Rx#:[id number] levETIRAcetam IV 500 mg 100 100 In Sodium Chloride 0.9% 100 ml @ 400 mls/hr IVPB Q12HR [facility] Rx#:[id number] Oral 200 240 Other: Voiding Method Diaper Diaper Incontinent Incontinent # Voids 3 1 1 - Exam 62-year-old woman who is profoundly disabled from her MS, she however is awake but is not a good historian. HEENT: Anicteric conjunctiva are pink and moist nasal mucosa grossly intact without evidence of bleeding, oral mucosa is dry without thrush Neck: The neck is supple without significant lymphadenopathy or thyromegaly. Lungs: They're symmetrical air entry with few basilar crackles no bronchial sounds normal dullness or egophony Heart: Regular rate and rhythm with an audible S1-S2, no S3 no S4. There is no significant murmur click or rub, PMI was nondisplaced. Abdomen: Positive bowel sounds soft and has postoperative tenderness without palpable masses or organomegaly. There was no guarding or rebound. Extremities: The upper extremities have excellent pulses they are symmetric, no significant petechiae or telangiectasia. No splinter hemorrhages were noted. The lower extremities are free from significant edema. - Labs CBC & Chem 7: 01/23/18 07:14 01/23/18 07:14 Labs: Abnormal Lab Results - Last 24 Hours (Table) 01/23/18 01/23/18 Range/Units 07:14 07:14 RBC 2.66 L (3.80-5.40) m/uL Hgb 7.8 L (11.4-16.0) gm/dL Hct 24.1 L (34.0-46.0) % RDW 19.3 H (11.5-15.5) % Chloride 115 H (98-107) mmol/L Carbon Dioxide 20 L (22-30) mmol/L Creatinine 1.18 H (0.52-1.04) mg/dL Calcium 8.1 L (8.4-10.2) mg/dL Microbiology - Last 24 Hours (Table) 01/20/18 11:40 Blood Culture - Preliminary Blood No Growth after 72 hours 01/20/18 12:21 Blood Culture Gram Stain - Final Blood Blood Culture - Final Terrance albicans 01/21/18 08:39 Blood Culture - Preliminary Blood No Growth after 48 hours 01/21/18 08:31 Blood Culture - Preliminary Blood No Growth after 48 hours 01/16/18 14:14 Blood Culture Gram Stain - Final Blood Blood Culture - Final Terrance albicans 01/20/18 12:21 Blood Culture - Final Blood Laboratory Results WBC 9.5 k/uL (3.8-10.6) 01/23/18 07:14 RBC 2.66 m/uL (3.80-5.40) L 01/23/18 07:14 Hgb 7.8 gm/dL (11.4-16.0) L 01/23/18 07:14 Hct 24.1 % (34.0-46.0) L 01/23/18 07:14 MCV 90.6 fL (80.0-100.0) 01/23/18 07:14 MCH 29.2 pg (25.0-35.0) 01/23/18 07:14 MCHC 32.2 g/dL (31.0-37.0) 01/23/18 07:14 RDW 19.3 % (11.5-15.5) H 01/23/18 07:14 Plt Count 383 k/uL (150-450) 01/23/18 07:14 Neutrophils % 75 % 01/23/18 07:14 Neutrophils % (Manual) 85 % 01/22/18 07:17 Band Neutrophils % 2 % 01/22/18 07:17 Lymphocytes % 14 % 01/23/18 07:14 Lymphocytes % (Manual) 9 % 01/22/18 07:17 Monocytes % 5 % 01/23/18 07:14 Monocytes % (Manual) 2 % 01/22/18 07:17 Eosinophils % 1 % 01/23/18 07:14 Eosinophils % (Manual) 3 % 01/22/18 07:17 Basophils % 0 % 01/23/18 07:14 Metamyelocytes % 1 % 01/22/18 07:17 Myelocytes % 1 % 01/22/18 07:17 Neutrophils # 7.1 k/uL (1.3-7.7) 01/23/18 07:14 Neutrophils # (Manual) 8.00 k/uL (1.3-7.7) H 01/22/18 07:17 Lymphocytes # 1.3 k/uL (1.0-4.8) 01/23/18 07:14 Lymphocytes # (Manual) 0.84 k/uL (1.0-4.8) L 01/22/18 07:17 Monocytes # 0.5 k/uL (0-1.0) 01/23/18 07:14 Monocytes # (Manual) 0.19 k/uL (0-1.0) 01/22/18 07:17 Eosinophils # 0.1 k/uL (0-0.7) 01/23/18 07:14 Eosinophils # (Manual) 0.28 k/uL (0-0.7) 01/22/18 07:17 Basophils # 0.0 k/uL (0-0.2) 01/23/18 07:14 Metamyelocytes # (Man) 0.09 k/uL (0) H 01/22/18 07:17 Myelocytes # (Manual) 0.09 k/uL (0) H 01/22/18 07:17 Nucleated RBCs 0 /100 WBC (0-0) 01/22/18 07:17 Manual Slide Review Performed 01/22/18 07:17 Toxic Granulation Present 01/19/18 07:00 Polychromasia Present 01/22/18 07:17 Hypochromasia Moderate 01/23/18 07:14 Poikilocytosis Moderate 01/23/18 07:14 Anisocytosis Slight 01/23/18 07:14 Macrocytosis Slight 01/22/18 07:17 Fragmented RBCs Present 01/22/18 07:17 PT 10.5 sec (9.0-12.0) 01/10/18 13:31 INR 1.1 (<1.2) 01/10/18 13:31 APTT 23.3 sec (22.0-30.0) 01/10/18 13:31 Sodium 142 mmol/L (137-145) 01/23/18 07:14 Potassium 4.2 mmol/L (3.5-5.1) 01/23/18 07:14 Chloride 115 mmol/L (98-107) H 01/23/18 07:14 Carbon Dioxide 20 mmol/L (22-30) L 01/23/18 07:14 Anion Gap 7 mmol/L 01/23/18 07:14 BUN 13 mg/dL (7-17) 01/23/18 07:14 Creatinine 1.18 mg/dL (0.52-1.04) H 01/23/18 07:14 Est GFR (CKD-EPI)AfAm 57 (>60 ml/min/1.73 sqM) 01/23/18 07:14 Est GFR (CKD-EPI)NonAf 49 (>60 ml/min/1.73 sqM) 01/23/18 07:14 Glucose 92 mg/dL (74-99) 01/23/18 07:14 POC Glucose (mg/dL) 98 mg/dL (75-99) 01/22/18 20:18 POC Glu Auto Polisher Ter[place] Ram 01/22/18 20:[address] Glu mg/dL 134 01/11/18 06:11 Hemoglobin A1c 6.3 % (4.0-6.0) H 01/11/18 06:11 Lactic Ac Sepsis Rflx Y 01/10/18 14:22 Plasma Lactic Acid José 1.0 mmol/L (0.7-2.0) 01/12/18 18:34 Calcium 8.1 mg/dL (8.4-10.2) L 01/23/18 07:14 Phosphorus 2.6 mg/dL (2.5-4.5) 01/16/18 07:45 Magnesium 1.8 mg/dL (1.6-2.3) 01/20/18 08:31 Total Bilirubin 0.8 mg/dL (0.2-1.3) 01/21/18 08:31 AST 42 U/L (14-36) H 01/21/18 08:31 ALT 25 U/L (9-52) 01/21/18 08:31 Alkaline Phosphatase 171 U/L (38-126) H 01/21/18 08:31 Total Creatine Kinase 1070 U/L (30-135) H* 01/11/18 01:25 CK-MB (CK-2) 14.0 ng/mL (0.0-2.4) H 01/11/18 01:25 CK-MB (CK-2) Rel Index 1.3 10/27/18 01:25 Troponin I 0.086 ng/mL (0.000-0.034) H* 01/11/18 01:25 Total Protein 5.7 g/dL (6.3-8.2) L 01/21/18 08:31 Albumin 2.2 g/dL (3.5-5.0) L 01/21/18 08:31 Lipase 26 U/L (23-300) 01/11/18 06:11 Urine Color Yellow 01/10/18 13:31 Urine Appearance Turbid (Clear) H 01/10/18 13:31 Urine pH 7.5 (5.0-8.0) 01/10/18 13:31 Ur Specific [place] 1.012 (1.001-1.035) 01/10/18 13:31 Urine Protein 2+ (Negative) H 01/10/18 13:31 Urine Glucose (UA) Negative (Negative) 01/10/18 13:31 Urine Ketones Negative (Negative) 01/10/18 13:31 Urine Blood Moderate (Negative) H 01/10/18 13:31 Urine Nitrite Negative (Negative) 01/10/18 13:31 Urine Bilirubin Negative (Negative) 01/10/18 13:31 Urine Urobilinogen 2.0 mg/dL (<2.0) 01/10/18 13:31 Ur Leukocyte Esterase Moderate (Negative) H 01/10/18 13:31 Urine WBC 18 /hpf (0-5) H 01/10/18 13:31 Ur Squamous Epith Cells 1 /hpf (0-4) 01/10/18 13:31 Urine Bacteria Many /hpf (None) H 01/10/18 13:31 Urine Mucus Occasional /hpf (None) H 01/10/18 13:31 Hepatitis A IgM Ab Non-Reactive (Non-Reactive) 01/13/18 17:10 Hep Bs Antigen Non-Reactive (Non-Reactive) 01/13/18 17:10 Hep B Core IgM Ab Non-Reactive (Non-Reactive) 01/13/18 17:10 Hep C IgG Ab Non-Reactive (Non-Reactive) 01/13/18 17:10 Blood Type O Positive 01/17/18 14:52 Blood Type Confirm O Positive 01/17/18 12:47 Blood Type Recheck CABO Indicated 01/17/18 14:52 Antibody Screen NEGATIVE 01/17/18 14:52 Crossmatch See Detail 01/17/18 14:52 Spec Expiration Date 01/20/2018235101/17/18 14:52 Microbiology 01/20/18 11:40 Blood Blood Culture - Preliminary No Growth after 72 hours 01/20/18 12:21 Blood Blood Culture Gram Stain - Final 01/20/18 12:21 Blood Blood Culture - Final Terrance albicans 01/21/18 08:39 Blood Blood Culture - Preliminary No Growth after 48 hours 01/21/18 08:31 Blood Blood Culture - Preliminary No Growth after 48 hours 01/16/18 14:14 Blood Blood Culture Gram Stain - Final 01/16/18 14:14 Blood Blood Culture - Final Terrance albicans 01/20/18 12:21 Blood Blood Culture - Final 01/16/18 14:14 Blood Blood Culture - Final 01/12/18 18:34 Blood Blood Culture Gram Stain - Final 01/12/18 18:34 Blood Blood Culture - Final Beta Hemolytic Strep 01/12/18 18:34 Blood Blood Culture - Final 01/10/18 13:31 Blood Blood Culture Gram Stain - Final 01/10/18 13:31 Blood Blood Culture - Final Escherichia coli 01/10/18 13:31 Urine,Catheterized Urine Culture - Final Escherichia coli 01/10/18 13:31 Blood Blood Culture - Final Assessment and Plan (1) Acute cholecystitis Current Visit: Yes Status: Acute Code(s): K81.0 - ACUTE CHOLECYSTITIS SNOMED Code(s): 80982949 (2) Sepsis Narrative/Plan: 62-year-old woman with multiple medical troubles including progressive MS who is bedbound and cared for by her family and her in the home setting presents to Hospital from home with increasing weakness lethargy and altered mental status. At this time it appears to be some improvement as she has been hydrated and has been treated with appropriate antibiotic therapy. Patient however is now developed evidence of progressive thrombocytopenia originally platelets were at 147 noted decreased and 19. It is likely the piperacillin tazobactam is etiology of her significant drop of platelets and this is discontinued. Urine culture is available and has evidence of a nonresistant E. coli and constantly antibiotic therapy is changed to ceftriaxone. Platelets will be followed it would expect them to rapidly improve with the withdrawal of the Zosyn. She is being seen by surgery with potential laparoscopic cholecystectomy planned in the future because of the symptomatic choledocholithiasis. Fortunately MRCP does not show evidence of any acute obstructive biliary pattern. Follow blood cultures are negative. The fever and leukocytosis have also improved. 01/16/2018 further improved and platelets recovering with discontinuation of zosyn. Doing well with rocephin. follow up blood culture in progress. 01/17/2018 patient has had further improvement. Repleted some increased to 104. There is contemplation of discharge the near future. However she developed significant and worsening anemia with hemoglobin of 6.8 and continues to have a leukocytosis. There is a concern that there was an aspiration event. Continue current antibiotic therapy The urine culture does have an E. coli that will be not difficult to treat there is evidence of a beta-hemolytic strep in the blood stream which could be contamination. When she is improved plan would be for Levaquin to finish her course of therapy. She'll continue to have needs of following with surgery regarding her choledocholithiasis. 01/20/2018 patient does seem to be feeling relatively well. Not having high- grade fever today. However we now have blood culture with evidence of terrance. Eraxis is added for the treatment of her current fungemia and prior antibiotic therapy with vancomycin and Zosyn have been utilized for the E. coli and streptococcal infection that have been isolated from the bloodstream. Since her has been changing pathogens found in the blood cultures underlying abscess is a likely etiology, likely is related to her gallbladder. Given her symptoms at admission any abnormal findings. The case is discussed the general surgeon and she will be taken to the operating room on Saturday for laparoscopic cholecystectomy. 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 Fevers improved. She does have evidence of the significant polymicrobial bloodstream infection with E. coli, strep, and Terrance. It appears that an underlying urinary tract infection as well as sepsis from cholecystitis have occurred and she is showing improvement. Blood cultures are now becoming negative. Would likely be able to have IV access placed and then can complete a course of intravenous Rocephin with oral fluconazole this should be over several weeks. Current Visit: Yes Status: Acute Code(s): A41.9 - SEPSIS, UNSPECIFIED ORGANISM SNOMED Code(s): 81735575 (3) Thrombocytopenia Current Visit: Yes Status: Acute Code(s): D69.6 - THROMBOCYTOPENIA, UNSPECIFIED SNOMED Code(s): 873013388
--- NOTE | 2018-01-23 22:43 | P.PN ---
Subjective Progress Note Date: 01/21/18 Progress note being dictated for Dr. New. Sepsis secondary to urinary tract infection Elevated liver enzymes Chronic cholecystitis Interval history:62-year-old female with a known history of multiple sclerosis currently bedridden, hypertension, GERD, history of breast cancer status post lumpectomy and radiation, hypothyroidism and multiple other medical problems was brought to the hospital due to generalized weakness and dehydration. Patient has history of MS and some residual right-sided weakness and contracture. Over the past several days she has begun oral antibiotics for urinary tract infection. Initially put on nitrofurantoin, symptoms did not improve patient had an episode of nausea and vomiting. She was switched to Bactrim. She's had one dose of Bactrim yesterday but has been unable to tolerate anything orally since that time. She's had nausea with one episode of vomiting. Patient is accompanied by her who is able to give the majority the history. Patient does complain of some chronic leg pain and cramping which is typical for her. No other pain complaints. No abdominal pain. No chest pain or dyspnea. No history of fever or chills. Patient is also confused and altered for the last couple days. WBC 27.2 BUN 69 creatinine 3.75. Lactic acid 2.8 troponin 0.084. CPK 762 AST 87, alk phos 240, albumin 2.9 UA showed large leukocyte esterase, WBC 18 and moderate blood. Chest x-ray showed no acute cardio for process EKG normal sinus rhythm Ultrasound ABDOMEN showed cholelithiasis. Gallbladder wall thickening with positive Juan sign. Correlate for acute cholecystitis. Suspicion for dilated common bile duct intraductal calcifications 01/11/2018 Patient is more awake and oriented today. Able to sit in the chair. Afebrile. Denied any complains of chest pain or shortness of breath. Denied any abdominal pain. Able to tolerate oral diet and take her oral medications. MRCP showed large bile stone. No dilated ducts. Mild gallbladder wall thickening. WBC is trending down. Potassium was replaced. General surgery is planning for cholecystectomy possibly on Saturday and clinically stable. 01/12/2018 Patient became confused again today. Able to nod her head but could not communicate. Could not able to swallow. Blood pressure is uncontrolled. Patient was given IV hydralazine and IV labetalol with some improvement in blood pressure. Otherwise Catapres patch could not be applied due to short supply from pharmacy. CT head is negative. Was done due to altered mentation. Leukocytosis is much improved to 10.8 today morning. Platelet count dropped further to 32,000. Patient is being continued on antibiotics continued on Zosyn. Renal function improved with creatinine level II.0 Patient is not tolerating any oral diet. Currently on IV fluids in the form of half-normal saline. Patient became febrile this afternoon with T-max 100.0 and blood pressure is also not controlled well. Due to altered mental status and uncontrolled hypertension, thrombocytopenia with underlying sepsis patient will be transferred to MICU for further management. 01/13/2018 Patient is awake and alert today. Able to communicate slowly. No complaints of chest pain or shortness of breath. Able to take by mouth medications. Platelet count is dropping down to 19,000 today. No active bleeding noted. No leukocytosis currently. Potassium and magnesium being replaced. Renal function improved with creatinine level I.7. Patient is being closely monitored in the ICU. Patient has been afebrile. Saturating well on room air. Blood pressure is fairly controlled today. Current medications reviewed Active Medications Generic Name Dose Route Start Last Admin Trade Name Freq PRN Reason Stop Dose Admin Acetaminophen 650 mg 01/10/18 16:33 Tylenol Tab PO Q6HR PRN Mild Pain or Fever > 100.5 Amantadine HCl 100 mg 01/12/18 09:00 01/13/18 21:20 Symmetrel PO 100 mg BID KAMILAH Administration Amlodipine Besylate 10 mg 01/12/18 20:45 01/13/18 10:19 Norvasc PO 10 mg DAILY KAMILAH Administration Carvedilol 6.25 mg 01/12/18 17:30 01/13/18 16:50 Coreg PO 6.25 mg BID-W/MEALS KAMILAH Administration Hydralazine HCl 25 mg 01/13/18 09:00 01/13/18 21:20 Apresoline PO 25 mg BID KAMILAH Administration Hydromorphone HCl 0.5 mg 01/10/18 16:33 01/13/18 04:07 Dilaudid IVP 0.5 mg Q3HR PRN Administration Moderate Pain Levetiracetam 500 mg/ Sodium 105 mls @ 400 mls/hr 01/12/18 09:00 01/13/18 21: 20 Chloride IVPB 400 mls/hr Q12HR KAMILAH Administration Piperacillin/Tazobactam/ 50 mls @ 12.5 mls/hr 01/13/18 00:00 01/13/18 16:50 Dextrose 3.375 gm/ IV Solution IVPB 12.5 mls/hr Q8HR KAMILAH Administration Sodium Chloride 1,000 mls @ 100 mls/hr 01/13/18 11:15 01/13/18 21:20 Saline 0.9% IV 100 mls/hr .Q10H KAMILAH Administration Levothyroxine Sodium 50 mcg 01/12/18 06:30 01/13/18 10:21 Synthroid PO 50 mcg DAILY@0630 KAMILAH Administration Lisinopril 10 mg 01/11/18 22:45 01/13/18 11:15 Zestril PO 10 mg DAILY KAMILAH Administration Miscellaneous Information 1 each 01/11/18 11:38 Potassium Per Protocol MISCELLANE DAILY PRN Per Protocol Protocol Miscellaneous Information 1 each 01/12/18 07:07 Potassium Per Protocol MISCELLANE DAILY PRN Per Protocol Protocol Miscellaneous Information 1 each 01/13/18 06:37 Magnesium Per Protocol MISCELLANE DAILY PRN Per Protocol Protocol Naloxone HCl 0.2 mg 01/10/18 16:33 Narcan IV Q2M PRN Opioid Reversal Mirabegron [ 25 mg 01/12/18 09:00 01/13/18 11:12 Myrbetriq] 25 Mg PO Not Given DAILY KAMILAH Ondansetron HCl 4 mg 01/10/18 16:33 Zofran IVP Q8HR PRN Nausea And Vomiting Pantoprazole Sodium 40 mg 01/13/18 09:00 01/13/18 09:01 Protonix IVP 40 mg DAILY KAMILAH Administration transferred out of ICU to MedSurg unit. maintained on gentle IV fluid hydration, renal function improving. Strict aspiration precautions maintained , patient requires encouragement to eat, diet intake fair. Hemoglobin 8.5, no signs or symptoms of bleeding. UTI with E. coli.Antibiotics adjusted from Zosyn to Rocephin, platelets improving. Laparoscopic cholecystectomy pending , pending improvement in thrombocytopenia. 01/15/2018 maintained on IV antibiotics as per infectious disease. Platelets continue to improve. Urine and blood cultures positive for E. coli. Preliminary Repeat blood cultures reporting beta-hemolytic strep. Spiked fever , T-max 100.2. Lethargic. hypernatremia worsening. Receiving potassium and magnesium supplements. Maintaining O2 sats in the mid 90s on room air. Denies chest pain, palpitations or increasing shortness of breath. Denies nausea vomiting or abdominal pain. Renal function improving. Potassium and magnesium currently being supplemented. 01/16/2018 thrombocytopenia continues to improve. Maintained on IV antibiotics as per infectious disease. Persistent fevers, T-max 100.9. T bili down to 1.6. Initially scheduled for Cholecystectomy, placed on hold secondary to thrombocytopenia. Platelets currently increased to 88. Renal function improving , creatinine 1.12. Abdominal pain improved. Sodium slowly improving, continues on D5 and a half, down to 147. 01/17/2018 persistent fevers, T-max 101.1. Leukocytosis improving, trending down to 12.5 Most recent blood culture now with Gabbie. No nausea, vomiting. Denies abdominal pain. Hypokalemic, receiving supplements. Renal function improving. Scheduled for laparoscopic cholecystectomy Saturday. 01/21/2018 Consumed 50% of breakfast with encouragement of spouse. Tolerated well, no nausea or vomiting. No abdominal pain .Afebrile. Scheduled for laparoscopic cholecystectomy tomorrow. Chloride 116, creatinine 1.23. Objective - Vital Signs Vital signs: Vital Signs Temp 98.9 F 01/21/18 11:57 Pulse 85 01/21/18 11:57 Resp 16 01/21/18 11:57 BP 128/75 01/21/18 11:57 Pulse Ox 97 01/21/18 11:57 Intake & Output 01/20/18 01/21/18 01/21/18 18:59 06:59 18:59 Intake Total 1200 1580 650 Balance 1200 1580 650 Weight 56 kg 56 kg Intake: Intake, IV Titration 1080 1400 650 Amount Anidulafungin 100 mg In 280 100 Sodium Chloride 0.9% 100 ml @ 84 mls/hr IVPB DAILY KAMILAH Rx#:[id number] Dextrose 5% in Water 1, 600 900 450 000 ml @ 75 mls/hr IV . [id number] KAMILAH Rx#:[id number] Potassium Chloride 10 meq 400 In Water For Injection 1 100ml.bag @ 100 mls/hr IVPB Q1HR KAMILAH Rx#: [id number] cefTRIAXone 2,000 mg In 100 100 Sodium Chloride 0.9% 100 ml @ 100 mls/hr IVPB Q24HR [facility] Rx#:[id number] levETIRAcetam IV 500 mg 100 100 In Sodium Chloride 0.9% 100 ml @ 400 mls/hr IVPB Q12HR [facility] Rx#:[id number] Oral 120 180 Other: Voiding Method Diaper Diaper Diaper Incontinent Incontinent Incontinent # Voids 2 1 - Exam PHYSICAL EXAMINATION: PHYSICAL EXAMINATION: Patient is sitting up in the bed, no acute distress HEENT: Normocephalic. Neck is supple. Pupils reactive. Nostrils clear. Oral cavity is moist. Neck reveals no JVD, carotid bruits, or thyromegaly. CHEST EXAMINATION: Trachea is central. Symmetrical expansion. Bilateral bases diminished CARDIAC: Normal S1, S2 with no gallops. No murmurs ABDOMEN: Soft. Bowel sounds normal. No organomegaly. No abdominal bruits. Extremities: reveal no edema. No clubbing or cyanosis, lower extremity contractures, positive pulses Neurologically awake, alert, oriented x2-3 . Able to move all extremities, extremely weak. Skin: No rash or skin lesions. - Labs CBC & Chem 7: 01/23/18 07:14 01/23/18 07:14 Labs: Abnormal Lab Results - Last 24 Hours (Table) 01/20/18 01/20/18 01/20/18 Range/Units 16:28 17:49 20:40 WBC (3.8-10.6) k/uL RBC (3.80-5.40) m/uL Hgb (11.4-16.0) gm/dL Hct (34.0-46.0) % RDW (11.5-15.5) % Neutrophils # (1.3-7.7) k/uL Potassium 2.9 L (3.5-5.1) mmol/L Chloride (98-107) mmol/L Carbon Dioxide (22-30) mmol/L Creatinine (0.52-1.04) mg/dL POC Glucose (mg/dL) 143 H 120 H (75-99) mg/dL Calcium (8.4-10.2) mg/dL AST (14-36) U/L Alkaline Phosphatase (38-126) U/L Total Protein (6.3-8.2) g/dL Albumin (3.5-5.0) g/dL 11/06/18 11/06/18 11/06/18 Range/Units 08:31 08:31 11:49 WBC 12.4 H (3.8-10.6) k/uL RBC 2.80 L (3.80-5.40) m/uL Hgb 8.2 L (11.4-16.0) gm/dL Hct 25.8 L (34.0-46.0) % RDW 19.7 H (11.5-15.5) % Neutrophils # 10.4 H (1.3-7.7) k/uL Potassium (3.5-5.1) mmol/L Chloride 116 H (98-107) mmol/L Carbon Dioxide 17 L (22-30) mmol/L Creatinine 1.23 H (0.52-1.04) mg/dL POC Glucose (mg/dL) 115 H (75-99) mg/dL Calcium 7.8 L (8.4-10.2) mg/dL AST 42 H (14-36) U/L Alkaline Phosphatase 171 H (38-126) U/L Total Protein 5.7 L (6.3-8.2) g/dL Albumin 2.2 L (3.5-5.0) g/dL Microbiology - Last 24 Hours (Table) 01/20/18 12:21 Blood Culture - Preliminary Blood No Growth after 24 hours 01/20/18 11:40 Blood Culture - Preliminary Blood No Growth after 24 hours 01/16/18 14:14 Blood Culture Gram Stain - Final Blood Blood Culture - Final Gabbie albicans Assessment and Plan Assessment: Severe Sepsis/septicemia gram-negative secondary to acute urinary tract infection & bacteremia. Failed outpatient antibiotic therapy. Acute UTI with E. coli, E. coli and gabbie bacteremia, repeat cultures pending. Laparoscopic cholecystectomy pending Thrombocytopenia. Likely due to sepsis, and Zosyn. Antibiotics adjusted, platelets improved Lactic acidosis. Improving. Hypernatremia, secondary to dehydration, resolved Hyperchloremia secondary to IV fluids Elevated troponin level possible demand ischemia Acute kidney injury. Possible ATN, Elevated alk phos and AST with dilated common bile duct and acute cholecystitis as per ultrasound of abdomen. MRCP showed no dilated ducts. Showed large bile stone. Hyperbilirubinemia Altered mental status possible metabolic encephalopathy Uncontrolled hypertension/accelerated hypertension, improving rhabdomyolysis History of MS and residual right-sided weakness and contractures, bedbound History of right breast cancer in 2003 status post lumpectomy and radiation Seizure disorder. Hypothyroidism Hypokalemia Diverticulosis and past colon polyps benign Previous history of smoking Mild to moderate protein calorie malnutrition with albumin 2.4 Plan: Continue on current medication regime ,monitoring and symptomatic treatment. Maintain IV antibiotics as per infectious disease. Laparoscopic cholecystectomy scheduled for tomorrow .Close monitoring of electrolytes, platelets with repeat labs ordered for a.m. Maintain seizure precautions. Prognosis guarded given multiple complex medical issues. The impression and plan of care has been dictated as directed. : I performed a history and examination of this patient, discussed the same with the dictator. I agree with the dictator's note ,documented as a scribe. Any additional findings or plans will be noted.
--- NOTE | 2018-01-23 22:49 | P.PN ---
Subjective Progress Note Date: 01/22/18 Progress note being dictated for Dr. New. Sepsis secondary to urinary tract infection Elevated liver enzymes Chronic cholecystitis Interval history:62-year-old female with a known history of multiple sclerosis currently bedridden, hypertension, GERD, history of breast cancer status post lumpectomy and radiation, hypothyroidism and multiple other medical problems was brought to the hospital due to generalized weakness and dehydration. Patient has history of MS and some residual right-sided weakness and contracture. Over the past several days she has begun oral antibiotics for urinary tract infection. Initially put on nitrofurantoin, symptoms did not improve patient had an episode of nausea and vomiting. She was switched to Bactrim. She's had one dose of Bactrim yesterday but has been unable to tolerate anything orally since that time. She's had nausea with one episode of vomiting. Patient is accompanied by her who is able to give the majority the history. Patient does complain of some chronic leg pain and cramping which is typical for her. No other pain complaints. No abdominal pain. No chest pain or dyspnea. No history of fever or chills. Patient is also confused and altered for the last couple days. WBC 27.2 BUN 69 creatinine 3.75. Lactic acid 2.8 troponin 0.084. CPK 762 AST 87, alk phos 240, albumin 2.9 UA showed large leukocyte esterase, WBC 18 and moderate blood. Chest x-ray showed no acute cardio for process EKG normal sinus rhythm Ultrasound ABDOMEN showed cholelithiasis. Gallbladder wall thickening with positive Juan sign. Correlate for acute cholecystitis. Suspicion for dilated common bile duct intraductal calcifications 01/11/2018 Patient is more awake and oriented today. Able to sit in the chair. Afebrile. Denied any complains of chest pain or shortness of breath. Denied any abdominal pain. Able to tolerate oral diet and take her oral medications. MRCP showed large bile stone. No dilated ducts. Mild gallbladder wall thickening. WBC is trending down. Potassium was replaced. General surgery is planning for cholecystectomy possibly on Saturday and clinically stable. 01/12/2018 Patient became confused again today. Able to nod her head but could not communicate. Could not able to swallow. Blood pressure is uncontrolled. Patient was given IV hydralazine and IV labetalol with some improvement in blood pressure. Otherwise Catapres patch could not be applied due to short supply from pharmacy. CT head is negative. Was done due to altered mentation. Leukocytosis is much improved to 10.8 today morning. Platelet count dropped further to 32,000. Patient is being continued on antibiotics continued on Zosyn. Renal function improved with creatinine level II.0 Patient is not tolerating any oral diet. Currently on IV fluids in the form of half-normal saline. Patient became febrile this afternoon with T-max 100.0 and blood pressure is also not controlled well. Due to altered mental status and uncontrolled hypertension, thrombocytopenia with underlying sepsis patient will be transferred to MICU for further management. 01/13/2018 Patient is awake and alert today. Able to communicate slowly. No complaints of chest pain or shortness of breath. Able to take by mouth medications. Platelet count is dropping down to 19,000 today. No active bleeding noted. No leukocytosis currently. Potassium and magnesium being replaced. Renal function improved with creatinine level I.7. Patient is being closely monitored in the ICU. Patient has been afebrile. Saturating well on room air. Blood pressure is fairly controlled today. Current medications reviewed Active Medications Generic Name Dose Route Start Last Admin Trade Name Freq PRN Reason Stop Dose Admin Acetaminophen 650 mg 01/10/18 16:33 Tylenol Tab PO Q6HR PRN Mild Pain or Fever > 100.5 Amantadine HCl 100 mg 01/12/18 09:00 01/13/18 21:20 Symmetrel PO 100 mg BID KAMILAH Administration Amlodipine Besylate 10 mg 01/12/18 20:45 01/13/18 10:19 Norvasc PO 10 mg DAILY KAMILAH Administration Carvedilol 6.25 mg 01/12/18 17:30 01/13/18 16:50 Coreg PO 6.25 mg BID-W/MEALS KAMILAH Administration Hydralazine HCl 25 mg 01/13/18 09:00 01/13/18 21:20 Apresoline PO 25 mg BID KAMILAH Administration Hydromorphone HCl 0.5 mg 01/10/18 16:33 01/13/18 04:07 Dilaudid IVP 0.5 mg Q3HR PRN Administration Moderate Pain Levetiracetam 500 mg/ Sodium 105 mls @ 400 mls/hr 01/12/18 09:00 01/13/18 21: 20 Chloride IVPB 400 mls/hr Q12HR KAMILAH Administration Piperacillin/Tazobactam/ 50 mls @ 12.5 mls/hr 01/13/18 00:00 01/13/18 16:50 Dextrose 3.375 gm/ IV Solution IVPB 12.5 mls/hr Q8HR KAMILAH Administration Sodium Chloride 1,000 mls @ 100 mls/hr 01/13/18 11:15 01/13/18 21:20 Saline 0.9% IV 100 mls/hr .Q10H KAMILAH Administration Levothyroxine Sodium 50 mcg 01/12/18 06:30 01/13/18 10:21 Synthroid PO 50 mcg DAILY@0630 KAMILAH Administration Lisinopril 10 mg 01/11/18 22:45 01/13/18 11:15 Zestril PO 10 mg DAILY KAMILAH Administration Miscellaneous Information 1 each 01/11/18 11:38 Potassium Per Protocol MISCELLANE DAILY PRN Per Protocol Protocol Miscellaneous Information 1 each 01/12/18 07:07 Potassium Per Protocol MISCELLANE DAILY PRN Per Protocol Protocol Miscellaneous Information 1 each 01/13/18 06:37 Magnesium Per Protocol MISCELLANE DAILY PRN Per Protocol Protocol Naloxone HCl 0.2 mg 01/10/18 16:33 Narcan IV Q2M PRN Opioid Reversal Mirabegron [ 25 mg 01/12/18 09:00 01/13/18 11:12 Myrbetriq] 25 Mg PO Not Given DAILY KAMILAH Ondansetron HCl 4 mg 01/10/18 16:33 Zofran IVP Q8HR PRN Nausea And Vomiting Pantoprazole Sodium 40 mg 01/13/18 09:00 01/13/18 09:01 Protonix IVP 40 mg DAILY KAMILAH Administration transferred out of ICU to MedSurg unit. maintained on gentle IV fluid hydration, renal function improving. Strict aspiration precautions maintained , patient requires encouragement to eat, diet intake fair. Hemoglobin 8.5, no signs or symptoms of bleeding. UTI with E. coli.Antibiotics adjusted from Zosyn to Rocephin, platelets improving. Laparoscopic cholecystectomy pending , pending improvement in thrombocytopenia. 01/15/2018 maintained on IV antibiotics as per infectious disease. Platelets continue to improve. Urine and blood cultures positive for E. coli. Preliminary Repeat blood cultures reporting beta-hemolytic strep. Spiked fever , T-max 100.2. Lethargic. hypernatremia worsening. Receiving potassium and magnesium supplements. Maintaining O2 sats in the mid 90s on room air. Denies chest pain, palpitations or increasing shortness of breath. Denies nausea vomiting or abdominal pain. Renal function improving. Potassium and magnesium currently being supplemented. 01/16/2018 thrombocytopenia continues to improve. Maintained on IV antibiotics as per infectious disease. Persistent fevers, T-max 100.9. T bili down to 1.6. Initially scheduled for Cholecystectomy, placed on hold secondary to thrombocytopenia. Platelets currently increased to 88. Renal function improving , creatinine 1.12. Abdominal pain improved. Sodium slowly improving, continues on D5 and a half, down to 147. 01/17/2018 persistent fevers, T-max 101.1. Leukocytosis improving, trending down to 12.5 Most recent blood culture now with Gabbie. No nausea, vomiting. Denies abdominal pain. Hypokalemic, receiving supplements. Renal function improving. Scheduled for laparoscopic cholecystectomy Saturday. 01/21/2018 Consumed 50% of breakfast with encouragement of spouse. Tolerated well, no nausea or vomiting. No abdominal pain .Afebrile. Scheduled for laparoscopic cholecystectomy tomorrow. Chloride 116, creatinine 1.23. 01/22/2018 scheduled for laparoscopic cholecystectomy this morning. Hemoglobin 7.6, creatinine 1.29. Denies chest pain, palpitations or shortness of breath. Objective - Vital Signs Vital signs: Vital Signs Temp 97.6 F 01/22/18 13:20 Pulse 67 01/22/18 13:20 Resp 16 01/22/18 13:20 BP 108/67 01/22/18 13:20 Pulse Ox 95 01/22/18 13:20 Intake & Output 01/21/18 01/22/18 01/22/18 18:59 06:59 18:59 Intake Total 650 520 900 Output Total 5 Balance 650 520 895 Weight 56 kg Intake: IV 900 Intake, IV Titration 650 400 Amount Anidulafungin 100 mg In 100 Sodium Chloride 0.9% 100 ml @ 84 mls/hr IVPB DAILY KAMILAH Rx#:[id number] Dextrose 5% in Water 1, 450 300 000 ml @ 75 mls/hr IV . [id number] [facility] Rx#:[id number] cefTRIAXone 2,000 mg In 100 Sodium Chloride 0.9% 100 ml @ 100 mls/hr IVPB Q24HR [facility] Rx#:[id number] levETIRAcetam IV 500 mg 100 In Sodium Chloride 0.9% 100 ml @ 400 mls/hr IVPB Q12HR [facility] Rx#:[id number] Oral 120 Output: Estimated Blood Loss 5 Other: Voiding Method Diaper Diaper Incontinent Incontinent # Voids 4 - Exam PHYSICAL EXAMINATION: Patient is sitting up in the bed, no acute distress HEENT: Normocephalic. Neck is supple. Pupils reactive. Oral cavity is dry Neck reveals no JVD, carotid bruits, or thyromegaly. CHEST EXAMINATION: Trachea is central. Symmetrical expansion. Bilateral bases diminished CARDIAC: Normal S1, S2 with no gallops. No murmurs ABDOMEN: Soft. Bowel sounds normal. No organomegaly. No abdominal bruits. Extremities: reveal no edema. No clubbing or cyanosis, lower extremity contractures, positive pulses Neurologically awake, alert, oriented x2-3 . Able to move all extremities, extremely weak. Skin: No rash or skin lesions. - Labs CBC & Chem 7: 01/23/18 07:14 01/23/18 07:14 Labs: Abnormal Lab Results - Last 24 Hours (Table) 01/21/18 01/22/18 01/22/18 Range/Units 20:13 07:17 07:17 RBC 2.48 L (3.80-5.40) m/uL Hgb 7.6 L (11.4-16.0) gm/dL Hct 23.0 L (34.0-46.0) % RDW 19.6 H (11.5-15.5) % Neutrophils # (Manual) 8.00 H (1.3-7.7) k/uL Lymphocytes # (Manual) 0.84 L (1.0-4.8) k/uL Metamyelocytes # (Man) 0.09 H (0) k/uL Myelocytes # (Manual) 0.09 H (0) k/uL Potassium 2.9 L (3.5-5.1) mmol/L Chloride 114 H (98-107) mmol/L Carbon Dioxide 20 L (22-30) mmol/L Creatinine 1.25 H (0.52-1.04) mg/dL POC Glucose (mg/dL) 124 H (75-99) mg/dL Calcium 7.7 L (8.4-10.2) mg/dL Microbiology - Last 24 Hours (Table) 01/20/18 11:40 Blood Culture - Preliminary Blood No Growth after 48 hours 01/21/18 08:39 Blood Culture - Preliminary Blood No Growth after 24 hours 01/21/18 08:31 Blood Culture - Preliminary Blood No Growth after 24 hours 01/20/18 12:21 Blood Culture - Preliminary Blood No Growth after 24 hours 01/16/18 14:14 Blood Culture Gram Stain - Final Blood Blood Culture - Final Gabbie albicans Assessment and Plan Assessment: Severe Sepsis/septicemia gram-negative secondary to acute urinary tract infection & bacteremia. Failed outpatient antibiotic therapy. Acute UTI with E. coli, E. coli and gabbie bacteremia, repeat cultures pending. Laparoscopic cholecystectomy pending Thrombocytopenia. Likely due to sepsis, and Zosyn. Antibiotics adjusted, platelets improved Lactic acidosis. Improving. Hypernatremia, secondary to dehydration, resolved Hyperchloremia secondary to IV fluids Elevated troponin level possible demand ischemia Acute kidney injury. Possible ATN, Elevated alk phos and AST with dilated common bile duct and acute cholecystitis as per ultrasound of abdomen. MRCP showed no dilated ducts. Showed large bile stone. Hyperbilirubinemia Altered mental status possible metabolic encephalopathy Uncontrolled hypertension/accelerated hypertension, improving rhabdomyolysis History of MS and residual right-sided weakness and contractures, bedbound History of right breast cancer in 2002 status post lumpectomy and radiation Seizure disorder. Hypothyroidism Hypokalemia Diverticulosis and past colon polyps benign Previous history of smoking Mild to moderate protein calorie malnutrition with albumin 2.4 Plan: Continue on current medication regime ,monitoring and symptomatic treatment. Maintain IV antibiotics as per infectious disease. Laparoscopic cholecystectomy pending for this morning .repeat blood cultures in progress .Close monitoring of electrolytes, platelets with repeat labs ordered for a.m. Maintain seizure precautions. Prognosis guarded given multiple complex medical issues. The impression and plan of care has been dictated as directed. : I performed a history and examination of this patient, discussed the same with the dictator. I agree with the dictator's note ,documented as a scribe. Any additional findings or plans will be noted.
--- NOTE | 2018-01-23 22:57 | P.PN ---
Subjective Progress Note Date: 01/23/18 Progress note being dictated for Dr. New. Sepsis secondary to urinary tract infection Elevated liver enzymes Chronic cholecystitis Interval history:62-year-old female with a known history of multiple sclerosis currently bedridden, hypertension, GERD, history of breast cancer status post lumpectomy and radiation, hypothyroidism and multiple other medical problems was brought to the hospital due to generalized weakness and dehydration. Patient has history of MS and some residual right-sided weakness and contracture. Over the past several days she has begun oral antibiotics for urinary tract infection. Initially put on nitrofurantoin, symptoms did not improve patient had an episode of nausea and vomiting. She was switched to Bactrim. She's had one dose of Bactrim yesterday but has been unable to tolerate anything orally since that time. She's had nausea with one episode of vomiting. Patient is accompanied by her who is able to give the majority the history. Patient does complain of some chronic leg pain and cramping which is typical for her. No other pain complaints. No abdominal pain. No chest pain or dyspnea. No history of fever or chills. Patient is also confused and altered for the last couple days. WBC 27.2 BUN 69 creatinine 3.75. Lactic acid 2.8 troponin 0.084. CPK 762 AST 87, alk phos 240, albumin 2.9 UA showed large leukocyte esterase, WBC 18 and moderate blood. Chest x-ray showed no acute cardio for process EKG normal sinus rhythm Ultrasound ABDOMEN showed cholelithiasis. Gallbladder wall thickening with positive Juan sign. Correlate for acute cholecystitis. Suspicion for dilated common bile duct intraductal calcifications 01/11/2018 Patient is more awake and oriented today. Able to sit in the chair. Afebrile. Denied any complains of chest pain or shortness of breath. Denied any abdominal pain. Able to tolerate oral diet and take her oral medications. MRCP showed large bile stone. No dilated ducts. Mild gallbladder wall thickening. WBC is trending down. Potassium was replaced. General surgery is planning for cholecystectomy possibly on Saturday and clinically stable. 01/12/2018 Patient became confused again today. Able to nod her head but could not communicate. Could not able to swallow. Blood pressure is uncontrolled. Patient was given IV hydralazine and IV labetalol with some improvement in blood pressure. Otherwise Catapres patch could not be applied due to short supply from pharmacy. CT head is negative. Was done due to altered mentation. Leukocytosis is much improved to 10.8 today morning. Platelet count dropped further to 32,000. Patient is being continued on antibiotics continued on Zosyn. Renal function improved with creatinine level II.0 Patient is not tolerating any oral diet. Currently on IV fluids in the form of half-normal saline. Patient became febrile this afternoon with T-max 100.0 and blood pressure is also not controlled well. Due to altered mental status and uncontrolled hypertension, thrombocytopenia with underlying sepsis patient will be transferred to MICU for further management. 01/13/2018 Patient is awake and alert today. Able to communicate slowly. No complaints of chest pain or shortness of breath. Able to take by mouth medications. Platelet count is dropping down to 19,000 today. No active bleeding noted. No leukocytosis currently. Potassium and magnesium being replaced. Renal function improved with creatinine level I.7. Patient is being closely monitored in the ICU. Patient has been afebrile. Saturating well on room air. Blood pressure is fairly controlled today. Current medications reviewed Active Medications Generic Name Dose Route Start Last Admin Trade Name Freq PRN Reason Stop Dose Admin Acetaminophen 650 mg 01/10/18 16:33 Tylenol Tab PO Q6HR PRN Mild Pain or Fever > 100.5 Amantadine HCl 100 mg 01/12/18 09:00 01/13/18 21:20 Symmetrel PO 100 mg BID KAMILAH Administration Amlodipine Besylate 10 mg 01/12/18 20:45 01/13/18 10:19 Norvasc PO 10 mg DAILY KAMILAH Administration Carvedilol 6.25 mg 01/12/18 17:30 01/13/18 16:50 Coreg PO 6.25 mg BID-W/MEALS KAMILAH Administration Hydralazine HCl 25 mg 01/13/18 09:00 01/13/18 21:20 Apresoline PO 25 mg BID KAMILAH Administration Hydromorphone HCl 0.5 mg 01/10/18 16:33 01/13/18 04:07 Dilaudid IVP 0.5 mg Q3HR PRN Administration Moderate Pain Levetiracetam 500 mg/ Sodium 105 mls @ 400 mls/hr 01/12/18 09:00 01/13/18 21: 20 Chloride IVPB 400 mls/hr Q12HR KAMILAH Administration Piperacillin/Tazobactam/ 50 mls @ 12.5 mls/hr 01/13/18 00:00 01/13/18 16:50 Dextrose 3.375 gm/ IV Solution IVPB 12.5 mls/hr Q8HR KAMILAH Administration Sodium Chloride 1,000 mls @ 100 mls/hr 01/13/18 11:15 01/13/18 21:20 Saline 0.9% IV 100 mls/hr .Q10H KAMILAH Administration Levothyroxine Sodium 50 mcg 01/12/18 06:30 01/13/18 10:21 Synthroid PO 50 mcg DAILY@0630 KAMILAH Administration Lisinopril 10 mg 01/11/18 22:45 01/13/18 11:15 Zestril PO 10 mg DAILY KAMILAH Administration Miscellaneous Information 1 each 01/11/18 11:38 Potassium Per Protocol MISCELLANE DAILY PRN Per Protocol Protocol Miscellaneous Information 1 each 01/12/18 07:07 Potassium Per Protocol MISCELLANE DAILY PRN Per Protocol Protocol Miscellaneous Information 1 each 01/13/18 06:37 Magnesium Per Protocol MISCELLANE DAILY PRN Per Protocol Protocol Naloxone HCl 0.2 mg 01/10/18 16:33 Narcan IV Q2M PRN Opioid Reversal Mirabegron [ 25 mg 01/12/18 09:00 01/13/18 11:12 Myrbetriq] 25 Mg PO Not Given DAILY KAMILAH Ondansetron HCl 4 mg 01/10/18 16:33 Zofran IVP Q8HR PRN Nausea And Vomiting Pantoprazole Sodium 40 mg 01/13/18 09:00 01/13/18 09:01 Protonix IVP 40 mg DAILY KAMILAH Administration transferred out of ICU to MedSurg unit. maintained on gentle IV fluid hydration, renal function improving. Strict aspiration precautions maintained , patient requires encouragement to eat, diet intake fair. Hemoglobin 8.5, no signs or symptoms of bleeding. UTI with E. coli.Antibiotics adjusted from Zosyn to Rocephin, platelets improving. Laparoscopic cholecystectomy pending , pending improvement in thrombocytopenia. 01/15/2018 maintained on IV antibiotics as per infectious disease. Platelets continue to improve. Urine and blood cultures positive for E. coli. Preliminary Repeat blood cultures reporting beta-hemolytic strep. Spiked fever , T-max 100.2. Lethargic. hypernatremia worsening. Receiving potassium and magnesium supplements. Maintaining O2 sats in the mid 90s on room air. Denies chest pain, palpitations or increasing shortness of breath. Denies nausea vomiting or abdominal pain. Renal function improving. Potassium and magnesium currently being supplemented. 01/16/2018 thrombocytopenia continues to improve. Maintained on IV antibiotics as per infectious disease. Persistent fevers, T-max 100.9. T bili down to 1.6. Initially scheduled for Cholecystectomy, placed on hold secondary to thrombocytopenia. Platelets currently increased to 88. Renal function improving , creatinine 1.12. Abdominal pain improved. Sodium slowly improving, continues on D5 and a half, down to 147. 01/17/2018 persistent fevers, T-max 101.1. Leukocytosis improving, trending down to 12.5 Most recent blood culture now with Gabbie. No nausea, vomiting. Denies abdominal pain. Hypokalemic, receiving supplements. Renal function improving. Scheduled for laparoscopic cholecystectomy Saturday. 01/21/2018 Consumed 50% of breakfast with encouragement of spouse. Tolerated well, no nausea or vomiting. No abdominal pain .Afebrile. Scheduled for laparoscopic cholecystectomy tomorrow. Chloride 116, creatinine 1.23. 01/22/2018 scheduled for laparoscopic cholecystectomy this morning. Hemoglobin 7.6, creatinine 1.29. Denies chest pain, palpitations or shortness of breath. 01/23/2018 underwent laparoscopic cholecystectomy yesterday, tolerated procedure well. T-max 100. Hemoglobin 7.8. Sedated on IV pain medication. Received potassium supplements yesterday, potassium improved at 4.2. Renal function improving. Objective - Vital Signs Vital signs: Vital Signs Temp 97.6 F 01/23/18 21:00 Pulse 67 01/23/18 21:00 Resp 16 01/23/18 21:00 BP 104/60 01/23/18 21:00 Pulse Ox 96 01/23/18 21:00 Intake & Output 01/23/18 01/23/18 01/24/18 06:59 18:59 06:59 Intake Total 600 1190 Balance 600 1190 Weight 56 kg 56 kg Intake: Intake, IV Titration 400 950 Amount Anidulafungin 100 mg In 100 Sodium Chloride 0.9% 100 ml @ 84 mls/hr IVPB DAILY [facility] Rx#:[id number] Dextrose 5% in Water 1, 650 000 ml @ 75 mls/hr IV . [id number] KAMILAH Rx#:[id number] Potassium Chloride 10 meq 300 In Water For Injection 1 100ml.bag @ 100 mls/hr IVPB Q1HR [facility] Rx#: [id number] cefTRIAXone 2,000 mg In 100 Sodium Chloride 0.9% 100 ml @ 100 mls/hr IVPB Q24HR KAMILAH Rx#:[id number] levETIRAcetam IV 500 mg 100 100 In Sodium Chloride 0.9% 100 ml @ 400 mls/hr IVPB Q12HR [facility] Rx#:[id number] Oral 200 240 Other: Voiding Method Diaper Diaper Incontinent Incontinent # Voids 3 1 1 - Exam PHYSICAL EXAMINATION: Patient is sitting up in the bed, no acute distress HEENT: Normocephalic. Neck is supple. Pupils reactive. Oral cavity is dry Neck reveals no JVD, carotid bruits, or thyromegaly. CHEST EXAMINATION: Trachea is central. Symmetrical expansion. Bilateral bases diminished CARDIAC: Normal S1, S2 with no gallops. No murmurs ABDOMEN: Soft. Nondistended , status post surgery. hypoactive Bowel sounds. Extremities: reveal no edema. No clubbing or cyanosis, lower extremity contractures, positive pulses Neurologically awake, alert, oriented x2-3 . Able to move all extremities, extremely weak. Skin: No rash or skin lesions. - Labs CBC & Chem 7: 01/23/18 07:14 01/23/18 07:14 Labs: Abnormal Lab Results - Last 24 Hours (Table) 01/23/18 01/23/18 Range/Units 07:14 07:14 RBC 2.66 L (3.80-5.40) m/uL Hgb 7.8 L (11.4-16.0) gm/dL Hct 24.1 L (34.0-46.0) % RDW 19.3 H (11.5-15.5) % Chloride 115 H (98-107) mmol/L Carbon Dioxide 20 L (22-30) mmol/L Creatinine 1.18 H (0.52-1.04) mg/dL Calcium 8.1 L (8.4-10.2) mg/dL Microbiology - Last 24 Hours (Table) 01/20/18 11:40 Blood Culture - Preliminary Blood No Growth after 72 hours 01/20/18 12:21 Blood Culture Gram Stain - Final Blood Blood Culture - Final Gabbie albicans 01/21/18 08:39 Blood Culture - Preliminary Blood No Growth after 48 hours 01/21/18 08:31 Blood Culture - Preliminary Blood No Growth after 48 hours 01/16/18 14:14 Blood Culture Gram Stain - Final Blood Blood Culture - Final Gabbie albicans 01/20/18 12:21 Blood Culture - Final Blood Assessment and Plan Assessment: Severe Sepsis/septicemia gram-negative secondary to acute urinary tract infection & bacteremia. Failed outpatient antibiotic therapy. Acute UTI with E. coli, E. coli and gabbie bacteremia, repeat cultures pending. Status post Laparoscopic cholecystectomy Thrombocytopenia. Likely due to sepsis, and Zosyn. Antibiotics adjusted, platelets improved Lactic acidosis. Improving. Hypernatremia, secondary to dehydration, resolved Hyperchloremia secondary to IV fluids Elevated troponin level possible demand ischemia Acute kidney injury. Possible ATN, Elevated alk phos and AST with dilated common bile duct and acute cholecystitis as per ultrasound of abdomen. MRCP showed no dilated ducts. Showed large bile stone. Hyperbilirubinemia Altered mental status possible metabolic encephalopathy Uncontrolled hypertension/accelerated hypertension, improving rhabdomyolysis History of MS and residual right-sided weakness and contractures, bedbound History of right breast cancer in 2002 status post lumpectomy and radiation Seizure disorder. Hypothyroidism Hypokalemia Diverticulosis and past colon polyps benign Previous history of smoking Mild to moderate protein calorie malnutrition with albumin 2.4 Plan: Continue on current medication regime ,monitoring and symptomatic treatment. Maintain IV antibiotics as per infectious disease. Aggressive pulmonary toileting. Follow repeat blood cultures closely .Close monitoring of electrolytes, platelets with repeat labs ordered for a.m. Maintain seizure precautions. Discharge planning in progress for tomorrow. plans to take patient home. The impression and plan of care has been dictated as directed. : I performed a history and examination of this patient, discussed the same with the dictator. I agree with the dictator's note ,documented as a scribe. Any additional findings or plans will be noted.
[2018-01-24] MEDS: ACETAMINOPHEN TAB 325 MG TAB PO PRN ×2 (00:02→15:16)
[2018-01-24] MEDS: LEVOTHYROXINE 50 MCG TAB PO SCH (06:17)
[2018-01-24] MEDS: CARVEDILOL 6.25 MG TAB PO SCH ×2 (07:20→15:17)
[2018-01-24] MEDS: PANTOPRAZOLE SODIUM 40 MG GRANULE PKT PO SCH (07:20)
[2018-01-24] MEDS: levETIRAcetam IV 500 MG in SODIUM CHLORIDE 0.9% 100 ML IVPB SCH ×2 (07:21→20:07)
[2018-01-24] MEDS: AMANTADINE HCL 100 MG CAP PO SCH ×2 (07:51→20:08)
[2018-01-24] MEDS: cefTRIAXone 2,000 MG in SODIUM CHLORIDE 0.9% 100 ML IVPB SCH (07:52)
[2018-01-24] MEDS: amLODIPine 10 MG TAB PO SCH (07:52)
[2018-01-24 08:37] LABS: Anisocytosis Slight; Basophils % (A) 0 %; Eosinophils % (A) 0 %; HCT 23.5 % (34.0-46.0); HGB 7.5 gm/dL (11.4-16.0); Hypochromasia Slight; Lymphocytes # (A) 1.3 k/uL (1.0-4.8); Lymphocytes % (A) 12 %; MCH 28.9 pg (25.0-35.0); MCHC 31.9 g/dL (31.0-37.0); MCV 90.6 fL (80.0-100.0); Macrocytosis Slight; Mean Platelet Volume 8.6; Monocytes # (A) 0.4 k/uL (0-1.0); Monocytes % (A) 4 %; Neutrophils # (A) 8.4 k/uL (1.3-7.7); Neutrophils % (A) 80 %; Platelet Count 397 k/uL (150-450); Poikilocytosis Slight; RDW 19.3 % (11.5-15.5); WBC 10.5 k/uL (3.8-10.6)
--- NOTE | 2018-01-24 09:06 | P.PN ---
<Maite Weaver - Last Filed: 01/24/18 09:03> Subjective Progress Note Date: 01/24/18 62-year-old female seen this morning at the bedside. Awake no new events the discharge plan and progress defer to by the attending. Surgical dressing sites dry abdomen soft nondistended no nausea no vomiting tolerating January 22 laparoscopic cholecystectomy for cholecystitis Objective - Vital Signs Vital signs: Vital Signs Temp 98.2 F 01/24/18 06:41 Pulse 90 01/24/18 06:41 Resp 18 01/24/18 06:41 BP 150/86 01/24/18 06:41 Pulse Ox 95 01/24/18 04:45 Intake & Output 01/23/18 01/24/18 01/24/18 18:59 06:59 18:59 Intake Total 1190 Balance 1190 Weight 56 kg Intake: Intake, IV Titration 950 Amount Anidulafungin 100 mg In 100 Sodium Chloride 0.9% 100 ml @ 84 mls/hr IVPB DAILY K[facility]ILAH Rx#:[id number] Dextrose 5% in Water 1, 650 000 ml @ 75 mls/hr IV . [id number] KAMLIAH Rx#:[id number] cefTRIAXone 2,000 mg In 100 Sodium Chloride 0.9% 100 ml @ 100 mls/hr IVPB Q24HR [facility] Rx#:[id number] levETIRAcetam IV 500 mg 100 In Sodium Chloride 0.9% 100 ml @ 400 mls/hr IVPB Q12HR KAMILAH Rx#:[id number] Oral 240 Other: Voiding Method Diaper Diaper Incontinent Incontinent # Voids 1 2 - Exam Physical exam Abdomen flat surgical tenderness appropriate not distended bowel tones present incontinent a urine tolerating diet surgical dressing sites dry - Labs CBC & Chem 7: 01/24/18 07:26 01/23/18 07:14 Labs: Abnormal Lab Results - Last 24 Hours (Table) 01/23/18 01/24/18 Range/Units 07:14 07:26 RBC 2.60 L (3.80-5.40) m/uL Hgb 7.5 L (11.4-16.0) gm/dL Hct 23.5 L (34.0-46.0) % RDW 19.3 H (11.5-15.5) % Neutrophils # 8.4 H (1.3-7.7) k/uL Chloride 115 H (98-107) mmol/L Carbon Dioxide 20 L (22-30) mmol/L Creatinine 1.18 H (0.52-1.04) mg/dL Calcium 8.1 L (8.4-10.2) mg/dL Microbiology - Last 24 Hours (Table) 01/20/18 11:40 Blood Culture - Preliminary Blood No Growth after 72 hours 01/20/18 12:21 Blood Culture Gram Stain - Final Blood Blood Culture - Final Gabbie albicans 01/21/18 08:39 Blood Culture - Preliminary Blood No Growth after 48 hours 01/21/18 08:31 Blood Culture - Preliminary Blood No Growth after 48 hours 01/16/18 14:14 Blood Culture Gram Stain - Final Blood Blood Culture - Final Gabbie albicans Assessment and Plan Assessment: Impression Present on admission nausea vomiting elevated liver enzymes Status post MRCP no evidence of biliary tree abnormality Elevated liver enzymes possibly related to sepsis possible symptomatic gallstones UTI infection bacteremia Multiple sclerosis limited mobility bedbound Thrombocytopenia platelets improved Postop laparoscopic cholecystectomy for cholecystitis done January 22 Plan Continue postop surgical care Continue recommendations per the attending Will follow with you Continue recommendations by infectious disease for IV antibiotic recommendations Discharge plan per the attending per surgical perspective okay to be discharged per to the timing to the attending Dictating a progress note for Dr. Jacques rounddonna on behalf of dr pink The above impression and plan of care have been discussed and directed by signing physician. Maite Weaver nurse practitioner acting as scribe for signing physician. <Sameer Stokes - Last Filed: 01/24/18 21:22> Objective - Vital Signs Vital signs: Vital Signs Temp 97.5 F L 01/24/18 17:26 Pulse 68 01/24/18 17:26 Resp 20 01/24/18 17:26 BP 107/66 01/24/18 17:26 Pulse Ox 96 01/24/18 17:26 Intake & Output 01/24/18 01/24/18 01/25/18 06:59 18:59 06:59 Intake Total 5 Balance 5 Weight 56 kg Intake: Oral 5 Other: Voiding Method Diaper Diaper Incontinent Incontinent # Voids 2 3 - Labs CBC & Chem 7: 01/24/18 07:26 01/23/18 07:14 Labs: Abnormal Lab Results - Last 24 Hours (Table) 01/24/18 Range/Units 07:26 RBC 2.60 L (3.80-5.40) m/uL Hgb 7.5 L (11.4-16.0) gm/dL Hct 23.5 L (34.0-46.0) % RDW 19.3 H (11.5-15.5) % Neutrophils # 8.4 H (1.3-7.7) k/uL Microbiology - Last 24 Hours (Table) 01/20/18 11:40 Blood Culture - Preliminary Blood No Growth after 96 hours 01/21/18 08:31 Blood Culture - Preliminary Blood No Growth after 72 hours 01/21/18 08:39 Blood Culture - Preliminary Blood No Growth after 72 hours Assessment and Plan Assessment: as above. Patient denies abdominal pain. Tolerating diet. Continue advancing diet as tolerated. Discharge per primary service.
[2018-01-24] MEDS: Mirabegron [Myrbetriq] 25 MG PO SCH (10:18)
[2018-01-24] MEDS: ANIDULAFUNGIN 100 MG in SODIUM CHLORIDE 0.9% 100 ML IVPB SCH (10:20)
--- NOTE | 2018-01-24 14:54 | P.PN ---
Subjective 62-year-old female with a known history of multiple sclerosis currently bedridden, hypertension, GERD, history of breast cancer status post lumpectomy and radiation, hypothyroidism and multiple other medical problems was brought to the hospital due to generalized weakness and dehydration. Patient has history of MS and some residual right-sided weakness and contracture. Over the past several days she has begun oral antibiotics for urinary tract infection. Initially put on nitrofurantoin, symptoms did not improve patient had an episode of nausea and vomiting. She was switched to Bactrim. She's had one dose of Bactrim yesterday but has been unable to tolerate anything orally since that time. She's had nausea with one episode of vomiting. Patient is accompanied by her who is able to give the majority the history. Patient does complain of some chronic leg pain and cramping which is typical for her. No other pain complaints. No abdominal pain. No chest pain or dyspnea. No history of fever or chills. Patient is also confused and altered for the last couple days. WBC 27.2 BUN 69 creatinine 3.75. Lactic acid 2.8 troponin 0.084. CPK 762 AST 87, alk phos 240, albumin 2.9 UA showed large leukocyte esterase, WBC 18 and moderate blood. Chest x-ray showed no acute cardio for process EKG normal sinus rhythm Ultrasound ABDOMEN showed cholelithiasis. Gallbladder wall thickening with positive Juan sign. Correlate for acute cholecystitis. Suspicion for dilated common bile duct intraductal calcifications 01/11/2018 Patient is more awake and oriented today. Able to sit in the chair. Afebrile. Denied any complains of chest pain or shortness of breath. Denied any abdominal pain. Able to tolerate oral diet and take her oral medications. MRCP showed large bile stone. No dilated ducts. Mild gallbladder wall thickening. WBC is trending down. Potassium was replaced. General surgery is planning for cholecystectomy possibly on Saturday and clinically stable. 01/12/2018 Patient became confused again today. Able to nod her head but could not communicate. Could not able to swallow. Blood pressure is uncontrolled. Patient was given IV hydralazine and IV labetalol with some improvement in blood pressure. Otherwise Catapres patch could not be applied due to short supply from pharmacy. CT head is negative. Was done due to altered mentation. Leukocytosis is much improved to 10.8 today morning. Platelet count dropped further to 32,000. Patient is being continued on antibiotics continued on Zosyn. Renal function improved with creatinine level II.0 Patient is not tolerating any oral diet. Currently on IV fluids in the form of half-normal saline. Patient became febrile this afternoon with T-max 100.0 and blood pressure is also not controlled well. Due to altered mental status and uncontrolled hypertension, thrombocytopenia with underlying sepsis patient will be transferred to MICU for further management. 01/13/2018 Patient is awake and alert today. Able to communicate slowly. No complaints of chest pain or shortness of breath. Able to take by mouth medications. Platelet count is dropping down to 19,000 today. No active bleeding noted. No leukocytosis currently. Potassium and magnesium being replaced. Renal function improved with creatinine level I.7. Patient is being closely monitored in the ICU. Patient has been afebrile. Saturating well on room air. Blood pressure is fairly controlled today 10:30/18 transferred out of ICU to MedSur unit. maintained on gentle IV fluid hydration, renal function improving. Strict aspiration precautions maintained , patient requires encouragement to eat, diet intake fair. Hemoglobin 8.5, no signs or symptoms of bleeding. UTI with E. coli.Antibiotics adjusted from Zosyn to Rocephin, platelets improving. Laparoscopic cholecystectomy pending , pending improvement in thrombocytopenia. 01/15/2018 maintained on IV antibiotics as per infectious disease. Platelets continue to improve. Urine and blood cultures positive for E. coli. Preliminary Repeat blood cultures reporting beta-hemolytic strep. Spiked fever , T-max 100.2. Lethargic. hypernatremia worsening. Receiving potassium and magnesium supplements. Maintaining O2 sats in the mid 90s on room air. Denies chest pain, palpitations or increasing shortness of breath. Denies nausea vomiting or abdominal pain. Renal function improving. Potassium and magnesium currently being supplemented. 01/16/2018 thrombocytopenia continues to improve. Maintained on IV antibiotics as per infectious disease. Persistent fevers, T-max 100.9. T bili down to 1.6. Initially scheduled for Cholecystectomy, placed on hold secondary to thrombocytopenia. Platelets currently increased to 88. Renal function improving , creatinine 1.12. Abdominal pain improved. Sodium slowly improving, continues on D5 and a half, down to 147. 01/17/2018 persistent fevers, T-max 101.1. Leukocytosis improving, trending down to 12.5 Most recent blood culture now with Gabbie. No nausea, vomiting. Denies abdominal pain. Hypokalemic, receiving supplements. Renal function improving. Scheduled for laparoscopic cholecystectomy Saturday. 01/21/2018 Consumed 50% of breakfast with encouragement of spouse. Tolerated well, no nausea or vomiting. No abdominal pain .Afebrile. Scheduled for laparoscopic cholecystectomy tomorrow. Chloride 116, creatinine 1.23. 01/22/2018 scheduled for laparoscopic cholecystectomy this morning. Hemoglobin 7.6, creatinine 1.29. Denies chest pain, palpitations or shortness of breath. 01/23/2018 underwent laparoscopic cholecystectomy yesterday, tolerated procedure well. T-max 100. Hemoglobin 7.8. Sedated on IV pain medication. Received potassium supplements yesterday, potassium improved at 4.2. Renal function improving. 01/24/2018 Patient had high-grade fever today we'll obtain repeat blood cultures chest x- ray minimal crackles on exam. Patient is excessively drowsy and sleepy presently on Eraxis along with flucanazole and Rocephin. Infectious disease is following the patient will let the made aware of the fevers. Not sure if patient will need to antifungals, will discuss this with infectious disease patient has blood cultures that are positive for Gabbie albicans repeat blood culture from january positive for Gabbie patient had beta hemolytic streptococci as well along with E. coli in the urine and blood. Constitutional: She and had fever and severely lethargic Cardio vascular: denied any chest pain, palpitations Gastrointestinal denied any nausea vomiting Pulmonary: Denied any shortness of breath cough Neurologic denied any new focal deficits All inpatient medications were reviewed and appropriate changes in these medications as dictated in the interval history and assessment and plan. Objective - Vital Signs Vital signs: Vital Signs Temp 101.5 F H 01/24/18 12:03 Pulse 70 01/24/18 12:03 Resp 18 01/24/18 12:03 BP 115/87 01/24/18 12:03 Pulse Ox 92 L 01/24/18 12:03 Intake & Output 01/23/18 01/24/18 01/24/18 18:59 06:59 18:59 Intake Total 1190 Balance 1190 Weight 56 kg Intake: Intake, IV Titration 950 Amount Anidulafungin 100 mg In 100 Sodium Chloride 0.9% 100 ml @ 84 mls/hr IVPB DAILY [facility] Rx#:[id number] Dextrose 5% in Water 1, 650 000 ml @ 75 mls/hr IV . [id number] [facility] Rx#:[id number] cefTRIAXone 2,000 mg In 100 Sodium Chloride 0.9% 100 ml @ 100 mls/hr IVPB Q24HR [facility] Rx#:[id number] levETIRAcetam IV 500 mg 100 In Sodium Chloride 0.9% 100 ml @ 400 mls/hr IVPB Q12HR [facility] Rx#:[id number] Oral 240 Other: Voiding Method Diaper Diaper Diaper Incontinent Incontinent Incontinent # Voids 1 2 3 - Exam PHYSICAL EXAMINATION: GENERAL: The patient is lethargic oriented x3, not in any acute distress. Well developed, well nourished. HEENT: Pupils are round and equally reacting to light. EOMI. No scleral icterus. No conjunctival pallor. Normocephalic, atraumatic. No pharyngeal erythema. No thyromegaly. CARDIOVASCULAR: S1 and S2 present. No murmurs, rubs, or gallops. PULMONARY: Good air entry into bilateral lung castillo preface or crackles are appreciated ABDOMEN: Soft, nontender, nondistended, normoactive bowel sounds. No palpable organomegaly. MUSCULOSKELETAL: No joint swelling or deformity. EXTREMITIES: No cyanosis, clubbing, or pedal edema. NEUROLOGICAL: Gross neurological examination did not reveal any focal deficits. SKIN: No rashes. - Labs CBC & Chem 7: 01/24/18 07:26 01/23/18 07:14 Labs: Abnormal Lab Results - Last 24 Hours (Table) 01/24/18 Range/Units 07:26 RBC 2.60 L (3.80-5.40) m/uL Hgb 7.5 L (11.4-16.0) gm/dL Hct 23.5 L (34.0-46.0) % RDW 19.3 H (11.5-15.5) % Neutrophils # 8.4 H (1.3-7.7) k/uL Microbiology - Last 24 Hours (Table) 01/20/18 11:40 Blood Culture - Preliminary Blood No Growth after 96 hours 01/21/18 08:31 Blood Culture - Preliminary Blood No Growth after 72 hours 01/21/18 08:39 Blood Culture - Preliminary Blood No Growth after 72 hours 01/20/18 12:21 Blood Culture Gram Stain - Final Blood Blood Culture - Final Gabbie albicans 01/16/18 14:14 Blood Culture Gram Stain - Final Blood Blood Culture - Final Gabbie albicans Assessment and Plan Plan: Severe Sepsis/septicemia gram-negative secondary to acute cholecystitis status post cholecystectomy. And has bacteremia with multiple organisms including beta hemolytic streptococci, E. coli for which patient is on Rocephin patient has Gabbie as well for which patient is an to antifungals infectious disease is following the patient. Repeat blood cultures will be obtained today because of had high-grade fevers will make infectious disease is aware of these findings. Chest x-ray will be obtained Acute cholecystitis and possibility of UTI with E. coli, E. coli and gabbie bacteremia, repeat cultures pill now were negative but repeat blood cultures from today and tomorrow will be a panic and because of her fevers Status post Laparoscopic cholecystectomy Thrombocytopenia. Likely due to sepsis, and Zosyn. Resolved now Hypernatremia, secondary to dehydration, resolved Hyperchloremia secondary to IV fluids Elevated troponin level possible demand ischemia Acute kidney injury. Possible ATN, creatinine improved repeat the basic metabolic profile tomorrow Elevated alk phos and AST with dilated common bile duct and acute cholecystitis as per ultrasound of abdomen. Patient is status post cholecystectomy liver enzymes have come down Altered mental status possible toxic encephalopathy History of MS and residual right-sided weakness and contractures, bedbound History of right breast cancer in 2002 status post lumpectomy and radiation Seizure disorder. Hypothyroidism Hypokalemia Diverticulosis and past colon polyps benign Previous history of smoking
[2018-01-24] MEDS: FLUCONAZOLE IN NACL,ISO-OSM 200 MG in SALINE 1 100ML.BAG IVPB SCH (15:06)
--- NOTE | 2018-01-24 15:49 | XR ---
EXAMINATION TYPE: XR chest 1V DATE OF EXAM: 01/24/2018 HISTORY: Shortness of breath. COMPARISON: 01/13/2018 TECHNIQUE: Single view of the chest is submitted. FINDINGS: Demonstrated are scattered senescent parenchymal change. Patchy basilar infiltrates and small effusions. Correlate for pneumonia. The heart is stable. Hilar and mediastinal structures are within normal limits. Degenerative changes are seen of the dorsal spine. IMPRESSION: 1. Patchy basilar infiltrates and small effusions. Correlate for pneumonia.
[2018-01-24] MEDS: DEXTROSE 5% IN WATER 1,000 ML IV SCH (17:55)
[2018-01-25] MEDS: LACTATED RINGERS 1,000 ML IV SCH ×2 (07:12→21:25)
[2018-01-25] MEDS: LEVOTHYROXINE 50 MCG TAB PO SCH (07:16)
[2018-01-25] MEDS: DEXTROSE 5% IN WATER 1,000 ML IV SCH ×2 (07:16→13:13)
[2018-01-25] MEDS: CARVEDILOL 6.25 MG TAB PO SCH ×2 (08:23→17:29)
[2018-01-25] MEDS: AMANTADINE HCL 100 MG CAP PO SCH ×2 (08:23→20:16)
[2018-01-25] MEDS: amLODIPine 10 MG TAB PO SCH (08:23)
[2018-01-25] MEDS: PANTOPRAZOLE SODIUM 40 MG GRANULE PKT PO SCH (08:23)
[2018-01-25] MEDS: ACETAMINOPHEN TAB 325 MG TAB PO PRN (08:29)
[2018-01-25] MEDS: cefTRIAXone 2,000 MG in SODIUM CHLORIDE 0.9% 100 ML IVPB SCH (08:30)
[2018-01-25] MEDS: levETIRAcetam IV 500 MG in SODIUM CHLORIDE 0.9% 100 ML IVPB SCH ×2 (09:49→20:08)
[2018-01-25] MEDS: ANIDULAFUNGIN 100 MG in SODIUM CHLORIDE 0.9% 100 ML IVPB SCH (10:25)
[2018-01-25] MEDS: Mirabegron [Myrbetriq] 25 MG PO SCH (13:12)
--- NOTE | 2018-01-25 13:31 | P.PN ---
Subjective 62-year-old female with a known history of multiple sclerosis currently bedridden, hypertension, GERD, history of breast cancer status post lumpectomy and radiation, hypothyroidism and multiple other medical problems was brought to the hospital due to generalized weakness and dehydration. Patient has history of MS and some residual right-sided weakness and contracture. Over the past several days she has begun oral antibiotics for urinary tract infection. Initially put on nitrofurantoin, symptoms did not improve patient had an episode of nausea and vomiting. She was switched to Bactrim. She's had one dose of Bactrim yesterday but has been unable to tolerate anything orally since that time. She's had nausea with one episode of vomiting. Patient is accompanied by her who is able to give the majority the history. Patient does complain of some chronic leg pain and cramping which is typical for her. No other pain complaints. No abdominal pain. No chest pain or dyspnea. No history of fever or chills. Patient is also confused and altered for the last couple days. WBC 27.2 BUN 69 creatinine 3.75. Lactic acid 2.8 troponin 0.084. CPK 762 AST 87, alk phos 240, albumin 2.9 UA showed large leukocyte esterase, WBC 18 and moderate blood. Chest x-ray showed no acute cardio for process EKG normal sinus rhythm Ultrasound ABDOMEN showed cholelithiasis. Gallbladder wall thickening with positive Juan sign. Correlate for acute cholecystitis. Suspicion for dilated common bile duct intraductal calcifications 01/11/2018 Patient is more awake and oriented today. Able to sit in the chair. Afebrile. Denied any complains of chest pain or shortness of breath. Denied any abdominal pain. Able to tolerate oral diet and take her oral medications. MRCP showed large bile stone. No dilated ducts. Mild gallbladder wall thickening. WBC is trending down. Potassium was replaced. General surgery is planning for cholecystectomy possibly on Saturday and clinically stable. 01/12/2018 Patient became confused again today. Able to nod her head but could not communicate. Could not able to swallow. Blood pressure is uncontrolled. Patient was given IV hydralazine and IV labetalol with some improvement in blood pressure. Otherwise Catapres patch could not be applied due to short supply from pharmacy. CT head is negative. Was done due to altered mentation. Leukocytosis is much improved to 10.8 today morning. Platelet count dropped further to 32,000. Patient is being continued on antibiotics continued on Zosyn. Renal function improved with creatinine level II.0 Patient is not tolerating any oral diet. Currently on IV fluids in the form of half-normal saline. Patient became febrile this afternoon with T-max 100.0 and blood pressure is also not controlled well. Due to altered mental status and uncontrolled hypertension, thrombocytopenia with underlying sepsis patient will be transferred to MICU for further management. 01/13/2018 Patient is awake and alert today. Able to communicate slowly. No complaints of chest pain or shortness of breath. Able to take by mouth medications. Platelet count is dropping down to 19,000 today. No active bleeding noted. No leukocytosis currently. Potassium and magnesium being replaced. Renal function improved with creatinine level I.7. Patient is being closely monitored in the ICU. Patient has been afebrile. Saturating well on room air. Blood pressure is fairly controlled today 10:30/18 transferred out of ICU to MedSur unit. maintained on gentle IV fluid hydration, renal function improving. Strict aspiration precautions maintained , patient requires encouragement to eat, diet intake fair. Hemoglobin 8.5, no signs or symptoms of bleeding. UTI with E. coli.Antibiotics adjusted from Zosyn to Rocephin, platelets improving. Laparoscopic cholecystectomy pending , pending improvement in thrombocytopenia. 01/15/2018 maintained on IV antibiotics as per infectious disease. Platelets continue to improve. Urine and blood cultures positive for E. coli. Preliminary Repeat blood cultures reporting beta-hemolytic strep. Spiked fever , T-max 100.2. Lethargic. hypernatremia worsening. Receiving potassium and magnesium supplements. Maintaining O2 sats in the mid 90s on room air. Denies chest pain, palpitations or increasing shortness of breath. Denies nausea vomiting or abdominal pain. Renal function improving. Potassium and magnesium currently being supplemented. 01/16/2018 thrombocytopenia continues to improve. Maintained on IV antibiotics as per infectious disease. Persistent fevers, T-max 100.9. T bili down to 1.6. Initially scheduled for Cholecystectomy, placed on hold secondary to thrombocytopenia. Platelets currently increased to 88. Renal function improving , creatinine 1.12. Abdominal pain improved. Sodium slowly improving, continues on D5 and a half, down to 147. 01/17/2018 persistent fevers, T-max 101.1. Leukocytosis improving, trending down to 12.5 Most recent blood culture now with Gabbie. No nausea, vomiting. Denies abdominal pain. Hypokalemic, receiving supplements. Renal function improving. Scheduled for laparoscopic cholecystectomy Saturday. 01/21/2018 Consumed 50% of breakfast with encouragement of spouse. Tolerated well, no nausea or vomiting. No abdominal pain .Afebrile. Scheduled for laparoscopic cholecystectomy tomorrow. Chloride 116, creatinine 1.23. 01/22/2018 scheduled for laparoscopic cholecystectomy this morning. Hemoglobin 7.6, creatinine 1.29. Denies chest pain, palpitations or shortness of breath. 01/23/2018 underwent laparoscopic cholecystectomy yesterday, tolerated procedure well. T-max 100. Hemoglobin 7.8. Sedated on IV pain medication. Received potassium supplements yesterday, potassium improved at 4.2. Renal function improving. 01/24/2018 Patient had high-grade fever today we'll obtain repeat blood cultures chest x- ray minimal crackles on exam. Patient is excessively drowsy and sleepy presently on Eraxis along with flucanazole and Rocephin. Infectious disease is following the patient will let the made aware of the fevers. Not sure if patient will need to antifungals, will discuss this with infectious disease patient has blood cultures that are positive for Gabbie albicans repeat blood culture from january positive for Gabbie patient had beta hemolytic streptococci as well along with E. coli in the urine and blood. 01/25/2018 Patient looks better today and no more fever will obtain CBC and basic metabolic profile for tomorrow. Patient will be continued on present antibiotics. Not lethargic today Constitutional: She and had fever and severely lethargic Cardio vascular: denied any chest pain, palpitations Gastrointestinal denied any nausea vomiting Pulmonary: Denied any shortness of breath cough Neurologic denied any new focal deficits All inpatient medications were reviewed and appropriate changes in these medications as dictated in the interval history and assessment and plan. Objective - Vital Signs Vital signs: Vital Signs Temp 98.6 F 01/25/18 05:00 Pulse 78 01/25/18 08:00 Resp 16 01/25/18 08:00 BP 132/85 01/25/18 05:00 Pulse Ox 95 01/25/18 05:00 Intake & Output 01/24/18 01/25/18 01/25/18 18:59 06:59 18:59 Intake Total 15 Balance 15 Weight 56 kg 56 kg Intake: Oral 15 Other: Voiding Method Diaper Diaper Diaper Incontinent Incontinent Incontinent # Voids 3 3 - Exam PHYSICAL EXAMINATION: GENERAL: The patient is l oriented x3, not in any acute distress. Well developed , well nourished. HEENT: Pupils are round and equally reacting to light. EOMI. No scleral icterus. No conjunctival pallor. Normocephalic, atraumatic. No pharyngeal erythema. No thyromegaly. CARDIOVASCULAR: S1 and S2 present. No murmurs, rubs, or gallops. PULMONARY: Good air entry into bilateral lung castillo preface or crackles are appreciated ABDOMEN: Soft, nontender, nondistended, normoactive bowel sounds. No palpable organomegaly. MUSCULOSKELETAL: No joint swelling or deformity. EXTREMITIES: No cyanosis, clubbing, or pedal edema. NEUROLOGICAL: Gross neurological examination did not reveal any focal deficits. SKIN: No rashes. - Labs CBC & Chem 7: 01/24/18 07:26 01/23/18 07:14 Labs: Microbiology - Last 24 Hours (Table) 01/21/18 08:31 Blood Culture - Preliminary Blood No Growth after 96 hours 01/21/18 08:39 Blood Culture - Preliminary Blood No Growth after 96 hours 01/20/18 11:40 Blood Culture - Preliminary Blood No Growth after 96 hours Assessment and Plan Plan: Severe Sepsis/septicemia gram-negative secondary to acute cholecystitis status post cholecystectomy. And has bacteremia with multiple organisms including beta hemolytic streptococci, E. coli for which patient is on Rocephin patient has Gabbie as well for which patient is an to antifungals infectious disease is following the patient. Repeat blood cultures were obtained today because of had high-grade fevers, no changes in and medics are being made chest x-ray did show bilateral lower lobe infiltrates most probably atelectasis that can be pneumonia to patient is on already on appropriate antibiotics at this time. Acute cholecystitis and possibility of UTI with E. coli, E. coli and gabbie bacteremia, repeat cultures pill now were negative but repeat blood cultures from today and tomorrow will be a panic and because of her fevers Status post Laparoscopic cholecystectomy Thrombocytopenia. Likely due to sepsis, and Zosyn. Resolved now Hypernatremia, secondary to dehydration, resolved Hyperchloremia secondary to IV fluids Elevated troponin level possible demand ischemia Acute kidney injury. Possible ATN, creatinine improved repeat the basic metabolic profile tomorrow Elevated alk phos and AST with dilated common bile duct and acute cholecystitis as per ultrasound of abdomen. Patient is status post cholecystectomy liver enzymes have come down Altered mental status possible toxic encephalopathy History of MS and residual right-sided weakness and contractures, bedbound History of right breast cancer in 2002 status post lumpectomy and radiation Seizure disorder. Hypothyroidism Hypokalemia Diverticulosis and past colon polyps benign Previous history of smoking
--- NOTE | 2018-01-25 14:44 | P.PN ---
Subjective Progress Note Date: 01/25/18 CHIEF COMPLAINT: Cholecystitis HISTORY OF PRESENT ILLNESS: The patient is a 62-year-old female status post cholecystectomy. She is generalized weak. She is resting comfortably. No reports of recent chest pain. PHYSICAL EXAM: VITAL SIGNS: Currently stable. GENERAL: Well-developed in no acute distress. HEENT: No sclera icterus. Extraocular movements grossly intact. Moist buccal mucosa. Head is atraumatic, normocephalic. Hears conversational speech. No nasal drainage. NECK: Supple without lymphadenopathy. CHEST: Non-labored respirations and equal bilateral excursions. CARDIOVASCULAR: Regular rate with regular rhythm. Palpable 2+ radial pulses. ABDOMEN: Soft. Nondistended. No peritonitis. MUSCULOSKELETAL: No clubbing, cyanosis or edema. NEUROLOGIC: No focal or lateralizing signs. Cranial nerves II through XII grossly intact. PSYCH: Appropriate affect. Alert and oriented to person, place and time. SKIN: Well perfused. Good skin turgor. LABS: Reviewed ASSESSMENT: 1. Cholecystitis. PLAN: 1. Diet as tolerated. 2. Management of renal insufficiency per primary team. Objective - Vital Signs Vital signs: Vital Signs Temp 98.6 F 01/25/18 05:00 Pulse 78 01/25/18 08:00 Resp 16 01/25/18 08:00 BP 132/85 01/25/18 05:00 Pulse Ox 95 01/25/18 05:00 Intake & Output 01/24/18 01/25/18 01/25/18 18:59 06:59 18:59 Intake Total 15 Balance 15 Weight 56 kg 56 kg Intake: Oral 15 Other: Voiding Method Diaper Diaper Diaper Incontinent Incontinent Incontinent # Voids 3 3 - Labs CBC & Chem 7: 01/24/18 07:26 01/23/18 07:14 Labs: Microbiology - Last 24 Hours (Table) 01/20/18 11:40 Blood Culture - Preliminary Blood No Growth after 120 hours 01/21/18 08:31 Blood Culture - Preliminary Blood No Growth after 96 hours 01/21/18 08:39 Blood Culture - Preliminary Blood No Growth after 96 hours Assessment and Plan (1) Acute cholecystitis Current Visit: Yes Status: Acute Code(s): K81.0 - ACUTE CHOLECYSTITIS SNOMED Code(s): 73787625 (2) Acute renal failure Current Visit: Yes Status: Acute Code(s): N17.9 - ACUTE KIDNEY FAILURE, UNSPECIFIED SNOMED Code(s): 55150061 (3) Cholelithiasis Current Visit: Yes Status: Acute Code(s): K80.20 - CALCULUS OF GALLBLADDER W /O CHOLECYSTITIS W/O OBSTRUCTION SNOMED Code(s): 667234101
[2018-01-25] MEDS: FLUCONAZOLE IN NACL,ISO-OSM 200 MG in SALINE 1 100ML.BAG IVPB SCH (17:28)
[2018-01-26] MEDS: DEXTROSE 5% IN WATER 1,000 ML IV SCH ×2 (01:45→16:29)
[2018-01-26] MEDS: LEVOTHYROXINE 50 MCG TAB PO SCH (06:07)
[2018-01-26 07:43] LABS: Calcium 7.8 mg/dL (8.4-10.2); Potassium 3.6 mmol/L (3.5-5.1)
[2018-01-26] MEDS: CARVEDILOL 6.25 MG TAB PO SCH ×2 (08:20→18:19)
[2018-01-26 08:22] LABS: Anisocytosis Slight; HCT 23.1 % (34.0-46.0); HGB 7.5 gm/dL (11.4-16.0); Hypochromasia Slight; MCH 29.6 pg (25.0-35.0); MCHC 32.7 g/dL (31.0-37.0); MCV 90.6 fL (80.0-100.0); Mean Platelet Volume 9.8; Platelet Count 364 k/uL (150-450); Poikilocytosis Slight; RBC 2.55 m/uL (3.80-5.40); RDW 19.2 % (11.5-15.5); WBC 9.2 k/uL (3.8-10.6)
[2018-01-26] MEDS: AMANTADINE HCL 100 MG CAP PO SCH ×2 (08:23→21:11)
[2018-01-26] MEDS: amLODIPine 10 MG TAB PO SCH (08:23)
[2018-01-26] MEDS: PANTOPRAZOLE SODIUM 40 MG GRANULE PKT PO SCH (08:23)
[2018-01-26] MEDS: levETIRAcetam IV 500 MG in SODIUM CHLORIDE 0.9% 100 ML IVPB SCH ×2 (08:25→21:11)
[2018-01-26] MEDS: ACETAMINOPHEN TAB 325 MG TAB PO PRN ×2 (08:36→14:14)
[2018-01-26] MEDS: cefTRIAXone 2,000 MG in SODIUM CHLORIDE 0.9% 100 ML IVPB SCH (08:54)
[2018-01-26] MEDS: Mirabegron [Myrbetriq] 25 MG PO SCH (09:03)
--- NOTE | 2018-01-26 09:45 | P.PN ---
Subjective Progress Note Date: 01/26/18 CHIEF COMPLAINT: Cholecystitis HISTORY OF PRESENT ILLNESS: The patient is a 62-year-old female status post cholecystectomy. She is sitting up at bedside. She is resting comfortably. No complaints of abdominal pain. She is tolerating diet. PHYSICAL EXAM: VITAL SIGNS: Currently stable. GENERAL: Well-developed in no acute distress. HEENT: No sclera icterus. Extraocular movements grossly intact. Moist buccal mucosa. Head is atraumatic, normocephalic. Hears conversational speech. No nasal drainage. NECK: Supple without lymphadenopathy. CHEST: Non-labored respirations and equal bilateral excursions. CARDIOVASCULAR: Regular rate with regular rhythm. Palpable 2+ radial pulses. ABDOMEN: Soft. Nondistended. Incision is intact MUSCULOSKELETAL: No clubbing, cyanosis or edema. NEUROLOGIC: No focal or lateralizing signs. Cranial nerves II through XII grossly intact. PSYCH: Appropriate affect. Alert and oriented to person, place and time. SKIN: Well perfused. Good skin turgor. LABS: Reviewed ASSESSMENT: 1. Cholecystitis. 2. Acute renal failure not improving PLAN: 1. Diet as tolerated. 2. May benefit from PT OT or rehab Objective - Vital Signs Vital signs: Vital Signs Temp 99.6 F 01/26/18 05:00 Pulse 80 01/26/18 05:00 Resp 20 01/26/18 05:00 BP 138/74 01/26/18 05:00 Pulse Ox 95 01/26/18 05:00 Intake & Output 01/25/18 01/26/18 01/26/18 18:59 06:59 18:59 Intake Total 420 Balance 420 Weight 56 kg 56 kg Intake: Intake, IV Titration 400 Amount Dextrose 5% in Water 1, 300 000 ml @ 75 mls/hr IV . [id number] [facility] Rx#:[id number] levETIRAcetam IV 500 mg 100 In Sodium Chloride 0.9% 100 ml @ 400 mls/hr IVPB Q12HR [facility] Rx#:[id number] Oral 20 Other: Voiding Method Diaper Diaper Incontinent Incontinent # Voids 1 4 - Labs CBC & Chem 7: 01/26/18 06:45 01/26/18 06:45 Labs: Abnormal Lab Results - Last 24 Hours (Table) 01/26/18 01/26/18 Range/Units 06:45 06:45 RBC 2.55 L (3.80-5.40) m/uL Hgb 7.5 L (11.4-16.0) gm/dL Hct 23.1 L (34.0-46.0) % RDW 19.2 H (11.5-15.5) % Chloride 110 H (98-107) mmol/L Carbon Dioxide 20 L (22-30) mmol/L Creatinine 1.18 H (0.52-1.04) mg/dL Glucose 100 H (74-99) mg/dL Calcium 7.8 L (8.4-10.2) mg/dL Microbiology - Last 24 Hours (Table) 01/24/18 14:51 Blood Culture - Preliminary Blood No Growth after 24 hours 01/20/18 11:40 Blood Culture - Preliminary Blood No Growth after 120 hours 01/21/18 08:31 Blood Culture - Preliminary Blood No Growth after 96 hours 01/21/18 08:39 Blood Culture - Preliminary Blood No Growth after 96 hours Assessment and Plan (1) Acute cholecystitis Current Visit: Yes Status: Acute Code(s): K81.0 - ACUTE CHOLECYSTITIS SNOMED Code(s): 36538513 (2) Acute renal failure Current Visit: Yes Status: Acute Code(s): N17.9 - ACUTE KIDNEY FAILURE, UNSPECIFIED SNOMED Code(s): 20767058 (3) Cholelithiasis Current Visit: Yes Status: Acute Code(s): K80.20 - CALCULUS OF GALLBLADDER W /O CHOLECYSTITIS W/O OBSTRUCTION SNOMED Code(s): 472684427
[2018-01-26] MEDS: ANIDULAFUNGIN 100 MG in SODIUM CHLORIDE 0.9% 100 ML IVPB SCH (10:19)
--- NOTE | 2018-01-26 15:08 | P.PN ---
Subjective 62-year-old female with a known history of multiple sclerosis currently bedridden, hypertension, GERD, history of breast cancer status post lumpectomy and radiation, hypothyroidism and multiple other medical problems was brought to the hospital due to generalized weakness and dehydration. Patient has history of MS and some residual right-sided weakness and contracture. Over the past several days she has begun oral antibiotics for urinary tract infection. Initially put on nitrofurantoin, symptoms did not improve patient had an episode of nausea and vomiting. She was switched to Bactrim. She's had one dose of Bactrim yesterday but has been unable to tolerate anything orally since that time. She's had nausea with one episode of vomiting. Patient is accompanied by her who is able to give the majority the history. Patient does complain of some chronic leg pain and cramping which is typical for her. No other pain complaints. No abdominal pain. No chest pain or dyspnea. No history of fever or chills. Patient is also confused and altered for the last couple days. WBC 27.2 BUN 69 creatinine 3.75. Lactic acid 2.8 troponin 0.084. CPK 762 AST 87, alk phos 240, albumin 2.9 UA showed large leukocyte esterase, WBC 18 and moderate blood. Chest x-ray showed no acute cardio for process EKG normal sinus rhythm Ultrasound ABDOMEN showed cholelithiasis. Gallbladder wall thickening with positive Juan sign. Correlate for acute cholecystitis. Suspicion for dilated common bile duct intraductal calcifications 01/11/2018 Patient is more awake and oriented today. Able to sit in the chair. Afebrile. Denied any complains of chest pain or shortness of breath. Denied any abdominal pain. Able to tolerate oral diet and take her oral medications. MRCP showed large bile stone. No dilated ducts. Mild gallbladder wall thickening. WBC is trending down. Potassium was replaced. General surgery is planning for cholecystectomy possibly on Saturday and clinically stable. 01/12/2018 Patient became confused again today. Able to nod her head but could not communicate. Could not able to swallow. Blood pressure is uncontrolled. Patient was given IV hydralazine and IV labetalol with some improvement in blood pressure. Otherwise Catapres patch could not be applied due to short supply from pharmacy. CT head is negative. Was done due to altered mentation. Leukocytosis is much improved to 10.8 today morning. Platelet count dropped further to 32,000. Patient is being continued on antibiotics continued on Zosyn. Renal function improved with creatinine level II.0 Patient is not tolerating any oral diet. Currently on IV fluids in the form of half-normal saline. Patient became febrile this afternoon with T-max 100.0 and blood pressure is also not controlled well. Due to altered mental status and uncontrolled hypertension, thrombocytopenia with underlying sepsis patient will be transferred to MICU for further management. 01/13/2018 Patient is awake and alert today. Able to communicate slowly. No complaints of chest pain or shortness of breath. Able to take by mouth medications. Platelet count is dropping down to 19,000 today. No active bleeding noted. No leukocytosis currently. Potassium and magnesium being replaced. Renal function improved with creatinine level I.7. Patient is being closely monitored in the ICU. Patient has been afebrile. Saturating well on room air. Blood pressure is fairly controlled today 10:30/18 transferred out of ICU to [facility] unit. maintained on gentle IV fluid hydration, renal function improving. Strict aspiration precautions maintained , patient requires encouragement to eat, diet intake fair. Hemoglobin 8.5, no signs or symptoms of bleeding. UTI with E. coli.Antibiotics adjusted from Zosyn to Rocephin, platelets improving. Laparoscopic cholecystectomy pending , pending improvement in thrombocytopenia. 01/15/2018 maintained on IV antibiotics as per infectious disease. Platelets continue to improve. Urine and blood cultures positive for E. coli. Preliminary Repeat blood cultures reporting beta-hemolytic strep. Spiked fever , T-max 100.2. Lethargic. hypernatremia worsening. Receiving potassium and magnesium supplements. Maintaining O2 sats in the mid 90s on room air. Denies chest pain, palpitations or increasing shortness of breath. Denies nausea vomiting or abdominal pain. Renal function improving. Potassium and magnesium currently being supplemented. 01/16/2018 thrombocytopenia continues to improve. Maintained on IV antibiotics as per infectious disease. Persistent fevers, T-max 100.9. T bili down to 1.6. Initially scheduled for Cholecystectomy, placed on hold secondary to thrombocytopenia. Platelets currently increased to 88. Renal function improving , creatinine 1.12. Abdominal pain improved. Sodium slowly improving, continues on D5 and a half, down to 147. 01/17/2018 persistent fevers, T-max 101.1. Leukocytosis improving, trending down to 12.5 Most recent blood culture now with Gabbie. No nausea, vomiting. Denies abdominal pain. Hypokalemic, receiving supplements. Renal function improving. Scheduled for laparoscopic cholecystectomy Saturday. 01/21/2018 Consumed 50% of breakfast with encouragement of spouse. Tolerated well, no nausea or vomiting. No abdominal pain .Afebrile. Scheduled for laparoscopic cholecystectomy tomorrow. Chloride 116, creatinine 1.23. 01/22/2018 scheduled for laparoscopic cholecystectomy this morning. Hemoglobin 7.6, creatinine 1.29. Denies chest pain, palpitations or shortness of breath. 01/23/2018 underwent laparoscopic cholecystectomy yesterday, tolerated procedure well. T-max 100. Hemoglobin 7.8. Sedated on IV pain medication. Received potassium supplements yesterday, potassium improved at 4.2. Renal function improving. 01/24/2018 Patient had high-grade fever today we'll obtain repeat blood cultures chest x- ray minimal crackles on exam. Patient is excessively drowsy and sleepy presently on Eraxis along with flucanazole and Rocephin. Infectious disease is following the patient will let the made aware of the fevers. Not sure if patient will need to antifungals, will discuss this with infectious disease patient has blood cultures that are positive for Gabbie albicans repeat blood culture from january positive for Gabbie patient had beta hemolytic streptococci as well along with E. coli in the urine and blood. 01/25/2018 Patient looks better today and no more fever will obtain CBC and basic metabolic profile for tomorrow. Patient will be continued on present antibiotics. Not lethargic today 01/26/2018 Patient looks bit better. Sitting in the chair. Had a low-grade fever today Constitutional: She and had fever and severely lethargic Cardio vascular: denied any chest pain, palpitations Gastrointestinal denied any nausea vomiting Pulmonary: Denied any shortness of breath cough Neurologic denied any new focal deficits All inpatient medications were reviewed and appropriate changes in these medications as dictated in the interval history and assessment and plan. Objective - Vital Signs Vital signs: Vital Signs Temp 99.6 F 01/26/18 05:00 Pulse 80 01/26/18 08:00 Resp 20 01/26/18 08:00 BP 138/74 01/26/18 05:00 Pulse Ox 95 01/26/18 05:00 Intake & Output 01/25/18 01/26/18 01/26/18 18:59 06:59 18:59 Intake Total 420 Output Total 300 Balance 420 -300 Weight 56 kg 56 kg 56 kg Intake: Intake, IV Titration 400 Amount Dextrose 5% in Water 1, 300 000 ml @ 75 mls/hr IV . [id number] [facility] Rx#:[id number] levETIRAcetam IV 500 mg 100 In Sodium Chloride 0.9% 100 ml @ 400 mls/hr IVPB Q12HR [facility] Rx#:[id number] Oral 20 Output: Urine 300 Other: Voiding Method Diaper Diaper Diaper Incontinent Incontinent Incontinent # Voids 1 4 4 - Exam PHYSICAL EXAMINATION: GENERAL: The patient is l oriented x3, not in any acute distress. Well developed , well nourished. HEENT: Pupils are round and equally reacting to light. EOMI. No scleral icterus. No conjunctival pallor. Normocephalic, atraumatic. No pharyngeal erythema. No thyromegaly. CARDIOVASCULAR: S1 and S2 present. No murmurs, rubs, or gallops. PULMONARY: Good air entry into bilateral lung castillo preface or crackles are appreciated ABDOMEN: Soft, nontender, nondistended, normoactive bowel sounds. No palpable organomegaly. MUSCULOSKELETAL: No joint swelling or deformity. EXTREMITIES: No cyanosis, clubbing, or pedal edema. NEUROLOGICAL: Gross neurological examination did not reveal any focal deficits. SKIN: No rashes. - Labs CBC & Chem 7: 01/26/18 06:45 01/26/18 06:45 Labs: Abnormal Lab Results - Last 24 Hours (Table) 01/26/18 01/26/18 Range/Units 06:45 06:45 RBC 2.55 L (3.80-5.40) m/uL Hgb 7.5 L (11.4-16.0) gm/dL Hct 23.1 L (34.0-46.0) % RDW 19.2 H (11.5-15.5) % Chloride 110 H (98-107) mmol/L Carbon Dioxide 20 L (22-30) mmol/L Creatinine 1.18 H (0.52-1.04) mg/dL Glucose 100 H (74-99) mg/dL Calcium 7.8 L (8.4-10.2) mg/dL Microbiology - Last 24 Hours (Table) 01/20/18 11:40 Blood Culture - Final Blood No Growth after 144 hours 01/21/18 08:31 Blood Culture - Preliminary Blood No Growth after 120 hours 01/21/18 08:39 Blood Culture - Preliminary Blood No Growth after 120 hours 01/25/18 08:06 Blood Culture - Preliminary Blood No Growth after 24 hours 01/24/18 14:51 Blood Culture - Preliminary Blood No Growth after 24 hours Assessment and Plan Plan: Severe Sepsis/septicemia gram-negative secondary to acute cholecystitis status post cholecystectomy. And has bacteremia with multiple organisms including beta hemolytic streptococci, E. coli for which patient is on Rocephin patient has Gabbie as well for which patient is an to antifungals infectious disease is following the patient. Repeat blood cultures were obtained today because of had high-grade fevers, no changes in and medics are being made chest x-ray did show bilateral lower lobe infiltrates most probably atelectasis that can be pneumonia to patient is on already on appropriate antibiotics at this time. Acute cholecystitis and possibility of UTI with E. coli, E. coli and gabbie bacteremia, repeat cultures pill now were negative but repeat blood cultures from today and tomorrow will be a panic and because of her fevers Status post Laparoscopic cholecystectomy Thrombocytopenia. Likely due to sepsis, and Zosyn. Resolved now Hypernatremia, secondary to dehydration, resolved Hyperchloremia secondary to IV fluids Elevated troponin level possible demand ischemia Acute kidney injury. Possible ATN, creatinine improved repeat the basic metabolic profile tomorrow Elevated alk phos and AST with dilated common bile duct and acute cholecystitis as per ultrasound of abdomen. Patient is status post cholecystectomy liver enzymes have come down Altered mental status possible toxic encephalopathy History of MS and residual right-sided weakness and contractures, bedbound History of right breast cancer in 2003 status post lumpectomy and radiation Seizure disorder. Hypothyroidism Hypokalemia Diverticulosis and past colon polyps benign Previous history of smoking
[2018-01-26] MEDS ORDERED: BISACODYL 10 MG SUPP RECTAL STA (15:50)
[2018-01-26] MEDS: FLUCONAZOLE IN NACL,ISO-OSM 200 MG in SALINE 1 100ML.BAG IVPB SCH (16:25)
[2018-01-26] MEDS: LACTATED RINGERS 1,000 ML IV SCH (23:26)
[2018-01-27] MEDS: DEXTROSE 5% IN WATER 1,000 ML IV SCH (04:15)
[2018-01-27] MEDS: LEVOTHYROXINE 50 MCG TAB PO SCH (06:07)
[2018-01-27] MEDS: CARVEDILOL 6.25 MG TAB PO SCH ×2 (08:15→16:55)
[2018-01-27] MEDS: amLODIPine 10 MG TAB PO SCH (08:15)
[2018-01-27] MEDS: levETIRAcetam IV 500 MG in SODIUM CHLORIDE 0.9% 100 ML IVPB SCH (08:15)
[2018-01-27] MEDS: PANTOPRAZOLE SODIUM 40 MG GRANULE PKT PO SCH (08:15)
[2018-01-27] MEDS: AMANTADINE HCL 100 MG CAP PO SCH (08:15)
[2018-01-27] MEDS: Mirabegron [Myrbetriq] 25 MG PO SCH (08:17)
[2018-01-27] MEDS: ANIDULAFUNGIN 100 MG in SODIUM CHLORIDE 0.9% 100 ML IVPB SCH (08:21)
[2018-01-27] MEDS: cefTRIAXone 2,000 MG in SODIUM CHLORIDE 0.9% 100 ML IVPB SCH (08:22)
[2018-01-27 08:43] LABS: INR 1.1 (<1.2); Prothrombin Time 10.5 sec (9.0-12.0)
--- NOTE | 2018-01-27 09:53 | P.PN ---
Subjective Progress Note Date: 01/27/18 62-year-old being seen in follow-up postop visit status post cholecystectomy. No new events noted. Discharge plan per the attending. Surgical incision sites dry with plastic dressings in place abdomen soft nondistended tolerating diet no complaints of abdominal pain. Patients being followed by infectious disease scheduled for a midline IV access today for outpatient Rocephin to be given as ordered Postop January 22 laparoscopic cholecystectomy for cholecystitis Objective - Vital Signs Vital signs: Vital Signs Temp 97.6 F 01/27/18 04:28 Pulse 67 01/27/18 04:28 Resp 16 01/27/18 04:28 BP 131/69 01/27/18 04:28 Pulse Ox 95 01/27/18 04:28 Intake & Output 01/26/18 01/27/18 01/27/18 18:59 06:59 18:59 Intake Total 900 Output Total 300 Balance 600 Weight 56 kg Intake: Intake, IV Titration 900 Amount Anidulafungin 100 mg In 100 Sodium Chloride 0.9% 100 ml @ 84 mls/hr IVPB DAILY [facility] Rx#:[id number] Dextrose 5% in Water 1, 600 000 ml @ 75 mls/hr IV . [id number] [facility] Rx#:[id number] Fluconazole in NaCl,Iso- 100 Osm 200 mg In Saline 1 100ml.bag @ 100 mls/hr IVPB DAILY@1600 [facility] Rx#: [id number] cefTRIAXone 2,000 mg In 100 Sodium Chloride 0.9% 100 ml @ 100 mls/hr IVPB Q24HR [facility] Rx#:[id number] Output: Urine 300 Other: Voiding Method Diaper Diaper Incontinent Incontinent # Voids 4 2 - Exam Physical exam Abdomen flat surgical tenderness appropriate not distended bowel tones present incontinent a urine tolerating diet no nausea no vomiting no stool surgical dressing sites dry - Labs CBC & Chem 7: 01/26/18 06:45 01/26/18 06:45 Labs: Microbiology - Last 24 Hours (Table) 01/24/18 14:51 Blood Culture - Preliminary Blood No Growth after 48 hours 01/20/18 11:40 Blood Culture - Final Blood No Growth after 144 hours 01/21/18 08:31 Blood Culture - Preliminary Blood No Growth after 120 hours 01/21/18 08:39 Blood Culture - Preliminary Blood No Growth after 120 hours 01/25/18 08:06 Blood Culture - Preliminary Blood No Growth after 24 hours Assessment and Plan Assessment: Impression Present on admission nausea vomiting elevated liver enzymes Status post MRCP no evidence of biliary tree abnormality Elevated liver enzymes possibly related to sepsis possible symptomatic gallstones UTI infection bacteremia Multiple sclerosis limited mobility bedbound Thrombocytopenia platelets improved Postop laparoscopic cholecystectomy for cholecystitis done January 22 Plan Continue postop surgical care Continue recommendations per the attending Continue recommendations by infectious disease for IV antibiotic recommendations Discharge plan per the attending surgical perspective okay to be discharged defer to the timing to the attending The above impression and plan of care have been discussed and directed by signing physician. Maite Weaver nurse practitioner acting as scribe for signing physician.
[2018-01-27 10:36] LABS: Calcium 7.8 mg/dL (8.4-10.2); Potassium 3.1 mmol/L (3.5-5.1)
[2018-01-27 10:50] LABS: Anisocytosis Slight; HCT 29.2 % (34.0-46.0); Hypochromasia Marked; MCH 29.9 pg (25.0-35.0); MCHC 31.5 g/dL (31.0-37.0); Macrocytosis Slight; Mean Platelet Volume 8.3; Platelet Count 421 k/uL (150-450); Poikilocytosis Slight; RBC 3.08 m/uL (3.80-5.40); RDW 19.7 % (11.5-15.5); WBC 9.5 k/uL (3.8-10.6)
[2018-01-27 10:53] LABS: HGB 9.2 gm/dL (11.4-16.0)
[2018-01-27 12:38] VITALS: BP 130/78; PULSE 71; RESP 17; TEMP 98.1
--- NOTE | 2018-01-27 14:58 | P.DS ---
Providers Date of admission: 01/10/18 16:35 Expected date of discharge: 01/27/18 Attending physician: Evelin New Consults: 01/10/18 16:34 Consult Physician Urgent Consulting Provider: Papito Miranda Consult Reason/Comments: Acute cholecystitis Do you want consulting provider notified?: Already Contacted 01/11/18 11:37 Consult Physician Routine Consulting Provider: Mateusz Johnson Consult Reason/Comments: elevated trops Do you want consulting provider notified?: Yes 01/12/18 17:56 Consult Physician Urgent Consulting Provider: Cy Lopez Consult Reason/Comments: icu management Do you want consulting provider notified?: Yes 01/14/18 10:53 Consult Physician Routine Consulting Provider: Kojo Mays Consult Reason/Comments: sepsis Do you want consulting provider notified?: Yes Primary care physician: Meredith Peoples Hospital Course: Final Diagnoses: Severe Sepsis/septicemia gram-negative secondary to acute cholecystitis status post laparoscopic cholecystectomy. Acute UTI with E. coli, Bacteremia with multiple organisms including beta hemolytic streptococci, E. coli, Gabbie. Repeat blood cultures negative. chest x-ray did show bilateral lower lobe infiltrates most probably atelectasis that can be pneumonia. Thrombocytopenia. Likely due to sepsis, and Zosyn. Resolved now Hypernatremia, secondary to dehydration, resolved Hyperchloremia secondary to IV fluids Elevated troponin level possible demand ischemia Acute kidney injury. Possible ATN, creatinine improved repeat the basic metabolic profile tomorrow Elevated alk phos and AST with dilated common bile duct and acute cholecystitis as per ultrasound of abdomen. Patient is status post cholecystectomy liver enzymes improved Altered mental status possible toxic encephalopathy History of MS and residual right-sided weakness and contractures, bedbound History of right breast cancer in 2002 status post lumpectomy and radiation Seizure disorder. Hypothyroidism Hypokalemia Diverticulosis and past colon polyps benign Previous history of smoking Hospital course:62-year-old female with a known history of multiple sclerosis currently bedridden, hypertension, GERD, history of breast cancer status post lumpectomy and radiation, hypothyroidism and multiple other medical problems was brought to the hospital due to generalized weakness and dehydration. Patient has history of MS and some residual right-sided weakness and contracture. Over the past several days she has begun oral antibiotics for urinary tract infection. Initially put on nitrofurantoin, symptoms did not improve patient had an episode of nausea and vomiting. She was switched to Bactrim. She's had one dose of Bactrim yesterday but has been unable to tolerate anything orally since that time. She's had nausea with one episode of vomiting. Patient is accompanied by her who is able to give the majority the history. Patient does complain of some chronic leg pain and cramping which is typical for her. No other pain complaints. No abdominal pain. No chest pain or dyspnea. No history of fever or chills. Patient is also confused and altered for the last couple days. WBC 27.2 BUN 69 creatinine 3.75. Lactic acid 2.8 troponin 0.084. CPK 762 AST 87, alk phos 240, albumin 2.9 UA showed large leukocyte esterase, WBC 18 and moderate blood. Chest x-ray showed no acute cardio for process EKG normal sinus rhythm Ultrasound ABDOMEN showed cholelithiasis. Gallbladder wall thickening with positive Juan sign. Correlate for acute cholecystitis. Suspicion for dilated common bile duct intraductal calcifications 01/11/2018 Patient is more awake and oriented today. Able to sit in the chair. Afebrile. Denied any complains of chest pain or shortness of breath. Denied any abdominal pain. Able to tolerate oral diet and take her oral medications. MRCP showed large bile stone. No dilated ducts. Mild gallbladder wall thickening. WBC is trending down. Potassium was replaced. General surgery is planning for cholecystectomy possibly on Saturday and clinically stable. 01/12/2018 Patient became confused again today. Able to nod her head but could not communicate. Could not able to swallow. Blood pressure is uncontrolled. Patient was given IV hydralazine and IV labetalol with some improvement in blood pressure. Otherwise Catapres patch could not be applied due to short supply from pharmacy. CT head is negative. Was done due to altered mentation. Leukocytosis is much improved to 10.8 today morning. Platelet count dropped further to 32,000. Patient is being continued on antibiotics continued on Zosyn. Renal function improved with creatinine level II.0 Patient is not tolerating any oral diet. Currently on IV fluids in the form of half-normal saline. Patient became febrile this afternoon with T-max 100.0 and blood pressure is also not controlled well. Due to altered mental status and uncontrolled hypertension, thrombocytopenia with underlying sepsis patient will be transferred to MICU for further management. 01/13/2018 Patient is awake and alert today. Able to communicate slowly. No complaints of chest pain or shortness of breath. Able to take by mouth medications. Platelet count is dropping down to 19,000 today. No active bleeding noted. No leukocytosis currently. Potassium and magnesium being replaced. Renal function improved with creatinine level I.7. Patient is being closely monitored in the ICU. Patient has been afebrile. Saturating well on room air. Blood pressure is fairly controlled today 10: transferred out of ICU to MedSur unit. maintained on gentle IV fluid hydration, renal function improving. Strict aspiration precautions maintained , patient requires encouragement to eat, diet intake fair. Hemoglobin 8.5, no signs or symptoms of bleeding. UTI with E. coli.Antibiotics adjusted from Zosyn to Rocephin, platelets improving. Laparoscopic cholecystectomy pending , pending improvement in thrombocytopenia. 01/15/2018 maintained on IV antibiotics as per infectious disease. Platelets continue to improve. Urine and blood cultures positive for E. coli. Preliminary Repeat blood cultures reporting beta-hemolytic strep. Spiked fever , T-max 100.2. Lethargic. hypernatremia worsening. Receiving potassium and magnesium supplements. Maintaining O2 sats in the mid 90s on room air. Denies chest pain, palpitations or increasing shortness of breath. Denies nausea vomiting or abdominal pain. Renal function improving. Potassium and magnesium currently being supplemented. 01/16/2018 thrombocytopenia continues to improve. Maintained on IV antibiotics as per infectious disease. Persistent fevers, T-max 100.9. T bili down to 1.6. Initially scheduled for Cholecystectomy, placed on hold secondary to thrombocytopenia. Platelets currently increased to 88. Renal function improving , creatinine 1.12. Abdominal pain improved. Sodium slowly improving, continues on D5 and a half, down to 147. 01/17/2018 persistent fevers, T-max 101.1. Leukocytosis improving, trending down to 12.5 Most recent blood culture now with Gabbie. No nausea, vomiting. Denies abdominal pain. Hypokalemic, receiving supplements. Renal function improving. Scheduled for laparoscopic cholecystectomy Saturday. 01/21/2018 Consumed 50% of breakfast with encouragement of spouse. Tolerated well, no nausea or vomiting. No abdominal pain .Afebrile. Scheduled for laparoscopic cholecystectomy tomorrow. Chloride 116, creatinine 1.23. 01/22/2018 scheduled for laparoscopic cholecystectomy this morning. Hemoglobin 7.6, creatinine 1.29. Denies chest pain, palpitations or shortness of breath. 01/23/2018 underwent laparoscopic cholecystectomy yesterday, tolerated procedure well. T-max 100. Hemoglobin 7.8. Sedated on IV pain medication. Received potassium supplements yesterday, potassium improved at 4.2. Renal function improving. 01/24/2018 Patient had high-grade fever today we'll obtain repeat blood cultures chest x- ray minimal crackles on exam. Patient is excessively drowsy and sleepy presently on Eraxis along with flucanazole and Rocephin. Infectious disease is following the patient will let the made aware of the fevers. Not sure if patient will need to antifungals, will discuss this with infectious disease patient has blood cultures that are positive for Gabbie albicans repeat blood culture from january positive for Gabbie patient had beta hemolytic streptococci as well along with E. coli in the urine and blood. 01/25/2018 Patient looks better today and no more fever will obtain CBC and basic metabolic profile for tomorrow. Patient will be continued on present antibiotics. Not lethargic today 01/26/2018 Patient looks bit better. Sitting in the chair. Had a low-grade fever today 01/27/2018 afebrile, Mid line placed. Cleared by all consults for discharge. Patient is being discharged to [facility] subacute rehab in stable condition with guarded prognosis. EXAMINATION: GENERAL: The patient is alert and oriented x3, not in any acute distress. CARDIOVASCULAR: S1 and S2 present. No murmurs, rubs, or gallops. PULMONARY: Good air entry into bilateral lung castillo preface or crackles are appreciated ABDOMEN: Soft, nontender, nondistended, normoactive bowel sounds. No palpable organomegaly. NEUROLOGICAL: Gross neurological examination did not reveal any focal deficits. The impression and plan of care has been dictated as directed. : I performed a history and examination of this patient, discussed the same with the dictator. I agree with the dictator's note ,documented as a scribe. Any additional findings or plans will be noted. Time taken: 35 minutes Patient Condition at Discharge: Stable Plan - Discharge Summary Discharge Rx Participant: Yes New Discharge Prescriptions: New cefTRIAXone [Rocephin] 2,000 mg IVPB Q24HR #14 vial Fluconazole [Diflucan] 200 mg PO DAILY #14 tab Acetaminophen Tab [Tylenol] 650 mg PO Q6HR PRN tab PRN Reason: Mild Pain Or Fever > 100.5 Carvedilol [Coreg] 6.25 mg PO BID-W/MEALS #60 tab amLODIPine BESYLATE [Norvasc] 5 mg PO DAILY #30 tablet Continue Aspirin 81 mg PO DAILY tiZANidine [Zanaflex] 4 mg PO QID levETIRAcetam [Keppra] 500 mg PO Q12HR Amantadine HCl [Symmetrel] 100 mg PO BID Rebif 40 mcg INJ MOWEFR Levothyroxine Sodium [Synthroid] 50 mcg PO DAILY Mirabegron [Myrbetriq] 25 mg PO DAILY Omeprazole 20 mg PO DAILY Discontinued Lisinopril [Zestril] 10 mg PO DAILY Carvedilol [Coreg] 3.125 mg PO BID Sulfamethox-Tmp 800-160Mg [Bactrim DS 800-160 mg] 1 tab PO Q12HR Discharge Medication List Amantadine HCl [Symmetrel] 100 mg PO BID 12/17/13 [History] Aspirin 81 mg PO DAILY 12/17/13 [History] Rebif 40 mcg INJ MOWEFR 12/17/13 [History] levETIRAcetam [Keppra] 500 mg PO Q12HR 12/17/13 [History] tiZANidine [Zanaflex] 4 mg PO QID 12/17/13 [History] Levothyroxine Sodium [Synthroid] 50 mcg PO DAILY 01/10/18 [History] Mirabegron [Myrbetriq] 25 mg PO DAILY 01/10/18 [History] Omeprazole 20 mg PO DAILY 01/10/18 [History] Fluconazole [Diflucan] 200 mg PO DAILY #14 tab 01/24/18 [Rx] cefTRIAXone [Rocephin] 2,000 mg IVPB Q24HR #14 vial 01/24/18 [Rx] Acetaminophen Tab [Tylenol] 650 mg PO Q6HR PRN tab 01/27/18 [Rx] Carvedilol [Coreg] 6.25 mg PO BID-W/MEALS #60 tab 01/27/18 [Rx] amLODIPine BESYLATE [Norvasc] 5 mg PO DAILY #30 tablet 01/27/18 [Rx] Follow up Appointment(s)/Referral(s): Jered Green MD [STAFF PHYSICIAN] - 3 Days (while at [facility]) Kojo Mays MD [STAFF PHYSICIAN] - 2 Weeks Meredith Peoples DO [Primary Care Provider] - 3 Days (after dc from [facility]) [facility], [REFERRING] - 1 Week [facility] Nurse, [NON-STAFF] - 1 Week Papito Miranda MD [STAFF PHYSICIAN] - 1 Week Ambulatory/Diagnostic Orders: Basic Metabolic Panel [LAB.AMB] Location: None Selected Complete Blood Count w/diff [LAB.AMB] Location: None Selected Activity/Diet/Wound Care/Special Instructions: [facility] DIET: Chopped, [place] thick liquids, free water between Meals. Strict aspiration precautions Activity: as tolerated No tub bath for six weeks. Shower daily. No lifting over 10 pounds for the next 2 weeks. Leave plastic surgical dressings on will be removed and a follow-up office visit May use ice packs to surgical site. Discharge Disposition: TRANSFER TO SNF/ECF
[2018-01-27] MEDS: FLUCONAZOLE IN NACL,ISO-OSM 200 MG in SALINE 1 100ML.BAG IVPB SCH (17:14)
--- NOTE | 2018-01-27 22:54 | P.PN ---
Subjective Progress Note Date: 01/27/18 62-year-old female who has multiple medical troubles that includes multiple sclerosis, history of breast carcinoma status post surgical intervention and radiation therapy, seizures and hypothyroidism presents to the emergency center with symptoms of increasing fatigue malaise some altered mentation consequently was brought to the emergency center by her . is her primary qa tester and the family home. The patient recently spent having difficulties with urinary tract infection resented with Macrodantin which was then transitioned to Bactrim. Despite this she was not improving with increasing symptoms. She consequently was brought in the hospital on 01/10/2018. Despite antibiotic therapy with Zosyn still continues to feel somewhat poorly and constantly the infectious diseases consultation was requested. The patient has been about a by general surgery because she was having some abdominal pain there is evidence of some elevated liver function tests and alkaline phosphatase. Imaging study reveals evidence of a large gallstone but MRCP failed to reveal evidence of any acute obstruction of the biliary tract at this time. Patient though was symptomatic and there were plans for a laparoscopic cholecystectomy due to significant thrombocytopenia this was held. Today she has improved ane is feeling better without chills, pain improved. 01/17/2018 reveals the patient toLittle change of her status. She seems to be comfortable no new acute changes are related from the staff. 01/20/2018 patient continues to seem comfortable. Continues to have difficulty with her swallowing. Blood culture now shows evidence of Gabbie 01/23/2018 patient comfortable status post cholecystectomy. 01/27/2018 patient doing well status post her cholecystectomy. Patient will be transitioned to extended care. She'll receive her intravenous antibiotic therapy and fluconazole at that facility. Objective - Vital Signs Vital signs: Vital Signs Temp 98.1 F 01/27/18 12:37 Pulse 71 01/27/18 12:37 Resp 17 01/27/18 12:37 BP 130/78 01/27/18 12:37 Pulse Ox 96 01/27/18 12:37 Intake & Output 01/27/18 01/27/18 01/28/18 06:59 18:59 06:59 Weight 56 kg Other: Voiding Method Diaper Diaper Incontinent Incontinent # Voids 2 3 - Exam 62-year-old woman who is profoundly disabled from her MS, she however is awake but is not a good historian. HEENT: Anicteric conjunctiva are pink and moist nasal mucosa grossly intact without evidence of bleeding, oral mucosa is dry without thrush Neck: The neck is supple without significant lymphadenopathy or thyromegaly. Lungs: They're symmetrical air entry with few basilar crackles no bronchial sounds normal dullness or egophony Heart: Regular rate and rhythm with an audible S1-S2, no S3 no S4. There is no significant murmur click or rub, PMI was nondisplaced. Abdomen: Positive bowel sounds soft and has postoperative tenderness without palpable masses or organomegaly. There was no guarding or rebound. Extremities: The upper extremities have excellent pulses they are symmetric, no significant petechiae or telangiectasia. No splinter hemorrhages were noted. The lower extremities are free from significant edema. - Labs CBC & Chem 7: 01/27/18 07:50 01/27/18 07:50 Labs: Abnormal Lab Results - Last 24 Hours (Table) 01/27/18 01/27/18 Range/Units 07:50 07:50 RBC 3.08 L (3.80-5.40) m/uL Hgb 9.2 L D (11.4-16.0) gm/dL Hct 29.2 L (34.0-46.0) % RDW 19.7 H (11.5-15.5) % Potassium 3.1 L (3.5-5.1) mmol/L Carbon Dioxide 21 L (22-30) mmol/L Creatinine 1.06 H (0.52-1.04) mg/dL Calcium 7.8 L (8.4-10.2) mg/dL Microbiology - Last 24 Hours (Table) 01/24/18 14:51 Blood Culture - Preliminary Blood No Growth after 72 hours 01/21/18 08:39 Blood Culture - Final Blood No Growth after 144 hours 01/21/18 08:31 Blood Culture - Final Blood No Growth after 144 hours 01/25/18 08:06 Blood Culture - Preliminary Blood No Growth after 48 hours Laboratory Results WBC 9.5 k/uL (3.8-10.6) 01/27/18 07:50 RBC 3.08 m/uL (3.80-5.40) L 01/27/18 07:50 Hgb 9.2 gm/dL (11.4-16.0) L D 01/27/18 07:50 Hct 29.2 % (34.0-46.0) L 01/27/18 07:50 MCV 95.0 fL (80.0-100.0) 01/27/18 07:50 MCH 29.9 pg (25.0-35.0) 01/27/18 07:50 MCHC 31.5 g/dL (31.0-37.0) 01/27/18 07:50 RDW 19.7 % (11.5-15.5) H 01/27/18 07:50 Plt Count 421 k/uL (150-450) 01/27/18 07:50 Neutrophils % 80 % 01/24/18 07:26 Neutrophils % (Manual) 85 % 01/22/18 07:17 Band Neutrophils % 2 % 01/22/18 07:17 Lymphocytes % 12 % 01/24/18 07:26 Lymphocytes % (Manual) 9 % 01/22/18 07:17 Monocytes % 4 % 01/24/18 07:26 Monocytes % (Manual) 2 % 01/22/18 07:17 Eosinophils % 0 % 01/24/18 07:26 Eosinophils % (Manual) 3 % 01/22/18 07:17 Basophils % 0 % 01/24/18 07:26 Metamyelocytes % 1 % 01/22/18 07:17 Myelocytes % 1 % 01/22/18 07:17 Neutrophils # 8.4 k/uL (1.3-7.7) H 01/24/18 07:26 Neutrophils # (Manual) 8.00 k/uL (1.3-7.7) H 01/22/18 07:17 Lymphocytes # 1.3 k/uL (1.0-4.8) 01/24/18 07:26 Lymphocytes # (Manual) 0.84 k/uL (1.0-4.8) L 01/22/18 07:17 Monocytes # 0.4 k/uL (0-1.0) 01/24/18 07:26 Monocytes # (Manual) 0.19 k/uL (0-1.0) 01/22/18 07:17 Eosinophils # 0.0 k/uL (0-0.7) 01/24/18 07:26 Eosinophils # (Manual) 0.28 k/uL (0-0.7) 01/22/18 07:17 Basophils # 0.0 k/uL (0-0.2) 01/24/18 07:26 Metamyelocytes # (Man) 0.09 k/uL (0) H 01/22/18 07:17 Myelocytes # (Manual) 0.09 k/uL (0) H 01/22/18 07:17 Nucleated RBCs 0 /100 WBC (0-0) 01/22/18 07:17 Manual Slide Review Performed 01/22/18 07:17 Toxic Granulation Present 01/19/18 07:00 Polychromasia Present 01/22/18 07:17 Hypochromasia Marked 01/27/18 07:50 Poikilocytosis Slight 01/27/18 07:50 Anisocytosis Slight 01/27/18 07:50 Macrocytosis Slight 01/27/18 07:50 Fragmented RBCs Present 01/22/18 07:17 PT 10.5 sec (9.0-12.0) 01/27/18 07:50 INR 1.1 (<1.2) 01/27/18 07:50 APTT 23.3 sec (22.0-30.0) 01/10/18 13:31 Sodium 138 mmol/L (137-145) 01/27/18 07:50 Potassium 3.1 mmol/L (3.5-5.1) L 01/27/18 07:50 Chloride 107 mmol/L (98-107) 01/27/18 07:50 Carbon Dioxide 21 mmol/L (22-30) L 01/27/18 07:50 Anion Gap 10 mmol/L 01/27/18 07:50 BUN 11 mg/dL (7-17) 01/27/18 07:50 Creatinine 1.06 mg/dL (0.52-1.04) H 01/27/18 07:50 Est GFR (CKD-EPI)AfAm 64 (>60 ml/min/1.73 sqM) 01/27/18 07:50 Est GFR (CKD-EPI)NonAf 56 (>60 ml/min/1.73 sqM) 01/27/18 07:50 Glucose 96 mg/dL (74-99) 01/27/18 07:50 POC Glucose (mg/dL) 98 mg/dL (75-99) 01/22/18 20:18 POC Glu [employer] Engineer ID Terra Naqvi 01/22/18 20:[address] Glu mg/dL 134 01/11/18 06:11 Hemoglobin A1c 6.3 % (4.0-6.0) H 01/11/18 06:11 Lactic Ac Sepsis Rflx Y 01/10/18 14:22 Plasma Lactic Acid José 1.0 mmol/L (0.7-2.0) 01/12/18 18:34 Calcium 7.8 mg/dL (8.4-10.2) L 01/27/18 07:50 Phosphorus 2.6 mg/dL (2.5-4.5) 01/16/18 07:45 Magnesium 1.7 mg/dL (1.6-2.3) 01/27/18 07:50 Total Bilirubin 0.8 mg/dL (0.2-1.3) 01/21/18 08:31 AST 42 U/L (14-36) H 01/21/18 08:31 ALT 25 U/L (9-52) 01/21/18 08:31 Alkaline Phosphatase 171 U/L (38-126) H 01/21/18 08:31 Total Creatine Kinase 1070 U/L (30-135) H* 01/11/18 01:25 CK-MB (CK-2) 14.0 ng/mL (0.0-2.4) H 01/11/18 01:25 CK-MB (CK-2) Rel Index 1.3 01/11/18 01:25 Troponin I 0.086 ng/mL (0.000-0.034) H* 01/11/18 01:25 Total Protein 5.7 g/dL (6.3-8.2) L 01/21/18 08:31 Albumin 2.2 g/dL (3.5-5.0) L 01/21/18 08:31 Lipase 26 U/L (23-300) 01/11/18 06:11 Urine Color Yellow 01/10/18 13:31 Urine Appearance Turbid (Clear) H 01/10/18 13:31 Urine pH 7.5 (5.0-8.0) 01/10/18 13:31 Ur Specific [place] 1.012 (1.001-1.035) 01/10/18 13:31 Urine Protein 2+ (Negative) H 01/10/18 13:31 Urine Glucose (UA) Negative (Negative) 01/10/18 13:31 Urine Ketones Negative (Negative) 01/10/18 13:31 Urine Blood Moderate (Negative) H 01/10/18 13:31 Urine Nitrite Negative (Negative) 01/10/18 13:31 Urine Bilirubin Negative (Negative) 01/10/18 13:31 Urine Urobilinogen 2.0 mg/dL (<2.0) 01/10/18 13:31 Ur Leukocyte Esterase Moderate (Negative) H 01/10/18 13:31 Urine WBC 18 /hpf (0-5) H 01/10/18 13:31 Ur Squamous Epith Cells 1 /hpf (0-4) 01/10/18 13:31 Urine Bacteria Many /hpf (None) H 01/10/18 13:31 Urine Mucus Occasional /hpf (None) H 01/10/18 13:31 Hepatitis A IgM Ab Non-Reactive (Non-Reactive) 01/13/18 17:10 Hep Bs Antigen Non-Reactive (Non-Reactive) 01/13/18 17:10 Hep B Core IgM Ab Non-Reactive (Non-Reactive) 01/13/18 17:10 Hep C IgG Ab Non-Reactive (Non-Reactive) 01/13/18 17:10 Blood Type O Positive 01/17/18 14:52 Blood Type Confirm O Positive 01/17/18 12:47 Blood Type Recheck CABO Indicated 01/17/18 14:52 Antibody Screen NEGATIVE 01/17/18 14:52 Crossmatch See Detail 01/17/18 14:52 Spec Expiration Date 01/20/2018235101/17/18 14:52 Microbiology 01/24/18 14:51 Blood Blood Culture - Preliminary No Growth after 72 hours 01/21/18 08:39 Blood Blood Culture - Final No Growth after 144 hours 01/21/18 08:31 Blood Blood Culture - Final No Growth after 144 hours 01/25/18 08:06 Blood Blood Culture - Preliminary No Growth after 48 hours 01/20/18 11:40 Blood Blood Culture - Final No Growth after 144 hours 01/20/18 12:21 Blood Blood Culture Gram Stain - Final 01/20/18 12:21 Blood Blood Culture - Final Gabbie albicans 01/16/18 14:14 Blood Blood Culture Gram Stain - Final 01/16/18 14:14 Blood Blood Culture - Final Gabbie albicans 01/20/18 12:21 Blood Blood Culture - Final 01/16/18 14:14 Blood Blood Culture - Final 01/12/18 18:34 Blood Blood Culture Gram Stain - Final 01/12/18 18:34 Blood Blood Culture - Final Beta Hemolytic Strep 01/12/18 18:34 Blood Blood Culture - Final 01/10/18 13:31 Blood Blood Culture Gram Stain - Final 01/10/18 13:31 Blood Blood Culture - Final Escherichia coli 01/10/18 13:31 Urine,Catheterized Urine Culture - Final Escherichia coli 01/10/18 13:31 Blood Blood Culture - Final Assessment and Plan (1) Acute cholecystitis Status: Acute Code(s): K81.0 - ACUTE CHOLECYSTITIS SNOMED Code(s): 28193102 (2) Sepsis Narrative/Plan: 62-year-old woman with multiple medical troubles including progressive MS who is bedbound and cared for by her family and her in the home setting presents to Hospital from home with increasing weakness lethargy and altered mental status. At this time it appears to be some improvement as she has been hydrated and has been treated with appropriate antibiotic therapy. Patient however is now developed evidence of progressive thrombocytopenia originally platelets were at 147 noted decreased and 19. It is likely the piperacillin tazobactam is etiology of her significant drop of platelets and this is discontinued. Urine culture is available and has evidence of a nonresistant E. coli and constantly antibiotic therapy is changed to ceftriaxone. Platelets will be followed it would expect them to rapidly improve with the withdrawal of the Zosyn. She is being seen by surgery with potential laparoscopic cholecystectomy planned in the future because of the symptomatic choledocholithiasis. Fortunately MRCP does not show evidence of any acute obstructive biliary pattern. Follow blood cultures are negative. The fever and leukocytosis have also improved. 01/16/2018 further improved and platelets recovering with discontinuation of zosyn. Doing well with rocephin. follow up blood culture in progress. 01/17/2018 patient has had further improvement. Repleted some increased to 104. There is contemplation of discharge the near future. However she developed significant and worsening anemia with hemoglobin of 6.8 and continues to have a leukocytosis. There is a concern that there was an aspiration event. Continue current antibiotic therapy The urine culture does have an E. coli that will be not difficult to treat there is evidence of a beta-hemolytic strep in the blood stream which could be contamination. When she is improved plan would be for Levaquin to finish her course of therapy. She'll continue to have needs of following with surgery regarding her choledocholithiasis. 01/20/2018 patient does seem to be feeling relatively well. Not having high- grade fever today. However we now have blood culture with evidence of gabbie. Eraxis is added for the treatment of her current fungemia and prior antibiotic therapy with vancomycin and Zosyn have been utilized for the E. coli and streptococcal infection that have been isolated from the bloodstream. Since her has been changing pathogens found in the blood cultures underlying abscess is a likely etiology, likely is related to her gallbladder. Given her symptoms at admission any abnormal findings. The case is discussed the general surgeon and she will be taken to the operating room on Saturday for laparoscopic cholecystectomy. 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 Fevers improved. She does have evidence of the significant polymicrobial bloodstream infection with E. coli, strep, and Gabbie. It appears that an underlying urinary tract infection as well as sepsis from cholecystitis have occurred and she is showing improvement. Blood cultures are now becoming negative. Would likely be able to have IV access placed and then can complete a course of intravenous Rocephin with oral fluconazole this should be over several weeks. 01/27/2018 patient has had a cholecystectomy and is having marked improvement. Fevers have resolved. She is eating well. Blood cultures are negative and IV access been placed where she received 2 weeks of Rocephin at 2 g a day and 2 weeks of oral fluconazole 200 mg a day. She should follow-up with her surgeon and a follow-up in the office at that time. Status: Acute Code(s): A41.9 - SEPSIS, UNSPECIFIED ORGANISM SNOMED Code(s): 47652843 (3) Thrombocytopenia Status: Acute Code(s): D69.6 - THROMBOCYTOPENIA, UNSPECIFIED SNOMED Code(s) : 513909172
== END 2018-01-27 18:13 | DRG 853 ==
LOC: EC 12:18 → 3SCARD 16:35 → 2SICU 01-12 18:14 → 3NMEDONC 01-14 13:14
PROVIDERS: ADMIT Internal Medicine; ATTEND Internal Medicine
PROC: 30233N1 Transfusion of Nonautologous Red Blood Cells into Peripheral Vein, Percutaneous Approach (ICD-10-PCS; 2018-01-17)
PROC: 0FT44ZZ Resection of Gallbladder, Percutaneous Endoscopic Approach (ICD-10-PCS; principal; 2018-01-22 09:35)
DX: A41.51 Sepsis due to Escherichia coli [E. coli] (principal); G93.41 Metabolic encephalopathy; N17.0 Acute kidney failure with tubular necrosis; R53.2 Functional quadriplegia; J18.9 Pneumonia, unspecified organism; N39.0 Urinary tract infection, site not specified; K80.12 Calculus of gallbladder with acute and chronic cholecystitis without obstruction; R64 Cachexia; E87.2 Acidosis; M62.82 Rhabdomyolysis; E44.1 Mild protein-calorie malnutrition; E87.0 Hyperosmolality and hypernatremia; R47.01 Aphasia; J98.11 Atelectasis; B37.7 Candidal sepsis; A40.0 Sepsis due to streptococcus, group A; R65.20 Severe sepsis without septic shock; D69.6 Thrombocytopenia, unspecified; E87.8 Other disorders of electrolyte and fluid balance, not elsewhere classified; G35 Multiple sclerosis; E86.0 Dehydration; E87.6 Hypokalemia; I10 Essential (primary) hypertension; E03.9 Hypothyroidism, unspecified; R77.8 Other specified abnormalities of plasma proteins; G40.909 Epilepsy, unspecified, not intractable, without status epilepticus; K57.90 Diverticulosis of intestine, part unspecified, without perforation or abscess without bleeding; K21.9 Gastro-esophageal reflux disease without esophagitis; M62.40 Contracture of muscle, unspecified site; D63.8 Anemia in other chronic diseases classified elsewhere; E80.6 Other disorders of bilirubin metabolism; R32 Unspecified urinary incontinence; G89.29 Other chronic pain; M79.606 Pain in leg, unspecified; Z79.82 Long term (current) use of aspirin; Z68.21 Body mass index [BMI] 21.0-21.9, adult; Z79.1 Long term (current) use of non-steroidal anti-inflammatories (NSAID); Z79.890 Hormone replacement therapy; Z79.899 Other long term (current) drug therapy; Z92.3 Personal history of irradiation; Z85.3 Personal history of malignant neoplasm of breast; Z86.010 Personal history of colon polyps; Z87.891 Personal history of nicotine dependence; Z74.01 Bed confinement status; Z98.51 Tubal ligation status; Z88.1 Allergy status to other antibiotic agents; Z82.49 Family history of ischemic heart disease and other diseases of the circulatory system; Z82.3 Family history of stroke; Z87.440 Personal history of urinary (tract) infections
CPT/HCPCS: 36415; 70450; 71045; 71046; 74181; 74230; 76705; 80048; 80053; 80074; 81001; 82550; 82553; 83036; 83605; 83690; 83735; 84100; 84132; 84484; 85025; 85027; 85610; 85730; 86850; 86900; 86901; 86920; 87040; 87077; 87086; 87186; 88304; 93005; 93306; 96361; 96365; 96366; 96367; 99291

== ENCOUNTER 2018-02-05 15:12 | Emergency (ER) | payer MEDICARE, BC ==
[2018-02-05] MEDS ORDERED: SODIUM CHLORIDE 0.9% 500 ML 500 ML IV STA (15:27)
[2018-02-05 15:51] VITALS: RESP 18
[2018-02-05 16:33] LABS: Anisocytosis Slight; Basophils % (A) 0 %; Eosinophils # (A) 0.4 k/uL (0-0.7); Eosinophils % (A) 4 %; HCT 22.3 % (34.0-46.0); Hypochromasia Marked; Lymphocytes # (A) 1.8 k/uL (1.0-4.8); Lymphocytes % (A) 18 %; MCH 29.8 pg (25.0-35.0); MCHC 30.3 g/dL (31.0-37.0); MCV 98.3 fL (80.0-100.0); Macrocytosis Moderate; Mean Platelet Volume 9.5; Monocytes # (A) 0.3 k/uL (0-1.0); Monocytes % (A) 3 %; Neutrophils # (A) 7.4 k/uL (1.3-7.7); Neutrophils % (A) 73 %; Poikilocytosis Slight; RBC 2.27 m/uL (3.80-5.40); RDW 19.9 % (11.5-15.5); WBC 10.1 k/uL (3.8-10.6)
[2018-02-05 16:44] LABS: Albumin 2.1 g/dL (3.5-5.0); Calcium 8.4 mg/dL (8.4-10.2); Potassium 4.3 mmol/L (3.5-5.1); Total Bilirubin 0.3 mg/dL (0.2-1.3); Total Protein 5.7 g/dL (6.3-8.2)
--- NOTE | 2018-02-05 16:44 | ED ---
Recheck HPI <Galindo Greco - Last Filed: 02/05/18 18:26> - General Source: patient, EMS, RN notes reviewed Mode of arrival: EMS Limitations: no limitations <Gerald Vincent - Last Filed: 02/05/18 18:29> - General Chief Complaint: Recheck/Abnormal Lab/Rx Stated Complaint: LOW HEMOGLOBIN Time Seen by Provider: 02/05/18 15:17 - History of Present Illness Initial Comments: 62-year-old female presents emergency Department from [facility] for anemia. Patient is found to have a hemoglobin 6.1. Patient denies any known melena. She has had a history of transfusion. Patient has no specific complaints at this time she does have difficulty speaking secondary EMS. She is contracted which is normal baseline for her. Patient reports no chest pain, shortness breath, headache, dizziness, nausea vomiting. Patient had recent lap baldo with no complications denies any abdominal symptoms. (Gerald Vincent) - Related Data Home Medications Medication Instructions Recorded Confirmed Amantadine HCl [Symmetrel] 100 mg PO BID 12/17/13 02/05/18 Aspirin 81 mg PO DAILY 12/17/13 02/05/18 Rebif 40 mcg INJ MOWEFR 12/17/13 01/10/18 levETIRAcetam [Keppra] 500 mg PO Q12HR 12/17/13 02/05/18 tiZANidine [Zanaflex] 4 mg PO QID 12/17/13 02/05/18 Levothyroxine Sodium [Synthroid] 50 mcg PO DAILY 01/10/18 02/05/18 Mirabegron [Myrbetriq] 25 mg PO DAILY 01/10/18 02/05/18 Omeprazole 20 mg PO DAILY 01/10/18 02/05/18 Docusate [Colace] 100 mg PO BID 02/05/18 02/05/18 Glycerin Adult Suppository 1 supp RECTAL DAILY PRN 02/05/18 02/05/18 Magnesium Hydroxide [Milk of 30 ml PO DAILY PRN 02/05/18 02/05/18 Magnesia] Potassium Chloride ER [K-Dur 20] 20 meq PO BID 02/05/18 02/05/18 Previous Rx's Medication Instructions Recorded Fluconazole [Diflucan] 200 mg PO DAILY #14 tab 01/24/18 cefTRIAXone [Rocephin] 2,000 mg IVPB Q24HR #14 vial 01/24/18 Acetaminophen Tab [Tylenol] 650 mg PO Q6HR PRN tab 01/27/18 Carvedilol [Coreg] 6.25 mg PO BID-W/MEALS #60 tab 01/27/18 amLODIPine BESYLATE [Norvasc] 5 mg PO DAILY #30 tablet 01/27/18 Allergies Allergy/AdvReac Type Severity Reaction Status Date / Time nitrofurantoin AdvReac Nausea Verified 02/05/18 15:23 [From Macrobid] Review of Systems ROS Other: All systems not noted in ROS Statement are negative. <Galindo Greco - Last Filed: 02/05/18 18:26> ROS Other: All systems not noted in ROS Statement are negative. <Gerald Vincent - Last Filed: 02/05/18 18:29> ROS Statement: Those systems with pertinent positive or pertinent negative responses have been documented in the HPI. Past Medical History Past Medical History: Cancer, GERD/Reflux, Hypertension, Seizure Disorder, Thyroid Disorder Additional Past Medical History / Comment(s): MS-, 2002 rt breast cancer had lumpectomy/radiation tx.sinus problems, diverticulosis, past colon polyps-benign History of Any Multi-Drug Resistant Organisms: None Reported Past Surgical History: Breast Surgery, Cholecystectomy, Tubal Ligation Additional Past Surgical History / Comment(s): rt breast bx and lumpectomy/ radiaiton tx,colonoscopy/polyps removed Past Anesthesia/Blood Transfusion Reactions: No Reported Reaction Past Psychological History: No Psychological Hx Reported Smoking Status: Former smoker Past Alcohol Use History: None Reported Past Drug Use History: None Reported - Past Family History Mother Family Medical History: CVA/TIA Father History Unknown: Yes <Gerald Vincent - Last Filed: 02/05/18 18:29> General Exam General appearance: alert, in no apparent distress Head exam: Present: atraumatic, normocephalic, normal inspection Eye exam: Present: normal appearance, PERRL, EOMI. Absent: scleral icterus, conjunctival injection, periorbital swelling ENT exam: Present: normal exam, normal oropharynx, mucous membranes moist Neck exam: Present: normal inspection, full ROM. Absent: tenderness, meningismus, lymphadenopathy Respiratory exam: Present: normal lung sounds bilaterally. Absent: respiratory distress, wheezes, rales, rhonchi, stridor Cardiovascular Exam: Present: normal rhythm, bradycardia (Heart rate 48), normal heart sounds. Absent: systolic murmur, diastolic murmur, rubs, gallop, clicks GI/Abdominal exam: Present: soft, normal bowel sounds. Absent: distended, tenderness, guarding, rebound, rigid Extremities exam: Present: other (Patient is contracted) Neurological exam: Present: alert, oriented X3 Skin exam: Present: warm, dry, intact, normal color. Absent: rash <Gerald Vincent - Last Filed: 02/05/18 18:29> Course <Galindo Greco - Last Filed: 02/05/18 18:26> <Gerald Vincent - Last Filed: 02/05/18 18:29> Vital Signs 02/05/18 02/05/18 02/05/18 15:39 16:20 16:47 Temperature 96.1 F L Pulse Rate 48 L 47 L Respiratory 18 18 Rate Blood Pressure 91/68 101/65 O2 Sat by Pulse 100 99 Oximetry 02/05/18 18:16 Temperature Pulse Rate 50 L Respiratory 18 Rate Blood Pressure 101/68 O2 Sat by Pulse 99 Oximetry - Reevaluation(s) Reevaluation #1: 02/05/18 18:26 Patient reevaluated by myself, Dr. Greco. Patient reexamined. Abdomen soft and nontender. Patient did have a cystectomy done just a week or 2 ago here. There was associated infection and patient was placed on antibiotics. Hemoglobin was found to be low as an outpatient. Repeat hemoglobin here is 6.8. Patient and family updated. Case was discussed in detail with Dr. Guo who recommends transfusion of 1 unit and then discharged. Care of and repeat hemoglobin from the nursing facility. (Galindo Greco) 02/05/18 16:44 Vital signs are reviewed, heart rate 48, bradycardic, blood pressure 91/68 though stable asymptomatic (Gerald Vincent) Medical Decision Making - Lab Data Result diagrams: 02/05/18 16:10 02/05/18 16:10 <Galindo Greco - Last Filed: 02/05/18 18:26> - Lab Data Result diagrams: 02/05/18 16:10 02/05/18 16:10 <Gerald Vincent - Last Filed: 02/05/18 18:29> - Medical Decision Making 62-year-old female presented from outpatient for her anemia. Patient is a hematoma 6.8 Hemoccult negative. Patient will transfuse [address] Greco is discussed with Dr. Guo and which the patient will be discharged back to [facility] will have repeat lab work there she is stable for discharge. (Gerald Vincent) - Lab Data Lab Results 02/05/18 02/05/18 02/05/18 Range/Units 16:10 16:10 16:10 WBC 10.1 (3.8-10.6) k/uL RBC 2.27 L (3.80-5.40) m/uL Hgb 6.8 L* D (11.4-16.0) gm/dL Hct 22.3 L (34.0-46.0) % MCV 98.3 (80.0-100.0) fL MCH 29.8 (25.0-35.0) pg MCHC 30.3 L (31.0-37.0) g/dL RDW 19.9 H (11.5-15.5) % Plt Count 174 D (150-450) k/uL Neutrophils % 73 % Lymphocytes % 18 % Monocytes % 3 % Eosinophils % 4 % Basophils % 0 % Neutrophils # 7.4 (1.3-7.7) k/uL Lymphocytes # 1.8 (1.0-4.8) k/uL Monocytes # 0.3 (0-1.0) k/uL Eosinophils # 0.4 (0-0.7) k/uL Basophils # 0.0 (0-0.2) k/uL Manual Slide Review Performed Toxic Vacuolation Present Polychromasia Present Hypochromasia Marked Poikilocytosis Slight Poikilocytosis (manual Present Anisocytosis Slight Macrocytosis Moderate PT (9.0-12.0) sec INR (<1.2) APTT (22.0-30.0) sec Sodium 149 H (137-145) mmol/L Potassium 4.3 (3.5-5.1) mmol/L Chloride 117 H (98-107) mmol/L Carbon Dioxide 25 (22-30) mmol/L Anion Gap 7 mmol/L BUN 19 H (7-17) mg/dL Creatinine 1.51 H (0.52-1.04) mg/dL Est GFR (CKD-EPI)AfAm 42 (>60 ml/min/1.73 sqM) Est GFR (CKD-EPI)NonAf 36 (>60 ml/min/1.73 sqM) Glucose 93 (74-99) mg/dL Calcium 8.4 (8.4-10.2) mg/dL Total Bilirubin 0.3 (0.2-1.3) mg/dL AST 41 H (14-36) U/L ALT 25 (9-52) U/L Alkaline Phosphatase 196 H (38-126) U/L Total Protein 5.7 L (6.3-8.2) g/dL Albumin 2.1 L (3.5-5.0) g/dL Lipase 12 L (23-300) U/L Stool Occult Blood (Negative) Blood Type O Positive Blood Type Recheck No Antibody Screen NEGATIVE Crossmatch See Detail Spec Expiration Date 02/08/2018 - 230902/05/18 02/05/18 Range/Units 16:10 16:10 WBC (3.8-10.6) k/uL RBC (3.80-5.40) m/uL Hgb (11.4-16.0) gm/dL Hct (34.0-46.0) % MCV (80.0-100.0) fL MCH (25.0-35.0) pg MCHC (31.0-37.0) g/dL RDW (11.5-15.5) % Plt Count (150-450) k/uL Neutrophils % % Lymphocytes % % Monocytes % % Eosinophils % % Basophils % % Neutrophils # (1.3-7.7) k/uL Lymphocytes # (1.0-4.8) k/uL Monocytes # (0-1.0) k/uL Eosinophils # (0-0.7) k/uL Basophils # (0-0.2) k/uL Manual Slide Review Toxic Vacuolation Polychromasia Hypochromasia Poikilocytosis Poikilocytosis (manual Anisocytosis Macrocytosis PT 10.8 (9.0-12.0) sec INR 1.1 (<1.2) APTT 26.9 (22.0-30.0) sec Sodium (137-145) mmol/L Potassium (3.5-5.1) mmol/L Chloride (98-107) mmol/L Carbon Dioxide (22-30) mmol/L Anion Gap mmol/L BUN (7-17) mg/dL Creatinine (0.52-1.04) mg/dL Est GFR (CKD-EPI)AfAm (>60 ml/min/1.73 sqM) Est GFR (CKD-EPI)NonAf (>60 ml/min/1.73 sqM) Glucose (74-99) mg/dL Calcium (8.4-10.2) mg/dL Total Bilirubin (0.2-1.3) mg/dL AST (14-36) U/L ALT (9-52) U/L Alkaline Phosphatase (38-126) U/L Total Protein (6.3-8.2) g/dL Albumin (3.5-5.0) g/dL Lipase (23-300) U/L Stool Occult Blood Negative (Negative) Blood Type Blood Type Recheck Antibody Screen Crossmatch Spec Expiration Date - EKG Data EKG Comments: EKG performed at 16:40 sinus bradycardia rate of 47 [place] 154 QRS 80 QT/QTc 544/481 (Gerald Vincent) Disposition <Galindo Greco - Last Filed: 02/05/18 18:26> Is patient prescribed a controlled substance at d/c from ED?: No Time of Disposition: 18:29 <Gerald Vincent - Last Filed: 02/05/18 18:29> Clinical Impression: Anemia, Acute kidney injury Disposition: HOME SELF-CARE Condition: Stable Instructions: Anemia (ED) Additional Instructions: Please return to the Emergency Department if symptoms worsen or any other concerns. Referrals: Zaida Guo MD [Primary Care Provider] - 1-2 days
[2018-02-05 16:46] LABS: INR 1.1 (<1.2); Partial Thromboplastin Time 26.9 sec (22.0-30.0); Prothrombin Time 10.8 sec (9.0-12.0)
[2018-02-05 16:50] LABS: HGB 6.8 gm/dL (11.4-16.0); Platelet Count 174 k/uL (150-450)
[2018-02-05] MEDS ORDERED: SODIUM CHLORIDE 0.9% 1,000 ML IV ONE (16:59)
[2018-02-05] MEDS ORDERED: SODIUM CHLORIDE 0.9% 1,000 ML IV SCH (17:00)
[2018-02-05 17:30] LABS: Poikilocytosis (M) Present; Polychromasia Present; Toxic Vacuolation Present
[2018-02-05] MEDS ORDERED: ONDANSETRON 4 MG/2 ML VIAL IVP PRN (17:40)
[2018-02-05] MEDS ORDERED: PANTOPRAZOLE 40 MG/10 ML VIAL IV SCH (21:00)
[2018-02-05 21:34] VITALS: BP 129/85; PULSE 54; TEMP 96.8
== END 2018-02-05 22:00 | disposition home or self-care (01) ==
LOC: EC 15:12
DX: N17.9 Acute kidney failure, unspecified (principal); D64.9 Anemia, unspecified; K21.9 Gastro-esophageal reflux disease without esophagitis; I10 Essential (primary) hypertension; G40.909 Epilepsy, unspecified, not intractable, without status epilepticus; G35 Multiple sclerosis; E07.9 Disorder of thyroid, unspecified; Z85.3 Personal history of malignant neoplasm of breast; Z87.891 Personal history of nicotine dependence; Z79.82 Long term (current) use of aspirin; Z79.899 Other long term (current) drug therapy; Z88.1 Allergy status to other antibiotic agents
CPT/HCPCS: 36415; 93005; 86900; 86901; 80053; 83690; 85025; 85610; 85730; 86850; 86920; 82272; 99284; 96360; 96361 ×5; P9016

== ENCOUNTER 2018-02-13 13:42 | Inpatient (IN) | payer MEDICARE, BC ==
[2018-02-13] MEDS ORDERED: SODIUM CHLORIDE 0.9% 1,000 ML IV ONE (14:24)
--- NOTE | 2018-02-13 14:26 | ED ---
General Adult HPI - General Chief complaint: Abdominal Pain Stated complaint: abd pain Time Seen by Provider: 02/13/18 14:00 Source: patient, EMS, RN notes reviewed Mode of arrival: EMS Limitations: physical limitation - History of Present Illness Initial comments: This is a 62-year-old female who presents emergency Department with a past medical history significant for multiple sclerosis. [facility] At the [facility] they noted her to be dehydrated and blood work was done at some point in time and was told that her sodium was not normal. Patient was sent into the emergency department by the [facility] physician Dr. Guo. Patient herself has no complaints. Patient denies any chest pain difficulty breathing or shortness of breath however the patient's family states at some point the patient complained of chest pain according to the [facility]. Patient herself denies any chest pain. Patient denies any abdominal pain patient denies nausea vomiting diarrhea. Patient denies any fever chills or cough. Patient denies any area of pain. - Related Data Home Medications Medication Instructions Recorded Confirmed Amantadine HCl [Symmetrel] 100 mg PO BID@0900,2100 12/17/13 02/13/18 Aspirin 81 mg PO DAILY 12/17/13 02/13/18 levETIRAcetam [Keppra] 500 mg PO BID@0900,1200 12/17/13 02/13/18 tiZANidine [Zanaflex] 4 mg PO QID@00,06,12,18 12/17/13 02/13/18 Levothyroxine Sodium [Synthroid] 50 mcg PO HS 01/10/18 02/13/18 Mirabegron [Myrbetriq] 25 mg PO DAILY 01/10/18 02/13/18 Omeprazole 20 mg PO HS 01/10/18 02/13/18 Docusate [Colace] 100 mg PO BID@0900,2100 02/05/18 02/13/18 Potassium Chloride ER [K-Dur 20] 20 meq PO BID@0900,1800 02/05/18 02/13/18 Carvedilol [Coreg] 6.25 mg PO BID@0900,2100 02/13/18 02/13/18 Dextrose 5% Soln 1 dose IV DIRECTED 02/13/18 02/13/18 Lactose-Reduced Food [Ensure Plus] 240 ml PO TID 02/13/18 02/13/18 Triamcinolone 0.5% Cream [Kenalog 1 applic TOPICAL BID@0900,2100 02/13/18 0.5% Cream] Previous Rx's Medication Instructions Recorded Acetaminophen Tab [Tylenol] 650 mg PO Q6HR PRN tab 01/27/18 amLODIPine BESYLATE [Norvasc] 5 mg PO DAILY #30 tablet 01/27/18 Allergies Allergy/AdvReac Type Severity Reaction Status Date / Time nitrofurantoin AdvReac Nausea Verified 02/13/18 14:05 [From Macrobid] Review of Systems ROS Statement: Those systems with pertinent positive or pertinent negative responses have been documented in the HPI. ROS Other: All systems not noted in ROS Statement are negative. Past Medical History Past Medical History: Cancer, GERD/Reflux, Hypertension, Seizure Disorder, Thyroid Disorder Additional Past Medical History / Comment(s): MS-, 2002 rt breast cancer had lumpectomy/radiation tx.sinus problems, diverticulosis, past colon polyps-benign History of Any Multi-Drug Resistant Organisms: None Reported Past Surgical History: Breast Surgery, Tubal Ligation Additional Past Surgical History / Comment(s): rt breast bx and lumpectomy/ radiaiton tx,colonoscopy/polyps removed Past Anesthesia/Blood Transfusion Reactions: No Reported Reaction Past Psychological History: No Psychological Hx Reported Smoking Status: Former smoker Past Alcohol Use History: None Reported Past Drug Use History: None Reported - Past Family History Mother Family Medical History: CVA/TIA Father History Unknown: Yes General Exam Limitations: physical limitation Course Vital Signs 02/13/18 02/13/18 13:59 15:03 Temperature 98.1 F 99.2 F Pulse Rate 58 L Respiratory 16 Rate Blood Pressure 150/94 O2 Sat by Pulse 96 Oximetry Medical Decision Making - Medical Decision Making EKG shows normal sinus rhythm at 63 bpm AK interval 216 QRS 74 Q-T intervals 464 QTC is 474. Patient's EKG shows no ST segment elevation or depression or T wave abnormalities are noted. I started the patient on D5W for the hypernatremia. I spoke with Dr. Mitchell she agreed to admit the patient admitted the patient wrote admitting orders. - Lab Data Result diagrams: 02/13/18 15:00 02/13/18 15:00 Lab Results 02/13/18 02/13/18 02/13/18 Range/Units 15:00 15:00 15:00 WBC 9.2 (3.8-10.6) k/uL RBC 3.02 L (3.80-5.40) m/uL Hgb 9.0 L D (11.4-16.0) gm/dL Hct 29.7 L (34.0-46.0) % MCV 98.2 (80.0-100.0) fL MCH 29.9 (25.0-35.0) pg MCHC 30.4 L (31.0-37.0) g/dL RDW 19.8 H (11.5-15.5) % Plt Count 148 L (150-450) k/uL Neutrophils % [employer] Neutrophils % (Manual) 56 % Band Neutrophils % 1 % Lymphocytes % [employer] Lymphocytes % (Manual) 36 % Monocytes % [employer] Monocytes % (Manual) 4 % Eosinophils % [employer] Eosinophils % (Manual) 2 % Basophils % [employer] Metamyelocytes % 1 % Myelocytes % 2 % Neutrophils # [employer] Neutrophils # (Manual) 5.20 (1.3-7.7) k/uL Lymphocytes # [employer] Lymphocytes # (Manual) 3.31 (1.0-4.8) k/uL Monocytes # [employer] Monocytes # (Manual) 0.37 (0-1.0) k/uL Eosinophils # [employer] Eosinophils # (Manual) 0.18 (0-0.7) k/uL Basophils # [employer] Metamyelocytes # (Man) 0.09 H (0) k/uL Myelocytes # (Manual) 0.18 H (0) k/uL Nucleated RBCs 0 (0-0) /100 WBC Toxic Granulation Present Toxic Vacuolation Present Polychromasia Present Hypochromasia Marked Poikilocytosis Slight Poikilocytosis (manual Present Anisocytosis Slight Macrocytosis Moderate Sodium 156 H (137-145) mmol/L Potassium 4.0 (3.5-5.1) mmol/L Chloride 130 H (98-107) mmol/L Carbon Dioxide 23 (22-30) mmol/L Anion Gap 3 mmol/L BUN 13 (7-17) mg/dL Creatinine 1.30 H (0.52-1.04) mg/dL Est GFR (CKD-EPI)AfAm 50 (>60 ml/min/1.73 sqM) Est GFR (CKD-EPI)NonAf 44 (>60 ml/min/1.73 sqM) Glucose 87 (74-99) mg/dL Calcium 8.5 (8.4-10.2) mg/dL Total Bilirubin 0.5 (0.2-1.3) mg/dL AST 35 (14-36) U/L ALT 28 (9-52) U/L Alkaline Phosphatase 215 H (38-126) U/L Total Creatine Kinase 126 (30-135) U/L CK-MB (CK-2) 3.0 H (0.0-2.4) ng/mL CK-MB (CK-2) Rel Index 2.4 Troponin I 0.026 (0.000-0.034) ng/mL Total Protein 6.2 L (6.3-8.2) g/dL Albumin 2.3 L (3.5-5.0) g/dL Disposition Clinical Impression: Dehydration, Hypernatremia Disposition: ADMITTED IP TO THIS HOSP Referrals: Zaida Guo MD [Primary Care Provider] - 1-2 days Time of Disposition: 17:01
[2018-02-13 15:39] LABS: Albumin 2.3 g/dL (3.5-5.0); Calcium 8.5 mg/dL (8.4-10.2); Total Bilirubin 0.5 mg/dL (0.2-1.3); Total Protein 6.2 g/dL (6.3-8.2)
[2018-02-13 15:45] LABS: Anisocytosis Slight; HCT 29.7 % (34.0-46.0); Hypochromasia Marked; MCH 29.9 pg (25.0-35.0); MCHC 30.4 g/dL (31.0-37.0); MCV 98.2 fL (80.0-100.0); Macrocytosis Moderate; Mean Platelet Volume 8.6; Platelet Count 148 k/uL (150-450); Poikilocytosis Slight; RBC 3.02 m/uL (3.80-5.40); RDW 19.8 % (11.5-15.5); WBC 9.2 k/uL (3.8-10.6)
[2018-02-13 15:51] LABS: Troponin I 0.026 ng/mL (0.000-0.034)
[2018-02-13 16:23] LABS: Band Neutrophils % 1 %; Eosinophils # (M) 0.18 k/uL (0-0.7); Lymphocytes # (M) 3.31 k/uL (1.0-4.8); Metamyelocytes # (M) 0.09 k/uL (0); Metamyelocytes % 1 %; Monocytes # (M) 0.37 k/uL (0-1.0); Myelocytes # (M) 0.18 k/uL (0); Myelocytes % 2 %; Neutrophils % (M) 56 %; Nucleated Red Blood Cells 0 /100 WBC (0-0); Poikilocytosis (M) Present; Polychromasia Present; Total Cells Counted 200; Toxic Granulation Present; Toxic Vacuolation Present
[2018-02-13] MEDS ORDERED: ACETAMINOPHEN TAB 500 MG TAB PO STA (17:13)
[2018-02-13] MEDS ORDERED: ACETAMINOPHEN TAB 325 MG TAB PO PRN (19:51)
[2018-02-13] MEDS ORDERED: amLODIPine 5 MG TAB PO STA (19:54)
[2018-02-13] MEDS: DEXTROSE 5% IN WATER 1,000 ML IV SCH (20:43)
[2018-02-13] MEDS ORDERED: DOCUSATE 100 MG CAP PO SCH (21:00)
[2018-02-13] MEDS: CARVEDILOL 6.25 MG TAB PO SCH (21:30)
[2018-02-13] MEDS: AMANTADINE HCL 100 MG CAP PO SCH (21:30)
[2018-02-13] MEDS: PANTOPRAZOLE 40 MG TABLET PO SCH (21:30)
[2018-02-13] MEDS: LEVOTHYROXINE 50 MCG TAB PO SCH (21:30)
[2018-02-13] MEDS: TRIAMCINOLONE ACET 0.5% CREAM 15 GM TUBE TOPICAL SCH (21:31)
[2018-02-13] MEDS ORDERED: NON-FORMULARY DRUG (Lactose-Reduced Food [Ensure Plus] 240 ML) PO SCH (22:00)
[2018-02-14] MEDS: DEXTROSE 5% IN WATER 1,000 ML IV SCH ×2 (06:13→21:19)
[2018-02-14] MEDS: AMANTADINE HCL 100 MG CAP PO SCH ×2 (07:51→21:17)
[2018-02-14] MEDS: ASPIRIN 81 MG PO SCH (07:52)
[2018-02-14] MEDS: CARVEDILOL 6.25 MG TAB PO SCH ×2 (07:52→21:17)
[2018-02-14] MEDS: amLODIPine 5 MG TAB PO SCH (07:52)
[2018-02-14] MEDS: levETIRAcetam 500 MG TAB PO SCH ×2 (07:52→11:54)
[2018-02-14] MEDS: TRIAMCINOLONE ACET 0.5% CREAM 15 GM TUBE TOPICAL SCH ×2 (07:53→21:18)
[2018-02-14] MEDS: POTASSIUM CHLORIDE ER 20 MEQ TAB.ER PO SCH ×2 (07:53→17:04)
[2018-02-14] MEDS: NON-FORMULARY DRUG (Mirabegron [Myrbetriq] 25 MG) PO SCH (08:08)
[2018-02-14 09:53] LABS: Anisocytosis Slight; HCT 27.6 % (34.0-46.0); HGB 8.4 gm/dL (11.4-16.0); Hypochromasia Marked; MCH 29.8 pg (25.0-35.0); MCHC 30.4 g/dL (31.0-37.0); MCV 97.8 fL (80.0-100.0); Macrocytosis Slight; Mean Platelet Volume 9.5; Platelet Count 145 k/uL (150-450); Poikilocytosis Slight; RBC 2.82 m/uL (3.80-5.40); RDW 19.3 % (11.5-15.5); WBC 9.3 k/uL (3.8-10.6)
[2018-02-14 10:03] LABS: Albumin 2.2 g/dL (3.5-5.0); Calcium 8.3 mg/dL (8.4-10.2); Potassium 3.5 mmol/L (3.5-5.1); Total Bilirubin 0.5 mg/dL (0.2-1.3)
[2018-02-14] MEDS: DOCUSATE 100 MG CAP PO PRN ×2 (11:55→21:17)
--- NOTE | 2018-02-14 14:23 | P.HPIM ---
History of Present Illness H&P Date: 02/14/18 This is a 62-year-old female patient of Dr. Guo at [facility] with past history of multiple sclerosis, hypertension, gastroesophageal reflux disease, history of breast cancer status post lumpectomy and radiation, hypothyroidism. Patient had a recent hospitalization the beginning of January which time she was treated for acute cholecystitis status post laparoscopic cholecystectomy and UTI with E. coli bacteremia, acute kidney injury. She was discharged to [facility] on Rocephin and oral Diflucan for 2 weeks. states that she has [facility] until her midline recently came out. He states that she has been too weak to eat and she is not gotten any better at the prison. Prior to the recent hospitalization, patient was wheelchair-bound was able to pivot with her 's help. Patient does not have use of the right arm and both legs. He's concerned that she has a sensation of falling while she is laying in bed. She has had some trouble swallowing and on last admission she was followed by speech therapy. Patient was transferred to [facility] emergency center by EMS. [facility] noted that she was dehydrated from her recent blood work and her sodium was high at 156 and patient was sent for further evaluation. Patient denies having any chest pain or shortness of breath she denies any abdominal pain, no nausea, vomiting or diarrhea. No fever or chills. White count was normal, hemoglobin 9.0, platelet count 148, sodium 156 and chloride 130, creatinine 1.3, alkaline phosphatase 215. Troponin 0.026. Stool for occult blood was negative. EKG was a normal sinus rhythm with no acute ST changes. Patient was started on IV fluids of D5W and admitted to the [facility]Sur floor. Repeat lab work reveals hemoglobin of 8.4, platelet count 145, sodium 153 and chloride 126. Creatinine 1.18. Patient is unable to verbalize or give history. History is obtained from the patient's family members at the bedside. Review of Systems ROS unobtainable: due to mental status All systems: negative Constitutional: Denies chills, Denies fever Eyes: denies blurred vision, denies pain Ears, nose, mouth and throat: Denies headache, Denies sore throat Cardiovascular: Denies chest pain, Denies shortness of breath Respiratory: Denies cough Gastrointestinal: Denies abdominal pain, Denies diarrhea, Denies nausea, Denies vomiting Genitourinary: Denies dysuria, Denies hematuria Musculoskeletal: Denies myalgias Integumentary: Denies pruritus, Denies rash Neurological: Denies numbness, Denies weakness Psychiatric: Denies anxiety, Denies depression Endocrine: Denies fatigue, Denies weight change Past Medical History Past Medical History: Cancer, GERD/Reflux, Hypertension, Seizure Disorder, Thyroid Disorder Additional Past Medical History / Comment(s): MS-, 2002 rt breast cancer had lumpectomy/radiation tx.sinus problems, diverticulosis, past colon polyps-benign History of Any Multi-Drug Resistant Organisms: None Reported Past Surgical History: Breast Surgery, Tubal Ligation Additional Past Surgical History / Comment(s): rt breast bx and lumpectomy/ radiaiton tx,colonoscopy/polyps removed Past Anesthesia/Blood Transfusion Reactions: No Reported Reaction Past Psychological History: No Psychological Hx Reported Additional Psychological History / Comment(s): is cared for in the family home by her and caregivers. No experience. Travel history. No animal exposures Smoking Status: Former smoker Past Alcohol Use History: None Reported Additional Past Alcohol Use History / Comment(s): per [facility]- pt smoked approx 20 years not sure when quit but smoked less than 1 ppd Past Drug Use History: None Reported - Past Family History Mother Family Medical History: CVA/TIA Father History Unknown: Yes Medications and Allergies Home Medications Medication Instructions Recorded Confirmed Type Amantadine HCl [Symmetrel] 100 mg PO BID@0900,2100 12/17/13 02/13/18 History Aspirin 81 mg PO DAILY 12/17/13 02/13/18 History levETIRAcetam [Keppra] 500 mg PO BID@0900,1200 12/17/13 02/13/18 History tiZANidine [Zanaflex] 4 mg PO QID@00,06,12,18 12/17/13 02/13/18 History Levothyroxine Sodium [Synthroid] 50 mcg PO HS 01/10/18 02/13/18 History Mirabegron [Myrbetriq] 25 mg PO DAILY 01/10/18 02/13/18 History Omeprazole 20 mg PO HS 01/10/18 02/13/18 History Acetaminophen Tab [Tylenol] 650 mg PO Q6HR PRN tab 01/27/18 02/13/18 Rx amLODIPine BESYLATE [Norvasc] 5 mg PO DAILY #30 tablet 01/27/18 02/13/18 Rx Docusate [Colace] 100 mg PO BID@0900,2100 02/05/18 02/13/18 History Potassium Chloride ER [K-Dur 20] 20 meq PO BID@0900,1800 02/05/18 02/13/18 History Carvedilol [Coreg] 6.25 mg PO BID@0900,2100 02/13/18 02/13/18 History Dextrose 5% Soln 1 dose IV DIRECTED 02/13/18 02/13/18 History Lactose-Reduced Food [Ensure Plus] 240 ml PO TID 02/13/18 02/13/18 History Triamcinolone 0.5% Cream [Kenalog 1 applic TOPICAL BID@0900,2100 02/13/18 History 0.5% Cream] Allergies Allergy/AdvReac Type Severity Reaction Status Date / Time nitrofurantoin AdvReac Nausea Verified 02/13/18 14:05 [From Macrobid] Physical Exam Vitals: Vital Signs Temp Pulse Pulse Resp BP BP Pulse Ox 02/14/18 09:05 98.9 F 65 19 151/92 99 02/14/18 08:00 65 19 02/14/18 06:27 98.2 F 62 16 145/83 93 L 02/13/18 22:56 98.8 F 68 15 154/76 93 L 02/13/18 19:30 98.7 F 69 16 144/87 98 02/13/18 19:00 155/106 97 02/13/18 18:30 152/111 97 02/13/18 18:00 150/104 97 02/13/18 17:30 145/100 97 02/13/18 17:00 68 147/103 02/13/18 16:30 82 130/110 98 02/13/18 16:00 76 145/101 99 02/13/18 15:30 76 149/95 02/13/18 15:03 99.2 F 02/13/18 15:01 72 131/100 02/13/18 14:30 68 150/94 02/13/18 14:01 98 02/13/18 13:59 98.1 F 58 L 16 150/94 96 Intake and Output 02/13/18 02/14/18 02/14/18 22:59 06:59 14:59 Intake Total 60 Balance 60 Intake: Oral 60 Other: Voiding Method Diaper Toilet Diaper # Voids 1 2 Weight 52 kg Gen: This is a 62-year-old female. Patient is sitting up in bed. She is awake but is unable to verbalize and answer questions. Noted jerking- type motion of her head as she turns. HEENT: Head is atraumatic, normocephalic. Pupils equal, round. Sclerae is anicteric. Oral mucous membranes are currently moist. NECK: Supple. No JVD. No lymphadenopathy. No thyromegaly. LUNGS: Clear to auscultation. No wheezes or rhonchi. No intercostal retractions. HEART: Regular rate and rhythm. No murmur. ABDOMEN: Soft. Bowel sounds are present. No masses. No tenderness. EXTREMITIES: No pedal edema. No calf tenderness. NEUROLOGICAL: Patient is awake, alert and oriented x1-2. Patient has very minimal use of the right arm and no control over the bilateral legs. Results CBC & Chem 7: 02/14/18 08:53 02/14/18 08:53 Labs: Abnormal Lab Results - Last 24 Hours (Table) 02/13/18 02/13/18 02/13/18 Range/Units 15:00 15:00 15:00 RBC 3.02 L (3.80-5.40) m/uL Hgb 9.0 L D (11.4-16.0) gm/dL Hct 29.7 L (34.0-46.0) % MCHC 30.4 L (31.0-37.0) g/dL RDW 19.8 H (11.5-15.5) % Plt Count 148 L (150-450) k/uL Metamyelocytes # (Man) 0.09 H (0) k/uL Myelocytes # (Manual) 0.18 H (0) k/uL Sodium 156 H (137-145) mmol/L Chloride 130 H (98-107) mmol/L Carbon Dioxide (22-30) mmol/L Creatinine 1.30 H (0.52-1.04) mg/dL Calcium (8.4-10.2) mg/dL Alkaline Phosphatase 215 H (38-126) U/L CK-MB (CK-2) 3.0 H (0.0-2.4) ng/mL Total Protein 6.2 L (6.3-8.2) g/dL Albumin 2.3 L (3.5-5.0) g/dL 02/14/18 02/14/18 Range/Units 08:53 08:53 RBC 2.82 L (3.80-5.40) m/uL Hgb 8.4 L (11.4-16.0) gm/dL Hct 27.6 L (34.0-46.0) % MCHC 30.4 L (31.0-37.0) g/dL RDW 19.3 H (11.5-15.5) % Plt Count 145 L (150-450) k/uL Metamyelocytes # (Man) (0) k/uL Myelocytes # (Manual) (0) k/uL Sodium 153 H (137-145) mmol/L Chloride 126 H (98-107) mmol/L Carbon Dioxide 21 L (22-30) mmol/L Creatinine 1.18 H (0.52-1.04) mg/dL Calcium 8.3 L (8.4-10.2) mg/dL Alkaline Phosphatase 210 H (38-126) U/L CK-MB (CK-2) (0.0-2.4) ng/mL Total Protein 6.0 L (6.3-8.2) g/dL Albumin 2.2 L (3.5-5.0) g/dL Thrombosis Risk Factor Assmnt - DVT/VTE Prophylaxis DVT/VTE Prophylaxis: Pharmacologic Prophylaxis ordered - Choose All That Apply Any of the Below Risk Factors Present?: Yes Each Factor Represents 1 point: Medical pt on bed rest Other Risk Factors: Yes Each Risk Factor Represents 2 Points: Age 61-74 years Thrombosis Risk Factor Assessment Total Risk Factor Score: 3 Thrombosis Risk Factor Assessment Level: Moderate Risk Assessment and Plan Plan: 1. Dehydration with hypernatremia. Continue IV fluids to D5W at 75 mL per hour. Recheck labs in the morning. 2. Hypertension. Continue amlodipine 5 mg daily, Coreg 6.25 mg twice daily. 3. Hypothyroidism. Continue levothyroxine 50 g daily. 4. History of MS with most likely decline in her overall condition secondary to MS. Continue amantadine 100 mg twice daily, Keppra 500 mg twice daily, Zanaflex 4 mg 4 times daily. PT, OT, speech therapy. There is concern regarding aspiration and patient may need to be reevaluated by modified barium swallow. 5. Recent laparoscopic cholecystectomy, stable. 6. Recent treatment for E. coli UTI and bacteremia, stable. Patient completed course of antibiotics. 7. Severe protein calorie malnutrition. The patient is meeting her nutritional needs. Dietitian consult will be requested. Speech therapy is also on. 8. GI prophylaxis. Protonix. 9. DVT prophylaxis. Heparin subcu.. Patient will be admitted to the hospital for a minimum of 2 night stay. Discharge plan: Return to [facility] in the care of Dr. Guo Impression and plan of care have been directed as dictated by the signing physician. Sunitha Guzman nurse practitioner acting as scribe for signing physician.
[2018-02-14 15:39] VITALS: BMI 20.2
--- NOTE | 2018-02-14 15:52 | US ---
EXAMINATION TYPE: US abdomen limited DATE OF EXAM: 02/14/2018 COMPARISON: Gallbladder ultrasound January 10, 2018. MRCP January 11, 2018. CLINICAL HISTORY: elevated alk phos. Poor historian. GB removed x 2 weeks ago. EXAM MEASUREMENTS: Liver Length: 15.5 cm Right Kidney: 10.4 x 5.4 x 5.2 cm Pancreas: Appears heterogenous. Liver: Heterogenous. No vascular flow seen in portal splenic confluence. In right liver, linear echo genic focus seen. Portal vein thrombosed? Gallbladder: Surgically absent Evidence for sonographic Juan's sign: neg CBD: Not accurately visualized CHD: Not accurately visualized Right Kidney: wnl, prominent pyramids seen. Visualized pancreas is heterogeneous. Heterogeneous hyperechoic appearance of liver is identified. No suspicious hepatic ductal dilatation is seen. Evaluation focal masses is suboptimal due to the heter ogeneity. There is absence of flow in the central portal vein, thrombus at this level cannot be exclu ded. Linear hyperechoic structure right hepatic lobe is of uncertain etiology. No surrounding ascites is seen. Gallbladder is now surgically absent. Common bile duct not well visualized with certainty. Limited images right kidney show no gross hydronephrosis. IMPRESSION: Suboptimal study, cannot exclude new portal vein thrombus with absent color flow. Advise contrast enhanced CT follow-up to further assess which can also better assess liver.
[2018-02-14 17:32] LABS: Appearance,Urine Clear (Clear); Bilirubin,Urine Negative (Negative); Blood,Urine Moderate (Negative); Color,Urine Light Yellow; Glucose,Urine (UA) Negative (Negative); Ketones,Urine Negative (Negative); Leukocyte Esterase,Urine Negative (Negative); Nitrite,Urine Negative (Negative); Protein,Urine 1+ (Negative); RBC,Urine 5 /hpf (0-5); Specific Gravity,Urine 1.009 (1.001-1.035); Squamous Epithelial Cell,Urine 1 /hpf (0-4); Urobilinogen,Urine <2.0 mg/dL (<2.0); WBC,Urine 5 /hpf (0-5)
[2018-02-14] MEDS ORDERED: HEPARIN SODIUM,PORCINE 5,000 UNIT/ML 1 ML VIAL SQ SCH (21:00)
[2018-02-14] MEDS: LEVOTHYROXINE 50 MCG TAB PO SCH (21:17)
[2018-02-14] MEDS: PANTOPRAZOLE 40 MG TABLET PO SCH (21:17)
[2018-02-15] MEDS: ASPIRIN 81 MG PO SCH (08:54)
[2018-02-15] MEDS: CARVEDILOL 6.25 MG TAB PO SCH ×2 (08:54→23:38)
[2018-02-15] MEDS: levETIRAcetam 500 MG TAB PO SCH ×2 (08:55→14:52)
[2018-02-15] MEDS: POTASSIUM CHLORIDE ER 20 MEQ TAB.ER PO SCH ×2 (08:55→18:10)
[2018-02-15] MEDS: TRIAMCINOLONE ACET 0.5% CREAM 15 GM TUBE TOPICAL SCH ×2 (08:55→22:57)
[2018-02-15] MEDS: amLODIPine 5 MG TAB PO SCH (08:55)
[2018-02-15] MEDS: AMANTADINE HCL 100 MG CAP PO SCH ×2 (08:56→22:57)
[2018-02-15] MEDS: NON-FORMULARY DRUG (Mirabegron [Myrbetriq] 25 MG) PO SCH (09:07)
--- NOTE | 2018-02-15 10:08 | P.PN ---
Subjective Progress Note Date: 02/15/18 This is a 62-year-old female patient of Dr. Guo at [facility] with past history of multiple sclerosis, hypertension, gastroesophageal reflux disease, history of breast cancer status post lumpectomy and radiation, hypothyroidism. Patient had a recent hospitalization the beginning of January which time she was treated for acute cholecystitis status post laparoscopic cholecystectomy and UTI with E. coli bacteremia, acute kidney injury. She was discharged to [facility] on Rocephin and oral Diflucan for 2 weeks. states that she has been [facility] until her midline recently came out. He states that she has been too weak to eat and she is not gotten any better at the [facility]. Prior to the recent hospitalization, patient was wheelchair-bound was able to pivot with her 's help. Patient does not have use of the right arm and both legs. He's concerned that she has a sensation of falling while she is laying in bed. She has had some trouble swallowing and on last admission she was followed by speech therapy. Patient was transferred to [facility] emergency center by EMS. group home noted that she was dehydrated from her recent blood work and her sodium was high at 156 and patient was sent for further evaluation. Patient denies having any chest pain or shortness of breath she denies any abdominal pain, no nausea, vomiting or diarrhea. No fever or chills. White count was normal, hemoglobin 9.0, platelet count 148, sodium 156 and chloride 130, creatinine 1.3, alkaline phosphatase 215. Troponin 0.026. Stool for occult blood was negative. EKG was a normal sinus rhythm with no acute ST changes. Patient was started on IV fluids of D5W and admitted to the [facility] floor. Repeat lab work reveals hemoglobin of 8.4, platelet count 145, sodium 153 and chloride 126. Creatinine 1.18. Patient is unable to verbalize or give history. History is obtained from the patient's family members at the bedside. 02/15: Abdominal ultrasound was done yesterday that showed suboptimal study, cannot exclude new portal vein thrombus with absent color flow. Advise contrast enhanced CT. A d-dimer was elevated at 2.84 and CTA of the abdomen will be ordered. Consult with Dr. Le's in place. Patient is awake and alert. She states she slept okay last night. She is denying nausea or vomiting. Review of Systems ROS unobtainable: due to mental status, patient is only able to nod to answer questions. All systems: negative Constitutional: Denies chills, Denies fever Eyes: denies blurred vision, denies pain Ears, nose, mouth and throat: Denies headache, Denies sore throat Cardiovascular: Denies chest pain, Denies shortness of breath Respiratory: Denies cough Gastrointestinal: Denies abdominal pain, Denies diarrhea, Denies nausea, Denies vomiting Genitourinary: Denies dysuria, Denies hematuria Musculoskeletal: Denies myalgias Integumentary: Denies pruritus, Denies rash Neurological: Denies numbness, Denies weakness Psychiatric: Denies anxiety, Denies depression Endocrine: Denies fatigue, Denies weight change Objective - Vital Signs Vital signs: Vital Signs Temp 96.9 F L 02/15/18 06:58 Pulse 63 02/15/18 06:58 Resp 16 02/15/18 06:58 BP 127/83 02/15/18 06:58 Pulse Ox 98 02/15/18 06:58 Intake & Output 02/14/18 02/15/18 02/15/18 18:59 06:59 18:59 Intake Total 100 Balance 100 Weight 52 kg Intake: Oral 100 Other: Voiding Method Toilet Diaper Diaper Incontinent # Voids 2 1 - Exam Gen: This is a 62-year-old female. Patient is sitting up in bed. She is awake but is unable to verbalize and answer questions. Noted jerking- type motion of her head as she turns. HEENT: Head is atraumatic, normocephalic. Pupils equal, round. Sclerae is anicteric. Oral mucous membranes are currently moist. NECK: Supple. No JVD. No lymphadenopathy. No thyromegaly. LUNGS: Clear to auscultation. No wheezes or rhonchi. No intercostal retractions. HEART: Regular rate and rhythm. No murmur. ABDOMEN: Soft. Bowel sounds are present. No masses. No tenderness. EXTREMITIES: No pedal edema. No calf tenderness. NEUROLOGICAL: Patient is awake, alert and oriented x1-2. Patient has very minimal use of the right arm and no control over the bilateral legs. - Labs CBC & Chem 7: 02/14/18 08:53 02/14/18 08:53 Labs: Abnormal Lab Results - Last 24 Hours (Table) 02/13/18 02/14/18 02/14/18 Range/Units 17:15 08:53 08:53 RBC 2.82 L (3.80-5.40) m/uL Hgb 8.4 L (11.4-16.0) gm/dL Hct 27.6 L (34.0-46.0) % MCHC 30.4 L (31.0-37.0) g/dL RDW 19.3 H (11.5-15.5) % Plt Count 145 L (150-450) k/uL Sodium 153 H (137-145) mmol/L Chloride 126 H (98-107) mmol/L Carbon Dioxide 21 L (22-30) mmol/L Creatinine 1.18 H (0.52-1.04) mg/dL Osmolality (280-301) mosm/kg Calcium 8.3 L (8.4-10.2) mg/dL Alkaline Phosphatase 210 H (38-126) U/L Total Protein 6.0 L (6.3-8.2) g/dL Albumin 2.2 L (3.5-5.0) g/dL Urine Protein 1+ H (Negative) Urine Blood Moderate H (Negative) 02/14/18 Range/Units 08:53 RBC (3.80-5.40) m/uL Hgb (11.4-16.0) gm/dL Hct (34.0-46.0) % MCHC (31.0-37.0) g/dL RDW (11.5-15.5) % Plt Count (150-450) k/uL Sodium (137-145) mmol/L Chloride (98-107) mmol/L Carbon Dioxide (22-30) mmol/L Creatinine (0.52-1.04) mg/dL Osmolality 314 H (280-301) mosm/kg Calcium (8.4-10.2) mg/dL Alkaline Phosphatase (38-126) U/L Total Protein (6.3-8.2) g/dL Albumin (3.5-5.0) g/dL Urine Protein (Negative) Urine Blood (Negative) Assessment and Plan Plan: 1. Dehydration with hypernatremia. Continue IV fluids to D5W at 75 mL per hour. Recheck labs in the morning. 2. Hypertension. Continue amlodipine 5 mg daily, Coreg 6.25 mg twice daily. 3. Hypothyroidism. Continue levothyroxine 50 g daily. 4. History of MS with most likely decline in her overall condition secondary to MS. Continue amantadine 100 mg twice daily, Keppra 500 mg twice daily, Zanaflex 4 mg 4 times daily. PT, OT, speech therapy. There is concern regarding aspiration and patient may need to be reevaluated by modified barium swallow. 5. Recent laparoscopic cholecystectomy, stable. 6. Recent treatment for E. coli UTI and bacteremia, stable. Patient completed course of antibiotics. 7. Severe protein calorie malnutrition. The patient is meeting her nutritional needs. Dietitian consult will be requested. Speech therapy is also on. 8. GI prophylaxis. Protonix. 9. DVT prophylaxis. Heparin subcu.. 10. Possible portal vein thrombus found on ultrasound. CTA of the abdomen ordered. Consult with Dr. Le Discharge plan: Return to [facility] under the care of Dr. Guo Impression and plan of care have been directed as dictated by the signing physician. Sunitha Guzman nurse practitioner acting as scribe for signing physician.
[2018-02-15] MEDS: DEXTROSE 5% IN WATER 1,000 ML IV SCH (10:21)
[2018-02-15] MEDS: ENOXAPARIN 60 MG/0.6 ML SYRINGE SQ SCH (11:15)
[2018-02-15 11:18] LABS: Anisocytosis Slight; HCT 30.1 % (34.0-46.0); Hypochromasia Marked; MCH 29.9 pg (25.0-35.0); MCHC 29.8 g/dL (31.0-37.0); MCV 100.2 fL (80.0-100.0); Macrocytosis Moderate; Mean Platelet Volume 9.2; Platelet Count 155 k/uL (150-450); Poikilocytosis Slight; RBC 3.01 m/uL (3.80-5.40); RDW 18.9 % (11.5-15.5); WBC 8.9 k/uL (3.8-10.6)
[2018-02-15 11:25] LABS: Albumin 2.2 g/dL (3.5-5.0); Calcium 8.4 mg/dL (8.4-10.2); Potassium 3.6 mmol/L (3.5-5.1); Total Bilirubin 0.5 mg/dL (0.2-1.3); Total Protein 6.1 g/dL (6.3-8.2)
--- NOTE | 2018-02-15 17:02 | CT ---
EXAMINATION TYPE: CT angio abdomen DATE OF EXAM: 02/15/2018 2:34 PM COMPARISON: MRCP 01/11/2018 HISTORY: Portal Vein Thrombus CT DLP: 421.5 mGycm Automated exposure control for dose reduction was used. TECHNIQUE: Performed with IV Contrast, patient injected with 100 mL of Isovue 370. . FINDINGS: Limited evaluation of the lung bases reveal small bilateral pleural effusions. No suspicious pulmonar y nodules or masses. Limited evaluation of lower heart is unremarkable. Visualized abdominal aorta is without evidence of aneurysmal dilatation, narrowing or dissection. The re is a mild tortuosity of the infrarenal abdominal aorta. The origins of the celiac trunk, superior and inferior mesenteric arteries are identified and patent. Renal arteries are single and patent bila terally. There is some minimal atherosclerotic calcification with noncalcified and calcified atheroma tous disease in the infrarenal abdominal aorta. The bilateral common iliac, internal and external roxanne ac arteries are patent. A large amount of portal venous gas is identified involving the anterior right portal vein as well as the main portal vein. Scattered areas of portal venous gas are also seen in the left mid abdomen. Th e gallbladder is not well-visualized. The liver parenchyma is otherwise unremarkable on this early arterial phase. The spleen, adrenals, ki dneys, visualized portions of bowel are unremarkable in this early arterial phase. Stool is seen thro ughout the colon. Grade 2 anterolisthesis of L5 on S1 with associated degenerative type changes. Osseous structures are otherwise unremarkable. Minimal amount of ascites is seen throughout the abdomen. IMPRESSION: 1. NO ABNORMALITY OF THE ABDOMINAL AORTA. 2. Large amount of portal venous gas. This is a nonspecific finding however may relate to ischemic caden wel. Further investigation is warranted. Supplemental communication-findings were discussed with ROSIE Leblanc on 02/15/[address] Ritchie.
[2018-02-15] MEDS: LEVOTHYROXINE 50 MCG TAB PO SCH (22:57)
[2018-02-15] MEDS: PANTOPRAZOLE 40 MG TABLET PO SCH (22:57)
[2018-02-15] MEDS: metroNIDAZOLE-NS PMX 500 MG in SALINE 1 100ML.BAG IVPB SCH (23:52)
[2018-02-16] MEDS: PIPERACILLIN-TAZOBACTAM 3.375 GM in SODIUM CHLORIDE 0.9% 100 ML IVPB SCH ×2 (01:09→10:00)
[2018-02-16] MEDS: DEXTROSE 5% IN WATER 1,000 ML IV SCH (01:10)
[2018-02-16] MEDS: metroNIDAZOLE-NS PMX 500 MG in SALINE 1 100ML.BAG IVPB SCH (07:11)
[2018-02-16] MEDS: NON-FORMULARY DRUG (Mirabegron [Myrbetriq] 25 MG) PO SCH (07:12)
[2018-02-16] MEDS: CARVEDILOL 6.25 MG TAB PO SCH (07:22)
[2018-02-16] MEDS: amLODIPine 5 MG TAB PO SCH (07:22)
[2018-02-16] MEDS: POTASSIUM CHLORIDE ER 20 MEQ TAB.ER PO SCH (07:22)
[2018-02-16] MEDS: levETIRAcetam 500 MG TAB PO SCH (07:22)
[2018-02-16] MEDS: ENOXAPARIN 60 MG/0.6 ML SYRINGE SQ SCH (07:22)
[2018-02-16] MEDS: ASPIRIN 81 MG PO SCH (07:22)
[2018-02-16] MEDS: TRIAMCINOLONE ACET 0.5% CREAM 15 GM TUBE TOPICAL SCH (07:23)
[2018-02-16] MEDS: AMANTADINE HCL 100 MG CAP PO SCH (07:23)
--- NOTE | 2018-02-16 07:27 | CONS ---
DATE OF CONSULTATION: 02/16/2018 HISTORY: This is a 62-year-old female, I was consulted with CT finding of portal vein DVT with large amount of portal venous gas, which is a nonspecific finding, could be related to ischemic bowel. The patient has a history of cholecystectomy done for acute cholecystitis laparoscopically. The patient also has a history of multiple sclerosis, hypertension, gastroesophageal reflux disease, history of breast cancer status post lumpectomy and radiation. The patient had a cholecystectomy for acute cholecystitis in January. MEDICAL HISTORY: History of seizure disorder, hypertension, history of multiple sclerosis, history of breast cancer. PHYSICAL EXAMINATION: Patient was seen in her room. Neck is supple. Chest has few crackles at the lung bases. Abdomen is soft, nontender. Femoral pulses are present. ASSESSMENT AND PLAN: I have reviewed the CT scan and discussed with Dr. Stokes about this case and also I have discussed the case with Dr. Morris. If the patient needs any tPA or surgical intervention, she should be going to one the tertiary centers for portal vein thrombosis. Dr. Morris is going to discuss with the family. If the patient agrees, we will transfer to a tertiary center. MMODL / IJN: [id number] / MTDD
[2018-02-16 08:56] LABS: Anisocytosis Slight; HCT 28.5 % (34.0-46.0); Hypochromasia Marked; MCH 30.3 pg (25.0-35.0); MCHC 31.6 g/dL (31.0-37.0); MCV 95.9 fL (80.0-100.0); Macrocytosis Slight; Mean Platelet Volume 8.8; Platelet Count 176 k/uL (150-450); Poikilocytosis Slight; RBC 2.97 m/uL (3.80-5.40); RDW 18.5 % (11.5-15.5); WBC 8.2 k/uL (3.8-10.6)
[2018-02-16 09:02] LABS: Albumin 2.1 g/dL (3.5-5.0); Calcium 8.1 mg/dL (8.4-10.2); Potassium 3.6 mmol/L (3.5-5.1); Total Bilirubin 0.5 mg/dL (0.2-1.3); Total Protein 5.9 g/dL (6.3-8.2)
--- NOTE | 2018-02-16 10:10 | P.GSCN ---
History of Present Illness Consult date: 02/16/18 Reason for Consult: Portal venous gas History of present illness: Patient with a history of advanced multiple sclerosis. Patient underwent a cholecystectomy during her recent hospitalization. At that time she was also being treated for a urinary tract infection with sepsis. During this hospitalization the patient had a abdominal ultrasound which suggested the presence of a portal venous clot. CAT scan was then obtained which showed portal venous air. Patient has denied abdominal pain to the nursing staff and the physicians. Last night I was contacted by the nurses that there was a small reddish area of skin involving the left lower quadrant abdominal wall that was tender to her. Unclear whether this was a recent site of base subcutaneous injection. Patient has had poor oral intake. Her overall health is been declining fairly significantly over the last few months. She was seen by vascular surgery because of the portal venous thrombosis. We were consulted because of the new findings of portal venous air. Her lactic acid is normal. She has had a fever last night of 11.2. Her white blood cell count is normal. Review of Systems Unable to obtain review of systems because of the patient's inability to communicate well. Past Medical History Past Medical History: Cancer, GERD/Reflux, Hypertension, Seizure Disorder, Thyroid Disorder Additional Past Medical History / Comment(s): MS-, 2003 rt breast cancer had lumpectomy/radiation tx.sinus problems, diverticulosis, past colon polyps-benign History of Any Multi-Drug Resistant Organisms: None Reported Past Surgical History: Breast Surgery, Tubal Ligation Additional Past Surgical History / Comment(s): rt breast bx and lumpectomy/ radiaiton tx,colonoscopy/polyps removed Past Anesthesia/Blood Transfusion Reactions: No Reported Reaction Past Psychological History: No Psychological Hx Reported Additional Psychological History / Comment(s): is cared for in the family home by her and caregivers. No experience. Travel history. No animal exposures Smoking Status: Former smoker Past Alcohol Use History: None Reported Additional Past Alcohol Use History / Comment(s): per [facility]- pt smoked approx 20 years not sure when quit but smoked less than 1 ppd Past Drug Use History: None Reported - Past Family History Mother Family Medical History: CVA/TIA Father History Unknown: Yes Medications and Allergies Home Medications Medication Instructions Recorded Confirmed Type Amantadine HCl [Symmetrel] 100 mg PO BID@0900,2100 12/17/13 02/13/18 History Aspirin 81 mg PO DAILY 12/17/13 02/13/18 History levETIRAcetam [Keppra] 500 mg PO BID@0900,1200 12/17/13 02/13/18 History tiZANidine [Zanaflex] 4 mg PO QID@00,06,12,18 12/17/13 02/13/18 History Levothyroxine Sodium [Synthroid] 50 mcg PO HS 01/10/18 02/13/18 History Mirabegron [Myrbetriq] 25 mg PO DAILY 01/10/18 02/13/18 History Omeprazole 20 mg PO HS 01/10/18 02/13/18 History Acetaminophen Tab [Tylenol] 650 mg PO Q6HR PRN tab 01/27/18 02/13/18 Rx amLODIPine BESYLATE [Norvasc] 5 mg PO DAILY #30 tablet 01/27/18 02/13/18 Rx Docusate [Colace] 100 mg PO BID@0900,2100 02/05/18 02/13/18 History Potassium Chloride ER [K-Dur 20] 20 meq PO BID@0900,1800 02/05/18 02/13/18 History Carvedilol [Coreg] 6.25 mg PO BID@0900,2100 02/13/18 02/13/18 History Dextrose 5% Soln 1 dose IV DIRECTED 02/13/18 02/13/18 History Lactose-Reduced Food [Ensure Plus] 240 ml PO TID 02/13/18 02/13/18 History Triamcinolone 0.5% Cream [Kenalog 1 applic TOPICAL BID@0900,2100 02/13/18 History 0.5% Cream] Allergies Allergy/AdvReac Type Severity Reaction Status Date / Time nitrofurantoin AdvReac Nausea Verified 02/13/18 14:05 [From Macrobid] Surgical - Exam Vital Signs Temp Pulse Resp BP Pulse Ox 98.1 F 58 L 16 150/94 96 02/13/18 13:59 02/13/18 13:59 02/13/18 13:59 02/13/18 13:59 02/13/18 13:59 Physical exam: General: Well-developed, well-nourished HEENT: Normocephalic, sclerae nonicteric Abdomen: Nontender, nondistended, small area of erythema involving the left lower quadrant abdominal wall that is likely from her recent ejection Extremities: Contracted Neuro: Answering yes no questions Results - Labs 02/16/18 08:34 02/16/18 08:34 Abnormal Lab Results - Last 24 Hours (Table) 02/15/18 02/15/18 02/16/18 Range/Units 08:35 08:35 08:34 RBC 3.01 L 2.97 L (3.80-5.40) m/uL Hgb 9.0 L 9.0 L (11.4-16.0) gm/dL Hct 30.1 L 28.5 L (34.0-46.0) % MCV 100.2 H (80.0-100.0) fL MCHC 29.8 L (31.0-37.0) g/dL RDW 18.9 H 18.5 H (11.5-15.5) % Sodium 149 H (137-145) mmol/L Chloride 123 H (98-107) mmol/L Carbon Dioxide 19 L (22-30) mmol/L Creatinine 1.25 H (0.52-1.04) mg/dL Calcium (8.4-10.2) mg/dL AST 42 H (14-36) U/L Alkaline Phosphatase 206 H (38-126) U/L Total Protein 6.1 L (6.3-8.2) g/dL Albumin 2.2 L (3.5-5.0) g/dL 02/16/18 Range/Units 08:34 RBC (3.80-5.40) m/uL Hgb (11.4-16.0) gm/dL Hct (34.0-46.0) % MCV (80.0-100.0) fL MCHC (31.0-37.0) g/dL RDW (11.5-15.5) % Sodium 147 H (137-145) mmol/L Chloride 120 H (98-107) mmol/L Carbon Dioxide 21 L (22-30) mmol/L Creatinine 1.20 H (0.52-1.04) mg/dL Calcium 8.1 L (8.4-10.2) mg/dL AST 37 H (14-36) U/L Alkaline Phosphatase 208 H (38-126) U/L Total Protein 5.9 L (6.3-8.2) g/dL Albumin 2.1 L (3.5-5.0) g/dL Diabetes panel 02/15/18 02/16/18 Range/Units 08:35 08:34 Sodium 149 H 147 H (137-145) mmol/L Potassium 3.6 3.6 (3.5-5.1) mmol/L Chloride 123 H 120 H (98-107) mmol/L Carbon Dioxide 19 L 21 L (22-30) mmol/L BUN 12 11 (7-17) mg/dL Creatinine 1.25 H 1.20 H (0.52-1.04) mg/dL Glucose 97 81 (74-99) mg/dL Calcium 8.4 8.1 L (8.4-10.2) mg/dL AST 42 H 37 H (14-36) U/L ALT 26 27 (9-52) U/L Alkaline Phosphatase 206 H 208 H (38-126) U/L Total Protein 6.1 L 5.9 L (6.3-8.2) g/dL Albumin 2.2 L 2.1 L (3.5-5.0) g/dL Calcium panel 02/15/18 02/16/18 Range/Units 08:35 08:34 Calcium 8.4 8.1 L (8.4-10.2) mg/dL Albumin 2.2 L 2.1 L (3.5-5.0) g/dL Pituitary panel 02/15/18 02/16/18 Range/Units 08:35 08:34 Sodium 149 H 147 H (137-145) mmol/L Potassium 3.6 3.6 (3.5-5.1) mmol/L Chloride 123 H 120 H (98-107) mmol/L Carbon Dioxide 19 L 21 L (22-30) mmol/L BUN 12 11 (7-17) mg/dL Creatinine 1.25 H 1.20 H (0.52-1.04) mg/dL Glucose 97 81 (74-99) mg/dL Calcium 8.4 8.1 L (8.4-10.2) mg/dL Adrenal panel 02/15/18 02/16/18 Range/Units 08:35 08:34 Sodium 149 H 147 H (137-145) mmol/L Potassium 3.6 3.6 (3.5-5.1) mmol/L Chloride 123 H 120 H (98-107) mmol/L Carbon Dioxide 19 L 21 L (22-30) mmol/L BUN 12 11 (7-17) mg/dL Creatinine 1.25 H 1.20 H (0.52-1.04) mg/dL Glucose 97 81 (74-99) mg/dL Calcium 8.4 8.1 L (8.4-10.2) mg/dL Total Bilirubin 0.5 0.5 (0.2-1.3) mg/dL AST 42 H 37 H (14-36) U/L ALT 26 27 (9-52) U/L Alkaline Phosphatase 206 H 208 H (38-126) U/L Total Protein 6.1 L 5.9 L (6.3-8.2) g/dL Albumin 2.2 L 2.1 L (3.5-5.0) g/dL Assessment and Plan (1) Portal vein thrombosis Narrative/Plan: Patient with overall decline in her health recently. Recent findings of portal venous air. This finding is nonspecific but can be associated with ischemic bowel. Clinically the patient does not appear to be suffering from ischemic bowel nor would she tolerate a general anesthesia for laparotomy or diagnostic laparoscopy. Continue IV antibiotics. Consider infectious disease consultation. It appears the patient is artery being transferred to a tertiary care center which is not unreasonable given the patient's multiple medical issues and the portal venous thrombosis recently identified. Current Visit: Yes Status: Acute Code(s): I81 - PORTAL VEIN THROMBOSIS SNOMED Code(s): 12528698
[2018-02-16 10:31] VITALS: BP 144/83; PULSE 67; RESP 16; TEMP 98.8
--- NOTE | 2018-02-16 11:48 | P.DS ---
Providers Date of admission: 02/13/18 17:07 Expected date of discharge: 02/16/18 Attending physician: Jaylon Mitchell MD Consults: 02/14/18 18:09 Consult Physician Urgent Consulting Provider: Remy Le Consult Reason/Comments: portal vein thrombosis Do you want consulting provider notified?: Yes 02/15/18 17:08 Consult Physician Urgent Consulting Provider: Sameer Stokes Consult Reason/Comments: possible bowel ischemia / abnormal ct abdomen result Do you want consulting provider notified?: Yes 02/15/18 23:31 Consult Physician Routine Consulting Provider: Dana Ayoub Consult Reason/Comments: Possible infection Do you want consulting provider notified?: Yes, Notify in am Primary care physician: Zaida Guo [facility] Course: This is a 62-year-old female patient of Dr. Guo at [facility] with past history of multiple sclerosis, hypertension, gastroesophageal reflux disease, history of breast cancer status post lumpectomy and radiation, hypothyroidism. Patient had a recent hospitalization the beginning of January which time she was treated for acute cholecystitis status post laparoscopic cholecystectomy and UTI with E. coli bacteremia, acute kidney injury. She was discharged to [facility] on Rocephin and oral Diflucan for 2 weeks. states that she has been receiving IV fluids at the long term until her midline recently came out. He states that she has been too weak to eat and she is not gotten any better at the long term. Prior to the recent hospitalization, patient was wheelchair-bound was able to pivot with her 's help. Patient does not have use of the right arm and both legs. He's concerned that she has a sensation of falling while she is laying in bed. She has had some trouble swallowing and on last admission she was followed by speech therapy. Patient was transferred to [facility] emergency center by EMS. senior care noted that she was dehydrated from her recent blood work and her sodium was high at 156 and patient was sent for further evaluation. Patient denies having any chest pain or shortness of breath she denies any abdominal pain, no nausea, vomiting or diarrhea. No fever or chills. White count was normal, hemoglobin 9.0, platelet count 148, sodium 156 and chloride 130, creatinine 1.3, alkaline phosphatase 215. Troponin 0.026. Stool for occult blood was negative. EKG was a normal sinus rhythm with no acute ST changes. Patient was started on IV fluids of D5W and [facility] Repeat lab work reveals hemoglobin of 8.4, platelet count 145, sodium 153 and chloride 126. Creatinine 1.18. Patient is unable to verbalize or give history. History is obtained from the patient's family members at the bedside. 02/15: Abdominal ultrasound was done yesterday that showed suboptimal study, cannot exclude new portal vein thrombus with absent color flow. Advise contrast enhanced CT. A d-dimer was elevated at 2.84 and CTA of the abdomen will be ordered. Consult with Dr. Le's in place. Patient is awake and alert. She states she slept okay last night. She is denying nausea or vomiting. 02/16: Patient was started on Lovenox yesterday and a CAT angiogram of the abdomen was done that revealed no abnormality of the abdominal aorta. Large amount of portal venous gas. This is a nonspecific finding however may relate to ischemic bowel. The Dr. Le has evaluated the patient and recommended transfer to tertiary care for possible thrombectomy or TPA. This was discussed with the patient's last evening and he wanted to think about it overnight. Long discussion with the patient's and her sister, Mamta, and it was decided the patient will be transferred to [facility] for further evaluation and care. Patient will be transferred once all arrangements are completed. Discharge diagnoses: 1. Dehydration with hypernatremia. 2. Hypertension. 3. Hypothyroidism. 4. History of MS with most likely decline in her overall condition secondary to MS. 5. Recent laparoscopic cholecystectomy, stable. 6. Recent treatment for E. coli UTI and bacteremia, stable. 7. Severe protein calorie malnutrition. 8. Possible portal vein thrombus. Discharge plan: Return to [facility] under the care of Dr. Guo Impression and plan of care have been directed as dictated by the signing physician. Sunitha Guzman nurse practitioner acting as scribe for signing physician. Patient Condition at Discharge: Stable Plan - Discharge Summary New Discharge Prescriptions: No Action Aspirin 81 mg PO DAILY tiZANidine [Zanaflex] 4 mg PO QID@00,06,12,18 levETIRAcetam [Keppra] 500 mg PO BID@0900,1200 Amantadine HCl [Symmetrel] 100 mg PO BID@0900,2100 Levothyroxine Sodium [Synthroid] 50 mcg PO HS Mirabegron [Myrbetriq] 25 mg PO DAILY Omeprazole 20 mg PO HS Acetaminophen Tab [Tylenol] 650 mg PO Q6HR PRN tab PRN Reason: Mild Pain Or Fever > 100.5 amLODIPine BESYLATE [Norvasc] 5 mg PO DAILY #30 tablet Potassium Chloride ER [K-Dur 20] 20 meq PO BID@0900,1800 Docusate [Colace] 100 mg PO BID@0900,2100 Carvedilol [Coreg] 6.25 mg PO BID@0900,2100 Dextrose 5% Soln 1 dose IV DIRECTED Lactose-Reduced Food [Ensure Plus] 240 ml PO TID Triamcinolone 0.5% Cream [Kenalog 0.5% Cream] 1 applic TOPICAL BID@0900,2099 Discharge Medication List Amantadine HCl [Symmetrel] 100 mg PO BID@0900,2100 12/17/13 [History] Aspirin 81 mg PO DAILY 12/17/13 [History] levETIRAcetam [Keppra] 500 mg PO BID@0900,1200 12/17/13 [History] tiZANidine [Zanaflex] 4 mg PO QID@00,06,12,18 12/17/13 [History] Levothyroxine Sodium [Synthroid] 50 mcg PO HS 01/10/18 [History] Mirabegron [Myrbetriq] 25 mg PO DAILY 01/10/18 [History] Omeprazole 20 mg PO HS 01/10/18 [History] Acetaminophen Tab [Tylenol] 650 mg PO Q6HR PRN tab 01/27/18 [Rx] amLODIPine BESYLATE [Norvasc] 5 mg PO DAILY #30 tablet 01/27/18 [Rx] Docusate [Colace] 100 mg PO BID@0900,2100 02/05/18 [History] Potassium Chloride ER [K-Dur 20] 20 meq PO BID@0900,1800 02/05/18 [History] Carvedilol [Coreg] 6.25 mg PO BID@0900,2100 02/13/18 [History] Dextrose 5% Soln 1 dose IV DIRECTED 02/13/18 [History] Lactose-Reduced Food [Ensure Plus] 240 ml PO TID 02/13/18 [History] Triamcinolone 0.5% Cream [Kenalog 0.5% Cream] 1 applic TOPICAL BID@0900,2100 [History] Follow up Appointment(s)/Referral(s): Zaida Guo MD [Primary Care Provider] - 1-2 days Discharge Disposition: OTHER INSTITUTION NOT DEFINED
== END 2018-02-16 10:55 | disposition short-term general hospital (02) | DRG 640 ==
LOC: EC 13:42 → 4MS4W 17:07
PROVIDERS: ADMIT Internal Medicine; ATTEND Internal Medicine
DX: E87.0 Hyperosmolality and hypernatremia (principal); E43 Unspecified severe protein-calorie malnutrition; I81 Portal vein thrombosis; K55.9 Vascular disorder of intestine, unspecified; E03.9 Hypothyroidism, unspecified; E86.0 Dehydration; G35 Multiple sclerosis; G40.909 Epilepsy, unspecified, not intractable, without status epilepticus; I10 Essential (primary) hypertension; K21.9 Gastro-esophageal reflux disease without esophagitis; K57.90 Diverticulosis of intestine, part unspecified, without perforation or abscess without bleeding; R13.10 Dysphagia, unspecified; Z79.82 Long term (current) use of aspirin; Z79.899 Other long term (current) drug therapy; Z88.1 Allergy status to other antibiotic agents; Z99.3 Dependence on wheelchair; Z92.3 Personal history of irradiation; Z90.49 Acquired absence of other specified parts of digestive tract; Z87.891 Personal history of nicotine dependence; Z86.010 Personal history of colon polyps; Z85.3 Personal history of malignant neoplasm of breast; Z87.440 Personal history of urinary (tract) infections; Z98.51 Tubal ligation status; Z82.3 Family history of stroke
CPT/HCPCS: 36415; 74175; 76705; 80053; 81001; 82550; 82553; 83605; 83930; 83935; 84300; 84484; 85025; 85027; 85379; 87040; 93005; 96360; 96361; 99285